=== PATIENT | male | born 1950 | race Caucasian/White ===

== ENCOUNTER → 2016-12-16 | Day surgery (SDC) | payer OTHER ==
[2016-12-06 14:45] VITALS: Ht 172.7 cm; Wt 90.9 kg
[~2016-12-16] VITALS: Ht 172.7 cm; Wt 90.9 kg
[~2016-12-16] MED LIST: AMLO-114 PO; ASPI325T39 PO; ATOR-26 PO; CARI350T27 PO; CLOP1TAB15 PO; CRG3125 PO; GABA-113 PO; GLIP-199 PO; HYDR25TA4 PO; LABETALOL HCL IV 5 MG/ML 20ML IV ONE; LIDOCAINE HCL 2% 2 ML VIAL (20MG/ML) ONE; METF1000 PO; MIDAZOLAM HCL 1 MG/ML 2ML VIAL ONE; NITR0.4S UT; OMEG10007 PO; OXYC-57 PO; PROPOFOL IV EMULSION 10 MG/ML 20 ML VIAL IV ONE; SODIUM CHLORIDE 0.9% 500ML 500 ML IV ONE; VNTHFA/IN INH
--- NOTE | 2016-12-16 08:46 | Endo History and Physical ---
History & Physical Date of Service: Dec 16, 2016. Chief Complaint: screening Referring Physician: Dr. Chad Jara History of Present Illness Average risk screening colonoscopy Past Surgical History Hx Cardiac Surgery: Yes (HEART CATH, NO STENTS) Hx Internal Defibrillator: No Hx Pacemaker: No Hx Abdominal Surgery: No Hx of Implantable Prosthesis: No Hx Post-Op Nausea and Vomiting: No Hx Cancer Surgery: No Hx Thoracic Surgery: No Hx Orthopedic: Yes (3-4 CERVICAL SURGERIES (FULL ROM)) Hx Urinary Tract Surgery: No Family History Colon CA Social History Smoking Status: Former Smoker Hx Substance Use: No Hx Alcohol Use: Yes (HX) Allergies Coded Allergies: No Known Allergies (Verified , 12/06/16) Current Medications Reported Home Medications Medications Dose Route/Sig Max Daily Dose Days Date Category Dose Instructions [place]-3 (Fish Oil) 1 Ea Cap 1 Cap PO QAM 12/06/16 Reported Carvedilol 3.125 Mg Tab 1 Tab PO BID 12/06/16 Reported Plavix (Clopidogrel Bisulfate) 75 Mg Tab 75 Mg PO QAM 12/06/16 Reported Percocet 5MG/325MG (Oxycodone/Acetaminophen) Tab 1 Tablet PO Q6H PRN 12/06/16 Reported PAIN Aspirin Ec (Aspirin) 325 Mg Tab 325 Mg PO QAM 12/06/16 Reported Hctz (Hydrochlorothiazide) 25 Mg Tab 25 Mg PO QAM 12/06/16 Reported Glipizide Er (Glipizide) 10 Mg Tab 1 Tab PO BID 12/06/16 Reported Soma (Carisoprodol) 350 Mg Tab 350 Mg PO TID 12/06/16 Reported Neurontin (Gabapentin) 300 Mg Cap 300 Mg PO TID 12/06/16 Reported Lipitor (Atorvastatin Calcium) 80 Mg Tab 80 Mg PO QAM 12/06/16 Reported Norvasc (Amlodipine Besylate) 10 Mg Tab 10 Mg PO QAM 12/06/16 Reported Ventolin Hfa (Albuterol) 200 Puffs/93895 Mcg Aers 2 Puffs INH Q4 PRN 12/13/12 Reported Glucophage (Metformin Hcl) 1,000 Mg Tab 1,000 Mg PO BID 12/13/12 Reported Nitrostat (Nitroglycerin) 0.4 Mg Sub 0.4 Mg UT PRN 12/13/12 Reported Vital Signs Weight (Kilograms): 90.91 Height (Feet): 5 Height (Inches): 8 Date Time Temp Pulse Resp B/P (MAP) Pulse Ox O2 Delivery O2 Flow Rate FiO2 12/16/16 08:15 36.5 85 18 191/91 (124) 95 Room Air Physical Exam General Appearance: WD/WN, no apparent distress Respiratory/Chest: Auscultation: breath sounds normal, no wheezing Cardiovascular: Heart Auscultation: RRR, no murmurs Abdomen: Inspection & Palpation: soft, no tenderness, guarding & rebound Assessment and Plan cleared for colonoscopy.
--- NOTE | 2016-12-16 09:18 | GI REPORT ---
Procedure Date: 12/16/2016 8:46 AM Procedure: Colonoscopy Indications: Screening for colorectal malignant neoplasm Medicines: Propofol per Anesthesia Complications: No immediate complications. Estimated blood loss: None. Estimated Blood Loss: Estimated blood loss: none. Procedure: Pre-Anesthesia Assessment: - Prior to the procedure, a History and Physical was performed, and patient medications, allergies and sensitivities were reviewed. The patient's tolerance of previous anesthesia was reviewed. - ASA Grade Assessment: III - A patient with severe systemic disease. After I obtained informed consent, the scope was passed under direct vision. Throughout the procedure, the patient's blood pressure, pulse, and oxygen saturations were monitored continuously. The Scope was introduced through the anus and advanced to the terminal ileum, with identification of the appendiceal orifice and IC valve. The colonoscopy was performed without difficulty. The patient tolerated the procedure well. The quality of the bowel preparation was fair. The bowel preparation used was split dose MIralax. Findings: Multiple diverticula were found in the sigmoid colon. Impression: - Diverticulosis in the sigmoid colon. - No specimens collected. - Otherwise normal to terminal ileum. Recommendation: - Repeat colonoscopy in 5 years because the bowel preparation was suboptimal. - Discharge patient to home (with escort). Gregor Mercedes M.D. Gregor Mercedes MD 12/16/2016 9:17:19 AM This report has been signed electronically. Note Initiated On: 12/16/2016 8:46 AM I attest to the content of the Intraoperative Record and orders documented therein, exceptions below
--- NOTE | 2016-12-16 09:25 | Discharge Instructions ---
Endoscopy Patient Instructions Date / Procedure(s) Performed Dec 16, 2016. Colonoscopy Allergy Information Coded Allergies: No Known Allergies (Verified , 12/06/16) Discharge Date / Findings Dec 16, 2016. Diverticulosis. Medication Instructions Stopped Medication(s): last dose Plavix 12/09,took Metformin yesterday,ASA today at 0500 Restart Stopped Medication(s): Resume all medications today. Provider Instructions Activity Restrictions - No exercising or heavy lifting for 24 hours. - Do not drink alcohol the day of the procedure. - Do not drive a car or operate machinery until the day after the procedure. - Do not make any important decisions or sign important papers in 24 hours after the procedure. Following Day: - Return to full activity which may include returning to work/school. Diet Start your diet with liquids and light foods (jello, soup, juice, toast). Then eat your usual diet if not nauseated. Treatment For Common After Affects For mild abdominal pain, bloating, or excessive gas: - Rest - Eat lightly - Lie on right side Follow-Up Information Follow-up with Dr. Chad Jara as scheduled Anesthesia Information What You Should Know You have had a procedure that required some medicine to reduce anxiety and discomfort. This treatment is called moderate sedation. After receiving the treatment, you may be sleepy, but you will be able to breathe on your own. The effects of the treatment may last for several hours. Follow these instructions along with Activity/Diet recommendations noted above: * Do NOT do anything where dizziness or clumsiness would be dangerous. * Rest quietly at home today, then you can be up and about tomorrow. * Have a responsible person stay with you the rest of today. * You may have had an I.V. today. If so, you may take the dressing off later today. Recommendations Call your doctor if: * Trouble breathing * Continuous vomiting for more than 24 hours * Temperature above 101 degrees * Severe abdominal pain or bloating * Pain not relieved by pain medicine ordered * There is increased drainage or redness from any incision * A large amount of rectal bleeding greater than 2-3 tablespoons. (If you had a polyp/s removed or have hemorrhoids, a small amount of blood - from the rectum is to be expected.) * You have any unanswered questions or concerns. IN THE EVENT OF A SERIOUS EMERGENCY, GO TO THE NEAREST EMERGENCY ROOM Your discharge instructions were prepared by provider Gregor Mercedes. Patient Instructions Signature Page Israel Boss Patient (or Guardian) Signature/Date: I have read and understand the instructions given to me by my caregivers. Caregiver/RN/Doctor Signature/Date: The above-named patient and/or guardian has received patient instructions on this date. + Original Patient Signature Page (only) stays with chart. Please make copy for patient.
--- NOTE | 2016-12-16 09:26 | Anesthesiology Progress Note ---
Anesthesia Post Op Note Date & Time Dec 16, 2016 at 09:26 Vital Signs Pain Intensity: 0 Vital Signs Past 12 Hours Date Time Temp Pulse Resp B/P (MAP) Pulse Ox O2 Delivery O2 Flow Rate FiO2 12/16/16 09:17 87 12 108/56 (73) 96 Room Air 12/16/16 09:14 87 12 108/56 (73) 96 Room Air 12/16/16 08:15 36.5 85 18 191/91 (124) 95 Room Air Notes Mental Status: alert / awake / arousable, participated in evaluation Pt Amnestic to Procedure: Yes Nausea / Vomiting: adequately controlled Pain: adequately controlled Airway Patency, RR, SpO2: stable & adequate BP & HR: stable & adequate Hydration State: stable & adequate Anesthetic Complications: no major complications apparent
[2016-12-16 09:42] VITALS: BP 175/84; PULSE 67; O2SAT 97
== END | disposition home or self-care (01) ==
LOC: C.GI 07:36
PROVIDERS: ATTEND Internal Medicine Gastroenterology
DX: Z12.11 Encounter for screening for malignant neoplasm of colon (principal); K57.30 Diverticulosis of large intestine without perforation or abscess without bleeding; Z80.0 Family history of malignant neoplasm of digestive organs; Z87.891 Personal history of nicotine dependence; Z79.02 Long term (current) use of antithrombotics/antiplatelets; Z79.82 Long term (current) use of aspirin; Z79.84 Long term (current) use of oral hypoglycemic drugs; Z79.899 Other long term (current) drug therapy

== ENCOUNTER 2018-09-06 16:26 | Inpatient (IN) ==
--- OUTSIDE RECORDS SUMMARY | 2018-09-06 16:30 | External Medical Summary | Continuity of Care Document ---
:1950 Author Name Gabriela Cheung Address Unavailable Unavailable , Care Team Providers Name Role Phone Gwendolyn Cheung Unavailable [email or web address]. Unavailable [email or web address] Grecia CEDILLO Unavailable Unavailable Unavailable Unavailable Unavailable Problems Chronic obstructive pulmonary disease (496) (J44.9) Backache (724.5) (M54.9) Coronary artery disease (414.00) (I25.10) Allergies and Adverse Reactions No Known Drug Allergies (Allergy) Medications Albuterol AERS Refills: 0 Atenolol 50 MG Oral Tablet; TAKE 1 TABLET DAILY. Refills: 0 Soma 350 MG Oral Tablet; TAKE 1 TABLET 4 TIMES DAILY. Refills: 0 NexIUM 40 MG Oral Capsule Delayed Release; TAKE 1 CAPSULE TW ICE DAILY. Refills: 0 Fish Oil 1000 MG Oral Capsule; TAKE 1 CAPSULE DAILY. Refills: 0 Advair Diskus 250-50 MCG/DOSE Inhalation Aerosol Powder Breath Activated; INHALE 1 PUFFS Twice daily Refills: 0 glyBURIDE 2.5 MG Oral Tablet; TAKE 1 TABLET TWICE DAILY WITH MEALS. Refills: 0 Vicodin ES 7.5-750 MG TABS; TAKE 1 TABLET 4 TIMES DAILY N EEDED. Refills: 0 Combivent 18-103 MCG/ACT AERO; INHALE 2 PUFFS 3-4 TIMES DAILY. RINSE MOUTH AFTER USE. Refills: 0 Naproxen 500 MG Oral Tablet; TAKE 1 TABLET TWICE DAILY. Refills: 0 Nitroglycerin 0.4 MG Sublingual Tablet S ublingual; DISSOLVE 1 TABLET UNDER THE TONGUE NEEDED FOR CHEST PAIN. Refills: 0 Nitroglycerin 0.2 MG/HR Transdermal Patch 24 Hour Refills: 0 Aspirin 81 81 MG Oral Tablet Delayed Release; TAKE 1 T ABLET DAILY. Jonatan Estrada Start: 05-Aug-2010 Refills: 0 Plavix 75 MG Oral Tablet; TAKE 1 TABLET DAILY. Refills: 0 Procedures Procedures not documented Immunizations Immunizations not documented Social History - Smoking Status Smoker. current status unknown Plan of Treatment Planned Observations Planned Goals not documented Results No Known Results Results not documented
[2018-09-06] MEDS ORDERED: SODIUM CHLORIDE 0.9% 1000ML 1,000 ML IV SCH (16:45)
--- NOTE | 2018-09-06 16:56 | XRay Report ---
XR chest 1V portable HISTORY: 67 years-old Male Chest Pain atypical chest pain COMPARISON: Chest radiograph and CTA chest 12/13/2012 TECHNIQUE: Portable AP view of the chest FINDINGS: Cardiac silhouette is mildly enlarged, unchanged. Calcification of the thoracic aortic arch. Scattere d calcified granulomata redemonstrated. No pneumothorax, pleural effusion, focal airspace consolidati on or overt pulmonary edema. Fusion hardware of the lower cervical spine. Degenerative changes of the shoulders and spine are noted. IMPRESSION: Cardiomegaly without acute process. The above report was generated using voice recognition software. It may contain grammatical, syntax o r spelling errors. Electronically signed by: Timothy Monteiro M.D. 09/06/2018 4:54 PM
[2018-09-06 17:21] LABS: Partial Thromboplastin Ratio 0.9; Partial Thromboplastin Time 24.4 Seconds (21.0-31.0); Prothrombin Time 10.7 Seconds (9.0-12.0)
[2018-09-06 17:27] LABS: Alanine Aminotransferase 14 U/L (12-78); Aspartate Aminotransferase 13 U/L (15-37); BUN Creatinine Ratio 17.2 (10-20); Bilirubin Direct < 0.1 mg/dl (0-0.2); Blood Urea Nitrogen 27 mg/dl (7-18); Calcium 9.2 mg/dl (8.5-10.1); Carbon Dioxide 28 mmol/L (21-32); Chloride 97 mmol/L (98-107); Creatinine Clr Calc Pharmacy 45.3 ml/min; Est GFR (African American) 52.1; Est GFR (Non-African American) 44.9; Glucose 112 mg/dl (70-99); Potassium 3.6 mmol/L (3.5-5.1); Sodium 134 mmol/L (136-145)
[2018-09-06 17:32] LABS: Alkaline Phosphatase 70 U/L (45-117); Bilirubin,Total 0.3 mg/dl (0.2-1); Total Protein 7.8 gm/dl (6.4-8.2); Troponin I 0.029 ng/ml (0-0.045)
[2018-09-06 17:41] LABS: Hematocrit (blood only) 22.8 % (42-52); Hemoglobin 6.6 g/dL (14.0-18.0); Mean Corpuscular Hgb Conc 28.9 g/dL (32-36); Mean Platelet Volume 8.7 fL (7.4-10.4); Platelet Count 428 K/uL (130-400); RDW Standard Deviation 46.7 fL (36.4-46.3); Red Blood Count 3.21 M/uL (4.7-6.1); White Blood Count 8.69 K/uL (4.8-10.8)
[2018-09-06 17:54] LABS: Anisocytosis Present; Basophils # (auto) 0.02 K/uL (0-0.2); Basophils % (auto) 0.2 %; Eosinophils # (auto) 0.45 K/uL (0-0.5); Eosinophils % (auto) 5.2 %; Giant Platelets 1+; Hypochromasia Present; Immature Granulocytes # (auto) 0.03 K/uL (0.00-0.02); Immature Granulocytes % (auto) 0.3 %; Lymphocytes # (auto) 1.26 K/uL (1.2-3.4); Lymphocytes % (auto) 14.5 %; Monocytes # (auto) 1.63 K/uL (0.11-0.59); Monocytes % (auto) 18.8 %; Spherocytes Occasional; Target Cells 1+
[2018-09-06] MEDS ORDERED: SODIUM CHLORIDE 0.9% 250 ML IV PRN ×2 (17:59→21:17)
--- NOTE | 2018-09-06 19:29 | Emergency Department Note ---
Entered by Nestor Garza acting as a scribe for Nicolas Jaimes History of Present Illness General Chief complaint: Abnormal Labs/Diagnostic Testing Stated complaint: BLOOD TRANSFUSION Time Seen by Provider: 09/06/18 16:32 Source: patient Mode of arrival: ambulatory History of Present Illness Provider complaint: Abnormal Labs/Diagnostic Testing Onset (ago): hour(s) 3 Location: head Pain Consistency: + constant Maximum Pain Intensity: 7 Current Pain Intensity: 7 Associated symptoms: + chest pain and + other (lower back pain ) Patient is a 67 year old male who presents himself to the ER with chief complaint of abnormal labs and a low hemoglobin. Patient was at the [facility] where his hemoglobin counts came back "quite low". Patient reports he has been having black tarry stool and that he is on the blood thinner Plavix. He states he is having accompanied symptoms of chest pain and lower back pain. He rates his constant pain at a value of 7 on the pain intensity scale. Patient denies nausea and vomiting. Home Medications Home Medications Medication Instructions Recorded Confirmed Type albuterol sulfate 2 puff INHALATION Q4H PRN 09/06/18 09/06/18 History amlodipine 10 mg PO DAILY 09/06/18 09/06/18 History aspirin [Aspirin Low Dose] 81 mg PO DAILY 09/06/18 09/06/18 History atorvastatin 80 mg PO DAILY 09/06/18 09/06/18 History carisoprodol 350 mg PO TID PRN 09/06/18 09/06/18 History carvedilol 3.125 mg PO BID 09/06/18 09/06/18 History chlorthalidone 50 mg PO DAILY 09/06/18 09/06/18 History clopidogrel 75 mg PO DAILY 09/06/18 09/06/18 History fentanyl 1 patch TOPICAL DIRECTED 09/06/18 09/06/18 History ferrous sulfate 325 mg PO BID 09/06/18 09/06/18 History fluticasone propion-salmeterol 1 puff INHALATION BID 09/06/18 09/06/18 History [Advair Diskus] gabapentin 300 mg PO TID 09/06/18 09/06/18 History lisinopril 40 mg PO DAILY 09/06/18 09/06/18 History meclizine 12.5 mg PO TID PRN 09/06/18 09/06/18 History metformin 1,000 mg PO BID 09/06/18 09/06/18 History nitroglycerin 1 tab SUBLINGUAL DIRECTED 09/06/18 09/06/18 History omega 5-tfv-xzq-fish oil [Fish Oil] 1 cap PO DAILY 09/06/18 09/06/18 History oxycodone-acetaminophen 1 tab PO Q4H PRN 09/06/18 09/06/18 History Allergies Allergy/AdvReac Type Severity Reaction Status Date / Time No Known Allergies Allergy Unknown Verified 09/06/18 16:58 Past Med/Surg History Medical History No pertinent past medical history Social History Preferred Language: Swedish Feels Safe at Home: Yes Smoking Status: Former smoker Review of Systems See HPI for pertinent positives & negatives. and A total of 10 systems reviewed and were otherwise negative Physical Exam Vital Signs Vital Signs - 24 hr 09/06/18 16:29 09/06/18 18:11 09/06/18 18:49 Temperature 36.3 C L 36.6 C Temperature Source Oral Oral Sepsis Recent Fever Within 48 Hours No Sepsis Action Taken by Nursing No Action Required Pulse Rate 84 74 Pulse Rate [Apical] 71 Respiratory Rate 18 16 22 Respiratory Effort / Characteristics Non-Labored Spontaneous Respiratory Depth Normal Respiratory Pattern Regular Blood Pressure 167/60 H 194/104 H Blood Pressure [Left Arm] 170/69 H Blood Pressure Mean 95 134 Blood Pressure Mean [Left Arm] 102 Blood Pressure Position Sitting Lying Blood Pressure Position [Left Arm] Lying Pulse Oximetry 98 94 94 Oxygen Delivery Method Room Air Room Air 09/06/18 19:08 09/06/18 19:11 09/06/18 19:23 Temperature 36.6 C 36.7 C Temperature Source Oral Oral Sepsis Recent Fever Within 48 Hours Sepsis Action Taken by Nursing Pulse Rate 72 76 Pulse Rate [Apical] 73 Respiratory Rate 19 19 18 Respiratory Effort / Characteristics Respiratory Depth Respiratory Pattern Blood Pressure 183/89 H 153/74 H Blood Pressure [Left Arm] 183/89 H Blood Pressure Mean 120 100 Blood Pressure Mean [Left Arm] 120 Blood Pressure Position Lying Blood Pressure Position [Left Arm] Pulse Oximetry 92 92 93 Oxygen Delivery Method Room Air Physical Exam GENERAL: He is oriented to person, place, and time. He appears well-developed and well-nourished. He does not appear distressed. ____ HENT: Exam performed. - Head: Normocephalic and atraumatic. - Right Ear: External ear normal. No mastoid tenderness. - Left Ear: External ear normal. No mastoid tenderness. - Mouth/Throat: The oropharynx is clear and moist. No trismus in the jaw. No dental abscesses or uvula swelling. No oropharyngeal exudate or tonsillar abscesses. ____ EYES: Conjunctivae and EOM are normal. Pupils are equal, round, and reactive to light. Right eye exhibits no discharge. Left eye exhibits no discharge. No scleral icterus. ____ NECK: Normal range of motion. Neck supple. No JVD present. No spinous process tenderness present. No carotid bruit present. No rigidity. No tracheal deviation and normal range of motion present. No Brudzinski's sign and no Kernig's sign noted. ____ CV: Normal rate, regular rhythm, normal heart sounds and intact distal pulses. There is no peripheral edema. Palpable radial pulses bue. ____ PULM/CHEST: Effort normal and breath sounds normal. No respiratory distress. No stridor. He has no wheezes. He has no rales. - Chest Wall: He exhibits no tenderness. ____ ABD: The abdomen is soft. Bowel sounds are normal. He has no distension. No mass is present. There is no tenderness. There is no rebound, no guarding, no Herring's sign and no tenderness at McBurney's point. Rovsig negative. No CVA tenderness. Rectal- Hemorrhoids present. dark tarry stool, heme + MUSC/SKEL: Normal range of motion. There is no peripheral edema, tenderness or deformity. LYMPH: No cervical adenopathy. ____ NEURO: He is alert and oriented to person, place, and time. He has normal strength. No cranial nerve deficit or sensory deficit. Coordination and gait normal. GCS eye subscore is 4. GCS verbal subscore is 5. GCS motor subscore is 6. cerbellar tests wnl. ____ SKIN: Skin is warm and dry. He is not diaphoretic. ____ PSYCH: He has a normal mood and affect. His behavior is normal. Judgment and thought content normal. ____ Course 1634: Past medical records reviewed. The patient was evaluated in room B12B. A complete history and physical examination was performed. 1650: I spoke with En[employer]crew/Aerial Observer/Gunner- Gloria who accessed the [employer] system. She reported to me that the patient had a hemoglobin value of 6.9 1829: Vital signs stable. Hemoglobin 6.6. Patient will be transfused 2 units packed red blood cells and be admitted to the hospital service. Patient will be admitted under the care of Dr. Escalante for further treatment. Patient has verbalized agreement of the treatment plan. Administered Medications Sodium Chloride (Nss 1000ml) 1,000 mls @ 125 mls/hr IV .Q8H FILEMON Stop: 09/07/18 00:44 Last Admin: 09/06/18 17: Dose: 125 mls/hr Documented by: [id number] Medical Decision Making Medical Records Attestation: I reviewed the patient's medical records. Home Medications Current Medication List: was personally reviewed by me Laboratory Data Attestation: I reviewed the patient's lab results. Result diagrams: 09/06/18 17:02 09/06/18 17:02 Lab Results 09/06/18 09/06/18 09/06/18 Range/Units 17:02 17:02 17:02 WBC 8.69 (4.8-10.8) K/uL RBC 3.21 L (4.7-6.1) M/uL Hgb 6.6 L* (14.0-18.0) g/dL Hct 22.8 L (42-52) % MCV 71.0 L (80-100) fL MCH 20.6 L (25-34) pg MCHC 28.9 L (32-36) g/dL RDW Std Deviation 46.7 H (36.4-46.3) fL RDW Coeff of David 18.0 H (11.5-14.5) % Plt Count 428 H (130-400) K/uL MPV 8.7 (7.4-10.4) fL Immature Gran % (Auto) 0.3 % Neut % (Auto) 61.0 % Lymph % (Auto) 14.5 % [place] % (Auto) 18.8 % Eos % (Auto) 5.2 % Baso % (Auto) 0.2 % Immature Gran # (Auto) 0.03 H (0.00-0.02) K/uL Neut # (Auto) 5.30 (1.4-6.5) K/uL Lymph # (Auto) 1.26 (1.2-3.4) K/uL [place] # (Auto) 1.63 H (0.11-0.59) K/uL Eos # (Auto) 0.45 (0-0.5) K/uL Baso # (Auto) 0.02 (0-0.2) K/uL Hypersegmented Neuts 1+ Giant Platelets 1+ Hypochromasia Present Anisocytosis Present Spherocytes Occasional Target Cells 1+ PT 10.7 (9.0-12.0) Seconds INR 1.0 (0.9-1.1) APTT 24.4 (21.0-31.0) Seconds PTT Ratio 0.9 Sodium (136-145) mmol/L Potassium (3.5-5.1) mmol/L Chloride (98-107) mmol/L Carbon Dioxide (21-32) mmol/L Anion Gap (3-11) BUN (7-18) mg/dl Creatinine (0.6-1.4) mg/dl Est Cr Clr Drug Dosing ml/min Est GFR ( Amer) Est GFR (Non-Af Amer) BUN/Creatinine Ratio (10-20) Glucose (70-99) mg/dl Calcium (8.5-10.1) mg/dl Total Bilirubin (0.2-1) mg/dl Direct Bilirubin (0-0.2) mg/dl AST (15-37) U/L ALT (12-78) U/L Alkaline Phosphatase (45-117) U/L Troponin I (0-0.045) ng/ml Total Protein (6.4-8.2) gm/dl Albumin (3.4-5.0) gm/dl Lipase (73-393) U/L Blood Type O Negative Antibody Screen NEGATIVE Crossmatch See Detail 09/06/18 Range/Units 17:02 WBC (4.8-10.8) K/uL RBC (4.7-6.1) M/uL Hgb (14.0-18.0) g/dL Hct (42-52) % MCV (80-100) fL MCH (25-34) pg MCHC (32-36) g/dL RDW Std Deviation (36.4-46.3) fL RDW Coeff of David (11.5-14.5) % Plt Count (130-400) K/uL MPV (7.4-10.4) fL Immature Gran % (Auto) % Neut % (Auto) % Lymph % (Auto) % [place] % (Auto) % Eos % (Auto) % Baso % (Auto) % Immature Gran # (Auto) (0.00-0.02) K/uL Neut # (Auto) (1.4-6.5) K/uL Lymph # (Auto) (1.2-3.4) K/uL [place] # (Auto) (0.11-0.59) K/uL Eos # (Auto) (0-0.5) K/uL Baso # (Auto) (0-0.2) K/uL Hypersegmented Neuts Giant Platelets Hypochromasia Anisocytosis Spherocytes Target Cells PT (9.0-12.0) Seconds INR (0.9-1.1) APTT (21.0-31.0) Seconds PTT Ratio Sodium 134 L (136-145) mmol/L Potassium 3.6 (3.5-5.1) mmol/L Chloride 97 L (98-107) mmol/L Carbon Dioxide 28 (21-32) mmol/L Anion Gap 8.0 (3-11) BUN 27 H (7-18) mg/dl Creatinine 1.58 H (0.6-1.4) mg/dl Est Cr Clr Drug Dosing 45.3 ml/min Est GFR ( Amer) 52.1 Est GFR (Non-Af Amer) 44.9 BUN/Creatinine Ratio 17.2 (10-20) Glucose 112 H (70-99) mg/dl Calcium 9.2 (8.5-10.1) mg/dl Total Bilirubin 0.3 (0.2-1) mg/dl Direct Bilirubin < 0.1 (0-0.2) mg/dl AST 13 L (15-37) U/L ALT 14 (12-78) U/L Alkaline Phosphatase 70 (45-117) U/L Troponin I 0.029 (0-0.045) ng/ml Total Protein 7.8 (6.4-8.2) gm/dl Albumin 3.0 L (3.4-5.0) gm/dl Lipase 138 (73-393) U/L Blood Type Antibody Screen Crossmatch Imaging Data Attestation: I personally reviewed and interpreted this imaging study as follows: Radiologist's Impression: Radiology results as stated below per my review and the radiologist's interpretation: XR chest 1V portable HISTORY: 67 years-old Male Chest Pain atypical chest pain COMPARISON: Chest radiograph and CTA chest 12/13/2012 TECHNIQUE: Portable AP view of the chest FINDINGS: Cardiac silhouette is mildly enlarged, unchanged. Calcification of the thoracic aortic arch. Scattered calcified granulomata redemonstrated. No pneumothorax, pleural effusion, focal airspace consolidation or overt pulmonary edema. Fusion hardware of the lower cervical spine. Degenerative changes of the shoulders and spine are noted. IMPRESSION: Cardiomegaly without acute process. The above report was generated using voice recognition software. It may contain grammatical, syntax or spelling errors. Electronically signed by: Timothy Monteiro M.D. 09/06/2018 4:54 PM Dictated: 09/06/[id number] Transcribed: 09/06/18 165 Blood Pressure Blood Pressure Findings: Elevated blood pressure MDM Narrative Vital signs stable. Hemoglobin 6.6. Patient will be transfused 2 units packed red blood cells and be admitted to the hospital service. Patient will be admitted under the care of Dr. Escalante for further treatment. Patient has verbalized agreement of the treatment plan. Impression & Plan GI bleed, Symptomatic anemia Critical Care Time I have personally spent 76 minutes of critical care time in the direct management of this patient. This includes bedside care, interpretation of diagnostic studies, and testing, discussion with consultants, patient, and family members, and other required patient management activities. This 76 minutes is in excess of all separately billable procedures. Critical Care Time: Yes Total Critical Care Time: 76 Discharge Plan Visit Data Chief Complaint: Abnormal Labs/Diagnostic Testing Stated Complaint: BLOOD TRANSFUSION ED Provider: Nicolas Jaimes Discharge Problem: GI bleed, Symptomatic anemia Patient Disposition: Being Evaluated by Hospitalist Forms Stand Alone Forms: My [facility] [employer] Prescriptions Prescriptions: No Action carisoprodol 350 mg Tablet 350 mg PO TID PRN (Reason: Spasms) RF: 0 atorvastatin 80 mg Tablet 80 mg PO DAILY RF: 0 clopidogrel 75 mg Tablet 75 mg PO DAILY RF: 0 aspirin [Aspirin Low Dose] 81 mg Tablet,Delayed Release (Dr/Ec) 81 mg PO DAILY RF: 0 carvedilol 3.125 mg Tablet 3.125 mg PO BID RF: 0 oxycodone-acetaminophen 5-325 mg tablet 1 tab PO Q4H PRN (Reason: Pain) RF: 0 amlodipine 10 mg Tablet 10 mg PO DAILY RF: 0 metformin 1,000 mg Tablet 1,000 mg PO BID RF: 0 nitroglycerin 0.4 mg Tablet, Sublingual 1 tab sublingual DIRECTED RF: 0 gabapentin 300 mg capsule 300 mg PO TID RF: 0 albuterol sulfate 90 mcg/actuation Hfa Aerosol Inhaler 2 puff INHALATION Q4H PRN (Reason: Wheezing) RF: 0 fentanyl 12 mcg/hr patch 72 hour 1 patch topical DIRECTED RF: 0 omega 2-hgf-knt-fish oil [Fish Oil] 1,000 mg (120 mg-180 mg) Capsule 1 cap PO DAILY RF: 0 fluticasone propion-salmeterol [Advair Diskus] 250-50 mcg/dose Blister With Device 1 puff inhalation BID RF: 0 meclizine 12.5 mg Tablet 12.5 mg PO TID PRN (Reason: Vertigo) RF: 0 chlorthalidone 50 mg Tablet 50 mg PO DAILY RF: 0 ferrous sulfate 325 mg (65 mg iron) Tablet 325 mg PO BID RF: 0 lisinopril 40 mg Tablet 40 mg PO DAILY RF: 0 Referrals Referrals: Chad Jara MD [Primary Care Provider] - Discharge Problem: GI bleed Qualifiers: GI bleed type/associated pathology: unspecified gastrointestinal hemorrhage type Qualified Code(s): K92.2 - Gastrointestinal hemorrhage, unspecified The scribe's documentation has been prepared under my direction and personally r eviewed by me in its entirety. I confirm that the note above accurately reflects all work, treatment, procedures, and medical decision making performed by me.
--- NOTE | 2018-09-06 20:23 | History & Physical Report ---
Date of Service September 06, 2018 Assessment & Plan (1) Symptomatic anemia: Microcytic Symptomatic anemia GI Bleed History of diverticulosis, hemorrhoids, CKD, iron deficiency anemia History of peptic ulcer disease as per patient Positive fecal occult Denies any bleeding issues Hemoglobin 6.9 Baseline hemoglobin variable S/P 2 units PRBCs Monitor H&H and transfuse PRBCs as needed Anemia work-up including peripheral smear ordered CT abdomen: pending Continue PPI IV 40 mg twice daily Gastroenterology consulted Ongoing chest pain Reports 2 months H/O intermittent chest pain History of coronary artery disease Bifascicular block--?? New Initial troponin negative Check ECHO Trend troponins Consider cardiology evaluation NTG as needed Repeat EKG in AM Aspirin, Plavix held secondary to above Continue statin Ongoing Dizziness Reports vertigo which worsens with head movement Denies hearing loss, tinnitus Meclizine as needed Check Carotid Dopplers COPD No signs of exacerbation Continue home inhalers Nebs as needed PAD: H/O Carotid Artery disease Aspirin, Plavix held Continue Statins CKD III: Creatinine at baseline Monitor renal function Avoid nephrotoxic agents as able DM II Hold PO agents Insulin sliding scale Last A1C: 7.7 Update A1c GERD Continue PPI Dyslipidemia Continue statins Chronic pain syndrome Continue home meds Hypertension Elevated--Likely situational Continue home meds DVT Px: SCDs Code Status Full Code Disposition: PT/OT prior to discharge History of Present Illness Chief Complaint: Abnormal Labs Primary Care Provider: Chad Jara MD Patient is a 67-year-old male with history of COPD, peripheral artery disease, CKD 3, DM II, GERD, dyslipidemia, chronic pain syndrome, coronary artery disease, former tobacco use, hypertension, carotid artery stenosis, Lumbago and other medical problems presents for evaluation of abnormal labs. Patient was noted to have low hemoglobin on outpatient labs by his PCP and was sent to ED for further evaluation. Patient is a very poor historian. He states having shortness of breath on exertion since last few months, gets tired easily with minimal exertion. Reports nausea but no vomiting. Also states having chronic generalized abdominal pain which has been unchanged which he attributes to having peptic ulcer disease. Reports chronic cough secondary to COPD which has been unchanged. He was recently started on meclizine by PCP for vertigo/BPPV. He denies any history of hearing loss, tinnitus. He takes aspirin and Plavix for coronary artery disease and peripheral artery disease. Is currently not on any blood thinners. Denies any use of NSAIDs. Last colonoscopy done many years ago suggestive of diverticulosis, hemorrhoids. He denies any bleeding issues, blood in stools, hematuria, epistaxis. He was tested positive for fecal occult while in ED. He was started on 2 units of packed red blood cells. His stated that he noticed having black tarry stools as per ER physician. He reports chronic on and off sharp chest pain and back pain which have been unchanged since many months. Currently while in ED, he denies any history of chest pain, SOB, palpitations. Also denies fever, chills, fall, headache, change in vision. Allergies Allergy/AdvReac Type Severity Reaction Status Date / Time No Known Allergies Allergy Unknown Verified 09/06/18 16:58 Home Medications Home Medications Medication Instructions Recorded Confirmed Type albuterol sulfate 2 puff INHALATION Q4H PRN 09/06/18 09/06/18 History amlodipine 10 mg PO DAILY 09/06/18 09/06/18 History aspirin [Aspirin Low Dose] 81 mg PO DAILY 09/06/18 09/06/18 History atorvastatin 80 mg PO DAILY 09/06/18 09/06/18 History carisoprodol 350 mg PO TID PRN 09/06/18 09/06/18 History carvedilol 3.125 mg PO BID 09/06/18 09/06/18 History chlorthalidone 50 mg PO DAILY 09/06/18 09/06/18 History clopidogrel 75 mg PO DAILY 09/06/18 09/06/18 History docusate sodium 100 mg PO BID 09/06/18 09/06/18 History fenofibrate nanocrystallized 145 mg PO DAILY 09/06/18 09/06/18 History [Tricor] fentanyl 1 patch TOPICAL DIRECTED 09/06/18 09/06/18 History ferrous sulfate 325 mg PO BID 09/06/18 09/06/18 History fluticasone propion-salmeterol 1 puff INHALATION BID 09/06/18 09/06/18 History [Advair Diskus] gabapentin 300 mg PO TID 09/06/18 09/06/18 History glipizide 10 mg PO BID 09/06/18 09/06/18 History ipratropium-albuterol [Combivent 1 puff INHALATION Q6H PRN 09/06/18 09/06/18 History Respimat] lisinopril 40 mg PO DAILY 09/06/18 09/06/18 History meclizine 12.5 mg PO TID PRN 09/06/18 09/06/18 History metformin 1,000 mg PO BID 09/06/18 09/06/18 History nitroglycerin 1 tab SUBLINGUAL DIRECTED 09/06/18 09/06/18 History omega 4-mka-ncw-fish oil [Fish Oil] 1 cap PO DAILY 09/06/18 09/06/18 History omeprazole 20 mg PO DAILY 09/06/18 09/06/18 History oxycodone-acetaminophen 1 tab PO Q4H PRN 09/06/18 09/06/18 History polyethylene glycol 3350 [Miralax] 17 g PO DAILY PRN 09/06/18 09/06/18 History Past Med/Surg History Medical History CAD (coronary artery disease) COPD (chronic obstructive pulmonary disease) DMII (diabetes mellitus, type 2) GERD (gastroesophageal reflux disease) HTN (hypertension) with goal to be determined No pertinent past medical history PAD (peripheral artery disease) Surgical History H/O vascular surgery Social History Preferred Language: Chilean Feels Safe at Home: Yes Smoking Status: Former smoker Hx Alcohol Use: Yes Review of Systems Review of Systems: All systems reviewed & are unremarkable except as noted in HPI & below Physical Exam Physical Exam: Physical Exam: Vitals signs as noted above General Appearance:Moderately built and nourished, no apparent distress Head: normocephalic, Atraumatic Eyes: normal inspection, EOMI, +Pallor Neck: supple, Trachea midline Respiratory/Chest: Normal breath sounds, CTA, No accessory muscle use Cardiovascular: S1, S2, + murmur Abdomen/GI:Soft, mild generalized tender--Predominantly RLQ , No guarding/rigidity, Bowel sounds present Extremities/Musculoskelatal:normal inspection, no edema Neurologic/Psych:AAOX3, grossly no focal neurological deficits Skin: normal color, warm Results & Data Vital Signs (Past 12 Hours) Vital Signs Temp Pulse Pulse Resp BP BP Pulse Ox 09/06/18 20:01 72 20 197/71 H 95 09/06/18 19:53 36.4 C L 75 18 197/71 H 95 09/06/18 19:23 36.7 C 76 18 153/74 H 93 09/06/18 19:11 73 19 183/89 H 92 09/06/18 19:08 36.6 C 72 19 183/89 H 92 09/06/18 18:49 36.6 C 74 22 194/104 H 94 09/06/18 18:11 71 16 170/69 H 94 09/06/18 16:29 36.3 C L 84 18 167/60 H 98 Laboratory Results Short CBC 09/06/18 Range/Units 17:02 WBC 8.69 (4.8-10.8) K/uL Hgb 6.6 L* (14.0-18.0) g/dL Hct 22.8 L (42-52) % Plt Count 428 H (130-400) K/uL BMP 09/06/18 17:02 Sodium 134 L Potassium 3.6 Chloride 97 L Carbon Dioxide 28 BUN 27 H Creatinine 1.58 H Glucose 112 H Calcium 9.2 Cardiac Enzymes 09/06/18 Range/Units 17:02 Troponin I 0.029 (0-0.045) ng/ml Liver Function 09/06/18 Range/Units 17:02 Total Bilirubin 0.3 (0.2-1) mg/dl Direct Bilirubin < 0.1 (0-0.2) mg/dl AST 13 L (15-37) U/L ALT 14 (12-78) U/L Alkaline Phosphatase 70 (45-117) U/L Albumin 3.0 L (3.4-5.0) gm/dl Diagnostic Findings CXR: Cardiomegaly without acute process. CT ABD: Pending ECG Additional Comments: EKG: Normal sinus rhythm, first-degree AV block, right bundle branch block, left anterior fascicular block
[2018-09-06] MEDS ORDERED: PANTOprazole 40 MG in SYRINGE 0 ML IV SCH (20:30)
[2018-09-06] MEDS ORDERED: NITROGLYCERIN SL 0.4 MG/TAB TAB SL PRN (21:17)
[2018-09-06] MEDS ORDERED: CARISOPRODOL 350 MG TABLET PO PRN (21:17)
[2018-09-06] MEDS ORDERED: ACETAMINOPHEN 325 MG TAB PO PRN (21:17)
[2018-09-06] MEDS ORDERED: DEXTROSE 50% 50 ML SYRINGE IV PRN (21:17)
[2018-09-06] MEDS ORDERED: POLYETHYLENE (MIRALAX) 17 GM PACK PO PRN (21:17)
[2018-09-06] MEDS ORDERED: GLUCOSE 10 TABS/TUBE PO PRN (21:17)
[2018-09-06] MEDS ORDERED: fentaNYL 12 MCG/HR TDSY TD SCH ×2 (21:17→22:00)
[2018-09-06] MEDS ORDERED: CARBOHYDRATES FOR HYPOGLYCEMIA PO PRN (21:17)
[2018-09-06] MEDS ORDERED: OXYCODONE/ACETAMINOPHEN 5mg/325mg TAB PO PRN (21:17)
[2018-09-06] MEDS ORDERED: ONDANSETRON INJ 2 MG/ML 2 ML VIAL IV PRN (21:17)
[2018-09-06] MEDS ORDERED: ALBUT/IPRATROP 3MG/0.5MG NEB 3 ML VIAL NEB PRN (21:17)
[2018-09-06] MEDS ORDERED: GLUCOSE 40% GEL 15 GM TUBE PO PRN (21:17)
[2018-09-06] MEDS ORDERED: MECLIZINE 12.5 MG TAB PO PRN (21:17)
[2018-09-06] MEDS ORDERED: GLUCAGON FOR INJ 1 MG VIAL SQ PRN (21:17)
[2018-09-06] MEDS ORDERED: LABETALOL HCL IV 5 MG/ML 20ML IV PRN (21:29)
[2018-09-06 21:39] LABS: Ferritin 4.6 ng/ml (8-388); Troponin I 0.029 ng/ml (0-0.045)
[2018-09-06] MEDS: FLUTICASONE/SALMETEROL 250/50 (ADVAIR) 14 PUFF/1 INHALER INH SCH (22:31)
[2018-09-06] MEDS: DOCUSATE SODIUM 100 MG CAP PO SCH (22:32)
[2018-09-06] MEDS: CARVEDILOL 3.125 MG TAB PO SCH (22:32)
[2018-09-06] MEDS: FERROUS SULFATE 325 MG TAB PO SCH (22:33)
[2018-09-06] MEDS: GABAPENTIN 300 MG CAP PO SCH (22:33)
[2018-09-06] MEDS: INSULIN ASPART 100 UNITS/ML 3 ML PEN SC SCH (22:39)
--- NOTE | 2018-09-06 22:46 | XRay Report ---
XR chest 1V portable CLINICAL HISTORY: Shortness of breath. COMPARISON STUDY: Chest CT December 13, 2012. Chest radiograph performed earlier today. FINDINGS: Anterior cervical spine fusion is incidentally noted. A few calcified granulomas are presen t. There is no pneumothorax or pleural effusion. There is no consolidation or evidence for pulmonary edema. Mild cardiomegaly is noted. IMPRESSION: No acute cardiopulmonary findings. Electronically signed by: Drew Patrick M.D. 09/06/2018 10:45 PM
[2018-09-06] MEDS ORDERED: FUROSEMIDE 20 MG in SYRINGE 0 ML IV ONE (23:15)
[2018-09-06] MEDS: NSS + 20MEQ KCL 20 MEQ/1,000 ML BAG IV SCH (23:37)
[2018-09-06 23:46] LABS: Hematocrit (blood only) 23.6 % (42-52); Reticulocyte % 1.6 % (0.5-2.0); Reticulocytes # 0.05 10^6/uL (0.02-0.10)
[2018-09-07] MEDS ORDERED: CHECK FENTANYL PATCH PLACEMENT SCH
[2018-09-07] MEDS: CHECK FENTANYL PATCH PLACEMENT SCH ×4 (00:10→23:53)
[2018-09-07 00:14] LABS: Folate (Folic Acid) 11.21 ng/ml (>5.38)
[2018-09-07 03:26] LABS: Hematocrit (blood only) 23.7 % (42-52); Hemoglobin 6.9 g/dL (14.0-18.0); Mean Corpuscular Hgb Conc 29.1 g/dL (32-36); Mean Corpuscular Volume 71.8 fL (80-100); Mean Platelet Volume 8.8 fL (7.4-10.4); Nucleated RBC # (auto) 0.05 K/uL (0-0); Nucleated RBC % (auto) 0.7 %; Platelet Count 367 K/uL (130-400); RDW Standard Deviation 47.7 fL (36.4-46.3); White Blood Count 6.88 K/uL (4.8-10.8)
[2018-09-07 03:38] LABS: BUN Creatinine Ratio 17.7 (10-20); Calcium 8.7 mg/dl (8.5-10.1); Creatinine Clr Calc Pharmacy 47.8 ml/min; Est GFR (African American) 59.2; Est GFR (Non-African American) 51.1; Magnesium 1.8 mg/dl (1.8-2.4); Potassium 3.7 mmol/L (3.5-5.1)
[2018-09-07 03:43] LABS: Troponin I 0.025 ng/ml (0-0.045)
[2018-09-07 03:44] LABS: Basophils # (auto) 0.03 K/uL (0-0.2); Basophils % (auto) 0.4 %; Eosinophils # (auto) 0.31 K/uL (0-0.5); Eosinophils % (auto) 4.5 %; Hypochromasia Present; Immature Granulocytes # (auto) 0.01 K/uL (0.00-0.02); Immature Granulocytes % (auto) 0.1 %; Lymphocytes # (auto) 1.45 K/uL (1.2-3.4); Lymphocytes % (auto) 21.1 %; Monocytes % (auto) 13.1 %; Neutrophils # (auto) 4.18 K/uL (1.4-6.5); Neutrophils % (auto) 60.8 %
[2018-09-07] MEDS ORDERED: ACETAMINOPHEN 325 MG TAB PO STA (03:44)
[2018-09-07] MEDS ORDERED: SODIUM CHLORIDE 0.9% 250 ML IV PRN (04:10)
[2018-09-07 06:32] LABS: Estimated Average Glucose 151 mg/dl; Hemoglobin A1C 6.9 % (4.5-5.6)
[2018-09-07] MEDS: LISINOPRIL 40 MG TAB PO SCH (08:52)
[2018-09-07] MEDS: FLUTICASONE/SALMETEROL 250/50 (ADVAIR) 14 PUFF/1 INHALER INH SCH ×2 (08:52→20:12)
[2018-09-07] MEDS: CARVEDILOL 3.125 MG TAB PO SCH ×2 (08:52→20:14)
[2018-09-07] MEDS: AMLODIPINE BESYLATE 5 MG TAB PO SCH (08:52)
[2018-09-07] MEDS: PANTOprazole 40 MG in SYRINGE 0 ML IV SCH ×2 (08:52→20:12)
--- NOTE | 2018-09-07 10:00 | Ultrasound Report ---
US carotid doppler BI HISTORY: Atherosclerosis Carotid artery disease COMPARISON: 12/14/2012 TECHNIQUE: Real-time, grayscale, and color Doppler sonography of the carotid arteries was performed. Imaging reviewed in the transverse and longitudinal planes. All measurements were calculated based on NASCET criteria. FINDINGS: Antegrade flow is seen in the bilateral vertebral arteries. The brachial pressures are hemodynamically similar. Significant plaque formation bilaterally. The peak systolic velocity within the right ICA is complete occlusion of the right common carotid art douglas. Reversed flow within the right internal carotid artery with antegrade flow in the right external carotid artery... The peak systolic velocity within the left ICA is 121. The left systolic ratio is 0.34. IMPRESSION: 1. Complete occlusion right common carotid artery.. 2. Moderate stenosis left internal carotid artery estimated at 30-40%. 3. The occlusion of the right common carotid artery is unchanged from the prior exam. The above report was generated using voice recognition software. It may contain grammatical, syntax or spelling errors. Electronically signed by: Chad Waller M.D. 09/07/2018 9:58 AM
[2018-09-07 10:14] LABS: Hematocrit (blood only) 26.8 % (42-52); Hemoglobin 7.9 g/dL (14.0-18.0)
--- NOTE | 2018-09-07 10:21 | Gastrointestinal Consultation ---
Date of Consultation September 07, 2018 Assessment & Plan (1) Symptomatic anemia: Mr. Boss is a 67 yr old male on plavix, ASA with anemia and occult positive stool +. He may have anemia from a GI bleed. 1. Plan for EGD today by Dr. Forman. 2. BID PPI 3. Further recommendations to follow EGD. Present on Admission?: Yes Supervising Physician Co-Signing Physician Notes I saw and evaluated the patient. We are consulted for evaluation of anemia and heme positive stools. We are planning to do upper endoscopy today for further evaluation. Patient wonders if he may have had dark sticky stool several days ago. Physical examination No obvious distress No Scleral icterus No abdominal tenderness Impression: Patient with a history of anemia and heme positive stools. We are planning for upper endoscopy today. If the upper endoscopy is negative then the patient will likely need to have a colonoscopy arranged. Plan Upper endoscopy today Further recommendations pending results of examination History of Present Illness Reason for Consultation: Mr. Israel Boss is a 67 yr old male pt of Dr. Jara with a hx of COPD, peripheral artery disease, CKD 3, DM II, GERD, dyslipidemia, chronic pain syndrome/back pain, coronary artery disease, former tobacco use, hypertension, carotid artery stenosis. He is on Plavix, ASA and when he was seen at his PCP office yesterday, labs showed at Hb 6.9 and he was directed to the ED. His ED note mentions that he reported melena x 1 week. However, when I asked if his BMs were black, he stated, "I guess, I don't really know." When asked if he looks at his BMs, he said, "no." He did tell me that he has not recently had diarrhea and that his most recent BM was yesterday and was formed. On arrival, Hb 7, BUN 27. He received 2 units of RBCs and Hb is now 7.9, BUN is 25. CT abd/pelvis was completed late yesterday but results are not yet available. CXR with cardiomegaly. He has not had gross GI bleeding and remains hemodynamically stable but occult stool was +. Attending Physician: Brent Lucio MD Allergies Allergy/AdvReac Type Severity Reaction Status Date / Time No Known Allergies Allergy Unknown Verified 09/06/18 16:58 Home Medications Home Medications Medication Instructions Recorded Confirmed Type albuterol sulfate 2 puff INHALATION Q4H PRN 09/06/18 09/06/18 History amlodipine 10 mg PO DAILY 09/06/18 09/06/18 History aspirin [Aspirin Low Dose] 81 mg PO DAILY 09/06/18 09/06/18 History atorvastatin 80 mg PO DAILY 09/06/18 09/06/18 History carisoprodol 350 mg PO TID PRN 09/06/18 09/06/18 History carvedilol 3.125 mg PO BID 09/06/18 09/06/18 History chlorthalidone 50 mg PO DAILY 09/06/18 09/06/18 History clopidogrel 75 mg PO DAILY 09/06/18 09/06/18 History docusate sodium 100 mg PO BID 09/06/18 09/06/18 History fenofibrate nanocrystallized 145 mg PO DAILY 09/06/18 09/06/18 History [Tricor] fentanyl 1 patch TOPICAL DIRECTED 09/06/18 09/06/18 History ferrous sulfate 325 mg PO BID 09/06/18 09/06/18 History fluticasone propion-salmeterol 1 puff INHALATION BID 09/06/18 09/06/18 History [Advair Diskus] gabapentin 300 mg PO TID 09/06/18 09/06/18 History glipizide 10 mg PO BID 09/06/18 09/06/18 History ipratropium-albuterol [Combivent 1 puff INHALATION Q6H PRN 09/06/18 09/06/18 History Respimat] lisinopril 40 mg PO DAILY 09/06/18 09/06/18 History meclizine 12.5 mg PO TID PRN 09/06/18 09/06/18 History metformin 1,000 mg PO BID 09/06/18 09/06/18 History nitroglycerin 1 tab SUBLINGUAL DIRECTED 09/06/18 09/06/18 History omega 8-ran-kyg-fish oil [Fish Oil] 1 cap PO DAILY 09/06/18 09/06/18 History omeprazole 20 mg PO DAILY 09/06/18 09/06/18 History oxycodone-acetaminophen 1 tab PO Q4H PRN 09/06/18 09/06/18 History polyethylene glycol 3350 [Miralax] 17 g PO DAILY PRN 09/06/18 09/06/18 History Patient History Medical History CAD (coronary artery disease) COPD (chronic obstructive pulmonary disease) DMII (diabetes mellitus, type 2) GERD (gastroesophageal reflux disease) HTN (hypertension) with goal to be determined No pertinent past medical history PAD (peripheral artery disease) Surgical History H/O vascular surgery Family History Mother CKD (chronic kidney disease) Social History Preferred Language: Maldivian Communication Ability: Effective Ironing Pleater Required: No Beliefs That Will Affect Care: None marital status: Current Living Situation: Spouse Other Information That Helps Us Care for You: No Feels Safe at Home: Yes Safety Concerns: Feels Safe At This Time Smoking Status: Former smoker Tobacco Type: cigarettes Do You Dip or Chew Tobacco: No Second Hand Exposure: Yes Tobacco Cessation Education Requested by Patient: No Hx Alcohol Use: Yes Alcohol type: wine Hx Substance Use: No Review of Systems Review of Systems: ROS: Gen: Reports a gradual onset of weakness and SOB with exertion about a week ago, no fevers or weight loss Eyes: No eye redness, or pain, no recent vision changes Resp: No SOB, no cough Cardio: No palpitations/irregular beats, no chest pain GI: No abdominal pain, no nausea/vomiting : Denies pain on urination Skin: No jaundice, itching or new rashes Constitutional: +weakness, no weight loss, denies fevers Eyes: No eye redness, no impaired vision or double vision Physical Exam Constitutional: well developed, + ill appearing, + thin and cooperative Eyes: PERRL, conjunctivae normal, anicteric sclerae Respiratory: normal respiratory effort, lungs clear to auscultation normal respiratory effort and able to speak in complete sentences; no respiratory distress, no labored breathing, does not use accessory muscles and no cough Cardiovascular: Rate/Rhythm: regular rate and regular rhythm 2/6 systolic murmur Gastrointestinal (Abdomen): Inspection/Auscultation: abdomen normal to inspection and normal bowel sounds; abdomen not distended and no abdominal edema Percussion/Palpation: abdomen soft; abdomen nontender (Mild diffuse adbdominal msk tenderness. No signs of acute abdomen.) Skin: no rashes, warm and dry normal turgor and + pallor Neurologic: PERRL, EOMI, accommodation nl, no face palsy, no dysarthria awake; not confused Psychiatric: A+Ox3, euthymic affect Orientation: alert, oriented x 3 and cooperative Results & Data Vital Signs (Past 12 Hours) Vital Signs Temp Pulse Pulse Resp BP BP Pulse Ox 09/07/18 06:01 36.6 C 69 20 162/81 H 98 09/07/18 05:57 36.4 C L 63 16 138/73 98 09/07/18 05:27 36.8 C 59 L 16 157/73 H 99 09/07/18 05:15 36.4 C L 66 24 149/77 H 98 09/07/18 04:56 36.6 C 72 16 157/77 H 96 09/07/18 04:04 36.6 C 74 20 168/74 H 98 09/07/18 00:00 81 09/06/18 23:34 36.7 C 75 22 198/77 H 98
--- NOTE | 2018-09-07 10:48 | CT Scan Report ---
ABDOMEN AND PELVIS CT WITHOUT CONTRAST CT DOSE: 414.81 mGy.cm HISTORY: Acute upper abdominal pain with anemia Abdominal pain, anemia TECHNIQUE: Multiaxial CT images of the abdomen and pelvis were performed without contrast. A dose lo wering technique was utilized adhering to the principles of ALARA. COMPARISON STUDY: CTA of the chest 12/13/2012. FINDINGS: Mild right subsegmental bibasilar opacities are suggestive of probable atelectasis. No pneumatosis or pneumoperitoneum. Imaged inferior cardiac chambers are mildly enlarged with coronary arterial calcif ications noted. Scattered calcific granulomata noted about the liver and spleen. Liver is otherwise unremarkable. The gallbladder, and pancreas appear unremarkable. Mild thickening about the bilateral adrenal glands. L obular morphology versus underlying lesion about the anterior interpolar left kidney is noted measuri ng up to approximately 2.7 cm in greatest dimension, image 137 series 3. Renal vascular calcification s are noted bilaterally. Calcifications of the interpolar left kidney measuring up to 3 mm are sugges tive of nonobstructing calculi. No ureteral calculi or obstructive uropathy. There is a 7 mm hyperden se lesion about the posterior interpolar left kidney suggests of a proteinaceous or hemorrhagic cyst. Moderate right renal atrophy. Urinary bladder and prostate are unremarkable. Postoperative changes o f the left inguinal distribution. Extensive calcification of the abdominal aorta and iliac arteries. Left-sided IVC. No adenopathy iden tified. No bowel obstruction or focal bowel wall thickening. Colonic diverticulosis without acute div erticulitis. There is no ascites or mesenteric inflammation. Mild to moderate formed stool noted thro ughout the colon. Terminal ileum is unremarkable. No evidence of acute appendicitis. Soft tissues are within normal limits. Multilevel spondylitic spurring with facet arthrosis. IMPRESSION: 1. No acute intra-abdominal or intrapelvic abnormality identified. 2. Lobular morphology about the anterior aspect of the interpolar left kidney. Underlying renal lesio n is considered less likely. This could be correlated with renal ultrasound to further characterize. 3. Moderate right renal atrophy. 4. Bilateral renal vascular calcifications are noted along with nonobstructing left nephrolithiasis. 5. Colonic diverticulosis without acute diverticulitis. 6. Additional findings as above. Electronically signed by: Timothy Monteiro M.D. 09/07/2018 10:46 AM
[2018-09-07] MEDS: INSULIN ASPART 100 UNITS/ML 3 ML PEN SC SCH ×4 (11:07→20:16)
--- NOTE | 2018-09-07 13:12 | Anesthesiology Consultation ---
Date of Service September 07, 2018 Assessment & Plan Chart Review Chart Review: Acceptable Risk for Surgery and Patient NOT seen in Pre Admission Testing Consults Requested none History Surgery Operation Date: 09/07/18 10:10 Proposed Procedures p Esophagogastroduodenoscopy Dr Dickson Forman Height/Weight Height: 5 ft 7 in Weight: 78.1 kg Allergies Allergy/AdvReac Type Severity Reaction Status Date / Time No Known Allergies Allergy Unknown Verified 09/06/18 16:58 Medications Home Medications Medication Instructions Recorded Confirmed Last Taken albuterol sulfate 2 puff INHALATION Q4H PRN 09/06/18 09/06/18 09/06/18 amlodipine 10 mg PO DAILY 09/06/18 09/06/18 09/06/18 aspirin [Aspirin Low Dose] 81 mg PO DAILY 09/06/18 09/06/18 09/06/18 atorvastatin 80 mg PO DAILY 09/06/18 09/06/18 09/06/18 carisoprodol 350 mg PO TID PRN 09/06/18 09/06/18 09/06/18 carvedilol 3.125 mg PO BID 09/06/18 09/06/18 09/06/18 chlorthalidone 50 mg PO DAILY 09/06/18 09/06/18 Unknown clopidogrel 75 mg PO DAILY 09/06/18 09/06/18 09/06/18 docusate sodium 100 mg PO BID 09/06/18 09/06/18 Unknown fenofibrate nanocrystallized 145 mg PO DAILY 09/06/18 09/06/18 Unknown [Tricor] fentanyl 1 patch TOPICAL DIRECTED 09/06/18 09/06/18 09/03/18 ferrous sulfate 325 mg PO BID 09/06/18 09/06/18 Unknown fluticasone propion-salmeterol 1 puff INHALATION BID 09/06/18 09/06/18 Unknown [Advair Diskus] gabapentin 300 mg PO TID 09/06/18 09/06/18 09/06/18 glipizide 10 mg PO BID 09/06/18 09/06/18 Unknown ipratropium-albuterol [Combivent 1 puff INHALATION Q6H PRN 09/06/18 09/06/18 Unknown Respimat] lisinopril 40 mg PO DAILY 09/06/18 09/06/18 Unknown meclizine 12.5 mg PO TID PRN 09/06/18 09/06/18 Unknown metformin 1,000 mg PO BID 09/06/18 09/06/18 09/06/18 nitroglycerin 1 tab SUBLINGUAL DIRECTED 09/06/18 09/06/18 Unknown omega 3-mxi-vpv-fish oil [Fish Oil] 1 cap PO DAILY 09/06/18 09/06/18 09/06/18 omeprazole 20 mg PO DAILY 09/06/18 09/06/18 Unknown oxycodone-acetaminophen 1 tab PO Q4H PRN 09/06/18 09/06/18 09/06/18 polyethylene glycol 3350 [Miralax] 17 g PO DAILY PRN 09/06/18 09/06/18 Unknown Active Medications Generic Name Dose Route Start Last Admin Trade Name Freq PRN Reason Stop Dose Admin Amlodipine Besylate 10 mg 09/07/18 09:00 09/07/18 08:52 Norvasc PO 10/07/18 08:59 10 mg DAILY FILEMON Administration Carvedilol 3.125 mg 09/06/18 21:17 09/07/18 08:52 Coreg PO 10/06/18 21:16 3.125 mg BID FILEMON Administration Docusate Sodium 100 mg 09/06/18 21:17 09/06/18 22:32 Colace PO 10/06/18 21:16 100 mg BID FILEMON Administration Fentanyl 12 mcg 09/06/18 22:00 09/06/18 23:44 Duragesic TD 09/20/18 21:59 12 mcg Q3D FILEMON Administration Ferrous Sulfate 325 mg 09/06/18 21:17 09/06/18 22:33 Feosol PO 10/06/18 21:16 325 mg BID FILEMON Administration Gabapentin 300 mg 09/06/18 21:17 09/06/18 22:33 Neurontin PO 10/06/18 21:16 300 mg TID FILEMON Administration Pantoprazole Sodium 40 mg/ 10 mls @ 5 mls/min 09/07/18 09:00 09/07/18 08:52 Syringe IV 10/07/18 08:59 5 mls/min BID@0900,2100 FILEMON Administration Potassium Chloride/Sodium Chloride 20 meq in 1,000 mls @ 75 mls/hr 09/06/18 21:17 09/06/18 23:37 Normal Saline W/20 Meq Kcl IV 10/06/18 21:16 75 mls/hr .[id number] FILEMON Administration Insulin Aspart 0 units 09/06/18 21:17 09/07/18 11:07 Novolog Flexpen SC 10/06/18 21:16 Not Given ACHS FILEMON Lisinopril 40 mg 09/07/18 09:00 09/07/18 08:52 Zestril PO 10/07/18 08:59 40 mg DAILY FILEMON Administration Miscellaneous 1 ea 09/06/18 21:59 09/06/18 22:38 Fentanyl Patch Remove & Waste N/A 10/06/18 21:58 1 ea Q72H FILEMON Administration Miscellaneous 1 ea 09/07/18 00:00 09/07/18 08:53 Fentanyl Patch Check Placement N/A 10/07/18 00:00 1 ea QS FILEMON Administration Fluticasone/Salmeterol 1 puffs 09/06/18 21:17 09/07/18 08:52 Advair Diskus 250/50 INH 10/06/18 21:16 1 puffs BID FILEMON Administration NPO Date Last Intake of Fluids: 09/06/18 Time Last Intake of Fluids: 15:00 Date Last Intake of Solids: 09/05/18 Time Last Intake of Solids: 21:00 Past Medical History Medical History CAD (coronary artery disease) COPD (chronic obstructive pulmonary disease) DMII (diabetes mellitus, type 2) GERD (gastroesophageal reflux disease) HTN (hypertension) with goal to be determined No pertinent past medical history PAD (peripheral artery disease) Past Family History Family History Mother CKD (chronic kidney disease) Past Surgical History Surgical History H/O vascular surgery Social History Smoking Status: Former smoker tobacco type: cigarettes Do You Dip or Chew Tobacco: No Hx Alcohol Use: Yes Alcohol type: wine alcohol intake frequency: a few times a month Hx Substance Use: No Physical Exam Vital Signs Last Vital Signs Temp 36.5 C 09/07/18 12:12 Pulse 90 09/07/18 12:12 Resp 20 09/07/18 12:12 BP 160/61 H 09/07/18 12:12 Pulse Ox 91 09/07/18 12:12 Testing Laboratory Results 09/07/18 10:04 09/07/18 03:05 Blood Type O Negative 09/06/18 17:02 Antibody Screen NEGATIVE 09/06/18 17:02 PT 10.7 Seconds (9.0-12.0) 09/06/18 17:02 INR 1.0 (0.9-1.1) 09/06/18 17:02 APTT 24.4 Seconds (21.0-31.0) 09/06/18 17:02 Hemoglobin A1c 6.9 % (4.5-5.6) H 09/07/18 03:05 09/07/18 09/07/18 11:04 07:20 POC Glucose 147 H 132 H
[2018-09-07] MEDS ORDERED: ATROPINE SULFATE 0.1 MG/ML 10ML SYR IV PRN (13:17)
[2018-09-07] MEDS ORDERED: ePHEDrine sulfate 50 MG/ML AMP IV PRN (13:17)
[2018-09-07] MEDS: DOCUSATE SODIUM 100 MG CAP PO SCH ×2 (13:39→20:11)
[2018-09-07] MEDS: ATORVASTATIN 40 MG TAB PO SCH (13:39)
[2018-09-07] MEDS: FERROUS SULFATE 325 MG TAB PO SCH ×2 (13:39→20:11)
[2018-09-07] MEDS: FENOFIBRATE NANOCRYSTALLIZED 145 MG TABLET PO SCH (13:40)
[2018-09-07] MEDS: GABAPENTIN 300 MG CAP PO SCH ×3 (13:40→20:12)
--- NOTE | 2018-09-07 14:22 | GI REPORT ---
Patient Name: Israel Boss Procedure Date: 09/07/2018 1:52 PM Date of : 1950 Admit Type: Inpatient Age: 67 Gender: Male Attending MD: Karyna Forman DO Procedure: Upper GI endoscopy Providers: Karyna Forman DO Referring MD: Brent Lucio Indications: Melena Medicines: Monitored Anesthesia Care Complications: No immediate complications. Estimated blood loss: Minimal. Estimated Blood Loss: Estimated blood loss was minimal. Procedure: Pre-Anesthesia Assessment: - Prior to the procedure, a History and Physical was performed, and patient medications, allergies and sensitivities were reviewed. The patient's tolerance of previous anesthesia was reviewed. - Patient identification and proposed procedure were verified prior to the procedure by the physician, the nurse and the motorboat mechanic helper. The procedure was verified in the procedure room. - Pre-procedure physical examination revealed no contraindications to sedation. - ASA Grade Assessment: IV - A patient with severe systemic disease that is a constant threat to life. - After reviewing the risks and benefits, the patient was deemed in satisfactory condition to undergo the procedure. - The anesthesia plan was to use monitored anesthesia care (MAC). - Immediately prior to administration of medications, the patient was re-assessed for adequacy to receive sedatives. - The heart rate, respiratory rate, oxygen saturations, blood pressure, adequacy of pulmonary ventilation, and response to care were monitored throughout the procedure. - The physical status of the patient was re-assessed after the procedure. After obtaining informed consent, the endoscope was passed under direct vision. Throughout the procedure, the patient's blood pressure, pulse, and oxygen saturations were monitored continuously. The Scope was introduced through the mouth, and advanced to the third part of duodenum. The upper GI endoscopy was accomplished without difficulty. The patient tolerated the procedure well. Findings: The examined esophagus was normal. The Z-line was regular and was found 39 cm from the incisors. Diffuse mild inflammation characterized by erythema and granularity was found in the entire examined stomach. Biopsies were taken with a cold forceps for histology. Estimated blood loss was minimal. One non-obstructing non-bleeding cratered gastric ulcer with no stigmata of bleeding was found in the prepyloric region of the stomach. The lesion was 15 mm in largest dimension. The examined duodenum was normal. Impression: - Normal esophagus. - Z-line regular, 39 cm from the incisors. - Gastritis. Biopsied. - Non-obstructing non-bleeding gastric ulcer with no stigmata of bleeding. Suspicious for NSAID induced etiology. - Normal examined duodenum. Recommendation: - [facility] care. - Full liquid diet today. - Use Protonix (pantoprazole) 40 mg PO BID for 6 weeks the 40 mg per day thereafter. - No aspirin, ibuprofen, naproxen, or other non-steroidal anti-inflammatory drugs for 6 weeks. - Repeat upper endoscopy in 3 months for surveillance. Karyna Forman D.O. Karyna Forman, 09/07/2018 2:22:01 PM This report has been signed electronically. Note Initiated On: 09/07/2018 1:52 PM Number of Addenda: 0 I attest to the content of the Intraoperative Record and orders documented therein, exceptions below {[id number]}
--- NOTE | 2018-09-07 15:27 | Anesthesiology Progress Note ---
Date of Service September 07, 2018 Anesthesia Post Procedure Vital Signs Vital Signs: Temp Pulse Pulse Pulse Resp BP BP 09/07/18 14:45 63 18 141/66 H 09/07/18 14:32 61 18 124/61 09/07/18 14:17 36.7 C 69 16 118/56 L 09/07/18 12:12 36.5 C 90 65 20 09/07/18 11:53 36.4 C L 62 19 127/67 09/07/18 08:00 76 09/07/18 06:01 36.6 C 69 20 162/81 H 09/07/18 05:57 36.4 C L 63 16 138/73 09/07/18 05:27 36.8 C 59 L 16 157/73 H 09/07/18 05:15 36.4 C L 66 24 149/77 H 09/07/18 04:56 36.6 C 72 16 157/77 H 09/07/18 04:04 36.6 C 74 20 09/07/18 00:00 81 09/06/18 23:34 36.7 C 75 22 09/06/18 22:00 37.0 C 75 18 173/67 H 09/06/18 21:49 36.8 C 74 20 206/88 H 09/06/18 21:17 37.1 C 72 18 195/80 H 09/06/18 20:53 36.6 C 72 18 189/78 H 09/06/18 20:36 75 18 144/57 H 09/06/18 20:34 73 18 144/57 H 09/06/18 20:01 72 20 197/71 H 09/06/18 19:53 36.4 C L 75 18 197/71 H 09/06/18 19:23 36.7 C 76 18 153/74 H 09/06/18 19:11 73 19 183/89 H 09/06/18 19:08 36.6 C 72 19 183/89 H 09/06/18 18:49 36.6 C 74 22 194/104 H 09/06/18 18:11 71 16 170/69 H 09/06/18 16:29 36.3 C L 84 18 167/60 H BP Pulse Ox Pulse Ox 09/07/18 14:45 94 09/07/18 14:32 94 05/03/19 14:17 96 09/07/18 12:12 160/61 H 91 09/07/18 11:53 90 09/07/18 08:00 09/07/18 06:01 98 09/07/18 05:57 98 09/07/18 05:27 99 09/07/18 05:15 98 09/07/18 04:56 96 09/07/18 04:04 168/74 H 98 09/07/18 00:00 09/06/18 23:34 198/77 H 98 09/06/18 22:00 93 09/06/18 21:49 92 09/06/18 21:17 93 93 09/06/18 20:53 93 09/06/18 20:36 92 09/06/18 20:34 94 09/06/18 20:01 95 09/06/18 19:53 95 09/06/18 19:23 93 09/06/18 19:11 92 09/06/18 19:08 92 09/06/18 18:49 94 09/06/18 18:11 94 09/06/18 16:29 98 Pain Intensity Back: Pain Intensity: 6 Transfer of Care Handoff Completed per policy Notes Mental Status: alert / awake / arousable Patient Amnestic to Procedure: Yes Nausea / Vomiting: adequately controlled Pain: adequately controlled Airway Patency, RR, SpO2: stable & adequate BP & HR: stable & adequate Hydration State: stable & adequate Anesthetic Complications: no major complications apparent and Pt Satisfied with anesthetic care
--- NOTE | 2018-09-07 16:05 | Hospitalist Progress Note ---
Date of Service September 07, 2018 Assessment & Plan (1) Symptomatic anemia: Microcytic Symptomatic anemia GI Bleed with melena History of diverticulosis, hemorrhoids, CKD, iron deficiency anemia History of peptic ulcer disease as per patient Positive fecal occult Hemoglobin 6.9 received 2 units of PRBC Anemia work-up including peripheral smear ordered CT abdomen: Unremarkable Appreciate GI input and accommodation EGD showed gastritis and nonbleeding duodenal ulcer PPI twice daily Ongoing chest pain-likely secondary to anemia Reports 2 months H/O intermittent chest pain History of coronary artery disease Serial troponins negative Check ECHO: Mild concentric left medical hypertrophy without any wall motion abnormalities, EF 55%, aortic valve sclerosis mild without significant stenosis, mild air and mild MR, pulmonary hypertension Consider cardiology evaluation NTG as needed Repeat EKG in AM Aspirin, Plavix held secondary to above Continue statin No more chest pain Ongoing Dizziness Reports vertigo which worsens with head movement Denies hearing loss, tinnitus Meclizine as needed Check Carotid Dopplers;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 as before COPD No signs of exacerbation Continue home inhalers Nebs as needed PAD: H/O Carotid Artery disease Aspirin, Plavix held Continue Statins CKD III: Creatinine at baseline Monitor renal function Avoid nephrotoxic agents as able DM II Hold PO agents Insulin sliding scale Last A1C: 7.7 Update A1c-6.9 GERD Continue PPI Dyslipidemia Continue statins Chronic pain syndrome Continue home meds Hypertension Elevated--Likely situational Continue home meds DVT Px: SCDs Code Status Full Code Disposition: PT/OT prior to discharge (2) Acute blood loss anemia: Secondary to gastric ulcer bleeding EGD showed nonbleeding gastric ulcer now with gastritis Likely secondary to NSAID use but the patient denies any use of NSAID's Biopsy pending Subjective 09/07 The patient was seen and examined in the telemetry unit He is a 67 years old male with significant past medical history of COPD, peripheral artery disease CKD stage III, diabetes type, GERD, hyper lipidemia, and CAD was admitted with melena and low hemoglobin Denies any use of NSAID use Received 2 units of blood and is status post EGD on 09/07 Denies any complaints today Review of Systems Gastrointestinal: Denies any symptoms Physical Exam Physical Exam: No apparent distress at rest Constitutional: well developed, + ill appearing, + thin and cooperative Eyes: PERRL, conjunctivae normal, anicteric sclerae ENMT: Mouth: + dentition abnormality (multiple missing teeth); no TMJ abnormality Mallampati Class: III Neck: normal visual inspection Respiratory: normal respiratory effort, lungs clear to auscultation normal respiratory effort and able to speak in complete sentences; no respiratory distress, no labored breathing, does not use accessory muscles and no cough Auscultation: lungs clear to auscultation bilaterally Cardiovascular: Rate/Rhythm: regular rate and regular rhythm Heart Sounds: no murmur Gastrointestinal (Abdomen): Inspection/Auscultation: abdomen normal to inspection and normal bowel sounds Percussion/Palpation: abdomen soft; abdomen nontender Skin: no rashes, warm and dry normal turgor and + pallor Neurologic: PERRL, EOMI, accommodation nl, no face palsy, no dysarthria moves all extremities and awake; not confused Psychiatric: A+Ox3, euthymic affect Orientation: alert, oriented x 3 and cooperative Results & Data Vital Signs (Past 12 Hours) Vital Signs Temp Pulse Pulse Pulse Resp BP BP 09/07/18 14:45 63 18 141/66 H 09/07/18 14:32 61 18 124/61 09/07/18 14:17 36.7 C 69 16 118/56 L 09/07/18 12:12 36.5 C 90 65 20 09/07/18 11:53 36.4 C L 62 19 127/67 09/07/18 08:00 76 09/07/18 06:01 36.6 C 69 20 162/81 H 09/07/18 05:57 36.4 C L 63 16 138/73 09/07/18 05:27 36.8 C 59 L 16 157/73 H 09/07/18 05:15 36.4 C L 66 24 149/77 H 09/07/18 04:56 36.6 C 72 16 157/77 H BP Pulse Ox 09/07/18 14:45 94 09/07/18 14:32 94 09/07/18 14:17 96 09/07/18 12:12 160/61 H 91 09/07/18 11:53 90 09/07/18 08:00 09/07/18 06:01 98 09/07/18 05:57 98 09/07/18 05:27 99 09/07/18 05:15 98 09/07/18 04:56 96 Laboratory Results Short CBC 05/06/2609/06/18 09/07/18 Range/Units 17:02 23:33 03:05 WBC 8.69 6.88 (4.8-10.8) K/uL Hgb 6.6 L* 7.0 L 6.9 L* (14.0-18.0) g/dL Hct 22.8 L 23.6 L 23.7 L (42-52) % Plt Count 428 H 367 (130-400) K/uL 09/07/18 09/07/18 Range/Units 10:04 15:46 WBC (4.8-10.8) K/uL Hgb 7.9 L 8.0 L (14.0-18.0) g/dL Hct 26.8 L 27.0 L (42-52) % Plt Count (130-400) K/uL BMP 09/06/18 09/07/18 17:02 03:05 Sodium 134 L 136 Potassium 3.6 3.7 Chloride 97 L 102 Carbon Dioxide 28 32 BUN 27 H 25 H Creatinine 1.58 H 1.42 H Glucose 112 H 103 H Calcium 9.2 8.7 Cardiac Enzymes 09/06/18 09/06/18 09/07/18 Range/Units 17:02 21:05 03:05 Troponin I 0.029 0.029 0.025 (0-0.045) ng/ml Liver Function 09/06/18 Range/Units 17:02 Total Bilirubin 0.3 (0.2-1) mg/dl Direct Bilirubin < 0.1 (0-0.2) mg/dl AST 13 L (15-37) U/L ALT 14 (12-78) U/L Alkaline Phosphatase 70 (45-117) U/L Albumin 3.0 L (3.4-5.0) gm/dl Medications Administered Current Inpatient Medications Acetaminophen (Tylenol) 650 mg PO Q4H PRN PRN Reason: Pain or Fever Stop: 10/06/18 21:16 Albuterol (Duoneb) 3 ml NEB Q4R PRN PRN Reason: Shortness Of Breath Or Wheezing Stop: 10/06/18 21:16 Amlodipine Besylate (Norvasc) 10 mg PO DAILY [facility] Stop: 10/07/18 08:59 Last Admin: 09/07/18 08:52 Dose: 10 mg Documented by: Atorvastatin Calcium (Lipitor) 80 mg PO DAILY [facility] Stop: 10/07/18 08:59 Last Admin: 09/07/18 13:39 Dose: Not Given Documented by: Atropine Sulfate (Atropine Sulfate) 0.5 mg IV Q1M PRN PRN Reason: PACU Use-HR<40 &/or Bradycardi Stop: 09/07/18 18:17 Carisoprodol (Soma) 350 mg PO TID PRN PRN Reason: Muscle Spasm Stop: 10/06/18 21:16 Carvedilol (Coreg) 3.125 mg PO BID [facility] Stop: 10/06/18 21:16 Last Admin: 09/07/18 08:52 Dose: 3.125 mg Documented by: Dextrose (Dextrose 50%) 25 - 50 ml IV UD PRN; Protocol PRN Reason: Hypoglycemia Protocol Stop: 10/06/18 21:16 Docusate Sodium (Colace) 100 mg PO BID [facility] Stop: 10/06/18 21:16 Last Admin: 09/07/18 13:39 Dose: Not Given Documented by: Ephedrine Sulfate (Ephedrine Sulfate) 5 mg IV Q5M PRN PRN Reason: PACU Use Only-SBP<90 mmHg Stop: 09/07/18 18:17 Fenofibrate (Tricor) 145 mg PO DAILY [facility] Stop: 10/07/18 08:59 Last Admin: 09/07/18 13:40 Dose: Not Given Documented by: Fentanyl (Duragesic) 12 mcg TD Q3D [facility] Stop: 09/20/18 21:59 Last Admin: 09/06/18 23:44 Dose: 12 mcg Documented by: Ferrous Sulfate (Feosol) 325 mg PO BID [facility] Stop: 10/06/18 21:16 Last Admin: 09/07/18 13:39 Dose: Not Given Documented by: Gabapentin (Neurontin) 300 mg PO TID [facility] Stop: 10/06/18 21:16 Last Admin: 09/07/18 15:08 Dose: 300 mg Documented by: Glucagon (Glucagen) 1 mg SQ UD PRN; Protocol PRN Reason: Hypoglycemia Protocol Stop: 10/06/18 21:16 Glucose (Dex4 Glucose) 4 - 8 tabs PO UD PRN; Protocol PRN Reason: Hypoglycemia Protocol Stop: 10/06/18 21:16 Glucose (Glucose 40%) 15 - 30 gm PO UD PRN; Protocol PRN Reason: Hypoglycemia Protocol Stop: 10/06/18 21:16 Sodium Chloride (Nss) 250 mls @ 15 mls/hr IV .[id number] PRN PRN Reason: For Transfusion Stop: 10/06/18 17:58 Pantoprazole Sodium 40 mg/ (Syringe) 10 mls @ 5 mls/min IV BID@0900,2100 [facility] Stop: 10/07/18 08:59 Last Admin: 09/07/18 08:52 Dose: 5 mls/min Documented by: Sodium Chloride (Nss) 250 mls @ 15 mls/hr IV .[id number] PRN PRN Reason: For Transfusion Stop: 10/06/18 21:16 Sodium Chloride (Nss) 250 mls @ 15 mls/hr IV .[id number] PRN PRN Reason: For Transfusion Stop: 10/07/18 04:09 Insulin Aspart (Novolog Flexpen) 0 units SC ACHS [facility] Stop: 10/06/18 21:16 Last Admin: 09/07/18 17:20 Dose: 3 units Documented by: Labetalol HCl (Normodyne) 10 mg IV Q4H PRN PRN Reason: Hypertension Stop: 10/06/18 21:28 Lisinopril (Zestril) 40 mg PO DAILY [facility] Stop: 10/07/18 08:59 Last Admin: 09/07/18 08:52 Dose: 40 mg Documented by: Meclizine HCl (Antivert) 12.5 mg PO TID PRN PRN Reason: Vertigo Stop: 10/06/18 21:16 Miscellaneous (Carbohydrates For Hypoglycemia) 15 - 30 gm PO UD PRN PRN Reason: Hypoglycemia Treatment Stop: 10/06/18 21:16 Miscellaneous (Fentanyl Patch Remove & Waste) 1 ea N/A Q72H [facility] Stop: 10/06/18 21:58 Last Admin: 09/06/18 22:38 Dose: 1 ea Documented by: Miscellaneous (Fentanyl Patch Check Placement) 1 ea N/A QS [facility] Stop: 10/07/18 00:00 Last Admin: 09/07/18 15:12 Dose: 1 ea Documented by: Nitroglycerin (Nitrostat) 0.4 mg SL UD PRN PRN Reason: Chest Pain Stop: 06/01/19 21:16 Ondansetron HCl (Zofran) 4 mg IV Q6H PRN PRN Reason: Nausea Stop: 10/06/18 21:16 Oxycodone/Acetaminophen (Percocet 5mg/325mg) 1 tab PO Q4H PRN PRN Reason: Pain Stop: 09/20/18 21:16 Polyethylene Glycol (Miralax Powder Packet) 17 gm PO DAILY PRN PRN Reason: Constipation Stop: 10/06/18 21:16 Fluticasone/Salmeterol (Advair Diskus 250/50) 1 puffs INH BID [facility] Stop: 10/06/18 21:16 Last Admin: 09/07/18 08:52 Dose: 1 puffs Documented by:
[2018-09-07] MEDS: NSS + 20MEQ KCL 20 MEQ/1,000 ML BAG IV SCH (16:26)
--- NOTE | 2018-09-07 16:50 | Communication Note ---
Date of Service: September 07, 2018 EGD with 15mm non obstructing, non bleeding gastric ulcer. Rec: pantoprazole 40mg BID x 6 wks then 40 mg daily. Our office will contact him to arrange OP EGD in 3 months. OK for regular consistency diet. Consider discharge on 09/08 if doing well GI will sign off. Ms. Frye and I discussed the EGD. Please continue the Protonix twice daily for 6 weeks then 1 time daily thereafter. The patient should avoid use of all nonsteroidals for the next 6 weeks. Advance the patient's diet as tolerated. Consider discharge on 09/08 if doing well. Please call with any additional questions or concerns during the remainder of the hospital admission per
[2018-09-07] MEDS ORDERED: Nursing to Pharmacy Communication ONE (23:35)
[2018-09-08] MEDS ORDERED: fentaNYL 12 MCG/HR TDSY TD SCH
[2018-09-08 06:46] LABS: Basophils # (auto) 0.01 K/uL (0-0.2); Basophils % (auto) 0.1 %; Eosinophils # (auto) 0.29 K/uL (0-0.5); Eosinophils % (auto) 3.6 %; Hematocrit (blood only) 25.7 % (42-52); Hemoglobin 7.7 g/dL (14.0-18.0); Immature Granulocytes # (auto) 0.03 K/uL (0.00-0.02); Immature Granulocytes % (auto) 0.4 %; Lymphocytes # (auto) 1.18 K/uL (1.2-3.4); Lymphocytes % (auto) 14.7 %; Mean Corpuscular Volume 73.4 fL (80-100); Mean Platelet Volume 9.7 fL (7.4-10.4); Monocytes # (auto) 1.55 K/uL (0.11-0.59); Monocytes % (auto) 19.3 %; Neutrophils # (auto) 4.99 K/uL (1.4-6.5); Neutrophils % (auto) 61.9 %; Platelet Count 371 K/uL (130-400); RDW Coefficient of Variation 18.7 % (11.5-14.5); RDW Standard Deviation 50.3 fL (36.4-46.3); White Blood Count 8.05 K/uL (4.8-10.8)
[2018-09-08 07:15] LABS: Anisocytosis Present; BUN Creatinine Ratio 14.9 (10-20); Calcium 8.9 mg/dl (8.5-10.1); Creatinine Clr Calc Pharmacy 41.4 ml/min; Est GFR (African American) 49.8; Est GFR (Non-African American) 42.9; Potassium 3.7 mmol/L (3.5-5.1)
[2018-09-08] MEDS: PANTOprazole 40 MG in SYRINGE 0 ML IV SCH (07:51)
[2018-09-08] MEDS: GABAPENTIN 300 MG CAP PO SCH (07:51)
[2018-09-08] MEDS: LISINOPRIL 40 MG TAB PO SCH (07:51)
[2018-09-08] MEDS: FENOFIBRATE NANOCRYSTALLIZED 145 MG TABLET PO SCH (07:51)
[2018-09-08] MEDS: DOCUSATE SODIUM 100 MG CAP PO SCH (07:51)
[2018-09-08] MEDS: FERROUS SULFATE 325 MG TAB PO SCH (07:51)
[2018-09-08] MEDS: AMLODIPINE BESYLATE 5 MG TAB PO SCH (07:51)
[2018-09-08] MEDS: FLUTICASONE/SALMETEROL 250/50 (ADVAIR) 14 PUFF/1 INHALER INH SCH (07:51)
[2018-09-08] MEDS: CARVEDILOL 3.125 MG TAB PO SCH (07:52)
[2018-09-08] MEDS: ATORVASTATIN 40 MG TAB PO SCH (07:52)
[2018-09-08] MEDS: INSULIN ASPART 100 UNITS/ML 3 ML PEN SC SCH ×2 (07:54→11:55)
[2018-09-08] MEDS: CHECK FENTANYL PATCH PLACEMENT SCH (08:00)
[2018-09-08] MEDS ORDERED: SODIUM CHLORIDE 0.9% 250 ML IV PRN (08:16)
[2018-09-08 11:40] LABS: Hematocrit (blood only) 27.8 % (42-52); Hemoglobin 8.3 g/dL (14.0-18.0)
--- NOTE | 2018-09-08 11:58 | Hospitalist Progress Note ---
Date of Service September 08, 2018 Assessment & Plan (1) Symptomatic anemia: Microcytic Symptomatic anemia GI Bleed with melena History of diverticulosis, hemorrhoids, CKD, iron deficiency anemia History of peptic ulcer disease as per patient Positive fecal occult Hemoglobin 6.9 received 2 units of PRBC Anemia work-up including peripheral smear ordered CT abdomen: Unremarkable Appreciate GI input and accommodation EGD showed gastritis and nonbleeding duodenal ulcer PPI twice daily for 6 weeks and then once daily Avoid any NSAID use for the next 6 weeks EGD will be arranged by GI in about 3 months Ongoing chest pain-likely secondary to anemia Reports 2 months H/O intermittent chest pain History of coronary artery disease Serial troponins negative Check ECHO: Mild concentric left medical hypertrophy without any wall motion abnormalities, EF 55%, aortic valve sclerosis mild without significant stenosis, mild air and mild MR, pulmonary hypertension Consider cardiology evaluation NTG as needed Repeat EKG in AM Aspirin, Plavix held secondary to above Continue statin No more chest pain Ongoing Dizziness Reports vertigo which worsens with head movement Denies hearing loss, tinnitus Meclizine as needed Check Carotid Dopplers;Complete occlusion of right as before common carotid a rtery as before COPD No signs of exacerbation Continue home inhalers Nebs as needed PAD: H/O Carotid Artery disease Aspirin, Plavix held Continue Statins CKD III: Creatinine at baseline Monitor renal function Avoid nephrotoxic agents as able DM II Hold PO agents Insulin sliding scale Last A1C: 7.7 Update A1c-6.9 GERD Continue PPI Dyslipidemia Continue statins Chronic pain syndrome Continue home meds Hypertension Elevated--Likely situational Continue home meds DVT Px: SCDs Code Status Full Code Disposition: PT/OT prior to discharge (2) Acute blood loss anemia: Secondary to gastric ulcer bleeding EGD showed nonbleeding gastric ulcer now with gastritis Likely secondary to NSAID use but the patient denies any use of NSAID's Biopsy pending Hemoglobin went down to 7.7 Given the cardiac history will give another unit of blood before discharge this afternoon Hemoglobin went up to 8.3 following blood transfusion Subjective 09/07 The patient was seen and examined in the telemetry unit He is a 67 years old male with significant past medical history of COPD, peripheral artery disease CKD stage III, diabetes type, GERD, hyper lipidemia, and CAD was admitted with melena and low hemoglobin Denies any use of NSAID use Received 2 units of blood and is status post EGD on 09/07 Denies any complaints today 09/08 The patient was seen and examined in the telemetry unit He denies any symptoms and has been tolerating regular diet He has been ambulating without any difficulties Review of Systems Review of Systems: All systems reviewed and are unremarkable except as noted below Gastrointestinal: no abdominal pain, no heartburn and no cramping Physical Exam 2 Physical Exam: No apparent distress at rest Constitutional: well developed, + ill appearing, + thin and cooperative Eyes: PERRL, conjunctivae normal, anicteric sclerae ENMT: Mouth: + dentition abnormality (multiple missing teeth); no TMJ abnormality Mallampati Class: III Neck: normal visual inspection Respiratory: normal respiratory effort, lungs clear to auscultation normal respiratory effort and able to speak in complete sentences; no respiratory distress, no labored breathing, does not use accessory muscles and no cough Auscultation: lungs clear to auscultation bilaterally Cardiovascular: Rate/Rhythm: regular rate and regular rhythm Heart Sounds: no murmur Gastrointestinal (Abdomen): Inspection/Auscultation: abdomen normal to inspection and normal bowel sounds Percussion/Palpation: abdomen soft; abdomen nontender Skin: no rashes, warm and dry normal turgor and + pallor Neurologic: PERRL, EOMI, accommodation nl, no face palsy, no dysarthria moves all extremities and awake; not confused Psychiatric: A+Ox3, euthymic affect Orientation: alert, oriented x 3 and cooperative Results & Data Vital Signs (Past 12 Hours) Vital Signs Temp Pulse Pulse Resp BP BP Pulse Ox 09/08/18 11:50 36.5 C 64 18 126/69 94 09/08/18 10:45 36.8 C 66 16 132/70 96 09/08/18 10:43 36.8 C 66 16 132/70 09/08/18 09:43 36.8 C 64 18 138/69 96 09/08/18 09:13 36.9 C 65 18 147/71 H 94 09/08/18 08:58 36.7 C 68 18 143/57 H 95 09/08/18 08:41 37 C 68 18 154/69 H 93 09/08/18 07:00 58 L 09/08/18 06:59 36.5 C 56 L 19 162/79 H 95 09/08/18 04:18 36.4 C L 59 L 18 139/72 95 Laboratory Results Short CBC 09/07/18 09/08/18 09/08/18 Range/Units 15:46 05:55 11:30 WBC 8.05 (4.8-10.8) K/uL Hgb 8.0 L 7.7 L 8.3 L (14.0-18.0) g/dL Hct 27.0 L 25.7 L 27.8 L (42-52) % Plt Count 371 (130-400) K/uL BMP 09/08/18 05:55 Sodium 136 Potassium 3.7 Chloride 101 Carbon Dioxide 29 BUN 25 H Creatinine 1.64 H Glucose 117 H Calcium 8.9 Medications Administered Current Inpatient Medications Acetaminophen (Tylenol) 650 mg PO Q4H PRN PRN Reason: Pain or Fever Stop: 10/06/18 21:16 Albuterol (Duoneb) 3 ml NEB Q4R PRN PRN Reason: Shortness Of Breath Or Wheezing Stop: 10/06/18 21:16 Amlodipine Besylate (Norvasc) 10 mg PO DAILY [facility] Stop: 10/07/18 08:59 Last Admin: 09/08/18 07:51 Dose: 10 mg Documented by: Atorvastatin Calcium (Lipitor) 80 mg PO DAILY [facility] Stop: 10/07/18 08:59 Last Admin: 09/08/18 07:52 Dose: 80 mg Documented by: Carisoprodol (Soma) 350 mg PO TID PRN PRN Reason: Muscle Spasm Stop: 10/06/18 21:16 Carvedilol (Coreg) 3.125 mg PO BID [facility] Stop: 10/06/18 21:16 Last Admin: 09/08/18 07:52 Dose: 3.125 mg Documented by: Dextrose (Dextrose 50%) 25 - 50 ml IV UD PRN; Protocol PRN Reason: Hypoglycemia Protocol Stop: 10/06/18 21:16 Docusate Sodium (Colace) 100 mg PO BID [facility] Stop: 10/06/18 21:16 Last Admin: 09/08/18 07:51 Dose: 100 mg Documented by: Fenofibrate (Tricor) 145 mg PO DAILY [facility] Stop: 10/07/18 08:59 Last Admin: 09/08/18 07:51 Dose: 145 mg Documented by: Fentanyl (Duragesic) 12 mcg TD Q3D [facility] Stop: 09/22/18 00:00 Last Admin: 09/08/18 00:12 Dose: 12 mcg Documented by: Ferrous Sulfate (Feosol) 325 mg PO BID [facility] Stop: 10/06/18 21:16 Last Admin: 09/08/18 07:51 Dose: 325 mg Documented by: Gabapentin (Neurontin) 300 mg PO TID [facility] Stop: 10/06/18 21:16 Last Admin: 09/08/18 07:51 Dose: 300 mg Documented by: Glucagon (Glucagen) 1 mg SQ UD PRN; Protocol PRN Reason: Hypoglycemia Protocol Stop: 10/06/18 21:16 Glucose (Dex4 Glucose) 4 - 8 tabs PO UD PRN; Protocol PRN Reason: Hypoglycemia Protocol Stop: 10/06/18 21:16 Glucose (Glucose 40%) 15 - 30 gm PO UD PRN; Protocol PRN Reason: Hypoglycemia Protocol Stop: 10/06/18 21:16 Sodium Chloride (Nss) 250 mls @ 15 mls/hr IV .[id number] PRN PRN Reason: For Transfusion Stop: 10/06/18 17:58 Pantoprazole Sodium 40 mg/ (Syringe) 10 mls @ 5 mls/min IV BID@0900,2100 [facility] Stop: 10/07/18 08:59 Last Admin: 09/08/18 07:51 Dose: 5 mls/min Documented by: Sodium Chloride (Nss) 250 mls @ 15 mls/hr IV .[id number] PRN PRN Reason: For Transfusion Stop: 10/06/18 21:16 Sodium Chloride (Nss) 250 mls @ 15 mls/hr IV .[id number] PRN PRN Reason: For Transfusion Stop: 10/07/18 04:09 Sodium Chloride (Nss) 250 mls @ 15 mls/hr IV .[id number] PRN PRN Reason: For Transfusion Stop: 10/08/18 08:15 Insulin Aspart (Novolog Flexpen) 0 units SC ACHS [facility] Stop: 10/06/18 21:16 Last Admin: 09/08/18 07:54 Dose: 4 units Documented by: Labetalol HCl (Normodyne) 10 mg IV Q4H PRN PRN Reason: Hypertension Stop: 10/06/18 21:28 Lisinopril (Zestril) 40 mg PO DAILY [facility] Stop: 10/07/18 08:59 Last Admin: 09/08/18 07:51 Dose: 40 mg Documented by: Meclizine HCl (Antivert) 12.5 mg PO TID PRN PRN Reason: Vertigo Stop: 10/06/18 21:16 Miscellaneous (Carbohydrates For Hypoglycemia) 15 - 30 gm PO UD PRN PRN Reason: Hypoglycemia Treatment Stop: 10/06/18 21:16 Miscellaneous (Fentanyl Patch Check Placement) 1 ea N/A QS [facility] Stop: 10/07/18 00:00 Last Admin: 09/08/18 08:00 Dose: 1 ea Documented by: Miscellaneous (Fentanyl Patch Remove & Waste) 1 ea N/A Q72H [facility] Stop: 10/11/18 23:58 Nitroglycerin (Nitrostat) 0.4 mg SL UD PRN PRN Reason: Chest Pain Stop: 10/06/18 21:16 Ondansetron HCl (Zofran) 4 mg IV Q6H PRN PRN Reason: Nausea Stop: 10/06/18 21:16 Oxycodone/Acetaminophen (Percocet 5mg/325mg) 1 tab PO Q4H PRN PRN Reason: Pain Stop: 09/20/18 21:16 Polyethylene Glycol (Miralax Powder Packet) 17 gm PO DAILY PRN PRN Reason: Constipation Stop: 10/06/18 21:16 Fluticasone/Salmeterol (Advair Diskus 250/50) 1 puffs INH BID [facility] Stop: 10/06/18 21:16 Last Admin: 09/08/18 07:51 Dose: 1 puffs Documented by:
--- NOTE | 2018-09-09 08:27 | Discharge Summary ---
Date of Service September 09, 2018 Admission HPI Per Admitting Provider Patient is a 67-year-old male with history of COPD, peripheral artery disease, CKD 3, DM II, GERD, dyslipidemia, chronic pain syndrome, coronary artery disease, former tobacco use, hypertension, carotid artery stenosis, Lumbago and other medical problems presents for evaluation of abnormal labs. Patient was noted to have low hemoglobin on outpatient labs by his PCP and was sent to ED for further evaluation. Patient is a very poor historian. He states having shortness of breath on exertion since last few months, gets tired easily with minimal exertion. Reports nausea but no vomiting. Also states having chronic generalized abdominal pain which has been unchanged which he attributes to having peptic ulcer disease. Reports chronic cough secondary to COPD which has been unchanged. He was recently started on meclizine by PCP for vertigo/BPPV. He denies any history of hearing loss, tinnitus. He takes aspirin and Plavix for coronary artery disease and peripheral artery disease. Is currently not on any blood thinners. Denies any use of NSAIDs. Last colonoscopy done many years ago suggestive of diverticulosis, hemorrhoids. He denies any bleeding issues, blood in stools, hematuria, epistaxis. He was tested positive for fecal occult while in ED. He was started on 2 units of packed red blood cells. His stated that he noticed having black tarry stools as per ER physician. He reports chronic on and off sharp chest pain and back pain which have been unchanged since many months. Currently while in ED, he denies any history of chest pain, SOB, palpitations. Also denies fever, chills, fall, headache, change in vision. Admission Exam Per Admitting Provider Physical Exam: Physical Exam: Vitals signs as noted above General Appearance:Moderately built and nourished, no apparent distress Head: normocephalic, Atraumatic Eyes: normal inspection, EOMI, +Pallor Neck: supple, Trachea midline Respiratory/Chest: Normal breath sounds, CTA, No accessory muscle use Cardiovascular: S1, S2, + murmur Abdomen/GI:Soft, mild generalized tender--Predominantly RLQ , No guarding/rigidity, Bowel sounds present Extremities/Musculoskelatal:normal inspection, no edema Neurologic/Psych:AAOX3, grossly no focal neurological deficits Skin: normal color, warm Principal Diagnosis Acute blood loss anemia secondary to gastritis and nonbleeding gastric ulcer, diabetes type 2, chronic kidney disease, COPD without exacerbation Discharge Exam Constitutional well developed, + ill appearing, + thin and cooperative Eyes PERRL, conjunctivae normal, anicteric sclerae ENMT Mouth: + dentition abnormality (multiple missing teeth); no TMJ abnormality Mallampati Class: III Neck normal visual inspection Respiratory normal respiratory effort, lungs clear to auscultation normal respiratory effort and able to speak in complete sentences; no respi ratory distress, no labored breathing, does not use accessory muscles and no cough Auscultation: lungs clear to auscultation bilaterally Cardiovascular Rate/Rhythm: regular rate and regular rhythm Heart Sounds: no murmur Gastrointestinal (Abdomen) Inspection/Auscultation: abdomen normal to inspection and normal bowel sounds Percussion/Palpation: abdomen soft; abdomen nontender Skin no rashes, warm and dry normal turgor and + pallor Neurologic PERRL, EOMI, accommodation nl, no face palsy, no dysarthria moves all extremities and awake; not confused Psychiatric A+Ox3, euthymic affect Orientation: alert, oriented x 3 and cooperative Discharge Data Allergies Allergy/AdvReac Type Severity Reaction Status Date / Time No Known Allergies Allergy Unknown Verified 09/06/18 16:58 Consultations 09/06/18 17:58 ED Decision to Admit Stat 09/06/18 21:17 Consult Case Management - Discharge Planning Routine Consult Gastroenterology Routine Procedures Performed Operation Date: 09/07/18 10:10 Actual Procedures p EGD Biopsy Cytology - Karyna Forman Ordered Studies 09/06/18 21:17 CT abd pelvis wo con Routine 09/07/18 US carotid doppler BI Routine Hospital Course (1) Symptomatic anemia: Microcytic Symptomatic anemia GI Bleed with melena History of diverticulosis, hemorrhoids, CKD, iron deficiency anemia History of peptic ulcer disease as per patient Positive fecal occult Hemoglobin 6.9 received 2 units of PRBC Anemia work-up including peripheral smear ordered CT abdomen: Unremarkable Appreciate GI input and accommodation EGD showed gastritis and nonbleeding duodenal ulcer PPI twice daily for 6 weeks and then once daily Avoid any NSAID use for the next 6 weeks EGD will be arranged by GI in about 3 months Ongoing chest pain-likely secondary to anemia Reports 2 months H/O intermittent chest pain History of coronary artery disease Serial troponins negative Check ECHO: Mild concentric left medical hypertrophy without any wall motion abnormalities, EF 55%, aortic valve sclerosis mild without significant stenosis, mild air and mild MR, pulmonary hypertension Consider cardiology evaluation NTG as needed Repeat EKG in AM Aspirin, Plavix held secondary to above Continue statin No more chest pain Ongoing Dizziness Reports vertigo which worsens with head movement Denies hearing loss, tinnitus Meclizine as needed Check Carotid Dopplers;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 as before COPD No signs of exacerbation Continue home inhalers Nebs as needed PAD: H/O Carotid Artery disease Aspirin, Plavix held Continue Statins CKD III: Creatinine at baseline Monitor renal function Avoid nephrotoxic agents as able DM II Hold PO agents Insulin sliding scale Last A1C: 7.7 Update A1c-6.9 GERD Continue PPI Dyslipidemia Continue statins Chronic pain syndrome Continue home meds Hypertension Elevated--Likely situational Continue home meds DVT Px: SCDs Code Status Full Code Disposition: PT/OT prior to discharge (2) Acute blood loss anemia: Secondary to gastric ulcer bleeding EGD showed nonbleeding gastric ulcer now with gastritis Likely secondary to NSAID use but the patient denies any use of NSAID's Biopsy pending Hemoglobin went down to 7.7 Given the cardiac history will give another unit of blood before discharge this afternoon Hemoglobin went up to 8.3 following blood transfusion Total Time Total Time Spent Total Time Spent (In Minutes): 40 minutes Total Time Includes: Examination of the Patient, Discharge Planning, Medication Reconciliation and Communication With Other Providers Discharge Plan Discharge Items Patient Disposition: Home - Self-Care Reason For Visit: ANEMIA Discharge Diagnosis: Acute blood loss anemia secondary to gastritis and nonbleeding gastric ulcer, diabetes type 2, chronic kidney disease, COPD without exacerbation Condition: Fair Discharge Goals: Decrease discomfort, Improve function and Increase independence Activity: Resume your previous activity Non-emergency contact: Primary Care Provider Call non-emergency contact if: you have any medication questions and your symptoms worsen Follow-up/Referrals: Chad Jara MD [Primary Care Provider] - 09/11/18 1:35 pm (Your appointment is in [facility]. GI service will call for endoscopy in 3 months) Diet: Carb Consistent or DM2 and Heart Healthy Addtl Provider Instructions: Avoid any NSAID use including aspirin for the next 6 weeks Prescriptions: New pantoprazole [Protonix] 40 mg tablet,delayed release (DR/EC) 40 mg PO BID 40 Days Qty: 80 RF: 0 Continued carisoprodol 350 mg Tablet 350 mg PO TID PRN (Reason: Spasms) RF: 0 atorvastatin 80 mg Tablet 80 mg PO DAILY RF: 0 clopidogrel 75 mg Tablet 75 mg PO DAILY RF: 0 carvedilol 3.125 mg Tablet 3.125 mg PO BID RF: 0 oxycodone-acetaminophen 5-325 mg tablet 1 tab PO Q4H PRN (Reason: Pain) RF: 0 amlodipine 10 mg Tablet 10 mg PO DAILY RF: 0 metformin 1,000 mg Tablet 1,000 mg PO BID RF: 0 nitroglycerin 0.4 mg Tablet, Sublingual 1 tab sublingual DIRECTED RF: 0 gabapentin 300 mg capsule 300 mg PO TID RF: 0 albuterol sulfate 90 mcg/actuation Hfa Aerosol Inhaler 2 puff INHALATION Q4H PRN (Reason: Wheezing) RF: 0 fentanyl 12 mcg/hr patch 72 hour 1 patch topical DIRECTED RF: 0 omega [id number]-fish oil [Fish Oil] 1,000 mg (120 mg-180 mg) Capsule 1 cap PO DAILY RF: 0 fluticasone propion-salmeterol [Advair Diskus] 250-50 mcg/dose Blister With Device 1 puff inhalation BID RF: 0 meclizine 12.5 mg Tablet 12.5 mg PO TID PRN (Reason: Vertigo) RF: 0 chlorthalidone 50 mg Tablet 50 mg PO DAILY RF: 0 ferrous sulfate 325 mg (65 mg iron) Tablet 325 mg PO BID RF: 0 lisinopril 40 mg Tablet 40 mg PO DAILY RF: 0 glipizide 10 mg Tablet 10 mg PO BID RF: 0 docusate sodium 100 mg Capsule 100 mg PO BID RF: 0 polyethylene glycol 3350 [Miralax] 17 gram Powder In Packet 17 g PO DAILY PRN (Reason: Constipation) RF: 0 Combivent Respimat 20-100 mcg/actuation Mist 1 puff INHALATION Q6H PRN (Reason: Shortness Of Breath Or Wheezing) RF: 0 fenofibrate nanocrystallized [Tricor] 145 mg Tablet 145 mg PO DAILY RF: 0 Discontinued aspirin [Aspirin Low Dose] 81 mg Tablet,Delayed Release (Dr/Ec) 81 mg PO DAILY RF: 0 omeprazole 20 mg Capsule,Delayed Release(Dr/Ec) 20 mg PO DAILY RF: 0 Stand-Alone Forms: My [facility] Discharge Orders: Discharge Order (Routine); Ordered 09/08/18 Ordered By: Brent Lucio Admission Data Admit Date/Time: 09/06/18 19:57 Attending Provider: Brent Lucio Admit Provider: Sunil Escalante Primary Care Provider: Chad Jara Other Providers: Sunil Escalante ; Karyna Forman Service: Telemetry Other Interventions: Discharge Summary Assessment (RN) Last Done: 09/08/18 12:10 DC Date/Time DO NOT enter until pt leaves facility: 09/08/18 12:36
== END 2018-09-08 12:36 | disposition home or self-care (01) | DRG 379 ==
LOC: ED 16:26 → 2S 19:57

== ENCOUNTER 2020-01-31 23:10 | Inpatient (IN) ==
[2020-01-31] MEDS ORDERED: ALBUT/IPRATROP 3MG/0.5MG NEB 3 ML VIAL NEB ONE (23:18)
[2020-01-31] MEDS ORDERED: methylPREDNISolone 125 MG/2 ML VIAL IV STA (23:18)
[2020-01-31] MEDS ORDERED: LABETALOL HCL IV 5 MG/ML 20ML IV STA (23:21)
--- NOTE | 2020-01-31 23:21 | Emergency Department Note ---
Impression & Plan Acute exacerbation of chronic obstructive pulmonary disease, Hypertension ED Provider Note Name: JAYLEN POP Age: 69 Sex: M Arrives Via: Ambulance Informant: Patient, EMS ED Provider: Jose Juan Dailey MD Chief Complaint: Shortness of breath Impression: Acute exacerbation of chronic obstructive pulmonary disease Hypertension Medical Decision Making: Pleasant 69 yr old male with history COPD, HTN, DLP, CAD, DMII, GERD, PAD, GERD arrives acutely short of breath despite many rounds of neds at home. No inciting incident other than seasonal allergies. Lungs with diffuse wheezing. Given COVID pandemic testing sent which was fortunately negative. CXR without clear infiltrate, maybe mild worsening emphysema from 2019 vs underlying congestion. EKG without ischemia and looks improved from previous EKG. Quite hypertensive on arrival improved nicely with initial Labetalol 10mg IV. 1 hr Duoneb given with improvement in symptoms though still very poor lung exams. BNP significantly elevated but by exam he is not in failure at this time, and given Cr just a bit bumped from baseline will hold on any lasix as I favor this more COPD than cardiac at this time. Trop is mildly elevated from baseline as well though no chest pain, ekg ischemia, and with other likely cause will hold off on anticoagulation at this time. Hospitalist consulted to further evaluation and will defer abx selection to them. Prior Medical Record and Triage/Nursing Notes reviewed by Me Additional history obtained from Chart and EMS Differentials:Reactive airway disease, pneumonia, pneumothorax, COPD, CHF, infections, cardiac ischemia, pulmonary embolism, musculoskeletal, gastrointestinal, as well as other pathologies. Vital Signs: reviewed and remarkable for HTN Interventions: Solumedrol 125mg IV, Duoneb 1hr neb, Labetalol 10mg IV Labs:Reviewed and remarkable for negative for covid, mild bump trop from baseline, mild bump cr from baseline. Imaging:X ray results are stated below per my interpretation: Chest: 1 view: No infiltrate, no effusion, normal cardiac border. EKG:Per My Interpretation: Indication Shortness of breath: NSR 87 bpm, qtc 498. No Ectopy. No Ischemia. Prolonged Pwave with notch, bifascicular block. Compared to EKG 09/07/18 ischemic changes have resolved.. Cardiac/Tele Monitoring: Cardiac Monitoring: An Order was placed for continuous cardiac monitoring. The monitor shows a rate of 90 with a normal sinus rhythm. Consults:Dr Tammi Vallejo Hospitalist Plan: Disposition:Hospitalization. Condition: Good Blood pressure:Elevated - Referred to Hospitalist Prescriptions:none PDMP: n/a History of Present Illness:69 yr old male arrives for evaluation of shortness of breath. Long history of COPD though no recent hospitalizations other than in for a GI Bleed a few months ago. Admits history HTN, DLP, CAD, DMII, GERD, PAD, amongst others. Notes he was feeling well the last few days. This morning awoke mildly short of breath. Rapidly worsening throughout the day and evening. Used Neb x 10 today with continued worsening. Exertion makes worse, sitting down makes better. Associated productive junky cough. No fevers, chills, syncope, cp, headache, neck pain, abdominal pain, nausea, vomiting, back pain, urinary/bowel symptoms, leg swelling, rashes, nor other symptoms. Denies sick contacts, COVID testing, nor much exposure to outside world due to COVID pandemic. Denies previous COPD exacerbation this severe. ROS: See above HPI for pertinent positives & negatives. A total of 10 systems reviewed and were otherwise negative. Past Medical History:COPD, HTN, DLP, CAD, DMII, GERD, PAD, GERD Past Surgical History:Cervical fusion Family History:Mother CKD Social History:Smoker, lives with , retired, no etoh Home Medications:See Below Allergies:NKDA Vitals:Blood Pressure: 228/118, Pulse 92, RR 24, T 37.1C, O2 96% on RA Physical Exam: GENERAL: Patient is unwell appearing and in moderate distress. EYES: No scleral icterus, unremarkable pupils. ENT: Mucous membranes moist, no nasal congestion. NECK: No masses appreciated, nomeningismus, trachea is midline. RESPIRATORY: Moderate dyspnea with mild tachypnea. Diffuse loud wheezing insp/exp. CARDIOVASCULAR: Regular rate and rhythm.No murmurs, rubs, gallops appreciated. GASTROINTESTINAL: Abdomen soft, non-tender, no peritonitis.Bowel sounds positive.No masses appreciated. BACK: No midline tenderness, no CVA tenderness EXTREMITIES: Normal motion all extremities, no cyanosis, no edema. NEUROLOGIC: Alert and oriented, no acute motor or sensory deficits, no focal weakness, cranial nerves grossly intact. SKIN: No rash, no jaundice, no diaphoresis. PSYCH: Appropriate GCS: 15 ED Course: Times/Reassessments: Vastly improved with neb though still with diffuse wheezing. Jose Juan Dailey MD Past Med/Surg History Medical History (Updated 02/01/20 @ 04:35 by Jose Juan Dailey MD) Anemia HX OF Bulging disc LUMBAR AREA CAD (coronary artery disease) COPD (chronic obstructive pulmonary disease) WEARS O2 AT 2L HS "SOMETIMES" Diabetes mellitus, type 2 GERD (gastroesophageal reflux disease) Hyperlipidemia Hypertension Macular degeneration Myocardial Infarction 2003 (LIFE [place]ED TO [place]) On home oxygen therapy 2L AT HS Osteoarthritis PAD (peripheral artery disease) Peripheral neuropathy Surgical History Fusion of spine CERVICAL H/O eye surgery LASER SURGERY FOR BLEEDING EYE H/O vascular surgery History of colonoscopy History of discectomy CERVICAL History of esophagogastroduodenoscopy (EGD) Family History Mother CKD (chronic kidney disease) Social History (Updated 09/06/18 @ 20:39 by Sunil Escalante MD) Smoking Status: Current every day smoker Tobacco Type: Cigarettes Cigarettes Per Day: 6 -8/day; Second Hand Exposure: Yes; Do You Dip or Chew Tobacco: No; Hx Alcohol Use: Yes Alcohol type: beer Hx Substance Use: No Preferred Language: Wolof Communication Ability: Effective Svp Research And Strategic Analysis Required: No Beliefs That Will Affect Care: None marital status: Current Living Situation: Spouse Other Information That Helps Us Care for You: No Feels Safe at Home: Yes Safety Concerns: Feels Safe At This Time Assistive Devices: None Allergies Allergies Allergy/AdvReac Type Severity Reaction Status Date / Time No Known Allergies Allergy Unknown Verified 02/01/20 00:10 Home Meds Home Medications Medication Instructions Recorded Confirmed albuterol sulfate 2 puff INHALATION Q4H PRN 09/06/18 02/01/20 amlodipine 10 mg PO DAILY 09/06/18 02/01/20 atorvastatin 80 mg PO DAILY 09/06/18 02/01/20 carisoprodol 350 mg PO TID PRN 09/06/18 02/01/20 chlorthalidone 50 mg PO DAILY 09/06/18 02/01/20 clopidogrel 75 mg PO DAILY 09/06/18 02/01/20 docusate sodium 100 mg PO BID 09/06/18 02/01/20 fenofibrate nanocrystallized 145 mg PO DAILY 09/06/18 02/01/20 [Tricor] fentanyl 1 patch TOPICAL DIRECTED 09/06/18 02/01/20 ferrous sulfate 325 mg PO BID 09/06/18 02/01/20 gabapentin 300 mg PO TID 09/06/18 02/01/20 glipizide 10 mg PO BID 09/06/18 02/01/20 lisinopril 40 mg PO DAILY 09/06/18 02/01/20 meclizine 12.5 mg PO TID PRN 09/06/18 02/01/20 omega [id number] oil [Fish Oil] 1 cap PO DAILY 09/06/18 02/01/20 oxycodone-acetaminophen 1 tab PO Q6H PRN 09/06/18 02/01/20 albuterol sulfate 2.5 mg INHALATION Q4H PRN 02/01/20 02/01/20 aspirin 325 mg PO DAILY 02/01/20 02/01/20 carvedilol 6.25 mg PO BIDM 02/01/20 02/01/20 cholecalciferol (vitamin D3) 125 mcg PO DAILY 02/01/20 02/01/20 [Vitamin D3] metformin 1,000 mg PO BIDM 02/01/20 02/01/20 pantoprazole [Protonix] 40 mg PO DAILY 02/01/20 02/01/20 sennosides [Senokot] 8.6 mg PO BID 02/01/20 02/01/20 tamsulosin [Flomax] 0.4 mg PO DAILY 02/01/20 02/01/20 tiotropium bromide [Spiriva 2 puff INHALATION DAILY 02/01/20 02/01/20 Respimat] Results & Data (ED) Vital Signs Vital Signs - 24 hr 01/31/20 23:10 01/31/20 23:17 01/31/20 23:30 Temperature 37.1 C Temperature Source Oral Pulse Rate 92 H 95 H 91 H Pulse Rate [Right Radial] Pulse Rate from SpO2 Sensor Respiratory Rate 24 23 18 Respiratory Effort / Characteristics Spontaneous Labored Respiratory Depth Normal Respiratory Pattern Regular Blood Pressure 228/118 H 228/118 H 225/114 H Blood Pressure Mean 154 148 160 Blood Pressure Position Sitting Pulse Oximetry 96 96 96 Oxygen Delivery Method Room Air Room Air Room Air Oxygen Flow Rate Sepsis Recent Fever Within 48 Hours No Sepsis New/Unexplained Change in Mental Status No Sepsis Action Taken by Nursing No Action Required 01/31/20 23:37 01/31/20 23:50 01/31/20 23:58 Temperature Temperature Source Pulse Rate 63 Pulse Rate [Right Radial] 70 Pulse Rate from SpO2 Sensor Respiratory Rate 18 20 Respiratory Effort / Characteristics Non-Labored Spontaneous Respiratory Depth Respiratory Pattern Blood Pressure 157/98 H Blood Pressure Mean 116 Blood Pressure Position Pulse Oximetry 96 100 95 Oxygen Delivery Method Room Air Room Air Oxygen Flow Rate 0 Sepsis Recent Fever Within 48 Hours Sepsis New/Unexplained Change in Mental Status Sepsis Action Taken by Nursing 02/01/20 00:01 02/01/20 00:02 02/01/20 00:31 Temperature Temperature Source Pulse Rate 68 71 Pulse Rate [Right Radial] Pulse Rate from SpO2 Sensor Respiratory Rate 18 19 Respiratory Effort / Characteristics Non-Labored Spontaneous Respiratory Depth Normal Respiratory Pattern Regular Blood Pressure 169/83 H 193/90 H Blood Pressure Mean 99 127 Blood Pressure Position Pulse Oximetry 100 100 Oxygen Delivery Method Room Air Oxygen Flow Rate Sepsis Recent Fever Within 48 Hours Sepsis New/Unexplained Change in Mental Status Sepsis Action Taken by Nursing 02/01/20 01:01 02/01/20 01:30 02/01/20 02:00 Temperature Temperature Source Pulse Rate 78 82 81 Pulse Rate [Right Radial] Pulse Rate from SpO2 Sensor 75 83 81 Respiratory Rate 17 23 23 Respiratory Effort / Characteristics Respiratory Depth Respiratory Pattern Blood Pressure 184/105 H 207/92 H 204/106 H Blood Pressure Mean 133 107 136 Blood Pressure Position Pulse Oximetry 95 94 95 Oxygen Delivery Method Oxygen Flow Rate Sepsis Recent Fever Within 48 Hours Sepsis New/Unexplained Change in Mental Status Sepsis Action Taken by Nursing Laboratory Data Result diagrams: 01/31/20 23:39 01/31/20 23:39 Lab Results 01/31/20 01/31/20 01/31/20 Range/Units 23:39 23:39 23:39 WBC 10.01 (4.8-10.8) K/uL RBC 4.02 L (4.7-6.1) M/uL Hgb 11.6 L (14.0-18.0) g/dL Hct 37.6 L (42-52) % MCV 93.5 (80-100) fL MCH 28.9 (25-34) pg MCHC 30.9 L (32-36) g/dL RDW Std Deviation 59.5 H (36.4-46.3) fL RDW Coeff of David 17.5 H (11.5-14.5) % Plt Count 495 H (130-400) K/uL MPV 9.8 (7.4-10.4) fL Immature Gran % (Auto) 0.3 % Neut % (Auto) 73.1 % Lymph % (Auto) 13.7 % [place] % (Auto) 11.7 % Eos % (Auto) 1.1 % Baso % (Auto) 0.1 % Neut # (Auto) 7.32 H (1.4-6.5) K/uL Lymph # (Auto) 1.37 (1.2-3.4) K/uL [place] # (Auto) 1.17 H (0.11-0.59) K/uL Eos # (Auto) 0.11 (0-0.5) K/uL Baso # (Auto) 0.01 (0-0.2) K/uL Immature Gran # (Auto) 0.03 H (0.00-0.02) K/uL PT 11.7 (9.0-12.0) Seconds INR 1.1 (0.9-1.1) APTT (21.0-31.0) Seconds PTT Ratio Sodium (136-145) mmol/L Potassium (3.5-5.1) mmol/L Chloride (98-107) mmol/L Carbon Dioxide (21-32) mmol/L Anion Gap (3-11) BUN (7-18) mg/dl Creatinine (0.6-1.4) mg/dl Est Cr Clr Drug Dosing ml/min Est GFR ( Amer) Est GFR (Non-Af Amer) BUN/Creatinine Ratio (10-20) Glucose (70-99) mg/dl Lactate 1.1 (0.4-2.0) mmol/L Calcium (8.5-10.1) mg/dl Magnesium (1.8-2.4) mg/dl Total Bilirubin (0.2-1) mg/dl Direct Bilirubin (0-0.2) mg/dl AST (15-37) U/L ALT (12-78) U/L Alkaline Phosphatase (45-117) U/L Troponin I (0-0.045) ng/ml NT-Pro-B Natriuret Pep (0-900) pg/ml Total Protein (6.4-8.2) gm/dl Albumin (3.4-5.0) gm/dl Urine Color Urine Appearance (Clear) Urine pH (4.5-7.5) Ur Specific [place] (1.000-1.030) Urine Protein (Negative) Urine Glucose (UA) (Negative) Urine Ketones (Negative) Urine Blood (Negative) Urine Nitrite (Negative) Urine Bilirubin (Negative) Urine Urobilinogen (Negative) Ur Leukocyte Esterase (Negative) Urine WBC (Auto) (0-5) /hpf Urine RBC (Auto) (0-4) /hpf U Hyaline Cast (Auto) (0-5) /lpf U Epithel Cells (Auto) (0-5) /lpf Urine Bacteria (Auto) (Negative) COVID-19 Eval Order COVID-19 PCR (Negative) 01/31/20 01/31/20 01/31/20 Range/Units 23:39 23:39 23:49 WBC (4.8-10.8) K/uL RBC (4.7-6.1) M/uL Hgb (14.0-18.0) g/dL Hct (42-52) % MCV (80-100) fL MCH (25-34) pg MCHC (32-36) g/dL RDW Std Deviation (36.4-46.3) fL RDW Coeff of David (11.5-14.5) % Plt Count (130-400) K/uL MPV (7.4-10.4) fL Immature Gran % (Auto) % Neut % (Auto) % Lymph % (Auto) % [place] % (Auto) % Eos % (Auto) % Baso % (Auto) % Neut # (Auto) (1.4-6.5) K/uL Lymph # (Auto) (1.2-3.4) K/uL [place] # (Auto) (0.11-0.59) K/uL Eos # (Auto) (0-0.5) K/uL Baso # (Auto) (0-0.2) K/uL Immature Gran # (Auto) (0.00-0.02) K/uL PT (9.0-12.0) Seconds INR (0.9-1.1) APTT 30.0 (21.0-31.0) Seconds PTT Ratio 1.1 Sodium 140 (136-145) mmol/L Potassium 3.7 (3.5-5.1) mmol/L Chloride 107 (98-107) mmol/L Carbon Dioxide 26 (21-32) mmol/L Anion Gap 7.0 (3-11) BUN 17 (7-18) mg/dl Creatinine 1.74 H (0.6-1.4) mg/dl Est Cr Clr Drug Dosing 39.3 ml/min Est GFR ( Amer) 45.7 Est GFR (Non-Af Amer) 39.4 BUN/Creatinine Ratio 9.8 L (10-20) Glucose 121 H (70-99) mg/dl Lactate (0.4-2.0) mmol/L Calcium 9.3 (8.5-10.1) mg/dl Magnesium 1.7 L (1.8-2.4) mg/dl Total Bilirubin 0.6 (0.2-1) mg/dl Direct Bilirubin 0.2 (0-0.2) mg/dl AST 27 (15-37) U/L ALT 50 (12-78) U/L Alkaline Phosphatase 87 (45-117) U/L Troponin I 0.085 H* (0-0.045) ng/ml NT-Pro-B Natriuret Pep 62421 H (0-900) pg/ml Total Protein 7.5 (6.4-8.2) gm/dl Albumin 2.8 L (3.4-5.0) gm/dl Urine Color Urine Appearance (Clear) Urine pH (4.5-7.5) Ur Specific [place] (1.000-1.030) Urine Protein (Negative) Urine Glucose (UA) (Negative) Urine Ketones (Negative) Urine Blood (Negative) Urine Nitrite (Negative) Urine Bilirubin (Negative) Urine Urobilinogen (Negative) Ur Leukocyte Esterase (Negative) Urine WBC (Auto) (0-5) /hpf Urine RBC (Auto) (0-4) /hpf U Hyaline Cast (Auto) (0-5) /lpf U Epithel Cells (Auto) (0-5) /lpf Urine Bacteria (Auto) (Negative) COVID-19 Eval Order Covid19 Done at [facility] COVID-19 PCR (Negative) 01/31/20 02/01/20 Range/Units 23:49 00:48 WBC (4.8-10.8) K/uL RBC (4.7-6.1) M/uL Hgb (14.0-18.0) g/dL Hct (42-52) % MCV (80-100) fL MCH (25-34) pg MCHC (32-36) g/dL RDW Std Deviation (36.4-46.3) fL RDW Coeff of David (11.5-14.5) % Plt Count (130-400) K/uL MPV (7.4-10.4) fL Immature Gran % (Auto) % Neut % (Auto) % Lymph % (Auto) % [place] % (Auto) % Eos % (Auto) % Baso % (Auto) % Neut # (Auto) (1.4-6.5) K/uL Lymph # (Auto) (1.2-3.4) K/uL [place] # (Auto) (0.11-0.59) K/uL Eos # (Auto) (0-0.5) K/uL Baso # (Auto) (0-0.2) K/uL Immature Gran # (Auto) (0.00-0.02) K/uL PT (9.0-12.0) Seconds INR (0.9-1.1) APTT (21.0-31.0) Seconds PTT Ratio Sodium (136-145) mmol/L Potassium (3.5-5.1) mmol/L Chloride (98-107) mmol/L Carbon Dioxide (21-32) mmol/L Anion Gap (3-11) BUN (7-18) mg/dl Creatinine (0.6-1.4) mg/dl Est Cr Clr Drug Dosing ml/min Est GFR ( Amer) Est GFR (Non-Af Amer) BUN/Creatinine Ratio (10-20) Glucose (70-99) mg/dl Lactate (0.4-2.0) mmol/L Calcium (8.5-10.1) mg/dl Magnesium (1.8-2.4) mg/dl Total Bilirubin (0.2-1) mg/dl Direct Bilirubin (0-0.2) mg/dl AST (15-37) U/L ALT (12-78) U/L Alkaline Phosphatase (45-117) U/L Troponin I (0-0.045) ng/ml NT-Pro-B Natriuret Pep (0-900) pg/ml Total Protein (6.4-8.2) gm/dl Albumin (3.4-5.0) gm/dl Urine Color Yellow Urine Appearance Clear (Clear) Urine pH 6.0 (4.5-7.5) Ur Specific [place] 1.033 H (1.000-1.030) Urine Protein 4+ H (Negative) Urine Glucose (UA) Negative (Negative) Urine Ketones Negative (Negative) Urine Blood 1+ H (Negative) Urine Nitrite Negative (Negative) Urine Bilirubin Negative (Negative) Urine Urobilinogen Negative (Negative) Ur Leukocyte Esterase Negative (Negative) Urine WBC (Auto) 1-5 (0-5) /hpf Urine RBC (Auto) 0-4 (0-4) /hpf U Hyaline Cast (Auto) 1-5 (0-5) /lpf U Epithel Cells (Auto) 20-30 H (0-5) /lpf Urine Bacteria (Auto) Negative (Negative) COVID-19 Eval Order COVID-19 PCR NEGATIVE (Negative) Administered Medications Discontinued Medications Albuterol (Albut/Ipratrop 3mg/0.5mg Neb 3 Ml Vial) 12 ml NEB ONE ONE Stop: 01/31/20 23:19 Last Admin: 01/31/20 23:34 Dose: 12 ml Documented by: [id number] Amlodipine Besylate (Amlodipine Besylate 5 Mg Tab) 10 mg PO NOW STA Stop: 02/01/20 01:19 Last Admin: 02/01/20 01:32 Dose: Not Given Documented by: [id number] Amlodipine Besylate (Amlodipine Besylate 5 Mg Tab) 10 mg PO NOW STA Stop: 02/01/20 02:10 Last Admin: 02/01/20 02:16 Dose: 10 mg Documented by: [id number] Carvedilol (Carvedilol 6.25 Mg Tab) 6.25 mg PO NOW STA Stop: 02/01/20 01:24 Last Admin: 02/01/20 01:31 Dose: 6.25 mg Documented by: [id number] Doxycycline Hyclate 100 mg/ (Dextrose) 110 mls @ 50 mls/hr IV NOW STA Stop: 02/01/20 03:19 Last Infusion: 02/01/20 03:33 Dose: 0 mls/hr Documented by: [id number] Admin: 02/01/20 01:31 Dose: 50 mls/hr Documented by: [id number] Magnesium Sulfate/Dextrose (Magnesium Sulfate / D5w) 1 gm in 100 mls @ 50 mls/hr IV Q2H STA Stop: 02/01/20 03:07 Last Infusion: 02/01/20 03:33 Dose: 0 mls/hr Documented by: [id number] Admin: 02/01/20 01:32 Dose: 50 mls/hr Documented by: [id number] Labetalol HCl (Labetalol Hcl Iv 5 Mg/Ml 20ml) 10 mg IV NOW STA Stop: 01/31/20 23:22 Last Admin: 01/31/20 23:30 Dose: 10 mg Documented by: [id number] Cosigned by: [id number] Methylprednisolone (Methylprednisolone 125 Mg/2 Ml Vial) 125 mg IV NOW STA Stop: 01/31/20 23:19 Last Admin: 01/31/20 23:27 Dose: 125 mg Documented by: [id number] Oxycodone/Acetaminophen (Oxycodone/Acetaminophen 5mg/325mg Tab) 1 tab PO NOW STA Stop: 02/01/20 01:25 Last Admin: 02/01/20 01:31 Dose: 1 tab Documented by: [id number] Potassium Chloride (Potassium Chloride 20 Meq Tabcr) 40 meq PO NOW STA Stop: 02/01/20 01:09 Last Admin: 02/01/20 01:31 Dose: 40 meq Documented by: [id number] Discharge Plan Visit Data Chief Complaint: Shortness of Breath/Dyspnea Stated Complaint: SHORTNESS OF BREATH ED Provider: Jose Juan Dailey Discharge Problem: Acute exacerbation of chronic obstructive pulmonary disease, Hypertension Patient Disposition: Admitted As Inpatient Discharge Instructions Interventions: ED Discharge Assessment Last Done: 02/01/20 03:03 Discharge Problem: Hypertension Qualifiers: Hypertension type: essential hypertension Qualified Code(s): I10 - Essential (primary) hypertension
[2020-01-31 23:54] LABS: Basophils # (auto) 0.01 K/uL (0-0.2); Basophils % (auto) 0.1 %; Eosinophils # (auto) 0.11 K/uL (0-0.5); Eosinophils % (auto) 1.1 %; Hematocrit (blood only) 37.6 % (42-52); Hemoglobin 11.6 g/dL (14.0-18.0); Immature Granulocytes # (auto) 0.03 K/uL (0.00-0.02); Immature Granulocytes % (auto) 0.3 %; Lymphocytes # (auto) 1.37 K/uL (1.2-3.4); Lymphocytes % (auto) 13.7 %; Mean Corpuscular Hemoglobin 28.9 pg (25-34); Mean Corpuscular Hgb Conc 30.9 g/dL (32-36); Mean Corpuscular Volume 93.5 fL (80-100); Mean Platelet Volume 9.8 fL (7.4-10.4); Monocytes # (auto) 1.17 K/uL (0.11-0.59); Monocytes % (auto) 11.7 %; Neutrophils # (auto) 7.32 K/uL (1.4-6.5); Neutrophils % (auto) 73.1 %; Platelet Count 495 K/uL (130-400); RDW Coefficient of Variation 17.5 % (11.5-14.5); RDW Standard Deviation 59.5 fL (36.4-46.3); Red Blood Count 4.02 M/uL (4.7-6.1); White Blood Count 10.01 K/uL (4.8-10.8)
[2020-02-01 00:03] LABS: INR 1.1 (0.9-1.1); Prothrombin Time 11.7 Seconds (9.0-12.0)
[2020-02-01 00:11] LABS: Albumin Level 2.8 gm/dl (3.4-5.0); BUN Creatinine Ratio 9.8 (10-20); Bilirubin Direct 0.2 mg/dl (0-0.2); Calcium 9.3 mg/dl (8.5-10.1); Creatinine Clr Calc Pharmacy 39.3 ml/min; Est GFR (African American) 45.7; Est GFR (Non-African American) 39.4; Magnesium 1.7 mg/dl (1.8-2.4); Potassium 3.7 mmol/L (3.5-5.1)
[2020-02-01 00:21] LABS: Bilirubin,Total 0.6 mg/dl (0.2-1); Total Protein 7.5 gm/dl (6.4-8.2); Troponin I 0.085 ng/ml (0-0.045)
[2020-02-01 01:01] LABS: Partial Thromboplastin Ratio 1.1
[2020-02-01 01:07] LABS: Appearance Urine Clear (Clear); Bacteria Urine Automated Negative (Negative); Bilirubin Urine Negative (Negative); Blood Urine 1+ (Negative); Color Urine Yellow; Epithelial Cell Urine Auto 20-30 /lpf (0-5); Glucose Urine UA Negative (Negative); Ketones Urine Negative (Negative); Leukocyte Esterase Urine Negative (Negative); Nitrite Urine Negative (Negative); Protein Urine 4+ (Negative); RBC Urine Automated 0-4 /hpf (0-4); Specific Gravity Urine 1.033 (1.000-1.030); Urobilinogen Urine Negative (Negative)
[2020-02-01] MEDS ORDERED: MAGNESIUM SULFATE / D5W 1 GM/100 ML BAG IV STA (01:08)
[2020-02-01] MEDS ORDERED: DOXYCYCLINE HYCLATE 100 MG in DEXTROSE 5% 100 ML IV STA (01:08)
[2020-02-01] MEDS ORDERED: POTASSIUM CHLORIDE 20 MEQ TABCR PO STA (01:08)
[2020-02-01] MEDS ORDERED: AMLODIPINE BESYLATE 5 MG TAB PO STA ×2 (01:18→02:09)
[2020-02-01] MEDS ORDERED: carvediloL 6.25 MG TAB PO STA (01:23)
[2020-02-01] MEDS ORDERED: OXYCODONE/ACETAMINOPHEN 5mg/325mg TAB PO STA (01:24)
[2020-02-01] MEDS ORDERED: ACETAMINOPHEN 325 MG TAB PO PRN (02:28)
--- NOTE | 2020-02-01 02:28 | History & Physical Report ---
Date of Service February 01, 2020 Assessment & Plan (1) Hypertensive crisis: Secondary to COPD exacerbation/complicated bronchitis Patient not septic nor hypoxemic for now. Troponin elevation secondary to illness in the setting of chronic kidney disease hx CAD, CVA,, PVD status post surgery hyperlipidemia, on statin Rx ongoing tobacco abuse renal cell carcinoma left status post surgery DM2 on oral medications, well-controlled as of outpatient hemoglobin A1c of 6.07 Sep 2018 CRI, hemoglobin better than baseline chronic anemia, hemoglobin stable post urologic surgery 2 months ago chronic pain on Fentanyl patch PCU Facilitate home BP meds, may require dose titration Doxycycline, nebs, prednisone course for COPD exacerbation Follow troponin Basal insulin, ISS BG goal [id number], update hemoglobin A1c Nicotine patch PRN DVT prophylaxis with Heparin subcu Full code Text document was generated using [employer] voice recognition software. It may contain grammatical or spelling errors. Kindly contact undersigned for clarification of any documentation item in question. History of Present Illness Chief Complaint: Cough, shortness of breath Primary Care Provider: Chad Jara MD History obtained from patient and records. Medical history significant for CAD, CVA,, PVD status post surgery, hypertension, hyperlipidemia, COPD, ongoing tobacco abuse, renal cell carcinoma left status post surgery, DM2 on oral medications, hx MGUS, CRI (baseline creatinine 1.8 to 2), chronic anemia (baseline hemoglobin 11), BPH, chronic pain on Fentanyl patch. Last confinement [facility] July 2019 left renal mass status post robotic laparoscopic partial nephrectomy left. 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 Unremarkable postop course as per outpatient [facility] [place] 2 months ago. 2 days history of junky cough symptoms productive of yellow-white sputum associated with worsening shortness of breath. No chest pain. No fever, no chills. No known recent COVID-19 contacts. Denies aspiration. Denies fluid retention. Achy headache symptoms. SBP as high as 240s upon arrival of EMS. Patient compliant with home medications. At the ER, patient received Solu-Medrol and neb treatment for COPD exacerbation. IV labetalol given at the ER. SBP currently 200s. Medical History as above Surgical History : Lymphocele drainage, vascular procedures, rectus femoris muscle flap procedure left groin, neck surgery, partial nephrectomy left Family History : Stomach cancer, ESRD Personal/Social history : 8 cigarettes a day, occasional EtOH intake, disabled Allergies Allergy/AdvReac Type Severity Reaction Status Date / Time No Known Allergies Allergy Unknown Verified 02/01/20 00:10 Home Medications Home Medications Medication Instructions Recorded Confirmed Type albuterol sulfate 2 puff INHALATION Q4H PRN 09/06/18 02/01/20 History amlodipine 10 mg PO DAILY 09/06/18 02/01/20 History atorvastatin 80 mg PO DAILY 09/06/18 02/01/20 History carisoprodol 350 mg PO TID PRN 09/06/18 02/01/20 History chlorthalidone 50 mg PO DAILY 09/06/18 02/01/20 History clopidogrel 75 mg PO DAILY 09/06/18 02/01/20 History docusate sodium 100 mg PO BID 09/06/18 02/01/20 History fenofibrate nanocrystallized 145 mg PO DAILY 09/06/18 02/01/20 History [Tricor] fentanyl 1 patch TOPICAL DIRECTED 09/06/18 02/01/20 History ferrous sulfate 325 mg PO BID 09/06/18 02/01/20 History gabapentin 300 mg PO TID 09/06/18 02/01/20 History glipizide 10 mg PO BID 09/06/18 02/01/20 History lisinopril 40 mg PO DAILY 09/06/18 02/01/20 History meclizine 12.5 mg PO TID PRN 09/06/18 02/01/20 History omega 3-wmr-yxk-fish oil [Fish Oil] 1 cap PO DAILY 09/06/18 02/01/20 History oxycodone-acetaminophen 1 tab PO Q6H PRN 09/06/18 02/01/20 History albuterol sulfate 2.5 mg INHALATION Q4H PRN 02/01/20 02/01/20 History aspirin 325 mg PO DAILY 02/01/20 02/01/20 History carvedilol 6.25 mg PO BIDM 02/01/20 02/01/20 History cholecalciferol (vitamin D3) 125 mcg PO DAILY 02/01/20 02/01/20 History [Vitamin D3] metformin 1,000 mg PO BIDM 02/01/20 02/01/20 History pantoprazole [Protonix] 40 mg PO DAILY 02/01/20 02/01/20 History sennosides [Senokot] 8.6 mg PO BID 02/01/20 02/01/20 History tamsulosin [Flomax] 0.4 mg PO DAILY 02/01/20 02/01/20 History tiotropium bromide [Spiriva 2 puff INHALATION DAILY 02/01/20 02/01/20 History Respimat] Past Med/Surg History Medical History (Updated 02/01/20 @ 04:41 by Alcides Cadena MD) Anemia HX OF Bulging disc LUMBAR AREA CAD (coronary artery disease) COPD (chronic obstructive pulmonary disease) WEARS O2 AT 2L HS "SOMETIMES" Diabetes mellitus, type 2 GERD (gastroesophageal reflux disease) Hyperlipidemia Hypertension Macular degeneration Myocardial Infarction 2003 (LIFE FLIGHTED TO URICH) On home oxygen therapy 2L AT HS Osteoarthritis PAD (peripheral artery disease) Peripheral neuropathy Surgical History Fusion of spine CERVICAL H/O eye surgery LASER SURGERY FOR BLEEDING EYE H/O vascular surgery History of colonoscopy History of discectomy CERVICAL History of esophagogastroduodenoscopy (EGD) Family History Mother CKD (chronic kidney disease) Social History (Updated 09/06/18 @ 20:39 by Sunil Escalante MD) Smoking Status: Current every day smoker Tobacco Type: Cigarettes Cigarettes Per Day: 6 -8/day; Second Hand Exposure: Yes; Do You Dip or Chew Tobacco: No; Hx Alcohol Use: Yes Alcohol type: beer Hx Substance Use: No Preferred Language: Mongolian Communication Ability: Effective History Card Clerk Required: No Beliefs That Will Affect Care: None marital status: Current Living Situation: Spouse Other Information That Helps Us Care for You: No Feels Safe at Home: Yes Safety Concerns: Feels Safe At This Time Assistive Devices: None Review of Systems Review of Systems: As per HPI, all 10 systems reviewed, all other ROS negative Physical Exam Physical Exam: GENERAL: Comfortable, no respiratory distress SKIN: Pallor , warm HEENT: Pale palpebral conjunctivae, no ptosis, dry buccal mucosa NECK : Supple, no tenderness CHEST : Decreased breath sounds, expiratory wheezes , no tenderness HEART : RRR, no obvious murmurs ABDOMEN: Some distention, nontender EXTREMITIES : No LE swelling/tenderness, no other conspicuous deformities noted NEUROLOGIC : Coherent, no facial asymmetry, no other gross focality Results & Data Results & Data ([facility]) Vital Signs (Past 12 Hours) Vital Signs Temp Pulse Pulse Resp BP Pulse Ox 02/01/20 02:00 81 23 204/106 H 95 02/01/20 01:30 82 23 207/92 H 94 02/01/20 01:01 78 17 184/105 H 95 02/01/20 00:31 71 19 193/90 H 100 02/01/20 00:01 68 18 169/83 H 100 01/31/20 23:58 95 01/31/20 23:50 63 20 157/98 H 100 01/31/20 23:37 70 18 96 01/31/20 23:30 91 H 18 225/114 H 96 01/31/20 23:17 95 H 23 228/118 H 96 01/31/20 23:10 37.1 C 92 H 24 228/118 H 96 Laboratory Results Laboratory Results WBC 10.01 K/uL (4.8-10.8) 01/31/20 23:39 RBC 4.02 M/uL (4.7-6.1) L 01/31/20 23:39 Hgb 11.6 g/dL (14.0-18.0) L 01/31/20 23:39 Hct 37.6 % (42-52) L 01/31/20 23:39 MCV 93.5 fL (80-100) 01/31/20 23:39 MCH 28.9 pg (25-34) 01/31/20 23:39 MCHC 30.9 g/dL (32-36) L 01/31/20 23:39 RDW Std Deviation 59.5 fL (36.4-46.3) H 01/31/20 23:39 RDW Coeff of David 17.5 % (11.5-14.5) H 01/31/20 23:39 Plt Count 495 K/uL (130-400) H 01/31/20 23:39 MPV 9.8 fL (7.4-10.4) 01/31/20 23:39 Immature Gran % (Auto) 0.3 % 01/31/20 23:39 Neut % (Auto) 73.1 % 01/31/20 23:39 Lymph % (Auto) 13.7 % 01/31/20 23:39 [place] % (Auto) 11.7 % 01/31/20 23:39 Eos % (Auto) 1.1 % 01/31/20 23:39 Baso % (Auto) 0.1 % 01/31/20 23:39 Neut # (Auto) 7.32 K/uL (1.4-6.5) H 01/31/20 23:39 Lymph # (Auto) 1.37 K/uL (1.2-3.4) 01/31/20 23:39 [place] # (Auto) 1.17 K/uL (0.11-0.59) H 01/31/20 23:39 Eos # (Auto) 0.11 K/uL (0-0.5) 01/31/20 23:39 Baso # (Auto) 0.01 K/uL (0-0.2) 01/31/20 23:39 Immature Gran # (Auto) 0.03 K/uL (0.00-0.02) H 01/31/20 23:39 PT 11.7 Seconds (9.0-12.0) 01/31/20 23:39 INR 1.1 (0.9-1.1) 01/31/20 23:39 APTT 30.0 Seconds (21.0-31.0) 01/31/20 23:39 PTT Ratio 1.1 01/31/20 23:39 Sodium 140 mmol/L (136-145) 01/31/20 23:39 Potassium 3.7 mmol/L (3.5-5.1) 01/31/20 23:39 Chloride 107 mmol/L (98-107) 01/31/20 23:39 Carbon Dioxide 26 mmol/L (21-32) 01/31/20 23:39 Anion Gap 7.0 (3-11) 01/31/20 23:39 BUN 17 mg/dl (7-18) 01/31/20 23:39 Creatinine 1.74 mg/dl (0.6-1.4) H 01/31/20 23:39 Est Cr Clr Drug Dosing 39.3 ml/min 01/31/20 23:39 Est GFR ( Amer) 45.7 01/31/20 23:39 Est GFR (Non-Af Amer) 39.4 01/31/20 23:39 BUN/Creatinine Ratio 9.8 (10-20) L 01/31/20 23:39 Glucose 121 mg/dl (70-99) H 01/31/20 23:39 Lactate 1.1 mmol/L (0.4-2.0) 01/31/20 23:39 Calcium 9.3 mg/dl (8.5-10.1) 01/31/20 23:39 Magnesium 1.7 mg/dl (1.8-2.4) L 01/31/20 23:39 Total Bilirubin 0.6 mg/dl (0.2-1) 01/31/20 23:39 Direct Bilirubin 0.2 mg/dl (0-0.2) 01/31/20 23:39 AST 27 U/L (15-37) 01/31/20 23:39 ALT 50 U/L (12-78) 01/31/20 23:39 Alkaline Phosphatase 87 U/L (45-117) 01/31/20 23:39 Troponin I 0.085 ng/ml (0-0.045) H* 01/31/20 23:39 NT-Pro-B Natriuret Pep 12643 pg/ml (0-900) H 01/31/20 23:39 Total Protein 7.5 gm/dl (6.4-8.2) 01/31/20 23:39 Albumin 2.8 gm/dl (3.4-5.0) L 01/31/20 23:39 Urine Color Yellow 02/01/20 00:48 Urine Appearance Clear (Clear) 02/01/20 00:48 Urine pH 6.0 (4.5-7.5) 02/01/20 00:48 Ur Specific [facility] 1.033 (1.000-1.030) H 02/01/20 00:48 Urine Protein 4+ (Negative) H 02/01/20 00:48 Urine Glucose (UA) Negative (Negative) 02/01/20 00:48 Urine Ketones Negative (Negative) 02/01/20 00:48 Urine Blood 1+ (Negative) H 02/01/20 00:48 Urine Nitrite Negative (Negative) 02/01/20 00:48 Urine Bilirubin Negative (Negative) 02/01/20 00:48 Urine Urobilinogen Negative (Negative) 02/01/20 00:48 Ur Leukocyte Esterase Negative (Negative) 02/01/20 00:48 Urine WBC (Auto) 1-5 /hpf (0-5) 02/01/20 00:48 Urine RBC (Auto) 0-4 /hpf (0-4) 02/01/20 00:48 U Hyaline Cast (Auto) 1-5 /lpf (0-5) 02/01/20 00:48 U Epithel Cells (Auto) 20-30 /lpf (0-5) H 02/01/20 00:48 Urine Bacteria (Auto) Negative (Negative) 02/01/20 00:48 COVID-19 Eval Order Covid19 Done at [facility] 01/31/20 23:49 COVID-19 PCR NEGATIVE (Negative) 01/31/20 23:[address] head initial read: No evidence of acute intracranial abnormality or skull fracture. Stable right parietal encephalomalacia. Dystrophic calcifications bilaterally. Chest x-ray as per my dictation cardiomegaly, mild hyperinflation EKG as per my interpretation : Rate 85, normal sinus rhythm, LAD, LAFB, RBBB, T wave abnormalities lateral leads, MN WP
[2020-02-01] MEDS ORDERED: OXYCODONE/ACETAMINOPHEN 5mg/325mg TAB PO PRN (03:37)
[2020-02-01] MEDS ORDERED: CARBOHYDRATES FOR HYPOGLYCEMIA PO PRN (03:37)
[2020-02-01] MEDS ORDERED: HYDROmorphone INJ 0.5 MG/0.5 ML SYR IV PRN (03:37)
[2020-02-01] MEDS ORDERED: LACTATED RINGER'S 1,000 ML IV ONE (03:37)
[2020-02-01] MEDS ORDERED: PROMETHAZINE HCL 12.5 MG in SODIUM CHLORIDE 0.9% 50 ML IV PRN (03:37)
[2020-02-01] MEDS ORDERED: INSULIN GLARGINE SOLOSTAR 100 UNITS/ML 3 ML PEN SC STA (03:37)
[2020-02-01] MEDS ORDERED: GLUCAGON FOR INJ 1 MG VIAL SQ PRN (03:37)
[2020-02-01] MEDS ORDERED: GLUCOSE 40% GEL 15 GM TUBE PO PRN (03:37)
[2020-02-01] MEDS ORDERED: CARISOPRODOL 350 MG TABLET PO PRN (03:37)
[2020-02-01] MEDS ORDERED: GLUCOSE 10 TABS/TUBE PO PRN (03:37)
[2020-02-01] MEDS ORDERED: DEXTROSE 50% 50 ML SYRINGE IV PRN (03:37)
[2020-02-01] MEDS: lisinopriL 40 MG TAB PO SCH (04:45)
[2020-02-01] MEDS: INSULIN ASPART 100 UNITS/ML 3 ML PEN SC SCH ×5 (04:52→20:41)
[2020-02-01] MEDS: HEPARIN SOD 5,000 UNIT/0.5 ML VIAL SQ SCH ×3 (04:53→20:41)
[2020-02-01 05:48] LABS: Basophils # (auto) 0.01 K/uL (0-0.2); Basophils % (auto) 0.1 %; Eosinophils # (auto) 0.01 K/uL (0-0.5); Eosinophils % (auto) 0.1 %; Hematocrit (blood only) 36.5 % (42-52); Hemoglobin 11.2 g/dL (14.0-18.0); Immature Granulocytes # (auto) 0.04 K/uL (0.00-0.02); Immature Granulocytes % (auto) 0.3 %; Lymphocytes # (auto) 0.38 K/uL (1.2-3.4); Lymphocytes % (auto) 3.3 %; Mean Corpuscular Hemoglobin 28.6 pg (25-34); Mean Corpuscular Hgb Conc 30.7 g/dL (32-36); Mean Corpuscular Volume 93.4 fL (80-100); Mean Platelet Volume 9.7 fL (7.4-10.4); Monocytes # (auto) 0.12 K/uL (0.11-0.59); Neutrophils # (auto) 11.11 K/uL (1.4-6.5); Neutrophils % (auto) 95.2 %; Platelet Count 427 K/uL (130-400); RDW Coefficient of Variation 17.4 % (11.5-14.5); RDW Standard Deviation 58.8 fL (36.4-46.3); Red Blood Count 3.91 M/uL (4.7-6.1); White Blood Count 11.67 K/uL (4.8-10.8)
[2020-02-01 05:59] LABS: Partial Thromboplastin Ratio 1.2; Partial Thromboplastin Time 32.8 Seconds (21.0-31.0)
[2020-02-01 06:19] LABS: BUN Creatinine Ratio 11.6 (10-20); Calcium 9.4 mg/dl (8.5-10.1); Est GFR (African American) 49.4; Est GFR (Non-African American) 42.6; Magnesium 1.9 mg/dl (1.8-2.4); Troponin I 0.066 ng/ml (0-0.045)
[2020-02-01 06:45] LABS: Estimated Average Glucose 148 mg/dl; Hemoglobin A1C 6.8 % (4.5-5.6)
[2020-02-01] MEDS ORDERED: XOPENEX/ATROVENT 1.25mg/0.5MG NEB COMBO NEB SCH (07:00)
[2020-02-01] MEDS: IPRATROPIUM BROMIDE NEB SOLN 0.02% 2.5 ML VIAL INH SCH ×3 (07:06→19:06)
[2020-02-01] MEDS: LEVALBUTEROL 1.25MG/0.5ML NEB INH SCH ×3 (07:07→19:06)
[2020-02-01] MEDS ORDERED: carvediloL 6.25 MG TAB PO SCH (08:00)
[2020-02-01 08:05] LABS: Potassium 4.4 mmol/L (3.5-5.1)
--- NOTE | 2020-02-01 08:27 | CT Scan Report ---
CT OF THE HEAD WITHOUT CONTRAST CLINICAL HISTORY: Headache. COMPARISON STUDY: Head CT December 13, 2012. MRI of the brain April 05, 2013. CT DOSE: 537.48 mGy.cm TECHNIQUE: Helical axial images of the head were obtained without IV contrast. Automated exposure con trol was utilized for the study. A dose lowering technique was utilized adhering to the principles o f ALARA. FINDINGS: No acute intracranial hemorrhage, midline shift or mass effect is present. The ventricular system is unremarkable. The basilar cisterns are patent. Encephalomalacia within the right parietal l obe is unchanged. No extra-axial collections are present. There are no findings to suggest acute dura l sinus thrombosis or acute territorial infarct. No significant calvarial abnormalities are present. Visualized portions of the sinuses and mastoid air cells are clear. IMPRESSION: No acute intracranial findings. No change in appearance of the brain. ACT 112: Negative or not required by law. Z Electronically signed by: Drew Patrick M.D. 02/01/2020 8:26 AM
--- NOTE | 2020-02-01 08:29 | XRay Report ---
XR chest 1V portable CLINICAL HISTORY: shortness of breath COMPARISON STUDY: Chest CT December 13, 2012. Chest radiograph September 06, 2018. FINDINGS: Anterior cervical spine fusion is partially imaged. There is no pneumothorax or pleural eff usion. There is a calcified granuloma within the left midlung. Moderate cardiomegaly is noted. No con solidation is noted. There is mild interstitial thickening. IMPRESSION: Mild interstitial thickening. This may reflect pulmonary edema or an infectious process. Radiographic follow-up is recommended. ACT 112: Negative or not required by law. Electronically signed by: Drew Patrick M.D. 02/01/2020 8:28 AM
[2020-02-01] MEDS: CHECK FENTANYL PATCH PLACEMENT SCH ×3 (08:42→23:16)
[2020-02-01] MEDS: carvediloL 6.25 MG TAB PO SCH ×2 (08:44→17:09)
[2020-02-01] MEDS: ATORVASTATIN 40 MG TAB PO SCH (08:45)
[2020-02-01] MEDS: ASPIRIN 325 MG ECTAB PO SCH (08:45)
[2020-02-01] MEDS: GABAPENTIN 300 MG CAP PO SCH ×3 (08:45→20:40)
[2020-02-01] MEDS: TAMSULOSIN HCL 0.4 MG CAP PO SCH (08:45)
[2020-02-01] MEDS: DOCUSATE SODIUM 100 MG CAP PO SCH ×2 (08:45→20:39)
[2020-02-01] MEDS: PANTOprazole 40 MG TAB PO SCH (08:46)
[2020-02-01] MEDS: FENOFIBRATE NANOCRYSTALLIZED 145 MG TABLET PO SCH (08:46)
[2020-02-01] MEDS: predniSONE 20 MG TAB PO SCH (08:46)
[2020-02-01] MEDS: SENNA 8.6 MG TAB PO SCH ×2 (08:46→20:39)
[2020-02-01] MEDS: CLOPIDOGREL BISULFATE 75 MG TAB PO SCH (08:46)
[2020-02-01] MEDS ORDERED: lisinopriL 40 MG TAB PO SCH (09:00)
[2020-02-01] MEDS ORDERED: fentaNYL 12 MCG/HR TDSY TD SCH (09:00)
[2020-02-01] MEDS: FERROUS SULFATE 325 MG TAB PO SCH ×2 (09:26→17:09)
[2020-02-01] MEDS: CHLORTHALIDONE 25 MG TAB PO SCH (13:00)
[2020-02-01 13:41] LABS: Amphetamines+Metham, Urine Neg (Neg); Barbiturates, Urine Neg (Neg); Benzodiazepine, Urine Neg (Neg); Cocaine, Urine Neg (Neg); MDMA (Ecstacy), Urine Neg (Neg); Methadone, Urine Neg (Neg); Opiate, Urine Neg (Neg); Phencyclidine, Urine Neg (Neg)
--- NOTE | 2020-02-01 17:27 | Hospitalist Progress Note ---
Date of Service February 01, 2020 Assessment & Plan (1) Hypertensive crisis: Present on admission with elevated BP 228/118 Received labetalol in the ER BP medication resumed ( amlodipine 10mg, Lisinopril 40mg, carvedilol 6.25mg and chlorthalidone 50mg ) CT head showed no acute intracranial finding BP improved Continue monitor BP COPD exacerbation/Bronchitis Present on admission with SOB and productive cough CXR showed mild interstitial thickening. This may reflect pulmonary edema or an infectious process. Received IV solumedrol and IV doxycycline in the ER Continue PO doxy Continue neb treatment Will add guaifenesin saturated well on RA Clinically improved Elevated troponin Mostly demand ischemia due to hypertensive crisis and heart failure troponin on admission 0.085 then trending down to 0.066 EKG showed no acute ischemic changes Echo showed normal LV chamber size with severe concentric LVH. Mild reduced LV systolic function with mild global hypokinesis. Ejection fraction 40 to 45% cardiology consult Continue carvedilol, plavix, aspirin and statin Denies any chest pain Systolic Congestive heart failure ProBNP 90470 ECHO showed EF 40-45 %, newly compare to last echo IVF discontinued Chlorthalidone resumed Cardio consult Tobacco abuse counseling on smoking cessation Dyslipidemia Continue statin and fenofibrate CKD stage 3 Creatinine at baseline btw 1.7 to 1.9 Continue monitor BMP DVT px on heparin subq CODE STATUS full code Disposition Continue monitor in tele Admission and Anticipated Discharge Date Admission Date: February 01, 2020 Subjective Pt was seen and examined Lying in bed with no distress Pt said that he feels much better He said that his breathing is better he is very anxious to go home Denies any chest pain, palpitation, dizziness and SOB Physical Exam Physical Exam: General- No acute distress Head- atraumatic Eyes- PERRL, EOMI, ENT- oropharynx clear Neck- supple, no JVD Lungs- clear to auscultation Heart- regular rhythm; no murmur Abdomen- normal bowel sounds, soft, nontender Extremities- no calf tenderness Neuro- alert, oriented x 3; PERRL, EOMI; no facial palsy; no dysarthria Skin- warm & dry Results & Data Results & Data ([facility]) Vital Signs (Past 12 Hours) Vital Signs Temp Pulse Resp BP Pulse Ox 02/01/20 14:58 36.4 C L 63 19 132/76 96 02/01/20 13:20 84 97 02/01/20 12:32 37.0 C 67 168/79 H 96 02/01/20 07:09 36.6 C 64 16 177/72 H 99 02/01/20 07:07 64 16 99
[2020-02-01] MEDS: DOXYCYCLINE HYCLATE 100 MG CAP PO SCH (20:39)
[2020-02-01] MEDS ORDERED: COUGH DROP (SUGAR FREE) LOZ 24 LOZ/1 BOX BUCCAL ONE (20:46)
[2020-02-01] MEDS ORDERED: INSULIN GLARGINE SOLOSTAR 100 UNITS/ML 3 ML PEN SQ SCH (21:00)
[2020-02-02] MEDS: LEVALBUTEROL 1.25MG/0.5ML NEB INH SCH ×3 (00:57→13:15)
[2020-02-02] MEDS: IPRATROPIUM BROMIDE NEB SOLN 0.02% 2.5 ML VIAL INH SCH ×3 (00:57→13:15)
[2020-02-02] MEDS: HEPARIN SOD 5,000 UNIT/0.5 ML VIAL SQ SCH (05:02)
[2020-02-02 06:30] LABS: Hematocrit (blood only) 32.6 % (42-52); Hemoglobin 10.4 g/dL (14.0-18.0); Mean Corpuscular Hemoglobin 29.2 pg (25-34); Mean Corpuscular Hgb Conc 31.9 g/dL (32-36); Mean Corpuscular Volume 91.6 fL (80-100); Mean Platelet Volume 9.8 fL (7.4-10.4); Platelet Count 407 K/uL (130-400); RDW Coefficient of Variation 16.9 % (11.5-14.5); RDW Standard Deviation 56.9 fL (36.4-46.3); Red Blood Count 3.56 M/uL (4.7-6.1); White Blood Count 11.08 K/uL (4.8-10.8)
[2020-02-02 07:07] LABS: BUN Creatinine Ratio 17.5 (10-20); Calcium 8.5 mg/dl (8.5-10.1); Creatinine Clr Calc Pharmacy 37.2 ml/min; Est GFR (African American) 42.7; Est GFR (Non-African American) 36.8; Magnesium 1.9 mg/dl (1.8-2.4); Potassium 4.4 mmol/L (3.5-5.1)
[2020-02-02] MEDS: carvediloL 6.25 MG TAB PO SCH (08:05)
[2020-02-02] MEDS: TAMSULOSIN HCL 0.4 MG CAP PO SCH (08:06)
[2020-02-02] MEDS: CHECK FENTANYL PATCH PLACEMENT SCH (08:06)
[2020-02-02] MEDS: CHLORTHALIDONE 25 MG TAB PO SCH (08:06)
[2020-02-02] MEDS: DOCUSATE SODIUM 100 MG CAP PO SCH (08:06)
[2020-02-02] MEDS: ASPIRIN 325 MG ECTAB PO SCH (08:06)
[2020-02-02] MEDS: GABAPENTIN 300 MG CAP PO SCH (08:07)
[2020-02-02] MEDS: CLOPIDOGREL BISULFATE 75 MG TAB PO SCH (08:07)
[2020-02-02] MEDS: ATORVASTATIN 40 MG TAB PO SCH (08:07)
[2020-02-02] MEDS: PANTOprazole 40 MG TAB PO SCH (08:08)
[2020-02-02] MEDS: FENOFIBRATE NANOCRYSTALLIZED 145 MG TABLET PO SCH (08:08)
[2020-02-02] MEDS: DOXYCYCLINE HYCLATE 100 MG CAP PO SCH (08:08)
[2020-02-02] MEDS: SENNA 8.6 MG TAB PO SCH (08:08)
[2020-02-02] MEDS: lisinopriL 40 MG TAB PO SCH (08:08)
[2020-02-02] MEDS: predniSONE 20 MG TAB PO SCH (08:08)
[2020-02-02] MEDS: FERROUS SULFATE 325 MG TAB PO SCH (08:09)
[2020-02-02] MEDS: INSULIN ASPART 100 UNITS/ML 3 ML PEN SC SCH ×2 (08:10→11:57)
--- NOTE | 2020-02-02 08:29 | Electrocardiogram Report ---
Test Reason : Blood Pressure : / mmHG Vent. Rate : 087 BPM Atrial Rate : 087 BPM P-R Int : 232 ms QRS Dur : 136 ms QT Int : 414 ms P-R-T Axes : 055 -71 085 degrees QTc Int : 498 ms Sinus rhythm with 1st degree A-V block Possible Left atrial enlargement Right bundle branch block Left anterior fascicular block Bifascicular block Left ventricular hypertrophy with repolarization abnormality Abnormal ECG When compared with ECG of 07-SEP-2018 07:09, T wave inversion no longer evident in Inferior leads T wave inversion less evident in Lateral leads Confirmed by Sunil Schneider ([id number]) on 02/02/2020 8:28:36 AM Referred By: REFERRED SELF Confirmed By:Sunil Schneider
[2020-02-02] MEDS ORDERED: INSULIN GLARGINE SOLOSTAR 100 UNITS/ML 3 ML PEN SQ SCH (09:00)
[2020-02-02] MEDS ORDERED: AMLODIPINE BESYLATE 5 MG TAB PO SCH (09:00)
[2020-02-02] MEDS ORDERED: TERAZOSIN HCL 1 MG CAP PO ONE (11:30)
--- NOTE | 2020-02-02 12:54 | Hospitalist Progress Note ---
Date of Service February 02, 2020 Assessment & Plan (1) Hypertensive crisis: Present on admission with elevated BP 228/118 Received labetalol in the ER BP medication resumed ( amlodipine 10mg, Lisinopril 40mg, carvedilol 6.25mg and chlorthalidone 50mg ) CT head showed no acute intracranial finding cardiology added terazosin 1mg Continue monitor BP since pt is very anxious to leave, will discharge home today COPD exacerbation/Bronchitis Present on admission with SOB and productive cough CXR showed mild interstitial thickening. This may reflect pulmonary edema or an infectious process. Received IV solumedrol and IV doxycycline in the ER Continue PO doxy and prednisone Continue neb treatment Will add guaifenesin prn saturated well on RA Clinically improved Elevated troponin Mostly demand ischemia due to hypertensive crisis and heart failure troponin on admission 0.085 then trending down to 0.066 EKG showed no acute ischemic changes Echo showed normal LV chamber size with severe concentric LVH. Mild reduced LV systolic function with mild global hypokinesis. Ejection fraction 40 to 45% cardiology consult Continue carvedilol, plavix, aspirin and statin Denies any chest pain Systolic Congestive heart failure ProBNP 03001 ECHO showed EF 40-45 %, newly compare to last echo Continue Chlorthalidone and carvedilol cardiology will plan for outpatient nuclear stress Clinically stable Tobacco abuse counseling on smoking cessation Dyslipidemia Continue statin and fenofibrate CKD stage 3 Creatinine at baseline btw 1.7 to 1.9 Continue monitor BMP DVT px on heparin subq CODE STATUS full code Disposition Discharge home today Admission and Anticipated Discharge Date Admission Date: February 01, 2020 Subjective Pt was seen and examined Sitting in bed with no distress Pt said that he feels ok He is very anxious to leave today Denies any chest pain, palpitation, i and SOB Physical Exam Physical Exam: General- No acute distress Head- atraumatic Eyes- PERRL, EOMI, ENT- oropharynx clear Neck- supple, no JVD Lungs- mild coarse BS Heart- regular rhythm; no murmur Abdomen- normal bowel sounds, soft, nontender Extremities- no calf tenderness Neuro- alert, oriented x 3; PERRL, EOMI; no facial palsy; no dysarthria Skin- warm & dry Results & Data Results & Data ([facility]) Vital Signs (Past 12 Hours) Vital Signs Temp Pulse Pulse Resp BP BP Pulse Ox 02/02/20 12:00 36.6 C 50 L 18 164/79 H 97 02/02/20 07:30 36.6 C 62 20 141/76 H 95 02/02/20 06:59 81 20 94 02/02/20 04:44 36.6 C 66 18 144/79 H 94 02/02/20 00:58 66 16 96
--- NOTE | 2020-02-02 13:42 | Cardiology Consultation ---
Date of Consultation February 02, 2020 Assessment & Plan (1) Hypertensive crisis: (2) Acute exacerbation of chronic obstructive pulmonary disease: (3) Cardiomyopathy: (4) Pulmonary hypertension: Mr. Boss presented with hypertensive urgency in the setting of an acute COPD exacerbation. BP has improved with treatment of his COPD exacerbation and resuming his home medications. He remains asymptomatic from a cardiac standpoint and is very, very anxious for discharge. New echocardiographic findings of reduced LV systolic function and pulmonary hypertension. Recommended continued inpatient treatment and cardiac catheterization in the a.m., however, the patient states he is very anxious to return home to his and would prefer to complete work-up as an outpatient. I think would be reasonable to discharge the patient to home after addition of terazosin for further blood pressure control and then follow-up for nuclear stress testing this week in our office. He was counseled on the risks of potential heart attack, arrhythmia or , again, patient states he would prefer to be discharged home. History of Present Illness Reason for Consultation: Hypertensive crisis/Reduced LV systolic function Requesting Physician: Dr. Clark Attending Physician: Brenda Clark MD History of Present Illness Mr. Boss is a very pleasant 69-year-old gentleman who presented to [facility] emergency department on 01/31/2020 with complaints of prod uctive cough and worsening shortness of breath. Upon arrival he was found to be significantly hypertensive with systolic pressures into the 240s upon arrival by EMS. In the emergency department he was given Solu-Medrol for COPD exacerbation and IV labetalol. He was then admitted to telemetry and his blood pressure improved on his home oral medications. An echocardiogram was performed which showed new mild global LV systolic hypokinesis and cardiology was consulted. Currently patient states that he feels well. Notes that his shortness of breath is almost back to baseline and is very anxious for discharge. Patient states he like to go home if at all possible. Allergies Allergy/AdvReac Type Severity Reaction Status Date / Time No Known Allergies Allergy Unknown Verified 02/01/20 00:10 Home Medications Home Medications Medication Instructions Recorded Confirmed Type albuterol sulfate 2 puff INHALATION Q4H PRN 09/06/18 02/01/20 History amlodipine 10 mg PO DAILY 09/06/18 02/01/20 History atorvastatin 80 mg PO DAILY 09/06/18 02/01/20 History carisoprodol 350 mg PO TID PRN 09/06/18 02/01/20 History chlorthalidone 50 mg PO DAILY 09/06/18 02/01/20 History clopidogrel 75 mg PO DAILY 09/06/18 02/01/20 History docusate sodium 100 mg PO BID 09/06/18 02/01/20 History fenofibrate nanocrystallized 145 mg PO DAILY 09/06/18 02/01/20 History [Tricor] fentanyl 1 patch TOPICAL DIRECTED 09/06/18 02/01/20 History ferrous sulfate 325 mg PO BID 09/06/18 02/01/20 History gabapentin 300 mg PO TID 09/06/18 02/01/20 History glipizide 10 mg PO BID 09/06/18 02/01/20 History lisinopril 40 mg PO DAILY 09/06/18 02/01/20 History meclizine 12.5 mg PO TID PRN 09/06/18 02/01/20 History omega 6-[id number]-ehb-fish oil [Fish Oil] 1 cap PO DAILY 09/06/18 02/01/20 History oxycodone-acetaminophen 1 tab PO Q6H PRN 09/06/18 02/01/20 History Spiriva Respimat 2 puff INHALATION DAILY 02/01/20 02/01/20 History albuterol sulfate 2.5 mg INHALATION Q4H PRN 02/01/20 02/01/20 History aspirin 325 mg PO DAILY 02/01/20 02/01/20 History carvedilol 6.25 mg PO BIDM 02/01/20 02/01/20 History cholecalciferol (vitamin D3) 125 mcg PO DAILY 02/01/20 02/01/20 History [Vitamin D3] pantoprazole [Protonix] 40 mg PO DAILY 02/01/20 02/01/20 History sennosides [Senokot] 8.6 mg PO BID 02/01/20 02/01/20 History tamsulosin [Flomax] 0.4 mg PO DAILY 02/01/20 02/01/20 History doxycycline hyclate 100 mg PO BID 3 Days #6 cap 02/02/20 Rx guaifenesin 200 mg PO TID PRN #21 tab 02/02/20 Rx prednisone 20 mg PO DAILY #4 tab 02/02/20 Rx terazosin 1 mg PO HS 30 Days #30 cap 02/02/20 Rx Patient History Medical History Anemia HX OF Bulging disc LUMBAR AREA CAD (coronary artery disease) COPD (chronic obstructive pulmonary disease) WEARS O2 AT 2L HS "SOMETIMES" Diabetes mellitus, type 2 GERD (gastroesophageal reflux disease) Hyperlipidemia Hypertension Macular degeneration Myocardial Infarction 2003 ([place]IFE FL[place]) On home oxygen therapy 2L AT HS Osteoarthritis PAD (peripheral artery disease) Peripheral neuropathy Surgical History Fusion of spine CERVICAL H/O eye surgery LASER SURGERY FOR BLEEDING EYE H/O vascular surgery History of colonoscopy History of discectomy CERVICAL History of esophagogastroduodenoscopy (EGD) Family History Mother CKD (chronic kidney disease) Social History Smoking Status: Current every day smoker Tobacco Type: Cigarettes Cigarettes Per Day: 6 -8/day; Second Hand Exposure: Yes; Do You Dip or Chew Tobacco: No; Hx Alcohol Use: Yes Alcohol type: beer Hx Substance Use: No Preferred Language: [place] Communication Ability: Effective Lumber Cutter Required: No Beliefs That Will Affect Care: None marital status: Current Living Situation: Spouse Other Information That Helps Us Care for You: No Feels Safe at Home: Yes Safety Concerns: Feels Safe At This Time Assistive Devices: None Review of Systems Review of Systems: All systems reviewed & are unremarkable except as noted in HPI & below Physical Exam Physical Exam: General: Awake, alert and oriented x 3. No acute distress. HEENT: Normocephalic, atraumatic. Pupils equal, round and reactive to light and accommodation. Extraocular muscles are intact. Anicteric sclera. Moist mucous membranes. Neck: No JVD. No bruit. Cardiovascular: Regular. Positive S-4. Normal S-1 and S-2. No S-3. 3/6 holosystolic ejection murmur, 5th intercostal space, mid-clavicular line without radiation. No rubs. Pulmonary: Clear to auscultation bilaterally. No rales, rhonchi, or wheezing. Abdomen: Bowel sounds x 4, soft. No rebound, guarding or tenderness. No organomegaly. Extremities: No clubbing, cyanosis or edema. +2 pedal pulses bilaterally. Skin: Warm and dry. Results & Data ([facility]) Vital Signs (Past 12 Hours) Vital Signs Temp Pulse Pulse Resp BP BP Pulse Ox 02/02/20 13:17 96 H 18 96 02/02/20 12:00 36.6 C 50 L 18 164/79 H 97 02/02/20 07:30 36.6 C 62 20 141/76 H 95 02/02/20 06:59 81 20 94 02/02/20 04:44 36.6 C 66 18 144/79 H 94 Laboratory Results Laboratory Results - last 24 hr 02/01/20 02/01/20 02/02/20 16:08 20:14 06:02 WBC 11.08 H RBC 3.56 L Hgb 10.4 L Hct 32.6 L MCV 91.6 MCH 29.2 MCHC 31.9 L RDW Std Deviation 56.9 H RDW Coeff of David 16.9 H Plt Count 407 H MPV 9.8 Sodium Potassium Chloride Carbon Dioxide Anion Gap BUN Creatinine Est Cr Clr Drug Dosing Est GFR ( Amer) Est GFR (Non-Af Amer) BUN/Creatinine Ratio Glucose POC Glucose 175 H 210 H Calcium Magnesium 02/02/20 02/02/20 02/02/20 06:02 07:38 11:14 WBC RBC Hgb Hct MCV MCH MCHC RDW Std Deviation RDW Coeff of Davdi Plt Count MPV Sodium 136 Potassium 4.4 Chloride 104 Carbon Dioxide 25 Anion Gap 7.0 BUN 32 H D Creatinine 1.84 H Est Cr Clr Drug Dosing 37.2 Est GFR ( Amer) 42.7 Est GFR (Non-Af Amer) 36.8 BUN/Creatinine Ratio 17.5 Glucose 122 H POC Glucose 123 H 164 H Calcium 8.5 Magnesium 1.9
--- NOTE | 2020-02-03 08:48 | Discharge Summary ---
Date of Service February 02, 2020 Admission HPI Per Admitting Provider History obtained from patient and records. Medical history significant for CAD, CVA,, PVD status post surgery, hypertension, hyperlipidemia, COPD, ongoing tobacco abuse, renal cell carcinoma left status post surgery, DM2 on oral medications, hx MGUS, CRI (baseline creatinine 1.8 to 2), chronic anemia (baseline hemoglobin 11), BPH, chronic pain on Fentanyl patch. Last confinement [facility] July 2019 left renal mass status post robotic laparoscopic partial nephrectomy left. 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 Unremarkable postop course as per outpatient [facility] [place] Urology documentation 2 months ago. 2 days history of junky cough symptoms productive of yellow-white sputum associated with worsening shortness of breath. No chest pain. No fever, no chills. No known recent COVID-19 contacts. Denies aspiration. Denies fluid retention. Achy headache symptoms. SBP as high as 240s upon arrival of EMS. Patient compliant with home medications. At the ER, patient received Solu-Medrol and neb treatment for COPD exacerbation. IV labetalol given at the ER. SBP currently 200s. Medical History as above Surgical History : Lymphocele drainage, vascular procedures, rectus femoris muscle flap procedure left groin, neck surgery, partial nephrectomy left Family History : Stomach cancer, ESRD Personal/Social history : 8 cigarettes a day, occasional EtOH intake, disabled Admission Exam Per Admitting Provider GENERAL: Comfortable, no respiratory distress SKIN: Pallor , warm HEENT: Pale palpebral conjunctivae, no ptosis, dry buccal mucosa NECK : Supple, no tenderness CHEST : Decreased breath sounds, expiratory wheezes , no tenderness HEART : RRR, no obvious murmurs ABDOMEN: Some distention, nontender EXTREMITIES : No LE swelling/tenderness, no other conspicuous deformities noted NEUROLOGIC : Coherent, no facial asymmetry, no other gross focality Principal Diagnosis Hypertensive crisis: COPD exacerbation/Bronchitis Elevated troponin Systolic Congestive heart failure Tobacco abuse Dyslipidemia CKD stage 3 Discharge Exam General- No acute distress Head- atraumatic Eyes- PERRL, EOMI, ENT- oropharynx clear Neck- supple, no JVD Lungs- mild coarse BS Heart- regular rhythm; no murmur Abdomen- normal bowel sounds, soft, nontender Extremities- no calf tenderness Neuro- alert, oriented x 3; PERRL, EOMI; no facial palsy; no dysarthria Skin- warm & dry Discharge Data Allergies Allergy/AdvReac Type Severity Reaction Status Date / Time No Known Allergies Allergy Unknown Verified 02/01/20 00:10 Consultations 02/01/20 01:05 ED Decision to Admit Stat 02/01/20 15:16 Consult Cardiology Routine Ordered Studies 02/01/20 01:23 CT head/brain wo con Urgent CT OF THE HEAD WITHOUT CONTRAST CLINICAL HISTORY: Headache. COMPARISON STUDY: Head CT December 13, 2012. MRI of the brain April 05, 2013. CT DOSE: 537.48 mGy.cm TECHNIQUE: Helical axial images of the head were obtained without IV contrast. Automated exposure control was utilized for the study. A dose lowering technique was utilized adhering to the principles of ALARA. FINDINGS: No acute intracranial hemorrhage, midline shift or mass effect is present. The ventricular system is unremarkable. The basilar cisterns are patent. Encephalomalacia within the right parietal lobe is unchanged. No extra- axial collections are present. There are no findings to suggest acute dural sinus thrombosis or acute territorial infarct. No significant calvarial abnormalities are present. Visualized portions of the sinuses and mastoid air cells are clear. IMPRESSION: No acute intracranial findings. No change in appearance of the brain. ACT 112: Negative or not required by law. Z Electronically signed by: Drew Patrick M.D. 02/01/2020 8:26 AM Dictated: 02/01/20817 Transcribed: 02/01/20818 XR chest 1V portable CLINICAL HISTORY: shortness of breath COMPARISON STUDY: Chest CT December 13, 2012. Chest radiograph September 06, 2018. FINDINGS: Anterior cervical spine fusion is partially imaged. There is no pneumothorax or pleural effusion. There is a calcified granuloma within the left midlung. Moderate cardiomegaly is noted. No consolidation is noted. There is mild interstitial thickening. IMPRESSION: Mild interstitial thickening. This may reflect pulmonary edema or an infectious process. Radiographic follow-up is recommended. ACT 112: Negative or not required by law. Electronically signed by: Drew Patrick M.D. 02/01/2020 8:28 AM Dictated: 02/01/20825 Transcribed: 02/01/20825 Hospital Course (1) Hypertensive crisis: Present on admission with elevated BP 228/118 Received labetalol in the ER BP medication resumed ( amlodipine 10mg, Lisinopril 40mg, carvedilol 6.25mg and chlorthalidone 50mg ) CT head showed no acute intracranial finding cardiology added terazosin 1mg Continue monitor BP since pt is very anxious to leave, will discharge home today COPD exacerbation/Bronchitis Present on admission with SOB and productive cough CXR showed mild interstitial thickening. This may reflect pulmonary edema or an infectious process. Received IV solumedrol and IV doxycycline in the ER Continue PO doxy and prednisone Continue neb treatment Will add guaifenesin prn saturated well on RA Clinically improved Elevated troponin Mostly demand ischemia due to hypertensive crisis and heart failure troponin on admission 0.085 then trending down to 0.066 EKG showed no acute ischemic changes Echo showed normal LV chamber size with severe concentric LVH. Mild reduced LV systolic function with mild global hypokinesis. Ejection fraction 40 to 45% cardiology consult Continue carvedilol, plavix, aspirin and statin Denies any chest pain Systolic Congestive heart failure ProBNP 02350 ECHO showed EF 40-45 %, newly compare to last echo Continue Chlorthalidone and carvedilol cardiology will plan for outpatient nuclear stress Clinically stable Tobacco abuse counseling on smoking cessation Dyslipidemia Continue statin and fenofibrate CKD stage 3 Creatinine at baseline btw 1.7 to 1.9 Continue monitor BMP DVT px on heparin subq CODE STATUS full code Disposition Discharge home today Total Time Total Time Spent Total Time Spent (In Minutes): 35 minutes Total Time Includes: Examination of the Patient, Discharge Planning, Medication Reconciliation, Communication With Other Providers and Other Discharge Plan Discharge Items Patient Disposition: Home - Self-Care Reason For Visit: HTN CRISIS, COPD EXACERBATION Discharge Diagnosis: Hypertensive crisis: COPD exacerbation/Bronchitis Elevated troponin Systolic Congestive heart failure Tobacco abuse Dyslipidemia CKD stage 3 Activity: Resume your previous activity Non-emergency contact: Primary Care Provider and Terminal Computer Operator Call non-emergency contact if: you have any medication questions Follow-up/Referrals: Chad Jara MD [Primary Care Provider] - Diet: Heart Healthy Addtl Attending Provider Instructions: Follow up with your primary care provider Dr. Narayanan (Dr. Jara's colleague ) on 02/05 @ 11:05 AM Follow up with cardiology to arrange for the nuclear stress (office will call you for the appointment) Complete the course of the antibiotic and prednisone Continue monitor your blood pressure and bring your blood pressure log at your next appointment with your PCP Hold metformin due to chronic kidney disease (Your physician will advise you when to resume it or to replace it with another diabetes medication) Follow up a healthy diabetes diet and limited concentrated sweet intake Check BMP in 1 week to monitor your kidney function Pending Studies at Discharge: No Stand-Alone Forms: My [facility], Smoking Cessation Medications and DC Order Prescriptions: New doxycycline hyclate 100 mg Capsule 100 mg PO BID 3 Days Qty: 6 RF: 0 terazosin 1 mg Capsule 1 mg PO HS 30 Days Qty: 30 RF: 0 prednisone 20 mg tablet 20 mg PO DAILY Qty: 4 RF: 0 guaifenesin 200 mg tablet 200 mg PO TID PRN (Reason: cough) Qty: 21 RF: 0 Continued carisoprodol 350 mg Tablet 350 mg PO TID PRN (Reason: MUSCLE SPASMS) RF: 0 atorvastatin 80 mg Tablet 80 mg PO DAILY RF: 0 clopidogrel 75 mg Tablet 75 mg PO DAILY RF: 0 oxycodone-acetaminophen 5-325 mg tablet 1 tab PO Q6H PRN (Reason: Pain) RF: 0 amlodipine 10 mg Tablet 10 mg PO DAILY RF: 0 gabapentin 300 mg capsule 300 mg PO TID RF: 0 albuterol sulfate 90 mcg/actuation Hfa Aerosol Inhaler 2 puff INHALATION Q4H PRN (Reason: Wheezing) RF: 0 fentanyl 12 mcg/hr patch 72 hour 1 patch topical DIRECTED RF: 0 omega [id number]-fish oil [Fish Oil] 1,000 mg (120 mg-180 mg) Capsule 1 cap PO DAILY RF: 0 meclizine 12.5 mg Tablet 12.5 mg PO TID PRN (Reason: Vertigo) RF: 0 chlorthalidone 50 mg Tablet 50 mg PO DAILY RF: 0 ferrous sulfate 325 mg (65 mg iron) Tablet 325 mg PO BID RF: 0 lisinopril 40 mg Tablet 40 mg PO DAILY RF: 0 glipizide 10 mg Tablet 10 mg PO BID RF: 0 docusate sodium 100 mg Capsule 100 mg PO BID RF: 0 fenofibrate nanocrystallized [Tricor] 145 mg Tablet 145 mg PO DAILY RF: 0 sennosides [Senokot] 8.6 mg Tablet 8.6 mg PO BID RF: 0 carvedilol 6.25 mg Tablet 6.25 mg PO BIDM RF: 0 albuterol sulfate 2.5 mg /3 mL (0.083 %) Solution For Nebulization 2.5 mg INHALATION Q4H PRN (Reason: Shortness Of Breath Or Wheezing) RF: 0 aspirin 325 mg Tablet 325 mg PO DAILY RF: 0 tamsulosin [Flomax] 0.4 mg Capsule 0.4 mg PO DAILY RF: 0 pantoprazole [Protonix] 40 mg Tablet,Delayed Release (Dr/Ec) 40 mg PO DAILY RF: 0 cholecalciferol (vitamin D3) [Vitamin D3] 125 mcg (5,000 unit) Tablet 125 mcg PO DAILY RF: 0 Spiriva Respimat 2.5 mcg/actuation Mist 2 puff INHALATION DAILY RF: 0 Discontinued metformin 500 mg tablet 1,000 mg PO BIDM RF: 0 Discharge Orders: Discharge Order (Routine); Ordered 02/02/20 Ordered By: Brenda Rogers/Other Patient Handouts: Managing Type 2 Diabetes, Managing Diabetes: The A1C Test Admission Data Admit Date/Time: 02/01/20 02:28 Attending Provider: Brenda Clark Admit Provider: Alcides Cadena Primary Care Provider: Chad Jara Other Providers: Alcides Cadena ; Jong Batres Other Interventions: Discharge Summary Assessment (RN) Last Done: 02/02/20 13:40
[2020-02-03] MEDS ORDERED: TERAZOSIN HCL 1 MG CAP PO SCH (21:00)
== END 2020-02-02 14:02 | disposition home or self-care (01) | DRG 191 ==
LOC: ED 23:10 → 2S 02-01 02:28

== ENCOUNTER 2023-05-10 15:41 | Inpatient (IN) ==
--- NOTE | 2023-05-10 15:52 | ED Triage Note ---
Date of Service May 10, 2023 Provider in Triage Author: Bruce Garibay History of Present Illness This patient was briefly evaluated while in triage. An abbreviated physical exam was performed. This patient is a 72-year-old Male who presents to the ED for evaluation of in last hour, has been having waves of shaking, chest pain, unresponsive episodes with pain hx of stroke, and cardiac history Physical Exam GENERAL: mild distress in a WC CARDIOVASCULAR: RRR RESPIRATORY: CTA ABDOMEN: BS x 4. Nontender to palpation. Initial orders for labs and / or imaging were placed and patient was placed in the waiting area until a bed is available. Please see further documentation for the full ED course. MDM / Impression Impression Impression: Precordial chest pain, Tachycardia, Elevated troponin, Episode of shaking
[2023-05-10] MEDS ORDERED: MoRPHine SULFATE 2 MG/ML CARP IV STA (16:16)
[2023-05-10] MEDS ORDERED: SODIUM CHLORIDE 0.9% 500 ML IV ONE (16:16)
[2023-05-10] MEDS ORDERED: LORazepam 1 MG/1 ML SYR ED Inj Use IV STA (16:16)
--- NOTE | 2023-05-10 16:18 | Emergency Department Note ---
Impression & Plan Precordial chest pain, Tachycardia, Elevated troponin, Episode of shaking ED Provider Note NAME: JAYLEN POP AGE: 72 SEX: M : 1950 ARRIVES VIA: Walk-In INFORMANT: [Patient][family] ED PROVIDER(S): [Aquiles Conn MD] CHIEF COMPLAINT: Chest pain HISTORY OF PRESENT ILLNESS: The patient is a 72-year-old male presents with an hour of intermittent symptoms. He has been having chest pain with shaking of his extremities, especially the right arm. There was not no loss of consciousness. The symptoms seem to come and go. The patient has been out of his pain medication for a few days and his lisinopril for a few days. Patient does have a history of vascular dementia. As per his family, there has been no fever. He is not on antiseizure medication. The patient was concerned that he may be having a heart attack. PMHx/PSHx/Social Hx: See Below PHYSICAL EXAM: GENERAL: Patient is in mild distress, seems anxious, shivering. HEENT: No acute trauma, normocephalic atraumatic, mucous membranes moist, no nasal congestion. NECK: No stridor, no adenopathy, no meningismus, trachea is midline. LUNGS: Clear to auscultation bilaterally, no wheeze, no rhonchi, breath sounds equal. HEART: Mildly tachycardic, no obvious murmur, rhythm does seem regular. ABDOMEN: Soft, nontender, no peritonitis. EXTREMITIES: No cyanosis, full range of motion of all the joints without pain or difficulty. NEUROLOGIC: Oriented x 3, patient is showing shaking and tremoring of his upper extremities, especially the right arm. He is awake and interactive though. No speech slur. SKIN: No jaundice, no diaphoresis. DIFFERENTIAL DIAGNOSIS: Seizure, withdrawal, anxiety, MD, dysrhythmia, electrolyte imbalance, among others. EMERGENCY DEPARTMENT PROCEDURES: MEDICAL DECISION MAKING: There is no leukocytosis or concerning anemia. There is a normal platelet count. No coagulopathy. Creatinine was high at 1.71 although, this is baseline for the patient. Magnesium low at 1.5. No concerning liver enzyme elevation. The patient appeared to be in a euthyroid state. No findings of pancreatitis by our testing. ECG shows what looks to be a sinus tachycardia, no obvious acute ischemia. Cardiac enzyme testing x 1 was slightly elevated. This elevation could be secondary to cardiac injury or potentially just mismatch from his tachycardia and renal disease. Chest x-ray does not show CHF or pneumonia. Brain CT shows no acute bleed or mass effect. On exam, patient had episodes of shaking here at different times and when these would occur, he complained of chest pain. He was awake and interactive. No loss of consciousness. The patient received IV morphine, a second dose of IV morphine was given. He was given IV metoprolol for the faster heart rate. He received IV saline, 500 cc. He was given IV magnesium and IV Ativan. The patient has made some improvement while here in the ED. At this point, the cause for his entire presentation is unclear. He may be showing some withdrawal from running out of his typical medications. There certainly could be some anxiety as part of his presentation. Further monitoring and cardiac workup is warranted as an inpatient. I spoke with the patient and case management, the on-call hospitalist was consulted. Prior/Outside records/notes reviewed: ED visit note from 03/21/2020 discussing his presentation for anxiety and grief reaction. ECG per my interpretation: Indication was chest pain. The ECG shows a sinus tachycardia with a first-degree AV block. There appears to be a PVC present. The rate is 101. There is potential old anterior septal infarct. There are some subtle T wave changes in the inferior leads. No ST elevation. QTc is 471. Compared to an ECG from 27 February 2020, the subtle T wave changes inferiorly appear new. Criteria for septal infarct is now present. The rate has increased. Continuous Cardiac Monitoring per my interpretation: An order was placed for continuous cardiac monitoring. The monitor shows a rate of 102 with sinus tachycardia. Imaging/x-ray results per my interpretation: Chest x-ray shows some chronic change, no pneumonia or pneumothorax. Chronic Medical/Social conditions affecting care: Vascular dementia. Advanced age. Care/Management discussed with: Case management, the on-call hospitalist. Level of care consideration(s): After review of the information above and other included data: --I believe the patient requires escalation of care to admission DISPOSITION: Admission Past Med/Surg History Medical History (Updated 05/10/23 @ 19:03 by Aquiles Conn MD) Hypertensive crisis Hypertension Acute exacerbation of chronic obstructive pulmonary disease Bulging disc LUMBAR AREA Osteoarthritis Diabetes mellitus, type 2 Anemia HX OF Macular degeneration Hypertension Peripheral neuropathy On home oxygen therapy 2L AT HS Myocardial Infarction 2003 (LIFE FLIGHTED TO [place]) Hyperlipidemia GERD (gastroesophageal reflux disease) CAD (coronary artery disease) PAD (peripheral artery disease) COPD (chronic obstructive pulmonary disease) WEARS O2 AT 2L HS "SOMETIMES" Surgical History Fusion of spine CERVICAL History of esophagogastroduodenoscopy (EGD) History of colonoscopy History of discectomy CERVICAL H/O eye surgery LASER SURGERY FOR BLEEDING EYE H/O vascular surgery Family History Mother CKD (chronic kidney disease) Social History Smoking Status: Current every day smoker Tobacco Type: Cigarettes Cigarettes Per Day: 6 -8/day; Second Hand Exposure: Yes; Do You Dip or Chew Tobacco: No; Hx Alcohol Use: Yes Alcohol type: beer Hx Substance Use: No Preferred Language: [place] Citizen Communication Ability: Effective 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 Beliefs That Will Affect Care: None marital status: Current Living Situation: Spouse Feels Safe at Home: Yes Assistive Devices: None Allergies Allergies Allergy/AdvReac Type Severity Reaction Status Date / Time No Known Allergies Allergy Unknown Verified 02/01/20 00:10 Home Meds Home Medications Medication Instructions Recorded Confirmed albuterol sulfate 90 mcg/actuation 2 puff inhalation Q4H PRN Wheezing 09/06/18 03/20/20 aerosol inhaler amlodipine 10 mg tablet 10 mg PO DAILY 09/06/18 03/20/20 atorvastatin 80 mg tablet 80 mg PO DAILY 09/06/18 03/20/20 carisoprodol 350 mg tablet 350 mg PO TID PRN MUSCLE SPASMS 09/06/18 03/20/20 chlorthalidone 50 mg tablet 50 mg PO DAILY 09/06/18 03/20/20 clopidogrel 75 mg tablet 75 mg PO DAILY 09/06/18 03/20/20 docusate sodium 100 mg capsule 100 mg PO BID 09/06/18 03/20/20 fenofibrate nanocrystallized 145 145 mg PO DAILY 09/06/18 03/20/20 mg tablet (Tricor) fentanyl 12 mcg/hr transdermal 1 patch topical DIRECTED 09/06/18 03/20/20 patch ferrous sulfate 325 mg (65 mg 325 mg PO BID 09/06/18 03/20/20 iron) tablet gabapentin 300 mg capsule 300 mg PO TID 09/06/18 03/20/20 glipizide 10 mg tablet 10 mg PO BID 09/06/18 03/20/20 lisinopril 40 mg tablet 40 mg PO DAILY 09/06/18 03/20/20 meclizine 12.5 mg tablet 12.5 mg PO TID PRN Vertigo 09/06/18 03/20/20 omega 6-pqs-jpq-fish oil 1,000 mg 1 cap PO DAILY 09/06/18 03/20/20 (120 mg-180 mg) capsule (Fish Oil) oxycodone-acetaminophen 5 mg-325 1 tab PO Q6H PRN Pain 09/06/18 03/20/20 mg tablet albuterol sulfate 2.5 mg/3 mL 2.5 mg inhalation Q4H PRN 02/01/20 03/20/20 (0.083 %) solution for nebulization Shortness Of Breath Or Wheezing aspirin 325 mg tablet 325 mg PO DAILY 02/01/20 03/20/20 carvedilol 6.25 mg tablet 6.25 mg PO BIDM 02/01/20 03/20/20 cholecalciferol (vitamin D3) 125 125 mcg PO DAILY 02/01/20 03/20/20 mcg (5,000 unit) tablet (Vitamin D3) pantoprazole 40 mg tablet,delayed 40 mg PO DAILY 02/01/20 03/20/20 release (Protonix) sennosides 8.6 mg tablet (Senokot) 8.6 mg PO BID 02/01/20 03/20/20 tamsulosin 0.4 mg capsule (Flomax) 0.4 mg PO DAILY 02/01/20 03/20/20 tiotropium bromide 2.5 2 puff inhalation DAILY 02/01/20 03/20/20 mcg/actuation mist for inhalation (Spiriva Respimat) hydroxyzine HCl 10 mg tablet 10 mg PO QID PRN Anxiety 03/20/20 03/20/20 Previous Rx's Medication Instructions Recorded prednisone 20 mg tablet 20 mg PO DAILY #4 tabs 02/02/20 Results & Data (ED) Vital Signs Vital Signs - 24 hr 05/10/23 15:50 05/10/23 16:11 05/10/23 17:56 Temperature 36.6 C Temperature Source Temporal Artery Scan Pulse Rate 96 H 103 H 112 H Respiratory Rate 18 Respiratory Effort / Characteristics Non-Labored Spontaneous Respiratory Depth Normal Respiratory Pattern Regular Blood Pressure 203/87 H 127/97 Blood Pressure Mean 125 Blood Pressure Position Sitting Pulse Oximetry 94 Oxygen Delivery Method Room Air Sepsis Recent Fever Within 48 Hours No Sepsis New/Unexplained Change in Mental Status N/A Sepsis Action Taken by Nursing No Action Required Home Medications Current Medication List: was personally reviewed by me Laboratory Data Attestation: I reviewed the patient's lab results. 05/10/23 16:00 05/10/23 16:00 Lab Results 05/10/23 Range/Units 16:00 WBC 10.05 (4.8-10.8) K/ul RBC 4.94 (4.70-6.10) M/uL Hgb 15.7 (14.0-18.0) g/dl Hct 46.7 (42.0-52.0) % MCV 94.5 (80.0-100.0) fL MCH 31.8 (25.0-34.0) pg MCHC 33.6 (32.0-36.0) g/dL RDW Std Deviation 47.2 H (36.4-46.3) fL RDW Coeff of David 13.4 (11.5-14.5) % Plt Count 244 (130-400) K/uL MPV 10.0 (9.4-12.4) fL Immature Gran % (Auto) 0.5 % Neut % (Auto) 74.6 % Lymph % (Auto) 11.4 % [place] % (Auto) 11.9 % Eos % (Auto) 1.3 % Baso % (Auto) 0.3 % Neut # (Auto) 7.49 H (1.40-6.50) K/uL Lymph # (Auto) 1.15 L (1.20-3.40) K/uL [place] # (Auto) 1.20 H (0.11-0.59) K/uL Eos # (Auto) 0.13 (0.00-0.50) K/uL Baso # (Auto) 0.03 (0.00-0.20) K/uL Immature Gran # (Auto) 0.05 (0.01-0.20) K/uL PT 11.3 (9.0-12.0) Seconds INR 1.0 (0.9-1.1) APTT 30 (21-31) Seconds PTT Ratio 1.1 Sodium 140 (136-145) mmol/L Potassium 4.1 (3.5-5.1) mmol/L Chloride 103 (98-107) mmol/L Carbon Dioxide 30 (21-32) mmol/L Anion Gap 7 (3-11) BUN 16 (6-23) mg/dl Creatinine 1.71 H (0.6-1.4) mg/dl Est Cr Clr Drug Dosing Not Reportable Est GFR ( Amer) 45.7 ml/min Est GFR (Non-Af Amer) 39.4 ml/min BUN/Creatinine Ratio 9.4 L (10-20) Glucose 117 H (70-99(Fasting)) mg/dl Calcium 9.3 (8.6-10.3) mg/dl Magnesium 1.5 L (1.7-2.4) mg/dl Total Bilirubin 0.9 (0.2-1.0) mg/dl AST 15 (13-39) U/L ALT 12 (7-52) U/L Alkaline Phosphatase 67 (34-104) U/L Troponin I High Sens 82.8 H* (0-20) pg/ml Total Protein 7.3 (6.0-8.3) gm/dl Albumin 3.7 (3.4-5.0) gm/dl Globulin 3.6 (2.5-4.0) gm/dl Albumin/Globulin Ratio 1.0 (0.9-2) Lipase 14 (11-82) U/L TSH 1.752 (0.300-4.500) uIu/ml Administered Medications Magnesium Sulfate/Dextrose (Magnesium Sulfate / D5w) 1 gm in 100 mls @ 100 mls/hr IV Q1H FILEMON Stop: 05/10/23 19:05 Last Admin: 05/10/23 17:56 Dose: 100 mls/hr Documented By: NANK Discontinued Medications Sodium Chloride (Nss) 500 mls @ 999 mls/hr IV .Q31M ONE Stop: 05/10/23 16:46 Last Admin: 05/10/23 16:27 Dose: 999 mls/hr Documented By: LEILANI Labetalol HCl (Labetalol Hcl Iv 5 Mg/Ml 20ml) 10 mg IV NOW STA Stop: 05/10/23 17:34 Last Admin: 05/10/23 18:12 Dose: Not Given Documented By: SEAN Lorazepam (Lorazepam 1 Mg/1 Ml Syr Ed Inj Use) 1 mg IV ONE STA Stop: 05/10/23 16:17 Last Admin: 05/10/23 16:28 Dose: 1 mg Documented By: LEILANI Metoprolol Tartrate (Metoprolol Tartrate 1 Mg/Ml Vial) 5 mg IV NOW STA Stop: 05/10/23 17:52 Last Admin: 05/10/23 17:56 Dose: 5 mg Documented By: LEILANI Morphine Sulfate (Morphine Sulfate 2 Mg/Ml Carp) 2 mg IV NOW STA Stop: 05/10/23 16:17 Last Admin: 05/10/23 16:30 Dose: 2 mg Documented By: LEILANI Morphine Sulfate (Morphine Sulfate 4 Mg/Ml 1 Ml Carp\\Vial) 4 mg IV NOW STA Stop: 05/10/23 17:46 Last Admin: 05/10/23 17:55 Dose: 4 mg Documented By: LEILANI Imaging Data Radiologist's Impression: Head CT 05/10/23 16:15 CT SCAN OF THE BRAIN WITHOUT IV CONTRAST CLINICAL HISTORY: Possible seizure. Right upper extremity twitching. COMPARISON STUDY: CT of the brain dated 02/01/2020. TECHNIQUE: Unenhanced axial CT scan of the brain is performed from the vertex to the skull base. A dose lowering technique was utilized adhering to the principles of ALARA. The patient was scanned twice due to motion artifact. CT DOSE: 1325.14 mGy.cm FINDINGS: Brain parenchyma: There is age-related involutional change noting [id number] subcortical and periventricular microangiopathic disease. A focus of high right parietal encephalomalacia is unchanged and consistent with a remote insult. There is no hemorrhage, mass effect, or evidence of acute territorial ischemia by CT criteria. Schafer-white matter differentiation is preserved. No extra-axial fluid collection is seen. Ventricles, sulci, cisterns: Prominent secondary to involutional change. Intracranial vasculature: There is atherosclerotic calcification of the cavernous carotid and vertebral arteries. Calvarium: Unremarkable. Sinuses and mastoids: There is [id number] mucosal thickening within the right frontal sinus and the right ethmoid sinuses. Trace mucosal thickening is seen in the right sphenoid sinus. The mastoid air cells are well pneumatized. Orbits: The bony orbits are grossly intact. IMPRESSION: There is no hemorrhage, mass effect, or evidence of acute territorial ischemia by CT criteria. ACT 112: Negative or not required by law. Electronically signed by: Aquiles Wiggins M.D. 05/10/2023 5:25 PM Chest X-Ray 05/10/23 16:17 XR chest 1V portable HISTORY: 72 years-old Male cp acute chest pain COMPARISON: 02/27/2020 TECHNIQUE: AP view of the chest FINDINGS: Cardiac silhouette is enlarged. Asymmetric left hilar prominence may be positional. Left subclavian dual lead pacer. No pneumothorax, pleural effusion or airspace consolidation. Subcentimeter calcified granuloma of the left mid lung. Cervical spinal fusion hardware. Vascular graft in the left neck. Degenerative changes of the shoulders and spine. IMPRESSION: 1. Cardiomegaly without acute process. 2. Asymmetric left hilar prominence may be positional. This could be correlated with follow-up PA and lateral views of the chest. ACT 112: Negative or not required by law. The above report was generated using voice recognition software. It may contain grammatical, syntax or spelling errors. Electronically signed by: Constantin Monteiro M.D. 05/10/2023 4:47 PM Discharge Plan Visit Data Chief Complaint: Cardiac Assessment Stated Complaint: SHAKING, CHEST PAIN, POSSIBLE HEART ATTACK ED Provider: Aquiles Conn Discharge Problem: Precordial chest pain, Tachycardia, Elevated troponin, Episode of shaking Patient Disposition: Admitted As Inpatient Condition: Fair Forms Stand Alone Forms: [facility] [place] [employer] Prescriptions Prescriptions: No Action carisoprodol 350 mg Tablet 350 mg PO TID PRN (Reason: MUSCLE SPASMS) atorvastatin 80 mg Tablet 80 mg PO DAILY clopidogrel 75 mg Tablet 75 mg PO DAILY Patient Comments: TOLD TO GET HOLDING INSTRUCTIONS oxycodone-acetaminophen 5-325 mg tablet 1 tab PO Q6H PRN (Reason: Pain) amlodipine 10 mg Tablet 10 mg PO DAILY gabapentin 300 mg capsule 300 mg PO TID albuterol sulfate 90 mcg/actuation Hfa Aerosol Inhaler 2 puff INHALATION Q4H PRN (Reason: Wheezing) fentanyl 12 mcg/hr patch 72 hour 1 patch topical DIRECTED Rx Instructions: PT REMOVES EVERY 3 DAY AND REAPPLIES omega 0-ymf-akc-fish oil [Fish Oil] 1,000 mg (120 mg-180 mg) Capsule 1 cap PO DAILY meclizine 12.5 mg Tablet 12.5 mg PO TID PRN (Reason: Vertigo) chlorthalidone 50 mg Tablet 50 mg PO DAILY ferrous sulfate 325 mg (65 mg iron) Tablet 325 mg PO BID lisinopril 40 mg Tablet 40 mg PO DAILY glipizide 10 mg Tablet 10 mg PO BID Rx Instructions: TAKE 30 MIN PRIOR TO BREAKFAST AND DINNER docusate sodium 100 mg Capsule 100 mg PO BID fenofibrate nanocrystallized [Tricor] 145 mg Tablet 145 mg PO DAILY sennosides [Senokot] 8.6 mg Tablet 8.6 mg PO BID carvedilol 6.25 mg Tablet 6.25 mg PO BIDM albuterol sulfate 2.5 mg /3 mL (0.083 %) Solution For Nebulization 2.5 mg INHALATION Q4H PRN (Reason: Shortness Of Breath Or Wheezing) aspirin 325 mg Tablet 325 mg PO DAILY Rx Instructions: TAKE WITH FOOD tamsulosin [Flomax] 0.4 mg Capsule 0.4 mg PO DAILY pantoprazole [Protonix] 40 mg Tablet,Delayed Release (Dr/Ec) 40 mg PO DAILY cholecalciferol (vitamin D3) [Vitamin D3] 125 mcg (5,000 unit) Tablet 125 mcg PO DAILY Spiriva Respimat 2.5 mcg/actuation Mist 2 puff INHALATION DAILY prednisone 20 mg tablet 20 mg PO DAILY Qty: 4 0RF hydroxyzine HCl 10 mg Tablet 10 mg PO QID PRN (Reason: Anxiety) Referrals Referrals: Chad Jara MD [Primary Care Provider] -
[2023-05-10 16:35] LABS: Basophils # (auto) 0.03 K/uL (0.00-0.20); Basophils % (auto) 0.3 %; Eosinophils # (auto) 0.13 K/uL (0.00-0.50); Eosinophils % (auto) 1.3 %; Hematocrit (blood only) 46.7 % (42.0-52.0); Hemoglobin 15.7 g/dl (14.0-18.0); Immature Granulocytes # (auto) 0.05 K/uL (0.01-0.20); Immature Granulocytes % (auto) 0.5 %; Lymphocytes # (auto) 1.15 K/uL (1.20-3.40); Lymphocytes % (auto) 11.4 %; Mean Corpuscular Hemoglobin 31.8 pg (25.0-34.0); Mean Corpuscular Hgb Conc 33.6 g/dL (32.0-36.0); Mean Corpuscular Volume 94.5 fL (80.0-100.0); Monocytes % (auto) 11.9 %; Neutrophils # (auto) 7.49 K/uL (1.40-6.50); Neutrophils % (auto) 74.6 %; Platelet Count 244 K/uL (130-400); RDW Coefficient of Variation 13.4 % (11.5-14.5); RDW Standard Deviation 47.2 fL (36.4-46.3); Red Blood Count 4.94 M/uL (4.70-6.10); White Blood Count 10.05 K/ul (4.8-10.8)
--- NOTE | 2023-05-10 16:49 | XRay Report ---
XR chest 1V portable HISTORY: 72 years-old Male cp acute chest pain COMPARISON: 02/27/2020 TECHNIQUE: AP view of the chest FINDINGS: Cardiac silhouette is enlarged. Asymmetric left hilar prominence may be positional. Left subclavian d ual lead pacer. No pneumothorax, pleural effusion or airspace consolidation. Subcentimeter calcified granuloma of the left mid lung. Cervical spinal fusion hardware. Vascular graft in the left neck. Deg enerative changes of the shoulders and spine. IMPRESSION: 1. Cardiomegaly without acute process. 2. Asymmetric left hilar prominence may be positional. This could be correlated with follow-up PA and lateral views of the chest. ACT 112: Negative or not required by law. The above report was generated using voice recognition software. It may contain grammatical, syntax o r spelling errors. Electronically signed by: Constantin Monteiro M.D. 05/10/2023 4:47 PM
[2023-05-10 16:53] LABS: Alanine Aminotransferase 12 U/L (7-52); Albumin Level 3.7 gm/dl (3.4-5.0); Alkaline Phosphatase 67 U/L (34-104); Anion Gap 7 (3-11); Aspartate Aminotransferase 15 U/L (13-39); BUN Creatinine Ratio 9.4 (10-20); Bilirubin,Total 0.9 mg/dl (0.2-1.0); Blood Urea Nitrogen 16 mg/dl (6-23); Calcium 9.3 mg/dl (8.6-10.3); Carbon Dioxide 30 mmol/L (21-32); Chloride 103 mmol/L (98-107); Est GFR (African American) 45.7 ml/min; Est GFR (Non-African American) 39.4 ml/min; Globulin 3.6 gm/dl (2.5-4.0); Glucose 117 mg/dl (70-99(Fasting)); Lipase 14 U/L (11-82); Magnesium 1.5 mg/dl (1.7-2.4); Potassium 4.1 mmol/L (3.5-5.1); Sodium 140 mmol/L (136-145); Total Protein 7.3 gm/dl (6.0-8.3)
[2023-05-10 17:06] LABS: Thyroid Stimulating Hormone 1.752 uIu/ml (0.300-4.500)
[2023-05-10 17:07] LABS: Troponin I High Sensitivity 82.8 pg/ml (0-20)
[2023-05-10 17:28] LABS: Partial Thromboplastin Ratio 1.1; Partial Thromboplastin Time 30 Seconds (21-31); Prothrombin Time 11.3 Seconds (9.0-12.0)
--- NOTE | 2023-05-10 17:28 | CT Scan Report ---
CT SCAN OF THE BRAIN WITHOUT IV CONTRAST CLINICAL HISTORY: Possible seizure. Right upper extremity twitching. COMPARISON STUDY: CT of the brain dated 02/01/2020. TECHNIQUE: Unenhanced axial CT scan of the brain is performed from the vertex to the skull base. A do se lowering technique was utilized adhering to the principles of ALARA. The patient was scanned twice due to motion artifact. CT DOSE: 1325.14 mGy.cm FINDINGS: Brain parenchyma: There is age-related involutional change noting [id number] subcortical and pe riventricular microangiopathic disease. A focus of high right parietal encephalomalacia is unchanged and consistent with a remote insult. There is no hemorrhage, mass effect, or evidence of acute territ orial ischemia by CT criteria. Schafer-white matter differentiation is preserved. No extra-axial fluid c ollection is seen. Ventricles, sulci, cisterns: Prominent secondary to involutional change. Intracranial vasculature: There is atherosclerotic calcification of the cavernous carotid and vertebr al arteries. Calvarium: Unremarkable. Sinuses and mastoids: There is unob-ny-laggmxnb mucosal thickening within the right frontal sinus and the right ethmoid sinuses. Trace mucosal thickening is seen in the right sphenoid sinus. The mastoid air cells are well pneumatized. Orbits: The bony orbits are grossly intact. IMPRESSION: There is no hemorrhage, mass effect, or evidence of acute territorial ischemia by CT anh [place]. ACT 112: Negative or not required by law. Electronically signed by: Aquiles Wiggnis M.D. 05/10/2023 5:25 PM
[2023-05-10] MEDS ORDERED: LABETALOL HCL IV 5 MG/ML 20ML IV STA (17:33)
[2023-05-10] MEDS ORDERED: MoRPHine SULFATE 4 MG/ML 1 ML CARP\\VIAL IV STA (17:45)
[2023-05-10] MEDS ORDERED: METOPROLOL TARTRATE 1 MG/ML VIAL IV STA (17:51)
[2023-05-10] MEDS: MAGNESIUM SULFATE / D5W 1 GM/100 ML BAG IV SCH ×2 (17:56→18:56)
--- NOTE | 2023-05-10 20:05 | History & Physical Report ---
Date of Service May 10, 2023 Assessment & Plan (1) Episode of shaking: (2) Elevated troponin: (3) Tachycardia: (4) Cardiomyopathy: (5) Chronic pain: Plan Mr. Israel Salcedo a 72 year old gentleman with a history of HLD, HTN, tachy- merari syndrome s/p PPM, COPD, DM2, L renal clear cell carcinoma, CKDII, BPH, chronic pain on chronic opioids, COPD/emphysema, HFmEF, lacunar stroke, prior GIB, PVD, tobacco use who is being admitted for monitoring of shaking episode after 2 days of missing medications. This episode resolved when given morphine in ED. Patient is on longstanding narcotics for chronic pain, and given the holidays, had a lapse in prescription. This is thought to be the precipitating event, but the spell was concerning for the family. The patient was obtunded after 6mg of morphine and the son does not seem to know the medications the patient is on. Patient does have recent event where he was found lost driving in [place] and no longer able to drive given moderate dementia and was trialed on memenda. #Shaking Event -Unclear eitology at this time, possibly precipiated by withdrawal as resolved with morphine -Resume home pain regimen -obtain EEG, though low suspicion for new onset seizure -Consider neuro, +/- MRI #Atypical Chest Pain #CAD, HFmEF (EF 45%), Tachy-merari syndrome s/p PM -Pain associated with tremors, not on exertion, no ischemic changes on EKG -Trop up to 82 -Trend troponin, monitor on telemetry -Resume plavix, ASA, statin -Resume Carvedilol 12.5mg, increase to home 25 mg as tolerated -Hold reported home lisinopril, add as tolerated -ECHO -Replace lytes #Left Renal Cell Carcinoma #CKDIII Renal function at baseline, avoid nephrotoxic agents #Prior Lacunar stroke Continue ASA, Plavix, statin #Vascular Dementia -Delirium Precautions -Avoid benzos and further opioids #COPD/Emphysema on room air -Continue breo inhaler,albuterol #DMTII glipizide home daily SSI while IP PT/OT when able lovenox DVT Admit [facility] / [facility] Admission and Anticipated Discharge Date Admission Date: Time spent evaluating patient, direct bedside care, chart review, placing orders, interpretation of diagnostic studies, discussion with consultants, patient, and family members, as well as other required patient management activities is 60 minutes. History of Present Illness Chief Complaint: Shaking, Chest-pain, "strange" behavior Primary Care Provider: Chad Jara MD Mr. Israel Salcedo a 72 year old gentleman with a history of HLD, HTN, tachy- merari syndrome s/p PPM, COPD, DM2, L renal clear cell carcinoma, CKDII, BPH, chronic pain on chronic opioids, COPD/emphysema, HFmEF, lacunar stroke, prior GIB, PVD, tobacco use who presented to the ED due to over two days of change in behavior and new onset right arm shaking and chest pain. History per patient states that he "just couldn't get his meds because the holidays and he just doesn't know." Patient examined after receiving 6 mg of morphine. Further Information obtained from son due to poor information from patient, however, both proved to be fairly unreliable regarding details on medications, medical follow up, etc. Patient last followed up with PCP in 03/2023. Patient has not followed with Cardiology in person in over a year (not including an inpatient stay for a lacunar stroke), with multiple no shows for post hospitalization follow up. Son states patient had delay in receiving scheduled narcotics, in which he felt perhaps the patient was experiencing withdrawal. In the ED, patient was given morphine x 2 with subsequent resolution of symptoms, as well as metoprolol 5mg IV and lorzepam. EKG with PACs and tachycardia. Labs with low mag 1.5 which was replaced and trop of 82.8 Reviewed notes from [facility] from 08/2022 and information learned includes... "Carvedilol dose increased for better blood pressure control Furosemide discontinued due to acute kidney injury Amlodipine discontinued as carvedilol was increased for blood pressure control Hydroxyzine discontinued as it may worsen confusion Lisinopril discontinued because of recent acute on chronic kidney injury" Allergies Allergy/AdvReac Type Severity Reaction Status Date / Time No Known Allergies Allergy Unknown Verified 02/01/20 00:10 Home Medications Medication Instructions Recorded Confirmed Type albuterol sulfate 90 mcg/actuation 2 puff inhalation Q4H PRN Wheezing 09/06/18 05/10/23 History aerosol inhaler atorvastatin 80 mg tablet 80 mg PO DAILY 09/06/18 05/10/23 History clopidogrel 75 mg tablet 75 mg PO DAILY 09/06/18 05/10/23 History ferrous sulfate 325 mg (65 mg 325 mg PO BID 09/06/18 05/10/23 History iron) tablet glipizide 10 mg tablet 10 mg PO DAILY 09/06/18 05/10/23 History albuterol sulfate 2.5 mg/3 mL 2.5 mg inhalation Q4H PRN 02/01/20 05/10/23 History (0.083 %) solution for nebulization Shortness Of Breath Or Wheezing aspirin 325 mg tablet 325 mg PO DAILY 02/01/20 05/10/23 History pantoprazole 40 mg tablet,delayed 40 mg PO DAILY 02/01/20 05/10/23 History release (Protonix) tamsulosin 0.4 mg capsule (Flomax) 0.4 mg PO DAILY 02/01/20 05/10/23 History Past Med/Surg History Medical History (Updated 05/10/23 @ 19:54 by Norma Watts MD) Hypertensive crisis Hypertension Acute exacerbation of chronic obstructive pulmonary disease Bulging disc LUMBAR AREA Osteoarthritis Diabetes mellitus, type 2 Anemia HX OF Macular degeneration Hypertension Peripheral neuropathy On home oxygen therapy 2L AT HS Myocardial Infarction 2003 (LIFE FLIGHTED TO [place]) Hyperlipidemia GERD (gastroesophageal reflux disease) CAD (coronary artery disease) PAD (peripheral artery disease) COPD (chronic obstructive pulmonary disease) WEARS O2 AT 2L HS "SOMETIMES" Surgical History Fusion of spine CERVICAL History of esophagogastroduodenoscopy (EGD) History of colonoscopy History of discectomy CERVICAL H/O eye surgery LASER SURGERY FOR BLEEDING EYE H/O vascular surgery Family History Mother CKD (chronic kidney disease) Social History Smoking Status: Current every day smoker Tobacco Type: Cigarettes Cigarettes Per Day: 6 -8/day; Second Hand Exposure: Yes; Do You Dip or Chew Tobacco: No; Hx Alcohol Use: Yes Alcohol type: beer Hx Substance Use: No Preferred Language: Beninese Communication Ability: Effective Husbandry Person Required: No Beliefs That Will Affect Care: None marital status: Current Living Situation: Spouse Feels Safe at Home: Yes Assistive Devices: None Review of Systems Review of Systems: Unable to adeuqately review as patient was altered secondary to morphine, stated yes to every question and then would ask, "what?" Physical Exam Physical Exam: GENERAL APPEARANCE: AxO to self, calm, slightly confused HEENT: NC, AT. MMM. EOMI, clear conjunctiva, oropharynx clear. poor dentition NECK: Supple without lymphadenopathy. No stiffness or restricted ROM. HEART: Normal rate and regular rhythm, normal S1/S1, no m/r/g LUNGS: CTAB, poor airway movement ABDOMEN: Soft, nontender, nondistended with good bowel sounds heard. BACK: No CVAT, no obvious deformity. EXTREMITIES: Without cyanosis, clubbing or edema. NEUROLOGICAL: Grossly nonfocal. Alert and oriented, moving all 4 extremities. CN not formally tested but appear grossly intact. Skin: Warm and dry without any rash. Results & Data Results & Data Vital Signs (Past 12 Hours) Vital Signs Temp Pulse Pulse Resp BP BP Pulse Ox 05/10/23 19:01 92 05/10/23 19:01 05/10/23 19:00 80 21 132/95 92 05/10/23 18:56 84 05/10/23 17:56 112 H 127/97 05/10/23 17:42 108 H 18 127/95 94 05/10/23 16:11 103 H 05/10/23 15:50 36.6 C 96 H 18 203/87 H 94 O2 Del Method 05/10/23 19:01 Room Air 05/10/23 19:01 Room Air 05/10/23 19:00 Room Air 05/10/23 18:56 05/10/23 17:56 05/10/23 17:42 Room Air 05/10/23 16:11 05/10/23 15:50 Room Air Laboratory Results Short CBC 05/10/23 Range/Units 16:00 WBC 10.05 (4.8-10.8) K/ul Hgb 15.7 (14.0-18.0) g/dl Hct 46.7 (42.0-52.0) % Plt Count 244 (130-400) K/uL BMP 05/10/23 16:00 Sodium 140 Potassium 4.1 Chloride 103 Carbon Dioxide 30 BUN 16 Creatinine 1.71 H Glucose 117 H Calcium 9.3 Liver Function 05/10/23 Range/Units 16:00 Total Bilirubin 0.9 (0.2-1.0) mg/dl AST 15 (13-39) U/L ALT 12 (7-52) U/L Alkaline Phosphatase 67 (34-104) U/L Albumin 3.7 (3.4-5.0) gm/dl Diagnostic Findings Head CT 05/10/23 16:15 CT SCAN OF THE BRAIN WITHOUT IV CONTRAST CLINICAL HISTORY: Possible seizure. Right upper extremity twitching. COMPARISON STUDY: CT of the brain dated 02/01/2020. TECHNIQUE: Unenhanced axial CT scan of the brain is performed from the vertex to the skull base. A dose lowering technique was utilized adhering to the principles of ALARA. The patient was scanned twice due to motion artifact. CT DOSE: 1325.14 mGy.cm FINDINGS: Brain parenchyma: There is age-related involutional change noting suyn-go-reanznwy subcortical and periventricular microangiopathic disease. A focus of high right parietal encephalomalacia is unchanged and consistent with a remote insult. There is no hemorrhage, mass effect, or evidence of acute territorial ischemia by CT criteria. Schafer-white matter differentiation is preserved. No extra-axial fluid collection is seen. Ventricles, sulci, cisterns: Prominent secondary to involutional change. Intracranial vasculature: There is atherosclerotic calcification of the cavernous carotid and vertebral arteries. Calvarium: Unremarkable. Sinuses and mastoids: There is qqry-ri-yhzhhnwz mucosal thickening within the right frontal sinus and the right ethmoid sinuses. Trace mucosal thickening is seen in the right sphenoid sinus. The mastoid air cells are well pneumatized. Orbits: The bony orbits are grossly intact. IMPRESSION: There is no hemorrhage, mass effect, or evidence of acute territorial ischemia by CT criteria. ACT 112: Negative or not required by law. Electronically signed by: Aquiles Wiggins M.D. 05/10/2023 5:25 PM Chest X-Ray 05/10/23 16:17 XR chest 1V portable HISTORY: 72 years-old Male cp acute chest pain COMPARISON: 02/27/2020 TECHNIQUE: AP view of the chest FINDINGS: Cardiac silhouette is enlarged. Asymmetric left hilar prominence may be positional. Left subclavian dual lead pacer. No pneumothorax, pleural effusion or airspace consolidation. Subcentimeter calcified granuloma of the left mid lung. Cervical spinal fusion hardware. Vascular graft in the left neck. Degenerative changes of the shoulders and spine. IMPRESSION: 1. Cardiomegaly without acute process. 2. Asymmetric left hilar prominence may be positional. This could be correlated with follow-up PA and lateral views of the chest. ACT 112: Negative or not required by law. The above report was generated using voice recognition software. It may contain grammatical, syntax or spelling errors. Electronically signed by: Constantin Monteiro M.D. 05/10/2023 4:47 PM Medications Administered Home Medications Medication Instructions Recorded Confirmed Last Taken albuterol sulfate 90 mcg/actuation 2 puff inhalation Q4H PRN Wheezing 09/06/18 05/10/23 01/31/20 aerosol inhaler atorvastatin 80 mg tablet 80 mg PO DAILY 09/06/18 05/10/23 01/31/20 clopidogrel 75 mg tablet 75 mg PO DAILY 09/06/18 05/10/23 01/31/20 ferrous sulfate 325 mg (65 mg 325 mg PO BID 09/06/18 05/10/23 01/31/20 iron) tablet glipizide 10 mg tablet 10 mg PO DAILY 09/06/18 05/10/23 01/31/20 albuterol sulfate 2.5 mg/3 mL 2.5 mg inhalation Q4H PRN 02/01/20 05/10/23 01/31/20 (0.083 %) solution for nebulization Shortness Of Breath Or Wheezing aspirin 325 mg tablet 325 mg PO DAILY 02/01/20 05/10/23 01/31/20 pantoprazole 40 mg tablet,delayed 40 mg PO DAILY 02/01/20 05/10/23 01/31/20 release (Protonix) tamsulosin 0.4 mg capsule (Flomax) 0.4 mg PO DAILY 02/01/20 05/10/23 01/31/20 Code Status & VTE Plan VTE Prophylaxis Plan VTE Prophylaxis will be ordered: Yes
[2023-05-10 21:38] LABS: Appearance Urine Clear (Clear); Bacteria Urine Automated Negative (Negative); Bilirubin Urine Negative (Negative); Blood Urine Negative (Negative); Color Urine Yellow; Glucose Urine UA Negative (Negative); Ketones Urine Negative (Negative); Leukocyte Esterase Urine Negative (Negative); Nitrite Urine Negative (Negative); Protein Urine 4+ (Negative); RBC Urine Automated 0-4 /hpf (0-4); Specific Gravity Urine 1.015 (1.000-1.030); Urobilinogen Urine Negative (Negative)
[2023-05-10 21:53] LABS: Amphetamines+Metham, Urine Neg (Neg); Barbiturates, Urine Neg (Neg); Benzodiazepine, Urine Neg (Neg); Cocaine, Urine Neg (Neg); MDMA (Ecstacy), Urine Neg (Neg); Marijuana, Urine Neg (Neg); Methadone, Urine Neg (Neg); Opiate, Urine Pos (Neg); Phencyclidine, Urine Neg (Neg)
[2023-05-10] MEDS ORDERED: GLUCOSE 10 TAB/TUBE PO PRN (22:05)
[2023-05-10] MEDS ORDERED: GLUCOSE 40% GEL 15 GM TUBE PO PRN (22:05)
[2023-05-10] MEDS ORDERED: DEXTROSE 50% 50 ML SYRINGE IV PRN (22:05)
[2023-05-10] MEDS ORDERED: ALBUTEROL HFA 8 GM INHALER INH PRN (22:05)
[2023-05-10] MEDS ORDERED: ACETAMINOPHEN 325 MG TAB PO PRN (22:05)
[2023-05-10] MEDS ORDERED: GLUCAGON FOR INJ 1 MG VIAL SQ PRN (22:05)
[2023-05-10] MEDS ORDERED: CARBOHYDRATES FOR HYPOGLYCEMIA PO PRN (22:05)
[2023-05-10 22:09] LABS: Influenza A virus by PCR Negative (Neg); Influenza B virus by PCR Negative (Neg); SARS CoV2 RNA(COVID-19) Ceph NEGATIVE (Negative)
[2023-05-10 22:19] LABS: RSV by PCR Positive (Neg)
[2023-05-10] MEDS: INSULIN ASPART PER UNIT CHARGE SC SCH (23:44)
[2023-05-11] MEDS: FERROUS SULFATE 325 MG TAB PO SCH ×3 (00:08→21:25)
[2023-05-11] MEDS: ENOXAPARIN INJ 40 MG/0.4 ML SYR SQ SCH ×2 (00:08→21:26)
[2023-05-11] MEDS: oxyCODONE/APAP 7.5/325MG TAB PO SCH ×4 (00:09→21:25)
[2023-05-11] MEDS ORDERED: INFLUENZA VACCINE HIGH-DOSE (HD-IIV4) PF 65+ 0.7mL SYR IM ONE (01:44)
[2023-05-11 04:56] LABS: Hematocrit (blood only) 46.1 % (42.0-52.0); Hemoglobin 15.3 g/dl (14.0-18.0); Mean Corpuscular Hgb Conc 33.2 g/dL (32.0-36.0); Mean Corpuscular Volume 96.4 fL (80.0-100.0); Platelet Count 217 K/uL (130-400); RDW Coefficient of Variation 13.4 % (11.5-14.5); Red Blood Count 4.78 M/uL (4.70-6.10); White Blood Count 8.98 K/ul (4.8-10.8)
[2023-05-11 05:01] LABS: Albumin Globulin Ratio 1.1 (0.9-2); Albumin Level 3.5 gm/dl (3.4-5.0); BUN Creatinine Ratio 8.9 (10-20); Bilirubin,Total 0.7 mg/dl (0.2-1.0); Calcium 9.1 mg/dl (8.6-10.3); Creatinine Clr Calc Pharmacy 43.2 ml/min; Est GFR (African American) 50.6 ml/min; Est GFR (Non-African American) 43.7 ml/min; Globulin 3.2 gm/dl (2.5-4.0); Magnesium 1.9 mg/dl (1.7-2.4); Phosphorus 3.9 mg/dl (2.5-4.9); Potassium 3.8 mmol/L (3.5-5.1); Total Protein 6.7 gm/dl (6.0-8.3)
[2023-05-11 07:57] LABS: Estimated Average Glucose 148 mg/dl; Hemoglobin A1C 6.8 % (4.5-5.6)
[2023-05-11] MEDS ORDERED: carvediloL 12.5 MG TAB PO SCH (08:00)
[2023-05-11] MEDS: CLOPIDOGREL BISULFATE 75 MG TAB PO SCH (08:03)
[2023-05-11] MEDS: TAMSULOSIN HCL 0.4 MG CAP PO SCH (08:03)
[2023-05-11] MEDS: ATORVASTATIN 40 MG TAB PO SCH (08:03)
[2023-05-11] MEDS: PANTOprazole 40 MG TAB PO SCH (08:03)
[2023-05-11] MEDS: FLUTICASONE/VILANTEROL 200/25MCG 14 PUFFS/INHALER INH SCH (08:03)
[2023-05-11] MEDS: ASPIRIN 325 MG ECTAB PO SCH (08:03)
[2023-05-11] MEDS: INSULIN ASPART PER UNIT CHARGE SC SCH ×4 (09:03→21:16)
--- NOTE | 2023-05-11 10:54 | Electroencephalogram ---
EEG Procedure Note Date of Service May 11, 2023 Start / End Times Start Time: 819 End Time: 0840 Referring Physician Norma Watts MD History 72-year-old with history of seizure-like activity Home Medication List Medication Instructions Recorded Confirmed Type albuterol sulfate 90 mcg/actuation 2 puff inhalation Q4H PRN Wheezing 09/06/18 05/10/23 History aerosol inhaler atorvastatin 80 mg tablet 80 mg PO DAILY 09/06/18 05/10/23 History clopidogrel 75 mg tablet 75 mg PO DAILY 09/06/18 05/10/23 History ferrous sulfate 325 mg (65 mg 325 mg PO BID 09/06/18 05/10/23 History iron) tablet glipizide 10 mg tablet 10 mg PO DAILY 09/06/18 05/10/23 History albuterol sulfate 2.5 mg/3 mL 2.5 mg inhalation Q4H PRN 02/01/20 05/10/23 History (0.083 %) solution for nebulization Shortness Of Breath Or Wheezing aspirin 325 mg tablet 325 mg PO DAILY 02/01/20 05/10/23 History pantoprazole 40 mg tablet,delayed 40 mg PO DAILY 02/01/20 05/10/23 History release (Protonix) tamsulosin 0.4 mg capsule (Flomax) 0.4 mg PO DAILY 02/01/20 05/10/23 History Inpatient Medication List Aspirin (Aspirin 325 Mg Ectab) 325 mg PO DAILY [facility] Stop: 06/10/23 08:59 Last Admin: 05/11/23 08:03 Dose: 325 mg Documented By: HS Atorvastatin Calcium (Atorvastatin 40 Mg Tab) 80 mg PO DAILY [facility] Stop: 06/10/23 08:59 Last Admin: 05/11/23 08:03 Dose: 80 mg Documented By: HS Carvedilol (Carvedilol 12.5 Mg Tab) 12.5 mg PO BIDM [facility] Stop: 06/10/23 07:59 Last Admin: 05/11/23 08:06 Dose: 12.5 mg Documented By: HS Clopidogrel Bisulfate (Clopidogrel Bisulfate 75 Mg Tab) 75 mg PO DAILY [facility] Stop: 06/10/23 08:59 Last Admin: 05/11/23 08:03 Dose: 75 mg Documented By: HS Enoxaparin Sodium (Enoxaparin Inj 40 Mg/0.4 Ml Syr) 40 mg SQ Q24H [facility] Stop: 06/09/23 21:59 Last Admin: 05/11/23 00:08 Dose: 40 mg Documented By: DIANE Ferrous Sulfate (Ferrous Sulfate 325 Mg Tab) 325 mg PO BID [facility] Stop: 06/09/23 22:04 Last Admin: 05/11/23 09:15 Dose: Not Given Documented By: Admin: 05/11/23 00:08 Dose: 325 mg Documented By: DIANE Fluticasone/Vilanterol (Fluticasone/Vilanterol 200/25mcg 14 Puffs/Inhaler) 1 puffs INH DAILY [facility] Stop: 06/10/23 08:59 Last Admin: 05/11/23 08:03 Dose: 1 puffs Documented By: SANJUANA Insulin Aspart (Insulin Aspart Per Unit Charge) 0 units SC ACHS [facility] Stop: 06/09/23 22:04 Last Admin: 05/11/23 09:03 Dose: 2 units Documented By: SANJUANA Co-signed By: JESSICA Admin: 05/10/23 23:44 Dose: Not Given Documented By: DIANE Co-signed By: AHSAN Oxycodone/Acetaminophen (Oxycodone/Apap 7.5/325mg Tab) 1 tab PO Q8 [facility] Stop: 05/24/23 22:59 Last Admin: 05/11/23 08:02 Dose: 1 tab Documented By: Admin: 05/11/23 00:09 Dose: 1 tab Documented By: DIANE Pantoprazole Sodium (Pantoprazole 40 Mg Tab) 40 mg PO DAILY [facility] Stop: 06/10/23 08:59 Last Admin: 05/11/23 08:03 Dose: 40 mg Documented By: SANJUANA Tamsulosin HCl (Tamsulosin Hcl 0.4 Mg Cap) 0.4 mg PO DAILY [facility] Stop: 06/10/23 08:59 Last Admin: 05/11/23 08:03 Dose: 0.4 mg Documented By: SANJUANA Discontinued Medications Sodium Chloride (Nss) 500 mls @ 999 mls/hr IV .Q31M ONE Stop: 05/10/23 16:46 Last Infusion: 05/10/23 18:56 Dose: Infused Documented By: Admin: 05/10/23 16:27 Dose: 999 mls/hr Documented By: LEILANI Magnesium Sulfate/Dextrose (Magnesium Sulfate / D5w) 1 gm in 100 mls @ 100 mls/hr IV Q1H [facility] Stop: 05/10/23 19:05 Last Infusion: 05/10/23 20:00 Dose: Infused Documented By: Admin: 05/10/23 18:56 Dose: 100 mls/hr Documented By: Infusion: 05/10/23 18:56 Dose: Infused Documented By: Admin: 05/10/23 17:56 Dose: 100 mls/hr Documented By: LEILANI Influenza Virus Vaccine (Influenza Vaccine High-Dose (Hd-Iiv4) Pf 65+ 0.7ml Syr) 0.7 ml IM .ONCE ONE Stop: 05/11/23 01:45 Last Admin: 05/11/23 09:15 Dose: Not Given Documented By: SANJUANA Labetalol HCl (Labetalol Hcl Iv 5 Mg/Ml 20ml) 10 mg IV NOW STA Stop: 05/10/23 17:34 Last Admin: 05/10/23 18:12 Dose: Not Given Documented By: SEAN Lorazepam (Lorazepam 1 Mg/1 Ml Syr Ed Inj Use) 1 mg IV ONE STA Stop: 05/10/23 16:17 Last Admin: 05/10/23 16:28 Dose: 1 mg Documented By: LEILANI Metoprolol Tartrate (Metoprolol Tartrate 1 Mg/Ml Vial) 5 mg IV NOW STA Stop: 05/10/23 17:52 Last Admin: 05/10/23 17:56 Dose: 5 mg Documented By: LEILANI Morphine Sulfate (Morphine Sulfate 2 Mg/Ml Carp) 2 mg IV NOW STA Stop: 05/10/23 16:17 Last Admin: 05/10/23 16:30 Dose: 2 mg Documented By: LEILANI Morphine Sulfate (Morphine Sulfate 4 Mg/Ml 1 Ml Carp\Vial) 4 mg IV NOW STA Stop: 05/10/23 17:46 Last Admin: 05/10/23 17:55 Dose: 4 mg Documented By: LEILANI Description This is a 21 electrode EEG with a single channel dedicated to limited EKG. The electrodes were placed in accordance with the International 10-20 system. Interpretation The predominant background activity consists of an irregular 7 hz activity, of up to 50 mV in amplitude,seen symmetrically distributed over the posterior head regions bilaterally spreading anteriorly. This activity attenuates some with eye-opening and other alerting procedures. Photic stimulation was performed and elicited no change in the background activity and no abnormal responses were seen. Hyperventilation was not performed. A minimal amount of muscle and movement artifact activity contaminated the recording and did not hinder interpretation to any significant degree. Throughout the (brief) waking portion of the recording, no focal abnormalities or potentially epileptogenic discharges were seen. The patient spent a considerable time in the drowsy state with no evidence of deeper stages of sleep. There were no further abnormalities or activations. In summary, this EEG was mildly abnormal during wakefulness and prolonged drowsiness, showing some very mild generalized slowing only. No focal abnormalities or potentially epileptogenic discharges were seen Clinical Correlation The abscence of potentially epileptogenic activity does not exclude a seizure disorder, since interictally, EEGs can be normal. The very mild generalized slowing noted in this recording is nonspecific. It may signify a mild underlying encephalopathy or postictal state, however, it may be seen in someone of this age with no apparent neurological or mental status deficit. Clinical correlation is required [facility] EEG Procedure Codes Indication for Procedure (1) Seizure-like activity: Neurology Neurology: 24958 EEG include record awake & drowsy
--- NOTE | 2023-05-11 13:48 | Electrocardiogram Report ---
Test Reason : Blood Pressure : / mmHG Vent. Rate : 101 BPM Atrial Rate : 101 BPM P-R Int : 222 ms QRS Dur : 126 ms QT Int : 364 ms P-R-T Axes : 091 -76 126 degrees QTc Int : 471 ms Sinus tachycardia with 1st degree A-V block with Premature atrial complexes with Aberrant conduction Left axis deviation Right bundle branch block Cannot rule out Septal infarct , age undetermined T wave abnormality, consider inferior ischemia Abnormal ECG When compared with ECG of 27-FEB-2020 19:49, No significant change Confirmed by Gregor Najera ([id number]) on 05/11/2023 1:48:13 PM Referred By: Confirmed By:Gregor Najera
--- NOTE | 2023-05-11 14:29 | Electrocardiogram Report ---
Test Reason : Blood Pressure : / mmHG Vent. Rate : 081 BPM Atrial Rate : 081 BPM P-R Int : 238 ms QRS Dur : 136 ms QT Int : 444 ms P-R-T Axes : 078 -75 113 degrees QTc Int : 515 ms Sinus rhythm with 1st degree A-V block Left axis deviation Right bundle branch block Cannot rule out Septal infarct (cited on or before 10-MAY-2023) T wave abnormality, consider lateral ischemia Abnormal ECG When compared with ECG of 10-MAY-2023 15:49, (unconfirmed) Aberrant conduction is no longer Present Confirmed by Gregor Najera ([id number]) on 05/11/2023 2:28:59 PM Referred By: REFERRED SELF Confirmed By:Gregor Najera
[2023-05-11] MEDS ORDERED: carvediloL 12.5 MG TAB PO ONE (15:30)
[2023-05-11] MEDS ORDERED: lisinopril 20 MG TAB PO STA (15:33)
--- NOTE | 2023-05-11 15:33 | Hospitalist Progress Note ---
Date of Service May 11, 2023 Assessment & Plan (1) Episode of shaking: (2) Elevated troponin: (3) Tachycardia: (4) Cardiomyopathy: (5) Chronic pain: Plan Mr. Israel Salcedo a 72 year old gentleman with a history of HLD, HTN, tachy- merari syndrome s/p PPM, COPD, DM2, L renal clear cell carcinoma, CKDII, BPH, chronic pain on chronic opioids, COPD/emphysema, HFmEF, lacunar stroke, prior GIB, PVD, tobacco use who is being admitted for monitoring of shaking episode after 2 days of missing medications. This episode resolved when given morphine in ED. Patient is on longstanding narcotics for chronic pain, and given the holidays, had a lapse in prescription. This is thought to be the precipitating event, but the spell was concerning for the family. The patient was obtunded after 6mg of morphine and the son does not seem to know the medications the patient is on. Patient does have recent event where he was found lost driving in [place] and no longer able to drive given moderate dementia and was trialed on memenda, which . #Shaking Event -Unclear eitology at this time, possibly precipitated by withdrawal as resolved with morphine -Resume home pain regimen -EEG with generalized slowing iso dementia, appears resolved this am -Infectious work up to r/o insidious infectious event as potential source #Atypical Chest Pain #CAD, HFrEF (EF 35-40%) #Tachy-merari syndrome s/p PM -Pain associated with tremors, not on exertion, no ischemic changes on EKG -Trop up to 82 -Trend troponin, monitor on telemetry -Continue plavix, ASA, statin -Continue Carvedilol 25 mg -Resume lisinopril 20mg (just filled by PCP) -ECHO reviewed -Replace lytes #Left Renal Cell Carcinoma #CKDIII Renal function at baseline, avoid nephrotoxic agents #Prior Lacunar stroke Continue ASA, Plavix, statin #Vascular Dementia -Delirium Precautions -Avoid benzos and further opioids #COPD/Emphysema on room air -Continue breo inhaler,albuterol #DMTII glipizide home daily SSI while IP PT/OT when able lovenox DVT Admission and Anticipated Discharge Date Admission Date: May 10, 2023 Subjective NAEO Denies any acute chest pain or other concerns at this time Reports feeling much better overall and improved Physical Exam Constitutional: WD/WN, vitals as above Respiratory: On Oxygen NC, but saturating in high 90s with good airway movement Cardiovascular: RRR, no murmur, no edema Results & Data Results & Data Vital Signs (Past 12 Hours) Vital Signs Pulse Pulse Resp BP BP Pulse Ox O2 Del Method 05/11/23 15:00 80 19 97 05/11/23 14:00 186/85 H 05/11/23 14:00 80 21 97 05/11/23 13:38 80 17 96 05/11/23 13:00 88 12 96 05/11/23 12:00 80 17 98 05/11/23 11:17 148/75 H 05/11/23 11:17 82 18 05/11/23 11:12 93 05/11/23 11:12 128/63 05/11/23 11:11 81 19 96 05/11/23 11:11 135/85 05/11/23 11:07 83 19 05/11/23 11:07 78/67 L 05/11/23 11:05 83 19 05/11/23 11:05 79/65 L 05/11/23 11:00 79 16 95 05/11/23 11:00 99/78 L 05/11/23 10:00 90/65 L 05/11/23 10:00 80 24 05/11/23 09:23 79 20 114/96 97 Nasal Cannula 05/11/23 09:14 82 16 95 05/11/23 09:14 114/96 05/11/23 09:00 81 21 97 05/11/23 08:28 89 05/11/23 08:00 94 H 17 95 05/11/23 07:00 88 24 98 05/11/23 07:00 Nasal Cannula 05/11/23 06:56 Nasal Cannula 05/11/23 06:00 18 99 05/11/23 05:00 84 20 100 05/11/23 04:00 88 99 O2 Flow Rate 05/11/23 15:00 05/11/23 14:00 05/11/23 14:00 05/11/23 13:38 05/11/23 13:00 05/11/23 12:00 05/11/23 11:17 05/11/23 11:17 05/11/23 11:12 05/11/23 11:12 05/11/23 11:11 05/11/23 11:11 05/11/23 11:07 05/11/23 11:07 05/11/23 11:05 05/11/23 11:05 05/11/23 11:00 05/11/23 11:00 05/11/23 10:00 05/11/23 10:00 05/11/23 09:23 4 05/11/23 09:14 05/11/23 09:14 05/11/23 09:00 05/11/23 08:28 05/11/23 08:00 05/11/23 07:00 05/11/23 07:00 4 05/11/23 06:56 2 05/11/23 06:00 05/11/23 05:00 05/11/23 04:00 Laboratory Results Short CBC 05/10/23 05/11/23 Range/Units 16:00 04:04 WBC 10.05 8.98 (4.8-10.8) K/ul Hgb 15.7 15.3 (14.0-18.0) g/dl Hct 46.7 46.1 (42.0-52.0) % Plt Count 244 217 (130-400) K/uL BMP 05/10/23 05/11/23 16:00 04:04 Sodium 140 140 Potassium 4.1 3.8 Chloride 103 104 Carbon Dioxide 30 29 BUN 16 14 Creatinine 1.71 H 1.57 H Glucose 117 H 129 H Calcium 9.3 9.1 Liver Function 05/10/23 05/11/23 Range/Units 16:00 04:04 Total Bilirubin 0.9 0.7 (0.2-1.0) mg/dl AST 15 12 L (13-39) U/L ALT 12 9 (7-52) U/L Alkaline Phosphatase 67 68 (34-104) U/L Albumin 3.7 3.5 (3.4-5.0) gm/dl Urine 05/10/23 Range/Units 21:08 Urine Color Yellow Urine Appearance Clear (Clear) Urine pH 7.0 (4.5-7.5) Ur Specific [place] 1.015 (1.000-1.030) Urine Protein 4+ H (Negative) Urine Glucose (UA) Negative (Negative) Medications Administered Home Medications Medication Instructions Recorded Confirmed Last Taken albuterol sulfate 90 mcg/actuation 2 puff inhalation Q4H PRN Wheezing 09/06/18 05/10/23 01/31/20 aerosol inhaler atorvastatin 80 mg tablet 80 mg PO DAILY 09/06/18 05/10/23 01/31/20 clopidogrel 75 mg tablet 75 mg PO DAILY 09/06/18 05/10/23 01/31/20 ferrous sulfate 325 mg (65 mg 325 mg PO BID 09/06/18 05/10/23 01/31/20 iron) tablet glipizide 10 mg tablet 10 mg PO DAILY 09/06/18 05/10/23 01/31/20 albuterol sulfate 2.5 mg/3 mL 2.5 mg inhalation Q4H PRN 02/01/20 05/10/23 01/31/20 (0.083 %) solution for nebulization Shortness Of Breath Or Wheezing aspirin 325 mg tablet 325 mg PO DAILY 02/01/20 05/10/23 01/31/20 pantoprazole 40 mg tablet,delayed 40 mg PO DAILY 02/01/20 05/10/23 01/31/20 release (Protonix) tamsulosin 0.4 mg capsule (Flomax) 0.4 mg PO DAILY 02/01/20 05/10/23 01/31/20 Active Medications Generic Name Dose Route Start Last Admin Trade Name Freq PRN Reason Stop Dose Admin Aspirin 325 mg 05/11/23 09:00 05/11/23 08:03 Aspirin 325 Mg Ectab PO 06/10/23 08:59 325 mg DAILY FILEMON Administration Atorvastatin Calcium 80 mg 05/11/23 09:00 05/11/23 08:03 Atorvastatin 40 Mg Tab PO 06/10/23 08:59 80 mg DAILY FILEMON Administration Carvedilol 12.5 mg 05/11/23 08:00 05/11/23 08:06 Carvedilol 12.5 Mg Tab PO 06/10/23 07:59 12.5 mg BIDM FILEMON Administration Clopidogrel Bisulfate 75 mg 05/11/23 09:00 05/11/23 08:03 Clopidogrel Bisulfate 75 Mg Tab PO 06/10/23 08:59 75 mg DAILY FILEMON Administration Enoxaparin Sodium 40 mg 05/10/23 22:00 05/11/23 00:08 Enoxaparin Inj 40 Mg/0.4 Ml Syr SQ 06/09/23 21:59 40 mg Q24H FILEMON Administration Ferrous Sulfate 325 mg 05/10/23 22:05 05/11/23 09:15 Ferrous Sulfate 325 Mg Tab PO 06/09/23 22:04 Not Given BID FILEMON Fluticasone/Vilanterol 1 puffs 05/11/23 09:00 05/11/23 08:03 Fluticasone/Vilanterol 200/25mcg 14 Puffs/Inhaler INH 06/10/23 08:59 1 puffs DAILY FILEMON Administration Insulin Aspart 0 units 05/10/23 22:05 05/11/23 13:35 Insulin Aspart Per Unit Charge SC 06/09/23 22:04 4 units ACHS FILEMON Administration Oxycodone/Acetaminophen 1 tab 05/10/23 23:00 05/11/23 14:32 Oxycodone/Apap 7.5/325mg Tab PO 05/24/23 22:59 1 tab Q8 FILEMON Administration Pantoprazole Sodium 40 mg 05/11/23 09:00 05/11/23 08:03 Pantoprazole 40 Mg Tab PO 06/10/23 08:59 40 mg DAILY FILEMON Administration Tamsulosin HCl 0.4 mg 05/11/23 09:00 05/11/23 08:03 Tamsulosin Hcl 0.4 Mg Cap PO 06/10/23 08:59 0.4 mg DAILY FILEMON Administration
--- NOTE | 2023-05-11 17:01 | Cardiology Consultation ---
Date of Consultation May 11, 2023 Assessment & Plan (1) Episode of shaking: (2) Elevated troponin: (3) Cardiomyopathy: (4) Labile hypertension: Plan 72-year-old male with complex cardiac and vascular history as outlined. Recent difficulties with increasing vascular dementia. Presents with change in mental status, right arm shaking, chest pressure. Possible lapse in medications including opioids initiating concern Patient clinically stable at this point in time. Troponins elevated but flat Blood pressures transiently hypotensive now elevated Echocardiogram not significantly changed from prior studies with diffuse cardiomyopathy. No prior history of ischemic heart disease but multiple risk factors for such and chronic reduced LV function EF 40% Patient RSV positive with chronic obstructive lung disease and cough Recommendations: Agree with resumption of prehospital ordered medications given lapse in therapies including clopidogrel, aspirin and atorvastatin Prior outpatient therapies per list included carvedilol 25 mg twice per day, lisinopril 20 mg p.o. daily, terazosin 5 mg every afternoon and furosemide 40 mg p.o. daily Agree with restarting clopidogrel at 25 mg twice per day Pacemaker functioning appropriately History of Present Illness Reason for Consultation: Mental status changes, hypertension, pacemaker Requesting Physician: Dr. Watts Attending Physician: Norma Watts MD History of Present Illness Patient is a complex 72-year-old male with ongoing medical issues which include 1. Vascular dementia/prior stroke 2. Hypertension with past hypertensive urgency 3. Moderate diffuse cardiomyopathy nonischemic by repeat nuclear stress 4. COPD class C intermittently O2 use, ongoing tobacco use 5. Peripheral and cerebral vascular disease. Status post left carotid enterectomy 2012, left carotid stenting July 2022 with chronic right carotid artery occlusion. Prior left SFA stent, subsequent left femoral artery endarterectomy and left common iliac stent 2014. Chronic left subclavian stenosis 6. Tachybradycardia syndrome status post dual-chamber pacemaker insertion 03/29/2022, [employer] Amie XT DR MRI W1 DR 01 7. CKD stage IIIb with proteinuria, MGUS, left partial nephrectomy for renal cell carcinoma 2019 Patient presents acutely for admission with abrupt mental status changes. Info rmation gained from review of records both inpatient and outpatient. Patient poor historian Records reflect complaints of chest pressure and shaking after lapse in medications for several days or perhaps longer. Does use narcotics chronically. After readministration of narcotics had transient obtundation This morning no acute complaints. Blood pressures are labile. No fevers chills. Allergies Allergy/AdvReac Type Severity Reaction Status Date / Time No Known Allergies Allergy Unknown Verified 02/01/20 00:10 Home Medications Medication Instructions Recorded Confirmed Type albuterol sulfate 90 mcg/actuation 2 puff inhalation Q4H PRN Wheezing 09/06/18 05/10/23 History aerosol inhaler atorvastatin 80 mg tablet 80 mg PO DAILY 09/06/18 05/10/23 History clopidogrel 75 mg tablet 75 mg PO DAILY 09/06/18 05/10/23 History ferrous sulfate 325 mg (65 mg 325 mg PO BID 09/06/18 05/10/23 History iron) tablet glipizide 10 mg tablet 10 mg PO DAILY 09/06/18 05/10/23 History albuterol sulfate 2.5 mg/3 mL 2.5 mg inhalation Q4H PRN 02/01/20 05/10/23 History (0.083 %) solution for nebulization Shortness Of Breath Or Wheezing aspirin 325 mg tablet 325 mg PO DAILY 02/01/20 05/10/23 History pantoprazole 40 mg tablet,delayed 40 mg PO DAILY 02/01/20 05/10/23 History release (Protonix) tamsulosin 0.4 mg capsule (Flomax) 0.4 mg PO DAILY 02/01/20 05/10/23 History Patient History Medical History (Updated 05/11/23 @ 17:04 by Tano Villarreal MD) Hypertensive crisis Hypertension Acute exacerbation of chronic obstructive pulmonary disease Bulging disc LUMBAR AREA Osteoarthritis Diabetes mellitus, type 2 Anemia HX OF Macular degeneration Hypertension Peripheral neuropathy On home oxygen therapy 2L AT HS Myocardial Infarction 2003 (LIFE FLIGHTED TO [place]) Hyperlipidemia GERD (gastroesophageal reflux disease) CAD (coronary artery disease) PAD (peripheral artery disease) COPD (chronic obstructive pulmonary disease) WEARS O2 AT 2L HS "SOMETIMES" Surgical History Fusion of spine CERVICAL History of esophagogastroduodenoscopy (EGD) History of colonoscopy History of discectomy CERVICAL H/O eye surgery LASER SURGERY FOR BLEEDING EYE H/O vascular surgery Family History Mother CKD (chronic kidney disease) Social History Smoking Status: Heavy tobacco smoker Tobacco Type: Cigarettes Cigarettes Per Day: 6 -8/day; Second Hand Exposure: Yes; Do You Dip or Chew Tobacco: No; Hx Alcohol Use: Yes Alcohol type: beer Hx Substance Use: No Preferred Language: Citizen Of [place] Communication Ability: Effective Plating Inspector Required: No Beliefs That Will Affect Care: None marital status: Current Living Situation: Family and Other Current Living Situation Comment: W/son and friends in home, 1 lvl Other Information That Helps Us Care for You: No Feels Safe at Home: Yes Safety Concerns: Feels Safe At This Time Assistive Devices: Oxygen - at Night Assistive Devices Comment: Intermittent O2 at night Review of Systems Review of Systems: All systems reviewed & are unremarkable except as noted in HPI & below Results & Data Vital Signs (Past 12 Hours) Vital Signs Pulse Pulse Resp BP BP Pulse Ox O2 Del Method 05/11/23 16:00 79 20 99 05/11/23 15:00 80 19 97 05/11/23 14:00 186/85 H 05/11/23 14:00 80 21 97 05/11/23 13:38 80 17 96 05/11/23 13:00 88 12 96 05/11/23 12:00 80 17 98 05/11/23 11:17 148/75 H 05/11/23 11:17 82 18 05/11/23 11:12 93 05/11/23 11:12 128/63 05/11/23 11:11 81 19 96 05/11/23 11:11 135/85 05/11/23 11:07 83 19 05/11/23 11:07 78/67 L 05/11/23 11:05 83 19 05/11/23 11:05 79/65 L 05/11/23 11:00 79 16 95 05/11/23 11:00 99/78 L 05/11/23 10:00 90/65 L 05/11/23 10:00 80 24 05/11/23 09:23 79 20 114/96 97 Nasal Cannula 05/11/23 09:14 82 16 95 05/11/23 09:14 114/96 05/11/23 09:00 81 21 97 05/11/23 08:28 89 05/11/23 08:00 94 H 17 95 05/11/23 07:00 88 24 98 05/11/23 07:00 Nasal Cannula 05/11/23 06:56 Nasal Cannula 05/11/23 06:00 18 99 05/11/23 05:00 84 20 100 O2 Flow Rate 05/11/23 16:00 05/11/23 15:00 05/11/23 14:00 05/11/23 14:00 05/11/23 13:38 05/11/23 13:00 05/11/23 12:00 05/11/23 11:17 05/11/23 11:17 05/11/23 11:12 05/11/23 11:12 05/11/23 11:11 05/11/23 11:11 05/11/23 11:07 05/11/23 11:07 05/11/23 11:05 05/11/23 11:05 05/11/23 11:00 05/11/23 11:00 05/11/23 10:00 05/11/23 10:00 05/11/23 09:23 4 05/11/23 09:14 05/11/23 09:14 05/11/23 09:00 05/11/23 08:28 05/11/23 08:00 05/11/23 07:00 05/11/23 07:00 4 05/11/23 06:56 2 05/11/23 06:00 05/11/23 05:00 Laboratory Results Laboratory Results - last 24 hr 05/10/23 05/10/23 05/10/23 16:00 18:48 21:08 WBC RBC Hgb Hct MCV MCH MCHC RDW Std Deviation RDW Coeff of David Plt Count MPV PT 11.3 INR 1.0 APTT 30 PTT Ratio 1.1 Sodium Potassium Chloride Carbon Dioxide Anion Gap BUN Creatinine Est Cr Clr Drug Dosing Est GFR ( Amer) Est GFR (Non-Af Amer) BUN/Creatinine Ratio Glucose POC Glucose Estimat Average Glucose Hemoglobin A1c Calcium Phosphorus Magnesium Total Bilirubin AST ALT Alkaline Phosphatase Troponin I High Sens 82.8 H* 77.3 H* Total Protein Albumin Globulin Albumin/Globulin Ratio Procalcitonin TSH 1.752 Urine Color Yellow Urine Appearance Clear Urine pH 7.0 Ur Specific [place] 1.015 Urine Protein 4+ H Urine Glucose (UA) Negative Urine Ketones Negative Urine Blood Negative Urine Nitrite Negative Urine Bilirubin Negative Urine Urobilinogen Negative Ur Leukocyte Esterase Negative Urine WBC (Auto) 1-5 Urine RBC (Auto) 0-4 U Hyaline Cast (Auto) 1-5 U Epithel Cells (Auto) 5-10 H Urine Bacteria (Auto) Negative Urine Opiates Screen Pos H U Codeine Confrm GC/MS Pending Ur Morphine (GC/MS) Pending Ur Hydrocodone (GC/MS) Pending Ur Norhydrocodone Pending Ur Noroxycodone Pending Urine Oxycodone (GC/MS) Pending U Oxymorphone GC/MS Pending Ur Methadone, Qual Neg Ur Hydromorphone (GC/MS) Pending Urine Barbiturates Neg Ur Phencyclidine (PCP) Neg U Amphetamin/Meth Scrn Neg MDMA (Ecstasy) Screen Neg U Benzodiazepines Scrn Neg Ur Cocaine Metabolite Neg U Marijuana (THC) Screen Neg Drug Screen Comment Pending SARS-CoV-2 (PCR) Influenza Type A (PCR) Influenza Type B (PCR) RSV (RT-PCR) 05/10/23 05/10/23 05/10/23 21:18 22:47 23:39 WBC RBC Hgb Hct MCV MCH MCHC RDW Std Deviation RDW Coeff of David Plt Count MPV PT INR APTT PTT Ratio Sodium Potassium Chloride Carbon Dioxide Anion Gap BUN Creatinine Est Cr Clr Drug Dosing Est GFR ( Amer) Est GFR (Non-Af Amer) BUN/Creatinine Ratio Glucose POC Glucose 132 H Estimat Average Glucose Hemoglobin A1c Calcium Phosphorus Magnesium Total Bilirubin AST ALT Alkaline Phosphatase Troponin I High Sens 84.3 H* Total Protein Albumin Globulin Albumin/Globulin Ratio Procalcitonin TSH Urine Color Urine Appearance Urine pH Ur Specific [place] Urine Protein Urine Glucose (UA) Urine Ketones Urine Blood Urine Nitrite Urine Bilirubin Urine Urobilinogen Ur Leukocyte Esterase Urine WBC (Auto) Urine RBC (Auto) U Hyaline Cast (Auto) U Epithel Cells (Auto) Urine Bacteria (Auto) Urine Opiates Screen U Codeine Confrm GC/MS Ur Morphine (GC/MS) Ur Hydrocodone (GC/MS) Ur Norhydrocodone Ur Noroxycodone Urine Oxycodone (GC/MS) U Oxymorphone GC/MS Ur Methadone, Qual Ur Hydromorphone (GC/MS) Urine Barbiturates Ur Phencyclidine (PCP) U Amphetamin/Meth Scrn MDMA (Ecstasy) Screen U Benzodiazepines Scrn Ur Cocaine Metabolite U Marijuana (THC) Screen Drug Screen Comment SARS-CoV-2 (PCR) NEGATIVE Influenza Type A (PCR) Negative Influenza Type B (PCR) Negative RSV (RT-PCR) Positive A* 05/11/23 05/11/23 05/11/23 04:04 08:07 12:07 WBC 8.98 RBC 4.78 Hgb 15.3 Hct 46.1 MCV 96.4 MCH 32.0 MCHC 33.2 RDW Std Deviation 48.0 H RDW Coeff of David 13.4 Plt Count 217 MPV 10.0 PT INR APTT PTT Ratio Sodium 140 Potassium 3.8 Chloride 104 Carbon Dioxide 29 Anion Gap 7 BUN 14 Creatinine 1.57 H Est Cr Clr Drug Dosing 43.2 Est GFR ( Amer) 50.6 Est GFR (Non-Af Amer) 43.7 BUN/Creatinine Ratio 8.9 L Glucose 129 H POC Glucose 125 H 153 H Estimat Average Glucose 148 Hemoglobin A1c 6.8 H Calcium 9.1 Phosphorus 3.9 Magnesium 1.9 Total Bilirubin 0.7 AST 12 L ALT 9 Alkaline Phosphatase 68 Troponin I High Sens 77.7 H* Total Protein 6.7 Albumin 3.5 Globulin 3.2 Albumin/Globulin Ratio 1.1 Procalcitonin 0.09 TSH Urine Color Urine Appearance Urine pH Ur Specific [place] Urine Protein Urine Glucose (UA) Urine Ketones Urine Blood Urine Nitrite Urine Bilirubin Urine Urobilinogen Ur Leukocyte Esterase Urine WBC (Auto) Urine RBC (Auto) U Hyaline Cast (Auto) U Epithel Cells (Auto) Urine Bacteria (Auto) Urine Opiates Screen U Codeine Confrm GC/MS Ur Morphine (GC/MS) Ur Hydrocodone (GC/MS) Ur Norhydrocodone Ur Noroxycodone Urine Oxycodone (GC/MS) U Oxymorphone GC/MS Ur Methadone, Qual Ur Hydromorphone (GC/MS) Urine Barbiturates Ur Phencyclidine (PCP) U Amphetamin/Meth Scrn MDMA (Ecstasy) Screen U Benzodiazepines Scrn Ur Cocaine Metabolite U Marijuana (THC) Screen Drug Screen Comment SARS-CoV-2 (PCR) Influenza Type A (PCR) Influenza Type B (PCR) RSV (RT-PCR) 05/11/23 16:49 WBC RBC Hgb Hct MCV MCH MCHC RDW Std Deviation RDW Coeff of David Plt Count MPV PT INR APTT PTT Ratio Sodium Potassium Chloride Carbon Dioxide Anion Gap BUN Creatinine Est Cr Clr Drug Dosing Est GFR ( Amer) Est GFR (Non-Af Amer) BUN/Creatinine Ratio Glucose POC Glucose 84 Estimat Average Glucose Hemoglobin A1c Calcium Phosphorus Magnesium Total Bilirubin AST ALT Alkaline Phosphatase Troponin I High Sens Total Protein Albumin Globulin Albumin/Globulin Ratio Procalcitonin TSH Urine Color Urine Appearance Urine pH Ur Specific [place] Urine Protein Urine Glucose (UA) Urine Ketones Urine Blood Urine Nitrite Urine Bilirubin Urine Urobilinogen Ur Leukocyte Esterase Urine WBC (Auto) Urine RBC (Auto) U Hyaline Cast (Auto) U Epithel Cells (Auto) Urine Bacteria (Auto) Urine Opiates Screen U Codeine Confrm GC/MS Ur Morphine (GC/MS) Ur Hydrocodone (GC/MS) Ur Norhydrocodone Ur Noroxycodone Urine Oxycodone (GC/MS) U Oxymorphone GC/MS Ur Methadone, Qual Ur Hydromorphone (GC/MS) Urine Barbiturates Ur Phencyclidine (PCP) U Amphetamin/Meth Scrn MDMA (Ecstasy) Screen U Benzodiazepines Scrn Ur Cocaine Metabolite U Marijuana (THC) Screen Drug Screen Comment SARS-CoV-2 (PCR) Influenza Type A (PCR) Influenza Type B (PCR) RSV (RT-PCR) Diagnostic Findings Echocardiogram 05/11/2023 The left ventricle is normal in size with mild left ventricular hypertrophy. There is moderate global hypokinesis with septal dyssynergy consistent with conduction abnormality, EF 35-40% Aortic sclerosis without stenosis Trace aortic and mild mitral and mild tricuspid insufficiency Mild elevation right heart pressures
[2023-05-11 18:00] LABS: Appearance Urine Clear (Clear); Bacteria Urine Automated Negative (Negative); Bilirubin Urine Negative (Negative); Blood Urine Trace (Negative); Color Urine Yellow; Glucose Urine UA Trace (Negative); Ketones Urine Negative (Negative); Leukocyte Esterase Urine Negative (Negative); Nitrite Urine Negative (Negative); Protein Urine 4+ (Negative); Specific Gravity Urine 1.024 (1.000-1.030); Urobilinogen Urine Negative (Negative); pH Urine 6.5 (4.5-7.5)
[2023-05-11] MEDS ORDERED: FUROSEMIDE 40 MG/4 ML VIAL IV ONE (19:14)
[2023-05-11] MEDS ORDERED: hydrALAZINE HCL 20 MG/ML VIAL IV ONE (19:15)
[2023-05-11] MEDS: carvediloL 25 MG TAB PO SCH (19:51)
[2023-05-12 05:24] LABS: Hematocrit (blood only) 47.8 % (42.0-52.0); Hemoglobin 15.5 g/dl (14.0-18.0); Mean Corpuscular Hemoglobin 31.2 pg (25.0-34.0); Mean Corpuscular Hgb Conc 32.4 g/dL (32.0-36.0); Mean Corpuscular Volume 96.2 fL (80.0-100.0); Mean Platelet Volume 10.1 fL (9.4-12.4); Platelet Count 218 K/uL (130-400); RDW Coefficient of Variation 13.4 % (11.5-14.5); RDW Standard Deviation 47.9 fL (36.4-46.3); Red Blood Count 4.97 M/uL (4.70-6.10); White Blood Count 10.62 K/ul (4.8-10.8)
[2023-05-12 05:49] LABS: BUN Creatinine Ratio 13.7 (10-20); Calcium 9.1 mg/dl (8.6-10.3); Creatinine Clr Calc Pharmacy 26.5 ml/min; Est GFR (Non-African American) 24.2 ml/min; Magnesium 1.7 mg/dl (1.7-2.4); Phosphorus 3.5 mg/dl (2.5-4.9); Potassium 3.8 mmol/L (3.5-5.1)
[2023-05-12] MEDS: oxyCODONE/APAP 7.5/325MG TAB PO SCH ×3 (05:56→21:35)
[2023-05-12] MEDS: carvediloL 25 MG TAB PO SCH ×2 (06:33→18:56)
[2023-05-12] MEDS: FLUTICASONE/VILANTEROL 200/25MCG 14 PUFFS/INHALER INH SCH (08:03)
[2023-05-12] MEDS: PANTOprazole 40 MG TAB PO SCH (08:04)
[2023-05-12] MEDS: FERROUS SULFATE 325 MG TAB PO SCH ×2 (08:05→20:48)
[2023-05-12] MEDS: TAMSULOSIN HCL 0.4 MG CAP PO SCH (08:05)
[2023-05-12] MEDS: CLOPIDOGREL BISULFATE 75 MG TAB PO SCH (08:06)
[2023-05-12] MEDS: ATORVASTATIN 40 MG TAB PO SCH (08:06)
[2023-05-12] MEDS: ASPIRIN 325 MG ECTAB PO SCH (08:07)
[2023-05-12] MEDS ORDERED: lisinopril 20 MG TAB PO SCH (09:00)
[2023-05-12] MEDS: INSULIN ASPART PER UNIT CHARGE SC SCH ×4 (09:04→20:49)
--- NOTE | 2023-05-12 13:45 | Hospitalist Progress Note ---
Date of Service May 12, 2023 Assessment & Plan (1) Episode of shaking: (2) Elevated troponin: (3) Tachycardia: (4) Cardiomyopathy: (5) Chronic pain: Plan Mr. Israel Salcedo a 72 year old gentleman with a history of HLD, HTN, tachy- merari syndrome s/p PPM, COPD, DM2, L renal clear cell carcinoma, CKDII, BPH, chronic pain on chronic opioids, COPD/emphysema, HFmEF, lacunar stroke, prior GIB, PVD, tobacco use who is being admitted for monitoring of shaking episode after 2 days of missing medications. This episode resolved when given morphine in ED. Patient is on longstanding narcotics for chronic pain, and given the holidays, had a lapse in prescription. This is thought to be the precipitating event, but the spell was concerning for the family. The patient was obtunded after 6mg of morphine and the son does not seem to know the medications the patient is on. Patient does have recent event where he was found lost driving in [place] and no longer able to drive given moderate dementia and was trialed on memenda, which . Attempted to resume home medications verified by Son, coreg and lisinopril, however, patient became notably hypotensive with associated ZINA on am labs. Patient's medical history over last year is marked by multiple medications being discontinued and resumed, however, seems this was far too much. #Acute kidney injury #Left Renal Cell Carcinoma #CKDIII likely prerenal Renal function at baseline, avoid nephrotoxic agents -resumed lisinopril home po and 1xlasix in setting of elevated BP and O2 requirement, however, blood pressure dropped with subsequent increase in Cr. Multiple medications started and discontinued including lasix/lisinopril over the course of last year repeat BMP, if uptrending neprhology consult #Shaking Event -Unclear eitology at this time, possibly precipitated by withdrawal as resolved with morphine -Resume home pain regimen -EEG with generalized slowing iso dementia, appears resolved this am -Infectious work up to r/o insidious infectious event as potential source #Atypical Chest Pain #CAD, HFrEF (EF 35-40%) #Tachy-merari syndrome s/p PM -Pain associated with tremors, not on exertion, no ischemic changes on EKG -Trop up to 82 -Trend troponin, monitor on telemetry -Continue plavix, ASA, statin -Continue Carvedilol 25mg -Hold lisinopril -ECHO reviewed -Replace lytes #Prior Lacunar stroke Continue ASA, Plavix, statin #Vascular Dementia -Delirium Precautions -Avoid benzos and further opioids #COPD/Emphysema on room air -Continue breo inhaler,albuterol #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 Physical Exam Constitutional: WD/WN, vitals as above Respiratory: diminished breath sounds Cardiovascular: RRR, no murmur, no edema Gastrointestinal (Abdomen): normal bowel sounds, soft, nontender, no hepatosplenomegaly Results & Data Results & Data Vital Signs (Past 12 Hours) Vital Signs Pulse Pulse Pulse Pulse Resp Resp Resp 05/12/23 11:00 80 18 05/12/23 08:46 89 86 18 15 05/12/23 08:38 05/12/23 07:44 80 05/12/23 07:00 80 12 05/12/23 06:09 82 18 05/12/23 05:00 78 20 05/12/23 04:00 80 19 05/12/23 03:00 80 17 05/12/23 02:24 05/12/23 02:24 80 18 05/12/23 02:00 80 17 BP BP BP Pulse Ox Pulse Ox Pulse Ox O2 Del Method 05/12/23 11:00 143/63 H 90 Room Air 05/12/23 08:46 91 94 05/12/23 08:38 Nasal Cannula 05/12/23 07:44 05/12/23 07:00 101/59 L 99 Nasal Cannula 05/12/23 06:09 95/64 L 200/87 H 97 Nasal Cannula 05/12/23 05:00 96 05/12/23 04:00 96 05/12/23 03:00 98 05/12/23 02:24 115/55 L 05/12/23 02:24 95 Nasal Cannula 05/12/23 02:00 O2 Flow Rate 05/12/23 11:00 05/12/23 08:46 05/12/23 08:38 4 05/12/23 07:44 05/12/23 07:00 4 05/12/23 06:09 4 05/12/23 05:00 05/12/23 04:00 05/12/23 03:00 05/12/23 02:24 05/12/23 02:24 4 05/12/23 02:00 Laboratory Results Short CBC 05/12/23 Range/Units 04:37 WBC 10.62 (4.8-10.8) K/ul Hgb 15.5 (14.0-18.0) g/dl Hct 47.8 (42.0-52.0) % Plt Count 218 (130-400) K/uL BMP 05/12/23 04:37 Sodium 139 Potassium 3.8 Chloride 101 Carbon Dioxide 30 BUN 35 H D Creatinine 2.56 H D Glucose 132 H Calcium 9.1 Urine 05/11/23 Range/Units 17:40 Urine Color Yellow Urine Appearance Clear (Clear) Urine pH 6.5 (4.5-7.5) Ur Specific [place] 1.024 (1.000-1.030) Urine Protein 4+ H (Negative) Urine Glucose (UA) Trace H (Negative) Medications Administered Home Medications Medication Instructions Recorded Confirmed Last Taken albuterol sulfate 90 mcg/actuation 2 puff inhalation Q4H PRN Wheezing 09/06/18 05/10/23 01/31/20 aerosol inhaler atorvastatin 80 mg tablet 80 mg PO DAILY 09/06/18 05/10/23 01/31/20 clopidogrel 75 mg tablet 75 mg PO DAILY 09/06/18 05/10/23 01/31/20 ferrous sulfate 325 mg (65 mg 325 mg PO BID 09/06/18 05/10/23 01/31/20 iron) tablet glipizide 10 mg tablet 10 mg PO DAILY 09/06/18 05/10/23 01/31/20 albuterol sulfate 2.5 mg/3 mL 2.5 mg inhalation Q4H PRN 02/01/20 05/10/23 01/31/20 (0.083 %) solution for nebulization Shortness Of Breath Or Wheezing aspirin 325 mg tablet 325 mg PO DAILY 02/01/20 05/10/23 01/31/20 pantoprazole 40 mg tablet,delayed 40 mg PO DAILY 02/01/20 05/10/23 01/31/20 release (Protonix) tamsulosin 0.4 mg capsule (Flomax) 0.4 mg PO DAILY 02/01/20 05/10/23 01/31/20 Active Medications Generic Name Dose Route Start Last Admin Trade Name Lakhwinder PRN Reason Stop Dose Admin Aspirin 325 mg 05/11/23 09:00 05/12/23 08:07 Aspirin 325 Mg Ectab PO 06/10/23 08:59 325 mg DAILY FILEMON Administration Atorvastatin Calcium 80 mg 05/11/23 09:00 05/12/23 08:06 Atorvastatin 40 Mg Tab PO 06/10/23 08:59 80 mg DAILY FILEMON Administration Clopidogrel Bisulfate 75 mg 05/11/23 09:00 05/12/23 08:06 Clopidogrel Bisulfate 75 Mg Tab PO 06/10/23 08:59 75 mg DAILY FILEMON Administration Ferrous Sulfate 325 mg 05/10/23 22:05 05/12/23 08:05 Ferrous Sulfate 325 Mg Tab PO 06/09/23 22:04 325 mg BID FILEMON Administration Fluticasone/Vilanterol 1 puffs 05/11/23 09:00 05/12/23 08:03 Fluticasone/Vilanterol 200/25mcg 14 Puffs/Inhaler INH 06/10/23 08:59 1 puffs DAILY FILEMON Administration Insulin Aspart 0 units 05/10/23 22:05 05/12/23 12:55 Insulin Aspart Per Unit Charge SC 06/09/23 22:04 1 units ACHS FILEMON Administration Oxycodone/Acetaminophen 1 tab 05/10/23 23:00 05/12/23 05:56 Oxycodone/Apap 7.5/325mg Tab PO 05/24/23 22:59 1 tab Q8 FILEMON Administration Pantoprazole Sodium 40 mg 05/11/23 09:00 05/12/23 08:04 Pantoprazole 40 Mg Tab PO 06/10/23 08:59 40 mg DAILY FILEMON Administration Tamsulosin HCl 0.4 mg 05/11/23 09:00 05/12/23 08:05 Tamsulosin Hcl 0.4 Mg Cap PO 06/10/23 08:59 0.4 mg DAILY FILEMON Administration
[2023-05-12] MEDS ORDERED: LACTATED RINGER'S 500 ML IV ONE (14:04)
--- NOTE | 2023-05-12 14:11 | Cardiology Progress Note ---
Date of Service May 12, 2023 Assessment & Plan (1) Episode of shaking: (2) Elevated troponin: (3) Cardiomyopathy: (4) Labile hypertension: Plan 72-year-old male with complex cardiac and vascular history as outlined. Recent difficulties with increasing vascular dementia. Presents with change in mental status, right arm shaking, chest pressure. Possible lapse in medications including opioids initiating concern Patient clinically stable at this point in time. Troponins elevated but flat Blood pressures transiently hypotensive now elevated Echocardiogram not significantly changed from prior studies with diffuse cardiomyopathy. No prior history of ischemic heart disease but multiple risk factors for such and chronic reduced LV function EF 40% Patient RSV positive with chronic obstructive lung disease and cough Recommendations: Agree with resumption of prehospital ordered medications given lapse in therapies including clopidogrel, aspirin and atorvastatin Prior outpatient therapies per list included carvedilol 25 mg twice per day, lisinopril 20 mg p.o. daily, terazosin 5 mg every afternoon and furosemide 40 mg p.o. daily Agree with restarting clopidogrel at 75mg per day, carvedilol 25 mg twice Pacemaker functioning appropriately 05/12/2023 Medical problem list 1. Vascular dementia/prior stroke 2. Hypertension with past hypertensive urgency 3. Moderate diffuse cardiomyopathy nonischemic by repeat nuclear stress 4. COPD class C intermittently O2 use, ongoing tobacco use 5. Peripheral and cerebral vascular disease. Status post left carotid enterectomy 2012, left carotid stenting July 2022 with chronic right carotid artery occlusion. Prior left SFA stent, subsequent left femoral artery endarterectomy and left common iliac stent 2014. Chronic left subclavian stenosis 6. Tachybradycardia syndrome status post dual-chamber pacemaker insertion 03/29/2022, [employer] Amie XT DR MRI W1 01 7. CKD stage IIIb with proteinuria, MGUS, left partial nephrectomy for renal cell carcinoma 2019 Atypical chest discomfort but no further symptoms that resulted in ER presentation. No shakiness or unsteadiness. Overall feels improved though renal function has declined acutely. Troponin elevated likely on the basis of demand as well as acute renal insufficiency Still with cough minimally productive no fevers or or chills Plan as previously outlined. Continue carvedilol aspirin and atorvastatin Review of records reveals diffuse vascular disease including left subclavian stenosis/occlusion. All blood pressures via right arm with blood pressure labile to improved. Given degree of vascular disease may require higher blood pressures for renal perfusion. History of prior partial nephrectomy Admission and Anticipated Discharge Date Admission Date: May 10, 2023 Subjective Patient seen and examined, chart, medications, telemetry reviewed No acute complaints this morning Results & Data Vital Signs (Past 12 Hours) Vital Signs Pulse Pulse Pulse Pulse Resp Resp Resp 05/12/23 11:00 80 18 05/12/23 08:46 89 86 18 15 05/12/23 08:38 05/12/23 07:44 80 05/12/23 07:00 80 12 05/12/23 06:09 82 18 05/12/23 05:00 78 20 05/12/23 04:00 80 19 05/12/23 03:00 80 17 05/12/23 02:24 05/12/23 02:24 80 18 BP BP BP Pulse Ox Pulse Ox Pulse Ox O2 Del Method 05/12/23 11:00 143/63 H 90 Room Air 05/12/23 08:46 91 94 05/12/23 08:38 Nasal Cannula 05/12/23 07:44 05/12/23 07:00 101/59 L 99 Nasal Cannula 05/12/23 06:09 95/64 L 200/87 H 97 Nasal Cannula 05/12/23 05:00 96 05/12/23 04:00 96 05/12/23 03:00 98 05/12/23 02:24 115/55 L 05/12/23 02:24 95 Nasal Cannula O2 Flow Rate 05/12/23 11:00 05/12/23 08:46 05/12/23 08:38 4 05/12/23 07:44 05/12/23 07:00 4 05/12/23 06:09 4 05/12/23 05:00 05/12/23 04:00 05/12/23 03:00 05/12/23 02:24 05/12/23 02:24 4 Laboratory Results Laboratory Results - last 24 hr 05/11/23 05/11/23 05/11/23 16:49 17:40 21:09 WBC RBC Hgb Hct MCV MCH MCHC RDW Std Deviation RDW Coeff of David Plt Count MPV Sodium Potassium Chloride Carbon Dioxide Anion Gap BUN Creatinine Est Cr Clr Drug Dosing Est GFR ( Amer) Est GFR (Non-Af Amer) BUN/Creatinine Ratio Glucose POC Glucose 84 154 H Calcium Phosphorus Magnesium Urine Color Yellow Urine Appearance Clear Urine pH 6.5 Ur Specific [place] 1.024 Urine Protein 4+ H Urine Glucose (UA) Trace H Urine Ketones Negative Urine Blood Trace H Urine Nitrite Negative Urine Bilirubin Negative Urine Urobilinogen Negative Ur Leukocyte Esterase Negative Urine WBC (Auto) 1-5 Urine RBC (Auto) 5-10 H U Hyaline Cast (Auto) 1-5 U Epithel Cells (Auto) 10-20 H Urine Bacteria (Auto) Negative 05/12/23 05/12/23 05/12/23 04:37 08:55 12:50 WBC 10.62 RBC 4.97 Hgb 15.5 Hct 47.8 MCV 96.2 MCH 31.2 MCHC 32.4 RDW Std Deviation 47.9 H RDW Coeff of David 13.4 Plt Count 218 MPV 10.1 Sodium 139 Potassium 3.8 Chloride 101 Carbon Dioxide 30 Anion Gap 8 BUN 35 H D Creatinine 2.56 H D Est Cr Clr Drug Dosing 26.5 Est GFR ( Amer) 28.0 Est GFR (Non-Af Amer) 24.2 BUN/Creatinine Ratio 13.7 Glucose 132 H POC Glucose 178 H 79 Calcium 9.1 Phosphorus 3.5 Magnesium 1.7 Urine Color Urine Appearance Urine pH Ur Specific [place] Urine Protein Urine Glucose (UA) Urine Ketones Urine Blood Urine Nitrite Urine Bilirubin Urine Urobilinogen Ur Leukocyte Esterase Urine WBC (Auto) Urine RBC (Auto) U Hyaline Cast (Auto) U Epithel Cells (Auto) Urine Bacteria (Auto)
[2023-05-12 14:52] LABS: Calcium 8.3 mg/dl (8.6-10.3); Creatinine Clr Calc Pharmacy 30.5 ml/min; Est GFR (African American) 33.3 ml/min; Est GFR (Non-African American) 28.7 ml/min; Potassium 3.8 mmol/L (3.5-5.1)
[2023-05-12] MEDS ORDERED: carvediloL 12.5 MG TAB PO SCH (17:00)
[2023-05-12] MEDS: HEPARIN SOD 5,000 UNIT/0.5 ML VIAL SC SCH (20:49)
[2023-05-13] MEDS: oxyCODONE/APAP 7.5/325MG TAB PO SCH (05:24)
[2023-05-13 07:14] LABS: Hematocrit (blood only) 46.5 % (42.0-52.0); Mean Corpuscular Hemoglobin 31.1 pg (25.0-34.0); Mean Corpuscular Hgb Conc 32.3 g/dL (32.0-36.0); Mean Corpuscular Volume 96.5 fL (80.0-100.0); Mean Platelet Volume 10.4 fL (9.4-12.4); Platelet Count 225 K/uL (130-400); RDW Coefficient of Variation 13.4 % (11.5-14.5); RDW Standard Deviation 48.1 fL (36.4-46.3); Red Blood Count 4.82 M/uL (4.70-6.10); White Blood Count 9.92 K/ul (4.8-10.8)
[2023-05-13 07:27] LABS: BUN Creatinine Ratio 14.5 (10-20); Creatinine Clr Calc Pharmacy 29.5 ml/min; Est GFR (African American) 32.3 ml/min; Est GFR (Non-African American) 27.8 ml/min; Magnesium 1.7 mg/dl (1.7-2.4); Phosphorus 2.8 mg/dl (2.5-4.9); Potassium 4.5 mmol/L (3.5-5.1)
[2023-05-13] MEDS: INSULIN ASPART PER UNIT CHARGE SC SCH (08:56)
[2023-05-13] MEDS: CLOPIDOGREL BISULFATE 75 MG TAB PO SCH (08:58)
[2023-05-13] MEDS: carvediloL 25 MG TAB PO SCH (08:58)
[2023-05-13] MEDS: ATORVASTATIN 40 MG TAB PO SCH (08:58)
[2023-05-13] MEDS: TAMSULOSIN HCL 0.4 MG CAP PO SCH (08:59)
[2023-05-13] MEDS: FERROUS SULFATE 325 MG TAB PO SCH (08:59)
[2023-05-13] MEDS: ASPIRIN 325 MG ECTAB PO SCH (08:59)
[2023-05-13] MEDS: HEPARIN SOD 5,000 UNIT/0.5 ML VIAL SC SCH (09:00)
[2023-05-13] MEDS: PANTOprazole 40 MG TAB PO SCH (09:00)
[2023-05-13] MEDS: FLUTICASONE/VILANTEROL 200/25MCG 14 PUFFS/INHALER INH SCH (10:58)
--- NOTE | 2023-05-13 14:19 | Discharge Summary ---
Discharge Summary Date of Service May 13, 2023 Notes For Next Care Provider Patient blood pressure extremely liable reported home regimen of carvedilol 25mg bid and lisinopril 20mg Will need close ambulatory monitoring and BMP as renal function likely requires permissive hypertension/increased perfusion iso known vascular disease Needs 1 week BMP for renal function Medication Changes From Visit -Discontinued home lisinopril 20mg -Continue home Carvedilol 25mg BID Admission HPI Per Admitting Provider Mr. Israel Salcedo a 72 year old gentleman with a history of HLD, HTN, tachy- merari syndrome s/p PPM, COPD, DM2, L renal clear cell carcinoma, CKDII, BPH, chronic pain on chronic opioids, COPD/emphysema, HFmEF, lacunar stroke, prior GIB, PVD, tobacco use who presented to the ED due to over two days of change in behavior and new onset right arm shaking and chest pain. History per patient states that he "just couldn't get his meds because the holidays and he just doesn't know." Patient examined after receiving 6 mg of morphine. Further Information obtained from son due to poor information from patient, however, both proved to be fairly unreliable regarding details on medications, medical follow up, etc. Patient last followed up with PCP in 03/2023. Patient has not followed with Cardiology in person in over a year (not including an inpatient stay for a lacunar stroke), with multiple no shows for post hospitalization follow up. Son states patient had delay in receiving scheduled narcotics, in which he felt perhaps the patient was experiencing withdrawal. In the ED, patient was given morphine x 2 with subsequent resolution of symptoms, as well as metoprolol 5mg IV and lorzepam. EKG with PACs and tachycardia. Labs with low mag 1.5 which was replaced and trop of 82.8 Reviewed notes from [employer] from 08/2022 and information learned includes... "Carvedilol dose increased for better blood pressure control Furosemide discontinued due to acute kidney injury Amlodipine discontinued as carvedilol was increased for blood pressure control Hydroxyzine discontinued as it may worsen confusion Lisinopril discontinued because of recent acute on chronic kidney injury" Admission Exam Per Admitting Provider GENERAL APPEARANCE: AxO to self, calm, slightly confused HEENT: NC, AT. MMM. EOMI, clear conjunctiva, oropharynx clear. poor dentition NECK: Supple without lymphadenopathy. No stiffness or restricted ROM. HEART: Normal rate and regular rhythm, normal S1/S1, no m/r/g LUNGS: CTAB, poor airway movement ABDOMEN: Soft, nontender, nondistended with good bowel sounds heard. BACK: No CVAT, no obvious deformity. EXTREMITIES: Without cyanosis, clubbing or edema. NEUROLOGICAL: Grossly nonfocal. Alert and oriented, moving all 4 extremities. CN not formally tested but appear grossly intact. Skin: Warm and dry without any rash. Principal Dx & Hospital Course #1 = Principal Diagnosis (1) Episode of shaking: (2) Elevated troponin: (3) Tachycardia: (4) Cardiomyopathy: (5) Chronic pain: Plan Mr. Israel Salcedo a 72 year old gentleman with a history of HLD, HTN, tachy- merari syndrome s/p PPM, COPD, DM2, L renal clear cell carcinoma, CKDII, BPH, chronic pain on chronic opioids, COPD/emphysema, HFmEF, lacunar stroke, prior GIB, PVD, tobacco use who is being admitted for monitoring of shaking episode after 2 days of missing medications. This episode resolved when given morphine in ED. Patient is on longstanding narcotics for chronic pain, and given the holidays, had a lapse in prescription. This is thought to be the precipitating event, but the spell was concerning for the family. The patient was obtunded after 6mg of morphine and the son does not seem to know the medications the patient is on. Patient does have recent event where he was found lost driving in [place] and no longer able to drive given moderate dementia and was trialed on memenda, which . Attempted to resume home medications verified by Son, coreg and lisinopril, however, patient became notably hypotensive with associated ZINA on am labs. Patient's medical history over last year is marked by multiple medications being discontinued and resumed, however, seems this was far too much. #Acute kidney injury #Left Renal Cell Carcinoma #CKDIII likely prerenal Renal function at baseline, avoid nephrotoxic agents -resumed lisinopril home po and 1xlasix in setting of elevated BP and O2 requirement, however, blood pressure dropped with subsequent increase in Cr. Multiple medications started and discontinued including lasix/lisinopril over the course of last year Improved and downtrended, follow up with PCP for post hospitalization follow p and labs #Shaking Event *resolved -Unclear eitology at this time, possibly precipitated by withdrawal as resolved with morphine and implementation of home chronic pain regimen -Resume home pain regimen -EEG with generalized slowing iso dementia, appears resolved this am -Infectious work up to r/o insidious infectious event as potential source. negative #RSV positive -History of emphysema -2 step without O2 needs #Atypical Chest Pain #CAD, HFrEF (EF 35-40%) #Tachy-merari syndrome s/p PM -Pain associated with tremors, not on exertion, no ischemic changes on EKG -Trop up to 82, plateaued -Continue plavix, ASA, statin -Continue Carvedilol 25mg -Stop lisinopril #Prior Lacunar stroke Continue ASA, Plavix, statin #Vascular Dementia -Delirium Precautions Reinforced no driving #COPD/Emphysema on room air -Continue breo inhaler,albuterol #DMTII glipizide home daily On day of discharge, patient was ambulating without difficulty and eager to get him. He denied any chest pain, return of shaking symptoms, or other acute complaints. Discharge Exam Constitutional WD/WN, vitals as above Respiratory dimished breath sounds, no crackles or wheezing Gastrointestinal (Abdomen) normal bowel sounds, soft, nontender, no hepatosplenomegaly Updated Medication List Medication Instructions Recorded Confirmed Type albuterol sulfate 90 mcg/actuation 2 puff inhalation Q4H PRN Wheezing 09/06/18 05/10/23 History aerosol inhaler atorvastatin 80 mg tablet 80 mg PO DAILY 09/06/18 05/10/23 History clopidogrel 75 mg tablet 75 mg PO DAILY 09/06/18 05/10/23 History ferrous sulfate 325 mg (65 mg 325 mg PO BID 09/06/18 05/10/23 History iron) tablet glipizide 10 mg tablet 10 mg PO DAILY 09/06/18 05/10/23 History albuterol sulfate 2.5 mg/3 mL 2.5 mg inhalation Q4H PRN 02/01/20 05/10/23 History (0.083 %) solution for nebulization Shortness Of Breath Or Wheezing aspirin 325 mg tablet 325 mg PO DAILY 02/01/20 05/10/23 History pantoprazole 40 mg tablet,delayed 40 mg PO DAILY 02/01/20 05/10/23 History release (Protonix) tamsulosin 0.4 mg capsule (Flomax) 0.4 mg PO DAILY 02/01/20 05/10/23 History carvedilol 25 mg tablet 25 mg PO BIDM #60 tabs 05/13/23 Rx fluticasone furoate 200 1 inh inhalation DAILY #60 ea 05/13/23 Rx mcg-vilanterol 25 mcg/dose inhalation powder (Breo Ellipta) Hospital Stay Data Consultations 05/10/23 18:33 ED Decision to Admit Stat 05/11/23 08:01 Consult Cardiology Routine Diagnostic Imagining Performed 05/10/23 16:15 CT head/brain wo con Stat Pending Results Patient Have Any Pending Studies at Discharge: No Discharge Instructions Given to Patient (Per Discharging Provider) You were admitted due to concerns of abnormal shaking after 2 days of not taking your pain medication. Your shaking like movements did resolve with resumption of the oxycodone. Please continue to take the oxycodone in accordance to the pain agreement you have with your primary care proivder. Your EEG (the neurological test for strokes) was negative for seizures. There was concern for chest pain. You were evaluated by the heart doctor who did not feel there was any acute concerns while you were admitted, but recommends you should keep your follow up with your primary care provider. Your blood pressure and kidney function is liable/sensitive. You tolerated the carvedilol 25mg twice a day, but the addition of lisinopril was enough to drop your pressure to a very low level and impact your kidney function. Please discontinue lisinopril and continue Carvedilol 25mg twice a day. The following medications are very important to continue: Aspirin 325 mg daily Atorvastatin 80mg daily Carvedilol 25mg twice a day Glipizide 5mg daily for diabetes Breo inhaler for emphysema Again, please continue Carvedilol and discontinue any home lisinopril at this time until evaluated by your executive chairman. Total Time Total Time Spent Total Time Spent (In Minutes): 55
[2023-05-14 09:23] LABS: Codeine Urine NEGATIVE ng/mL (<50); Hydrocodone Urine NEGATIVE ng/mL (<50); Hydromor Urine NEGATIVE ng/mL (<50); Morphine Urine 1040 ng/mL (<50); Norhydrocodone Conf Ur NEGATIVE ng/mL (<50); Noroxycodone Urine NEGATIVE ng/mL (<50); Oxycodone Urine NEGATIVE ng/mL (<50); Oxymorph Urine NEGATIVE ng/mL (<50)
== END 2023-05-13 13:04 | disposition home or self-care (01) | DRG 897 ==
LOC: ED 15:41 → EDINP 19:10 → 2N 22:05

== ENCOUNTER 2023-08-23 16:07 | Inpatient (IN) ==
--- NOTE | 2023-08-23 16:17 | ED Triage Note ---
Date of Service August 23, 2023 Provider in Triage Author: Tri Sims History of Present Illness This patient was briefly evaluated while in triage. An abbreviated physical exam was performed. This patient is a 72-year-old Male who presents to the ED for evaluation of . Physical Exam Initial orders for labs and / or imaging were placed and patient was placed in the waiting area until a bed is available. Please see further documentation for the full ED course.
[2023-08-23] MEDS: methylPREDNISolone 125 MG/2 ML VIAL IV STA (16:55)
[2023-08-23] MEDS: ALBUT/IPRATROP 3MG/0.5MG NEB 3 ML VIAL NEB STA ×2 (16:56→21:28)
--- NOTE | 2023-08-23 16:57 | Emergency Department Note ---
History of Present Illness General Chief Complaint: Shortness of Breath/Dyspnea Stated Complaint: VOMITING, SOB, HOT/COLD FLASH, BODYACHES Time Seen by Provider: 08/23/23 16:20 History of Present Illness Provider Complaint: shortness of breath and cough Onset (ago): day(s) (2) Consistency/Duration: + progressively worsening Relieved By: + oxygen Exacerbated By: + exertion and + coughing Known history of: COPD Associated symptoms: + fever (Tmax 100), + cough, + wheezing, + sputum production and + chest congestion; no polyuria, no paresthesias, no palpitations or no hemoptysis Treatment prior to arrival: oxygen and bronchodilator Related Data Home oxygen amount: none Home Medications Medication Instructions Recorded Confirmed Type albuterol sulfate 90 mcg/actuation 2 puff inhalation Q4H PRN 09/06/18 08/23/23 History aerosol inhaler cough,SOB,wheezing atorvastatin 80 mg tablet 80 mg PO QAM 09/06/18 08/23/23 History clopidogrel 75 mg tablet 75 mg PO QAM 09/06/18 08/23/23 History ferrous sulfate 325 mg (65 mg 325 mg PO [facility] 09/06/18 08/23/23 History iron) tablet glipizide 10 mg tablet 10 mg PO QAM 09/06/18 08/23/23 History albuterol sulfate 2.5 mg/3 mL 2.5 mg inhalation Q4H PRN 02/01/20 08/23/23 History (0.083 %) solution for nebulization Shortness Of Breath Or Wheezing pantoprazole 40 mg tablet,delayed 40 mg PO QAM 02/01/20 08/23/23 History release (Protonix) carvedilol 25 mg tablet 25 mg PO BIDM #60 tabs 05/13/23 08/23/23 Rx ascorbic acid (vitamin C) 500 mg 500 mg PO DAILY 08/23/23 08/23/23 History chewable tablet (Vitamin C) cholecalciferol (vitamin D3) 125 125 mcg PO QAM 08/23/23 08/23/23 History mcg (5,000 unit) capsule docusate sodium 100 mg capsule 100 mg PO BID 08/23/23 08/23/23 History duloxetine 60 mg capsule,delayed 60 mg PO QAM 08/23/23 08/23/23 History release fluticasone furoate 200 1 inh inhalation QAM 08/23/23 08/23/23 History mcg-vilanterol 25 mcg/dose inhalation powder (Breo Ellipta) furosemide 20 mg tablet 20 mg PO QAM 08/23/23 08/23/23 History isosorbide mononitrate 30 mg 30 mg PO QAM 08/23/23 08/23/23 History tablet,extended release 24 hr memantine 5 mg tablet 5 mg PO BID 08/23/23 08/23/23 History naloxone 4 mg/actuation nasal spray 4 mg intranasal UD PRN Opioid 08/23/23 08/23/23 History Overdose nitroglycerin 0.4 mg sublingual 0.4 mg sublingual UD PRN Chest Pain 08/23/23 08/23/23 History tablet omega-3 fatty acids 1,000 mg 1,000 mg PO BID 08/23/23 08/23/23 History capsule oxycodone-acetaminophen 7.5 mg-325 1 tab PO Q8 PRN Severe Pain (Scale 08/23/23 08/23/23 History mg tablet Score 7-10) potassium chloride 10 mEq 10 meq PO QAM 08/23/23 08/23/23 History tablet,extended release(part/cryst) sennosides 8.6 mg tablet (Senokot) 8.6 mg PO BID 08/23/23 08/23/23 History terazosin 5 mg capsule 5 mg PO HS 08/23/23 08/23/23 History Allergies Allergy/AdvReac Type Severity Reaction Status Date / Time No Known Allergies Allergy Unknown Verified 08/23/23 18:04 Past Med/Surg History Medical History Opioid dependence Precordial chest pain Hypertensive crisis Bulging disc LUMBAR AREA Osteoarthritis Diabetes mellitus, type 2 Anemia HX OF Macular degeneration Hypertension Peripheral neuropathy On home oxygen therapy 2L AT HS Myocardial Infarction 2003 (LIFE FLIGHTED TO [place]) Hyperlipidemia GERD (gastroesophageal reflux disease) CAD (coronary artery disease) PAD (peripheral artery disease) COPD (chronic obstructive pulmonary disease) WEARS O2 AT 2L HS "SOMETIMES" Surgical History Fusion of spine CERVICAL History of esophagogastroduodenoscopy (EGD) History of colonoscopy History of discectomy CERVICAL H/O eye surgery LASER SURGERY FOR BLEEDING EYE H/O vascular surgery Family History Mother CKD (chronic kidney disease) Social History Smoking Status: Former smoker Tobacco Type: Cigarettes Cigarettes Per Day: 6 -8/day; Second Hand Exposure: Yes; Do You Dip or Chew Tobacco: No; Hx Alcohol Use: Yes Alcohol type: beer Hx Substance Use: No Preferred Language: Macedonian Communication Ability: Effective City Sanitarian Required: No Beliefs That Will Affect Care: None marital status: Current Living Situation: Family Current Living Situation Comment: lives with 3 sons Feels Safe at Home: Yes Assistive Devices: Oxygen - at Night and Walker Physical Exam 2 Vital Signs: Vital Signs - 24 hr 08/23/23 16:07 08/23/23 16:15 08/23/23 16:17 Temperature 35.8 C L Temperature Source Temporal Artery Sc an Pulse Rate 91 H Pulse Rhythm Regular Pulse Strength Normal Respiratory Rate 20 Respiratory Effort / Characteristics Non-Labored Sponta neous Respiratory Depth Normal Respiratory Patter n Regular Blood Pressure 191/64 H Blood Pressure Terri n 106 Blood Pressure Pos ition Sitting Pulse Oximetry 97 83 L Oxygen Delivery Me thod Nasal Cannula Room Air Nasal Cannula Oxygen Flow Rate 2 2 Sepsis Recent Feve r Within 48 Hours No Sepsis New/Unexpla ined Change in Men óscar Status No Sepsis Action Take n by Nursing No Action Required 08/23/23 16:17 08/23/23 16:47 Temperature Temperature Source Pulse Rate 88 85 Pulse Rhythm Regular Pulse Strength Respiratory Rate 22 Respiratory Effort / Characteristics Respiratory Depth Respiratory Patter n Blood Pressure Blood Pressure Terri n Blood Pressure Pos ition Pulse Oximetry 99 Oxygen Delivery Me thod Nasal Cannula Oxygen Flow Rate Sepsis Recent Feve r Within 48 Hours Sepsis New/Unexpla ined Change in Men óscar Status Sepsis Action Take n by Nursing Physical Exam: Physical Exam GENERAL: oriented to person, place, and time. appears well-developed and well- nourished. HENT: Exam performed. - Head: Normocephalic and atraumatic. EYES: Conjunctivae and EOM are normal. Right eye exhibits no discharge. Left eye exhibits no discharge. No scleral icterus. NECK: Normal range of motion. Neck supple. No JVD present. CV: Normal rate, regular rhythm, normal heart sounds and intact distal pulses. There is no peripheral edema. Palpable radial pulses bue. PULM/CHEST: Expiratory wheezes bilaterally. ABD: The abdomen is soft. There is no tenderness. NEURO: Motor and sensation grossly intact. SKIN: Skin is warm and dry. He is not diaphoretic. PSYCH: normal mood and affect. Behavior is normal. Judgment and thought content normal. Course Course 1620: The patient was evaluated in room B11. A complete history and physical exam was performed Cardiac monitoring: An order was placed for continuous cardiac monitoring. The monitor shows a rate of 90 with paced rhythm interpreted by me Patient is hypoxic on room air. Family and patient states that the patient usually does not wear home oxygen but does use nebulizers as needed. Supplemental oxygen was applied via nasal cannula which improved the patient's oxygen saturation. DuoNebs will be ordered for the patient as well as steroids. 1750: Vital signs stable. Labs and imaging are consistent with patient being fluid overloaded. Chest x-ray shows cardiomegaly with cephalization and BNP is elevated at 2564. High-sensitivity troponin is also elevated. Patient's pCO2 on VBG is 68 and venous pH is 7.29. [facility] be [facility] with Las[facility]. Administered Medications Docusate Sodium (Docusate Sodium 100 Mg Cap) 100 mg PO BID [facility] Stop: 09/22/23 20:59 Last Admin: 08/23/23 22:11 Dose: 100 mg Documented By: MARTIN Ferrous Sulfate (Ferrous Sulfate 325 Mg Tab) 325 mg PO [facility] FILEMON Stop: 09/22/23 20:59 Last Admin: 08/23/23 22:11 Dose: 325 mg Documented By: MARTIN Insulin Aspart (Insulin Aspart Per Unit Charge) 0 units SC ACHS [facility] Stop: 09/22/23 20:59 Last Admin: 08/23/23 21:54 Dose: 2 units Documented By: MARTIN Co-signed By: LAKESHA Labetalol HCl (Labetalol Hcl Iv 5 Mg/Ml 20ml) 5 mg IV Q6H PRN PRN Reason: SBP >180 Stop: 09/22/23 18:41 Last Admin: 08/23/23 22:10 Dose: 5 mg Documented By: MARTIN Co-signed By: LAKESHA Memantine (Memantine Hcl 5 Mg Tab) 5 mg PO BID [facility] Stop: 09/22/23 20:59 Last Admin: 08/23/23 22:14 Dose: 5 mg Documented By: MARTIN Sennosides (Senna 8.6 Mg Tab) 8.6 mg PO BID [facility] Stop: 09/22/23 20:59 Last Admin: 08/23/23 22:13 Dose: 8.6 mg Documented By: MARTIN Terazosin HCl (Terazosin Hcl 5 Mg Cap) 5 mg PO HS [facility] Stop: 09/22/23 20:59 Last Admin: 08/23/23 22:12 Dose: 5 mg Documented By: MARTIN Discontinued Medications Albuterol (Albut/Ipratrop 3mg/0.5mg Neb 3 Ml Vial) 3 ml NEB NOW STA; Protocol Stop: 08/23/23 16:18 Last Admin: 08/23/23 16:56 Dose: 3 ml Documented By: JESSICA Albuterol (Albut/Ipratrop 3mg/0.5mg Neb 3 Ml Vial) 3 ml NEB NOW STA; Protocol Stop: 08/23/23 16:49 Last Admin: 08/23/23 21:28 Dose: Not Given Documented By: GUILLE Carvedilol (Carvedilol 25 Mg Tab) 25 mg PO NOW ONE Stop: 08/23/23 18:42 Last Admin: 08/23/23 19:14 Dose: 25 mg Documented By: GUILLE Furosemide (Furosemide 40 Mg/4 Ml Vial) 40 mg IV ONE ONE Stop: 08/23/23 17:47 Last Admin: 08/23/23 18:18 Dose: 40 mg Documented By: JESSICA Methylprednisolone (Methylprednisolone 125 Mg/2 Ml Vial) 125 mg IV NOW STA Stop: 08/23/23 16:18 Last Admin: 08/23/23 16:55 Dose: 125 mg Documented By: JESSICA Oxycodone/Acetaminophen (Oxycodone/Apap 7.5/325mg Tab) 1 tab PO Q8H PRN PRN Reason: Severe Pain (Scale 7, 8, 9,10) Stop: 09/06/23 18:42 Last Admin: 08/23/23 19:17 Dose: 1 tab Documented By: GUILLE Medical Decision Making Laboratory Data Attestation: I reviewed the patient's lab results. 08/23/23 16:50 08/23/23 16:50 Lab Results 08/23/23 08/23/23 Range/Units 16:50 18:30 WBC 9.66 (4.8-10.8) K/ul RBC 4.61 L (4.70-6.10) M/uL Hgb 13.6 L (14.0-18.0) g/dl Hct 44.0 (42.0-52.0) % MCV 95.4 (80.0-100.0) fL MCH 29.5 (25.0-34.0) pg MCHC 30.9 L (32.0-36.0) g/dL RDW Std Deviation 53.6 H (36.4-46.3) fL RDW Coeff of David 15.4 H (11.5-14.5) % Plt Count 206 (130-400) K/uL MPV 10.3 (9.4-12.4) fL Immature Gran % (Auto) 0.5 % Neut % (Auto) 87.4 % Lymph % (Auto) 2.5 % Miller % (Auto) 7.7 % Eos % (Auto) 1.7 % Baso % (Auto) 0.2 % Neut # (Auto) 8.45 H (1.40-6.50) K/uL Lymph # (Auto) 0.24 L (1.20-3.40) K/uL Miller # (Auto) 0.74 H (0.11-0.59) K/uL Eos # (Auto) 0.16 (0.00-0.50) K/uL Baso # (Auto) 0.02 (0.00-0.20) K/uL Immature Gran # (Auto) 0.05 (0.01-0.20) K/uL VBG pH 7.29 L (7.36-7.41) VBG pCO2 68 H (38-50) mmHg VBG pO2 29 mmHg VBG HCO3 33 mmol/L VBG O2 Saturation < 60.0 % VBG Base Excess 4.0 mEq/L Sodium 137 (136-145) mmol/L Potassium 4.9 (3.5-5.1) mmol/L Chloride 100 (98-107) mmol/L Carbon Dioxide 30 (21-32) mmol/L Anion Gap 7 (3-11) BUN 22 (6-23) mg/dl Creatinine 1.85 H (0.6-1.4) mg/dl Est Cr Clr Drug Dosing 34.2 ml/min Est GFR ( Amer) 41.5 ml/min Est GFR (Non-Af Amer) 35.8 ml/min BUN/Creatinine Ratio 11.9 (10-20) Glucose 165 H (70-99(Fasting)) mg/dl Calcium 9.3 (8.6-10.3) mg/dl Magnesium 1.7 (1.7-2.4) mg/dl Total Bilirubin 1.1 H (0.2-1.0) mg/dl AST 18 (13-39) U/L ALT 20 (7-52) U/L Alkaline Phosphatase 79 (34-104) U/L Troponin I High Sens 48.1 H (0-20) pg/ml B-Natriuretic Peptide 2564 H (0-100) pg/ml Total Protein 7.6 (6.0-8.3) gm/dl Albumin 4.0 (3.4-5.0) gm/dl Globulin 3.6 (2.5-4.0) gm/dl Albumin/Globulin Ratio 1.1 (0.9-2) SARS-CoV-2 (PCR) NEGATIVE (Negative) Influenza Type A (PCR) Positive A (Neg) Influenza Type B (PCR) Negative (Neg) RSV (RT-PCR) Negative (Neg) Imaging Data Attestation: I personally reviewed and interpreted this imaging study as follows: My Impression: Chest x-ray: Cardiomegaly with cephalization Radiologist's Impression: Chest X-Ray 08/23/23 16:17 XR chest 1V portable CLINICAL HISTORY: Dyspnea. COMPARISON STUDY: Chest radiograph May 10, 2023. FINDINGS: Left subclavian pacer is in place. Moderate cardiomegaly is unchanged. There has been interval development of interstitial pulmonary edema. A calcified left lung granuloma is benign. Postoperative findings within the spine are incidentally noted. There is no consolidation to suggest pneumonia. There is no pneumothorax. There is a trace right pleural effusion. IMPRESSION: Cardiomegaly with interstitial pulmonary edema and a trace right pleural effusion. ACT 112: Negative or not required by law. Electronically signed by: Drew Patrick M.D. 08/23/2023 5:01 PM ECG Data Attestation: I personally reviewed and interpreted this ECG as follows: Interpretation: Paced rhythm with a rate of 90. [place] 294 QRS 132 QTc 496. No ectopy. [facility] Narrative 1620: The patient was evaluated in room B11. A complete history and physical exam was performed Cardiac monitoring: An order was placed for continuous cardiac monitoring. The monitor shows a rate of 90 with paced rhythm interpreted by me Patient is hypoxic on room air. Family and patient states that the patient usually does not wear home oxygen but does use nebulizers as needed. Supplemental oxygen was applied via nasal cannula which improved the patient's oxygen saturation. DuoNebs will be ordered for the patient as well as steroids. 1750: Vital signs stable. Labs and imaging are consistent with patient being fluid overloaded. Chest x-ray shows cardiomegaly with cephalization and BNP is elevated at 2564. High-sensitivity troponin is also elevated. Patient's pCO2 on VBG is 68 and venous pH is 7.29. [facility] be [facility] with Lasix [facility] Impression & Plan COPD (chronic obstructive pulmonary disease), Congestive heart failure Discharge Plan Visit Data Chief Complaint: Shortness of Breath/Dyspnea Stated Complaint: VOMITING, SOB, HOT/COLD FLASH, BODYACHES ED Provider: Nicolas Jaimes Discharge Problem: COPD (chronic obstructive pulmonary disease), Congestive heart failure Patient Disposition: Admitted As Inpatient Discharge Instructions Interventions: ED Discharge Assessment Last Done: 08/23/23 20:51 Discharge Problem: COPD (chronic obstructive pulmonary disease) Qualifiers: COPD type: unspecified COPD Qualified Code(s): J44.9 - Chronic obstructive pulmonary disease, unspecified Congestive heart failure Qualifiers: Heart failure type: unspecified Heart failure chronicity: acute on chronic Q ualified Code(s): I50.9 - Heart failure, unspecified
--- NOTE | 2023-08-23 17:02 | XRay Report ---
XR chest 1V portable CLINICAL HISTORY: Dyspnea. COMPARISON STUDY: Chest radiograph May 10, 2023. FINDINGS: Left subclavian pacer is in place. Moderate cardiomegaly is unchanged. There has been inter arturo development of interstitial pulmonary edema. A calcified left lung granuloma is benign. Postopera tive findings within the spine are incidentally noted. There is no consolidation to suggest pneumonia . There is no pneumothorax. There is a trace right pleural effusion. IMPRESSION: Cardiomegaly with interstitial pulmonary edema and a trace right pleural effusion. ACT 112: Negative or not required by law. Electronically signed by: Drew Patrick M.D. 08/23/2023 5:01 PM
[2023-08-23 17:08] LABS: HCO3 VBG 33 mmol/L; Oxygen Saturation VBG < 60.0 %; PCO2 VBG 68 mmHg (38-50); PO2 VBG 29 mmHg; pH VBG 7.29 (7.36-7.41)
[2023-08-23 17:13] LABS: Basophils # (auto) 0.02 K/uL (0.00-0.20); Basophils % (auto) 0.2 %; Eosinophils # (auto) 0.16 K/uL (0.00-0.50); Eosinophils % (auto) 1.7 %; Hemoglobin 13.6 g/dl (14.0-18.0); Immature Granulocytes # (auto) 0.05 K/uL (0.01-0.20); Immature Granulocytes % (auto) 0.5 %; Lymphocytes # (auto) 0.24 K/uL (1.20-3.40); Lymphocytes % (auto) 2.5 %; Mean Corpuscular Hemoglobin 29.5 pg (25.0-34.0); Mean Corpuscular Hgb Conc 30.9 g/dL (32.0-36.0); Mean Corpuscular Volume 95.4 fL (80.0-100.0); Mean Platelet Volume 10.3 fL (9.4-12.4); Monocytes # (auto) 0.74 K/uL (0.11-0.59); Monocytes % (auto) 7.7 %; Neutrophils # (auto) 8.45 K/uL (1.40-6.50); Neutrophils % (auto) 87.4 %; Platelet Count 206 K/uL (130-400); RDW Coefficient of Variation 15.4 % (11.5-14.5); RDW Standard Deviation 53.6 fL (36.4-46.3); Red Blood Count 4.61 M/uL (4.70-6.10); White Blood Count 9.66 K/ul (4.8-10.8)
[2023-08-23 17:32] LABS: Albumin Globulin Ratio 1.1 (0.9-2); BUN Creatinine Ratio 11.9 (10-20); Bilirubin,Total 1.1 mg/dl (0.2-1.0); Calcium 9.3 mg/dl (8.6-10.3); Creatinine Clr Calc Pharmacy 34.2 ml/min; Est GFR (African American) 41.5 ml/min; Est GFR (Non-African American) 35.8 ml/min; Globulin 3.6 gm/dl (2.5-4.0); Magnesium 1.7 mg/dl (1.7-2.4); Potassium 4.9 mmol/L (3.5-5.1); Total Protein 7.6 gm/dl (6.0-8.3)
[2023-08-23 17:38] LABS: Troponin I High Sensitivity 48.1 pg/ml (0-20)
--- NOTE | 2023-08-23 18:07 | History & Physical Report ---
Date of Service August 23, 2023 Assessment & Plan (1) Acute decompensated heart failure: (2) Labile hypertension: (3) Pulmonary hypertension: (4) Chronic hypoxic respiratory failure: (5) COPD (chronic obstructive pulmonary disease): (6) PAD (peripheral artery disease): (7) CAD (coronary artery disease): (8) Diabetes mellitus, type 2: (9) Opioid dependence: (10) Chronic pain: Plan This is a 72yo M with a PMH of moderate vascular dementia, tachy-merari syndrome s/p PPM in 2020, COPD, DM II, chronic respiratory failure with hypoxia and hypercapnia, HTN, HLD, L renal clear cell carcinoma s/p partial left nephrectomy in 2019, BPH, chronic pain on opioids, combined systolic and diastolic HF, lacunar infarct in 2022, h/o left carotid endarterectomy in 2012 following left hemispheric CVA, significant PVD history with multiple interventions, chronic paresthesia LLL since 2014 surgery, tobacco use and other medical problems listed below with worsening SOB over the past week and found to have decompensated heart failure and Flu A. Chronic hypoxic resp failure, noncompliant with O2 In setting of COPD, CHF, Flu A Resumed supplemental O2 - has not been compliant at home until today Flu A Supportive care, droplet precautions Acute decompensated heart failure Progressive SOB and BLE edema x 1 week Recently resumed on lasix per PCP note from 07/17 - instructed to take 40mg lasix x 1 week and then continue 20mg daily 2D echo from May 2023 echo showing EF 35-40%, mild concentric LVH, moderate global hypokinesis of LV Given 40mg IV lasix in ED Strict I&Os Daily Weights Low sodium diet Routine nephro consult for guidance with diuresis given CKD, h/o nephrectomy Continue Carvedilol COPD/Emphysema Saturating at 93% on 3L NC O2 Initial VBG with acidosis pH 7.29, CO2 68 noted - no confusion, at mentation baseline, alert Repeat VBG pH in AM No acute exacerbation noted Continue home inhalers Continue breo inhaler, duonebs QID PRN HTN H/o labile blood pressure on previous admission in setting of severe PAD BP 187/90 in ED - given 40mg IV lasix, missed dose of Percocet, PRN Labetalol Monitor closely CAD Presumed CAD per cards notes No CP or acute ST changes on EKG Continue Carvedilol, aspirin, plavix, statin, Imdur Tachy-merari syndrome S/[place] pac[place] [address] Live CKD III H/o Left renal cell carcinoma S/p partial left nephrectomy in 2019 Cr 1.8 (baseline 1.8-2.5) Monitor with daily BMP H/o Lacunar stroke in 2022 PAD Continue aspirin, Plavix, statin Quit smoking per family, still using snuff pouches Vascular Dementia A&O to person only at time of admission Son notes worsening dementia at home, also staring into distance, not answering promptly Likelihood opioids are exacerbating confusion Palliative discussion to discuss ongoing pain mgmt given comorbidities Delirium Precautions DM II A1c 6.5 03/30, repeat in AM Hold home agents SSI while in-patient BSG AC HS Chronic back pain on opioids Reviewed PDMP, reducing home Percocet 7.5-325 from Q8H to Q12 given worsening mentation as above Avoid additional opioids given dementia as above DVT Ppx:SQ heparin Code status: FULL PCP: Marek Dispo: Admit to PCU Patient seen in collaboration with Dr. Watts. Please see addendum. I spent a total of 80 minutes coordinating, documenting, and providing care for this patient excluding time spent in the performance of separately billed services. History of Present Illness Chief Complaint: SOB Primary Care Provider: Chad Jara MD This is a 72yo M with a PMH of tachy-merari syndrome s/p PPM in 2020, COPD, DM II, chronic respiratory failure with hypoxia and hypercapnia, HTN, HLD, L renal clear cell carcinoma s/p partial left nephrectomy in 2019, BPH, chronic pain on opioids, combined systolic and diastolic HF, lacunar infarct in 2022, h/o left carotid endarterectomy in 2012 following left hemispheric CVA, significant PVD history with multiple interventions, chronic paresthesia LLL since 2014 surgery, tobacco use and other medical problems listed below with worsening SOB over the past week. Further information provided from son over the phone. Recent viral illness with fever and cough. Had Patient has felt progressively more SOB and weak with dyspnea on exertion. Noticing more swelling of ankles. States he has been compliant with home meds. Is due for an oxycodone pill. States he takes 3- 4x/day. Family has been telling him he has worsening memory over the past few months. No F/C, CP, palpitations, N/V, abdominal pain, dysuria, diarrhea or constipation. Was admitted in May 2023 with decompensated HF in setting of medication non- compliance. Also noted to have labile hypotension during that admission. At that time, lisinopril was discontinued. Stopped smoking but is still using snuff pouches. Per chart review, lasix was discontinued in August 2022 but recently resumed at PCP appt 07/17 due to increased BLE edema. Currently endorses taking lasix at home, unsure of dose. Allergies Allergy/AdvReac Type Severity Reaction Status Date / Time No Known Allergies Allergy Unknown Verified 08/23/23 18:04 Home Medications Medication Instructions Recorded Confirmed Type albuterol sulfate 90 mcg/actuation 2 puff inhalation Q4H PRN 09/06/18 08/23/23 History aerosol inhaler cough,SOB,wheezing atorvastatin 80 mg tablet 80 mg PO QAM 09/06/18 08/23/23 History clopidogrel 75 mg tablet 75 mg PO QAM 09/06/18 08/23/23 History ferrous sulfate 325 mg (65 mg 325 mg PO AMHS 09/06/18 08/23/23 History iron) tablet glipizide 10 mg tablet 10 mg PO QAM 09/06/18 08/23/23 History albuterol sulfate 2.5 mg/3 mL 2.5 mg inhalation Q4H PRN 02/01/20 08/23/23 History (0.083 %) solution for nebulization Shortness Of Breath Or Wheezing pantoprazole 40 mg tablet,delayed 40 mg PO QAM 02/01/20 08/23/23 History release (Protonix) carvedilol 25 mg tablet 25 mg PO BIDM #60 tabs 05/13/23 08/23/23 Rx ascorbic acid (vitamin C) 500 mg 500 mg PO DAILY 08/23/23 08/23/23 History chewable tablet (Vitamin C) cholecalciferol (vitamin D3) 125 125 mcg PO QAM 08/23/23 08/23/23 History mcg (5,000 unit) capsule docusate sodium 100 mg capsule 100 mg PO BID 08/23/23 08/23/23 History duloxetine 60 mg capsule,delayed 60 mg PO QAM 08/23/23 08/23/23 History release fluticasone furoate 200 1 inh inhalation QAM 08/23/23 08/23/23 History mcg-vilanterol 25 mcg/dose inhalation powder (Breo Ellipta) furosemide 20 mg tablet 20 mg PO QAM 08/23/23 08/23/23 History isosorbide mononitrate 30 mg 30 mg PO QAM 08/23/23 08/23/23 History tablet,extended release 24 hr memantine 5 mg tablet 5 mg PO BID 08/23/23 08/23/23 History naloxone 4 mg/actuation nasal spray 4 mg intranasal UD PRN Opioid 08/23/23 08/23/23 History Overdose nitroglycerin 0.4 mg sublingual 0.4 mg sublingual UD PRN Chest Pain 08/23/23 08/23/23 History tablet omega-3 fatty acids 1,000 mg 1,000 mg PO BID 08/23/23 08/23/23 History capsule oxycodone-acetaminophen 7.5 mg-325 1 tab PO Q8 PRN Severe Pain (Scale 08/23/23 08/23/23 History mg tablet Score 7-10) potassium chloride 10 mEq 10 meq PO QAM 08/23/23 08/23/23 History tablet,extended release(part/cryst) sennosides 8.6 mg tablet (Senokot) 8.6 mg PO BID 08/23/23 08/23/23 History terazosin 5 mg capsule 5 mg PO HS 08/23/23 08/23/23 History Past Med/Surg History Medical History Opioid dependence Precordial chest pain Hypertensive crisis Bulging disc LUMBAR AREA Osteoarthritis Diabetes mellitus, type 2 Anemia HX OF Macular degeneration Hypertension Peripheral neuropathy On home oxygen therapy 2L AT HS Myocardial Infarction 2003 (LIFE FLIGHTED TO [place]) Hyperlipidemia GERD (gastroesophageal reflux disease) CAD (coronary artery disease) PAD (peripheral artery disease) COPD (chronic obstructive pulmonary disease) WEARS O2 AT 2L HS "SOMETIMES" Surgical History Fusion of spine CERVICAL History of esophagogastroduodenoscopy (EGD) History of colonoscopy History of discectomy CERVICAL H/O eye surgery LASER SURGERY FOR BLEEDING EYE H/O vascular surgery Family History Mother CKD (chronic kidney disease) Social History Smoking Status: Never smoker Tobacco Type: Cigarettes Cigarettes Per Day: 6 -8/day; Second Hand Exposure: Yes; Do You Dip or Chew Tobacco: No; Hx Alcohol Use: Yes Alcohol type: beer Hx Substance Use: No Preferred Language: Sinhala Communication Ability: Effective Intervention Nurse Required: No Beliefs That Will Affect Care: None marital status: Current Living Situation: Family and Other Current Living Situation Comment: W/son and friends in home, 1 lvl Feels Safe at Home: Yes Assistive Devices: Oxygen - at Night Review of Systems Review of Systems: At least ten systems reviewed and negative except as noted in the HPI. Physical Exam Physical Exam: Please see Dr. Watts' addendum for physical exam. Results & Data Results & Data Vital Signs (Past 12 Hours) Vital Signs Temp Pulse Resp BP Pulse Ox O2 Del Method O2 Flow Rate 08/23/23 16:47 85 08/23/23 16:17 88 22 99 Nasal Cannula 08/23/23 16:17 Nasal Cannula 2 08/23/23 16:15 35.8 C L 91 H 20 191/64 H 83 L Room Air 08/23/23 16:07 97 Nasal Cannula 2 Laboratory Results Short CBC 08/23/23 Range/Units 16:50 WBC 9.66 (4.8-10.8) K/ul Hgb 13.6 L (14.0-18.0) g/dl Hct 44.0 (42.0-52.0) % Plt Count 206 (130-400) K/uL BMP 08/23/23 16:50 Sodium 137 Potassium 4.9 Chloride 100 Carbon Dioxide 30 BUN 22 Creatinine 1.85 H Glucose 165 H Calcium 9.3 Liver Function 08/23/23 Range/Units 16:50 Total Bilirubin 1.1 H (0.2-1.0) mg/dl AST 18 (13-39) U/L ALT 20 (7-52) U/L Alkaline Phosphatase 79 (34-104) U/L Albumin 4.0 (3.4-5.0) gm/dl Diagnostic Findings Chest X-Ray 08/23/23 16:17 XR chest 1V portable CLINICAL HISTORY: Dyspnea. COMPARISON STUDY: Chest radiograph May 10, 2023. FINDINGS: Left subclavian pacer is in place. Moderate cardiomegaly is unchanged. There has been interval development of interstitial pulmonary edema. A calcified left lung granuloma is benign. Postoperative findings within the spine are incidentally noted. There is no consolidation to suggest pneumonia. There is no pneumothorax. There is a trace right pleural effusion. IMPRESSION: Cardiomegaly with interstitial pulmonary edema and a trace right pleural effusion. ACT 112: Negative or not required by law. Electronically signed by: Drew Patrick M.D. 08/23/2023 5:01 PM Supervising Physician Co-Signing Physician Notes I have seen and discussed the case with the collaborating advanced practitioner. I agree with the above H&P. I have reviewed and confirmed the patients medical history, the findings on physical examination, and the patients diagnosis and treatment plan with Pankaj GARDNER and agree with the information documented. Mr. Israel Salcedo a 72 year old gentleman with a history of HLD, HTN, tachy- merari syndrome s/p PPM, COPD, DM2, L renal clear cell carcinoma, CKDII, BPH, chronic pain on chronic opioids, COPD/emphysema, HFmEF, lacunar stroke, prior GIB, PVD, tobacco use who is being admitted for SOB and seems to be in acute heart failure exacerbation, noted by BNP of 2564. URI symptoms recently reported by son, which is supported by Flu A+ on quadtest. Patient denies any acute concerns. He knows the president. He knows he is in a hospital--but is not aware of day, year, or city. Discussion with son is Full Code. However, no history of palliative discussions recently and given progressive decline, chronic opioids, and complex comordibities, may be appropriate to open discussions. GENERAL APPEARANCE: AxOx2, no acute distress. HEENT: NC, AT. MMM. EOMI, clear conjunctiva, oropharynx clear. NECK: Supple without lymphadenopathy. No stiffness or restricted ROM. HEART: Normal rate and regular rhythm, LUNGS: CTAB, diminished bibasilar breath sound s ABDOMEN: Soft, nontender, nondistended with good bowel sounds heard. BACK: No CVAT, no obvious deformity. EXTREMITIES: Without cyanosis, clubbing or edema. NEUROLOGICAL: Grossly nonfocal. Alert and oriented, moving all 4 extremities. CN not formally tested but appear grossly intact. Observed to ambulate with normal gait. Skin: Warm and dry without any rash. : #Acute hypoxic/hypercapnic respiratory failure, likely multifactorial #Influenza A + #Emphysema/COPD Flu +, droplet precautions No WBC or resp symptoms History of RSV 05/2023, 2 step with out O2 repeat VBG in am Continue home inhalers No wheezing on exam, diminished BL breath sounds #CAD, HFrEF (EF 35-40%) #Tachy-merari syndrome s/p PM -Pain associated with tremors, not on exertion, no ischemic changes on EKG -Continue plavix, ASA, statin -Continue Carvedilol 25mg BID -Renal function likely to limit diuresis, consult nephro. #CKDIII #Left Renal Cell Carcinoma Renal function seemingly improved, suspect 2/2 HFrEF, avoid nephrotoxic agents -Just started on lasix on 07/18/2023 due to edema in lower extremities. #Prior Lacunar stroke Continue ASA, Plavix, statin #Vascular Dementia -Delirium Precautions imaging c/w above, progressive decline in mentation per son Did not follow up with Neurology as scheduled as OP #DMTII glipizide home medication Rest of plan as above I spent a total of 35 minutes coordinating, documenting, and providing care for this patient excluding time spent in the performance of separately billed services. All of the aforementioned completed outside of collaborating with the assigned advanced practitioner for a full treatment plan. I have reviewed the advanced practitioner's documentation, and I agree with, and take responsibility for the plan of care
[2023-08-23] MEDS: FUROSEMIDE 40 MG/4 ML VIAL IV ONE (18:18)
[2023-08-23 19:08] LABS: Appearance Urine Clear (Clear); Bacteria Urine Automated None Seen (None Seen); Bilirubin Urine Negative (Negative); Blood Urine Trace (Negative); Cast Urine Automated 0-2 /lpf (0-2); Color Urine Yellow; Epithelial Cell Urine Auto 0-2 /hpf (0-2); Glucose Urine UA Negative (Negative); Ketones Urine Negative (Negative); Leukocyte Esterase Urine Negative (Negative); Nitrite Urine Negative (Negative); Protein Urine 2+ (Negative); RBC Urine Automated 0-2 /hpf (0-2); Specific Gravity Urine 1.008 (1.000-1.030); Urobilinogen Urine Negative (Negative); WBC Urine Automated 0-5 /hpf (0-5); pH Urine 6.5 (4.5-7.5)
[2023-08-23] MEDS: carvediloL 25 MG TAB PO ONE (19:14)
[2023-08-23] MEDS: oxyCODONE/APAP 7.5/325MG TAB PO PRN (19:17)
[2023-08-23] MEDS ORDERED: oxyCODONE/APAP 7.5/325MG TAB PO PRN (19:43)
[2023-08-23 19:44] LABS: Influenza A virus by PCR Positive (Neg); Influenza B virus by PCR Negative (Neg); RSV by PCR Negative (Neg); SARS CoV2 RNA(COVID-19) Ceph NEGATIVE (Negative)
[2023-08-23] MEDS ORDERED: GLUCOSE 40% GEL 15 GM TUBE PO PRN (20:49)
[2023-08-23] MEDS ORDERED: ONDANSETRON INJ 2 MG/ML 2 ML VIAL IV PRN (20:49)
[2023-08-23] MEDS ORDERED: NALOXONE NASAL SPRAY 4 MG ER HOMEPACK PRN (20:49)
[2023-08-23] MEDS ORDERED: GLUCOSE 10 TAB/TUBE PO PRN (20:49)
[2023-08-23] MEDS ORDERED: DEXTROSE 50% 50 ML SYRINGE IV PRN (20:49)
[2023-08-23] MEDS ORDERED: GLUCAGON FOR INJ 1 MG VIAL SQ PRN (20:49)
[2023-08-23] MEDS ORDERED: POLYETHYLENE (MIRALAX) 17 GM PACK PO PRN (20:49)
[2023-08-23] MEDS ORDERED: ALBUTEROL HFA 8 GM INHALER INH PRN (20:49)
[2023-08-23] MEDS: INSULIN ASPART PER UNIT CHARGE SC SCH (21:54)
[2023-08-23] MEDS: LABETALOL HCL IV 5 MG/ML 20ML IV PRN (22:10)
[2023-08-23] MEDS: FERROUS SULFATE 325 MG TAB PO SCH (22:11)
[2023-08-23] MEDS: DOCUSATE SODIUM 100 MG CAP PO SCH (22:11)
[2023-08-23] MEDS: TERAZOSIN HCL 5 MG CAP PO SCH (22:12)
[2023-08-23] MEDS: SENNA 8.6 MG TAB PO SCH (22:13)
[2023-08-23] MEDS: MEMANTINE HCL 5 MG TAB PO SCH (22:14)
[2023-08-23] MEDS: OSELTAMIVIR PHOSPHATE 75 MG CAP PO STA (22:42)
[2023-08-23] MEDS: OSELTAMIVIR PHOSPHATE 75 MG CAP PO ONE (22:42)
--- NOTE | 2023-08-23 22:52 | Communication Note ---
Date of Service: August 23, 2023 Made aware by RN of uncontrolled blood pressure. SBP 210-230s the last 24 hours. Patient asymptomatic as per RN. AP Hypertensive urgency Add amlodipine to high-dose Coreg and Hytrin Will relay to AM provider.
[2023-08-23] MEDS: amLODIPine BESYLATE 5 MG TAB PO SCH (23:30)
[2023-08-24] MEDS: carvediloL 25 MG TAB PO ONE (02:17)
[2023-08-24 04:07] LABS: Hematocrit (blood only) 40.8 % (42.0-52.0); Hemoglobin 12.8 g/dl (14.0-18.0); Mean Corpuscular Hemoglobin 29.9 pg (25.0-34.0); Mean Corpuscular Hgb Conc 31.4 g/dL (32.0-36.0); Mean Corpuscular Volume 95.3 fL (80.0-100.0); Mean Platelet Volume 10.1 fL (9.4-12.4); Platelet Count 166 K/uL (130-400); RDW Coefficient of Variation 15.2 % (11.5-14.5); Red Blood Count 4.28 M/uL (4.70-6.10); White Blood Count 7.27 K/ul (4.8-10.8)
[2023-08-24 04:14] LABS: BUN Creatinine Ratio 12.7 (10-20); Calcium 9.1 mg/dl (8.6-10.3); Creatinine Clr Calc Pharmacy 30.9 ml/min; Est GFR (African American) 36.7 ml/min; Est GFR (Non-African American) 31.7 ml/min; Potassium 4.4 mmol/L (3.5-5.1)
[2023-08-24] MEDS: MELATONIN 3 MG TAB PO PRN (05:01)
[2023-08-24 07:07] LABS: Estimated Average Glucose 166 mg/dl; Hemoglobin A1C 7.4 % (4.5-5.6)
[2023-08-24] MEDS ORDERED: carvediloL 25 MG TAB PO SCH (08:00)
[2023-08-24] MEDS: POTASSIUM CHLORIDE 10 MEQ TABCR PO SCH (08:12)
[2023-08-24] MEDS: ISOSORBIDE MONO EXTENDED REL 30 MG TABCR PO SCH (08:12)
[2023-08-24] MEDS: DULoxetine HCL 60 MG CAP PO SCH (08:13)
[2023-08-24] MEDS: CLOPIDOGREL BISULFATE 75 MG TAB PO SCH (08:13)
[2023-08-24] MEDS: CHOLECALCIFEROL 125 MCG (5,000 UNITS) TAB PO SCH (08:13)
[2023-08-24] MEDS: FLUTICASONE/VILANTEROL 200/25MCG 14 PUFFS/INHALER INH SCH (08:14)
[2023-08-24] MEDS: ASCORBIC ACID 500 MG TAB PO SCH (08:14)
[2023-08-24] MEDS: ATORVASTATIN 40 MG TAB PO SCH (08:14)
--- NOTE | 2023-08-24 09:07 | Electrocardiogram Report ---
Test Reason : Blood Pressure : / mmHG Vent. Rate : 090 BPM Atrial Rate : 090 BPM P-R Int : 294 ms QRS Dur : 132 ms QT Int : 406 ms P-R-T Axes : -29 -71 111 degrees QTc Int : 496 ms Atrial-paced rhythm with prolonged AV conduction Left axis deviation Right bundle branch block T wave abnormality, consider lateral ischemia Abnormal ECG When compared with ECG of 11-MAY-2023 09:00, Electronic atrial pacemaker has replaced Sinus rhythm Confirmed by Nathanael Kennedy ([id number]) on 08/24/2023 9:06:45 AM Referred By: REFERRED SELF Confirmed By:Stephan Kennedy
[2023-08-24] MEDS: PANTOprazole 40 MG TAB PO SCH (10:42)
[2023-08-24] MEDS: LANTUS PER UNIT CHARGE SQ SCH (10:43)
--- NOTE | 2023-08-24 11:46 | Nephrology Consultation ---
Date of Consultation August 24, 2023 Assessment & Plan (1) Acute decompensated heart failure: (2) CKD (chronic kidney disease) stage 3, GFR 30-59 ml/min: (3) Chronic hypoxic respiratory failure: (4) Influenza A: Plan He has CKD 3B with baseline creat of around 1.9. cause is multifactorial including partial u/l nephrectomy + all his Comorbid Dz. Current creat is baseline but he does have Acute decompensated CHF and needs more aggressive diuresis. High BP and CXR pattern Consistent with that. Also Has InF A which makes situation more difficult. Will recommend lasix 40 iv at least daily but may need more. so give one dose now. he had one dose last evening. expect some rise in creat but he does needs Diuretics. Creat went up from 1.8 to 2 overnight. Was +ve for Influenza A--this is quite commonly associated with Some ZINA. Will follow and guide diuretics dosing. also check total CK for rhabdo given Influenza A History of Present Illness Reason for Consultation: Zina on CKD for diuretics guidance Attending Physician: Sunil Escalante MD History of Present Illness 72/M with pre existing CKD --baseline creat 1.9 asof as outpt. Last seen Dr Bourgeois in clinic. has tachy-merari syndrome s/p PPM in 2020, COPD, DM II, chronic respiratory failure with hypoxia and hypercapnia, HTN, HLD, L renal clear cell carcinoma s/p partial left nephrectomy in 2019, BPH, chronic pain on opioids, combined systolic and diastolic HF, lacunar infarct in 2022, h/o left carotid endarterectomy in 2012 following left hemispheric CVA, significant PVD history with multiple interventions, chronic paresthesia LLL since 2014 surgery, tobacco use and other medical problems listed below presented to [facility] with worsening SOB over the past week. Current creat is baseline about 2. Recent viral illness with fever and cough. Patient progressively more SOB and weak with dyspnea on exertion. Noticing more swelling of ankles. States he has been compliant with home meds. No F/C, CP, palpitations, N/V, abdominal pain, dysuria, diarrhea or constipation. Was admitted in May 2023 with decompensated HF in setting of medication non- compliance. Also noted to have labile hypotension during that admission. At that time, lisinopril was discontinued. Stopped smoking but is still using snuff pouches. Per chart review, lasix was discontinued in August 2022 but recently resumed at PCP appt 07/17 due to increased BLE edema. given lasix 40 daily for 1 week and then 20 daily. Since admission one dose of lasix 40 iv given . BP is very high and CXR shows Pulm edema. ROS--see HPI. otherwise 12 Systems reviewed and negative EXAM: GENERAL APPEARANCE: Awake and alert. +ve resp distress. HEENT: MM moist. Neck supple HEART: Normal rate and regular rhythm, LUNGS: b/l basal crackles ABDOMEN: Soft, nontender, nondistended with good bowel sounds heard. BACK: No CVAT, no obvious deformity. EXTREMITIES: Trace + edema Skin: Warm and dry without any rash. Allergies Allergy/AdvReac Type Severity Reaction Status Date / Time No Known Allergies Allergy Unknown Verified 08/23/23 18:04 Home Medications Medication Instructions Recorded Confirmed Type albuterol sulfate 90 mcg/actuation 2 puff inhalation Q4H PRN 09/06/18 08/23/23 History aerosol inhaler cough,SOB,wheezing atorvastatin 80 mg tablet 80 mg PO QAM 09/06/18 08/23/23 History clopidogrel 75 mg tablet 75 mg PO QAM 09/06/18 08/23/23 History ferrous sulfate 325 mg (65 mg 325 mg PO AMHS 09/06/18 08/23/23 History iron) tablet glipizide 10 mg tablet 10 mg PO QAM 09/06/18 08/23/23 History albuterol sulfate 2.5 mg/3 mL 2.5 mg inhalation Q4H PRN 02/01/20 08/23/23 History (0.083 %) solution for nebulization Shortness Of Breath Or Wheezing pantoprazole 40 mg tablet,delayed 40 mg PO QAM 02/01/20 08/23/23 History release (Protonix) carvedilol 25 mg tablet 25 mg PO BIDM #60 tabs 05/13/23 08/23/23 Rx ascorbic acid (vitamin C) 500 mg 500 mg PO DAILY 08/23/23 08/23/23 History chewable tablet (Vitamin C) cholecalciferol (vitamin D3) 125 125 mcg PO QAM 08/23/23 08/23/23 History mcg (5,000 unit) capsule docusate sodium 100 mg capsule 100 mg PO BID 08/23/23 08/23/23 History duloxetine 60 mg capsule,delayed 60 mg PO QAM 08/23/23 08/23/23 History release fluticasone furoate 200 1 inh inhalation QAM 08/23/23 08/23/23 History mcg-vilanterol 25 mcg/dose inhalation powder (Breo Ellipta) furosemide 20 mg tablet 20 mg PO QAM 08/23/23 08/23/23 History isosorbide mononitrate 30 mg 30 mg PO QAM 08/23/23 08/23/23 History tablet,extended release 24 hr memantine 5 mg tablet 5 mg PO BID 08/23/23 08/23/23 History naloxone 4 mg/actuation nasal spray 4 mg intranasal UD PRN Opioid 08/23/23 08/23/23 History Overdose nitroglycerin 0.4 mg sublingual 0.4 mg sublingual UD PRN Chest Pain 08/23/23 08/23/23 History tablet omega-3 fatty acids 1,000 mg 1,000 mg PO BID 08/23/23 08/23/23 History capsule oxycodone-acetaminophen 7.5 mg-325 1 tab PO Q8 PRN Severe Pain (Scale 08/23/23 08/23/23 History mg tablet Score 7-10) potassium chloride 10 mEq 10 meq PO QAM 08/23/23 08/23/23 History tablet,extended release(part/cryst) sennosides 8.6 mg tablet (Senokot) 8.6 mg PO BID 08/23/23 08/23/23 History terazosin 5 mg capsule 5 mg PO HS 08/23/23 08/23/23 History Patient History Medical History Opioid dependence Precordial chest pain Hypertensive crisis Bulging disc LUMBAR AREA Osteoarthritis Diabetes mellitus, type 2 Anemia HX OF Macular degeneration Hypertension Peripheral neuropathy On home oxygen therapy 2L AT HS Myocardial Infarction 2003 (LIFE FLIGHTED TO [place]) Hyperlipidemia GERD (gastroesophageal reflux disease) CAD (coronary artery disease) PAD (peripheral artery disease) COPD (chronic obstructive pulmonary disease) WEARS O2 AT 2L HS "SOMETIMES" Surgical History Fusion of spine CERVICAL History of esophagogastroduodenoscopy (EGD) History of colonoscopy History of discectomy CERVICAL H/O eye surgery LASER SURGERY FOR BLEEDING EYE H/O vascular surgery Family History Mother CKD (chronic kidney disease) Social History Smoking Status: Former smoker Tobacco Type: Cigarettes Cigarettes Per Day: 6 -8/day; Second Hand Exposure: Yes; Do You Dip or Chew Tobacco: No; Hx Alcohol Use: Yes Alcohol type: beer Hx Substance Use: No Preferred Language: Maori Communication Ability: Effective Stained Glass Window Designer Required: No Beliefs That Will Affect Care: None marital status: Current Living Situation: Family Current Living Situation Comment: lives with 3 sons Feels Safe at Home: Yes Assistive Devices: Oxygen - at Night and Walker Results & Data Vital Signs (Past 12 Hours) Vital Signs Temp Pulse Pulse Resp BP BP Pulse Ox 08/24/23 08:29 80 184/79 H 08/24/23 08:24 36.8 C 86 24 184/79 H 97 08/24/23 07:44 08/24/23 07:19 85 08/24/23 07:15 85 20 184/81 H 91 08/24/23 07:03 86 202/95 H 08/24/23 04:00 87 16 204/94 H 90 08/24/23 03:00 85 18 211/91 H 99 08/24/23 02:00 82 17 231/79 H 99 08/24/23 01:00 88 21 98 08/24/23 00:30 80 20 198/74 H 100 08/24/23 00:00 83 16 213/90 H Pulse Ox O2 Del Method O2 Del Method O2 Flow Rate O2 Flow Rate 08/24/23 08:29 08/24/23 08:24 Nasal Cannula 4 08/24/23 07:44 91 Nasal Cannula 4 08/24/23 07:19 08/24/23 07:15 Nasal Cannula 4 08/24/23 07:03 08/24/23 04:00 Nasal Cannula 4 08/24/23 03:00 Nasal Cannula 4 08/24/23 02:00 Nasal Cannula 4 08/24/23 01:00 Nasal Cannula 4 08/24/23 00:30 Nasal Cannula 4 08/24/23 00:00
[2023-08-24] MEDS: FUROSEMIDE 40 MG/4 ML VIAL IV ONE (12:41)
[2023-08-24] MEDS: ACETAMINOPHEN 325 MG TAB PO PRN (12:45)
--- NOTE | 2023-08-24 16:43 | Hospitalist Progress Note ---
Date of Service August 24, 2023 Assessment & Plan (1) Acute decompensated heart failure: (2) Labile hypertension: (3) Pulmonary hypertension: (4) Chronic hypoxic respiratory failure: (5) COPD (chronic obstructive pulmonary disease): (6) PAD (peripheral artery disease): (7) CAD (coronary artery disease): (8) Diabetes mellitus, type 2: (9) Opioid dependence: (10) Chronic pain: Plan Patient is a 72yo M with a PMH of moderate vascular dementia, tachy-merari syndrome s/p PPM in 2020, COPD, DM II, chronic respiratory failure with hypoxia and hypercapnia, HTN, HLD, L renal clear cell carcinoma s/p partial left nephrectomy in 2019, BPH, chronic pain on opioids, combined systolic and diastolic HF, lacunar infarct in 2022, h/o left carotid endarterectomy in 2012 following left hemispheric CVA, significant PVD history with multiple interventions, chronic paresthesia LLL since 2014 surgery, tobacco use and other medical problems listed below with worsening SOB over the past week and found to have decompensated heart failure and Flu A. Acute hypoxic hypercarbic respiratory failure Likely multifactorial secondary to COPD, CHF exacerbation, influenza A H/O tobacco use H/O noncompliance with supplemental oxygen --CXR:Cardiomegaly with interstitial pulmonary edema and a trace right pleural effusion. -- Serology positive for influenza A Given onset of symptoms, currently no indication for Tamiflu Continue home inhalers Monitor volume status Diuretics per nephrology Will repeat VBG tomorrow May need 2 step prior to discharge Supplemental oxygen as needed to keep sats 88 to 92% Currently saturating well on room air Acute on chronic systolic heart failure Progressive SOB and BLE edema x 1 week --2D echo from May 2023 echo showing EF 35-40%, mild concentric LVH, moderate global hypokinesis of LV Continue IV Lasix Monitor I's and O's, daily weight, volume status Appreciate nephrology input to help with diuresis Reassess tomorrow for further IV diuresis Continue carvedilol CKD III H/O Left renal clear cell carcinoma s/p partial left nephrectomy Baseline creatinine about 1.9 Monitor renal function Avoid nephrotoxic agents as able Appreciate nephrology input Will check CK levels Hypertensive urgency Troponin elevation likely demand ischemia in setting of infection, CKD, HTN Likely due to noncompliance Doubt ACS Denies any chest pain Continue carvedilol, Hytrin Also on isosorbide Added amlodipine IV labetalol as needed Monitor and adjust medications as needed CAD Presumed CAD per cards notes Continue Carvedilol, Plavix, statin, Imdur Tachy-merari syndrome S/[place] pacemaker [place] [address] Live Continue carvedilol H/o Lacunar stroke in 2022 PAD S/P left carotid endarterectomy in 2012 Continue Plavix, statin Quit smoking per family, still using snuff pouches Vascular Dementia Son notes worsening dementia at home, also staring into distance, not answering promptly Likelihood opioids and hypercarbia likely exacerbating confusion Palliative discussion to discuss ongoing pain mgmt given comorbidities Delirium Precautions DM II HbA1c 7.4 Hold home agents Continue insulin while hospitalized Monitor BGs Chronic back pain on opioids Reviewed PDMP, reducing home Percocet 7.5-325 from Q8H to Q12 given worsening mentation as above Avoid additional opioids given dementia as above DVT Px: SQ heparin Code status: FULL CODE Admission and Anticipated Discharge Date Admission Date: August 23, 2023 Subjective Patient is seen and examined at bedside Cough, dyspnea much improved per patient Offers no new complaints Eager to get discharged Denies any chest pain, nausea, vomiting, abdominal pain Saturating low 90s on room air Review of Systems Review of Systems: All systems reviewed & are unremarkable except as noted in Subjective Physical Exam Physical Exam: Physical Exam: Vitals signs as noted above General Appearance:Moderately built and nourished, no apparent distress Head: normocephalic, Atraumatic Eyes: normal inspection, EOMI Neck: supple, Trachea midline Respiratory/Chest: Decreased breath sounds, CTA, No accessory muscle use Cardiovascular: S1, S2, No murmur Abdomen/GI:Soft, Non tender, Bowel sounds present Extremities/Musculoskeletal:normal inspection, no edema Neurologic/Psych:AAOX2, grossly no focal neurological deficits Skin: normal color, warm Results & Data Results & Data Vital Signs (Past 12 Hours) Vital Signs Temp Pulse Pulse Resp BP BP Pulse Ox 08/24/23 15:18 08/24/23 15:17 36.9 C 82 26 H 172/69 H 92 08/24/23 08:29 80 184/79 H 08/24/23 08:24 36.8 C 86 24 184/79 H 97 08/24/23 07:44 08/24/23 07:19 85 08/24/23 07:15 85 20 184/81 H 91 08/24/23 07:03 86 202/95 H Pulse Ox O2 Del Method O2 Del Method O2 Flow Rate O2 Flow Rate 08/24/23 15:18 Room Air 08/24/23 15:17 Room Air 08/24/23 08:29 08/24/23 08:24 Nasal Cannula 4 08/24/23 07:44 91 Nasal Cannula 4 08/24/23 07:19 08/24/23 07:15 Nasal Cannula 4 08/24/23 07:03 Laboratory Results Short CBC 08/23/23 08/24/23 Range/Units 16:50 03:44 WBC 9.66 7.27 (4.8-10.8) K/ul Hgb 13.6 L 12.8 L (14.0-18.0) g/dl Hct 44.0 40.8 L (42.0-52.0) % Plt Count 206 166 (130-400) K/uL BMP 08/23/23 08/24/23 16:50 03:44 Sodium 137 134 L Potassium 4.9 4.4 Chloride 100 96 L Carbon Dioxide 30 28 BUN 22 26 H Creatinine 1.85 H 2.05 H Glucose 165 H 247 H Calcium 9.3 9.1 Liver Function 08/23/23 Range/Units 16:50 Total Bilirubin 1.1 H (0.2-1.0) mg/dl AST 18 (13-39) U/L ALT 20 (7-52) U/L Alkaline Phosphatase 79 (34-104) U/L Albumin 4.0 (3.4-5.0) gm/dl Urine 08/23/23 Range/Units 18:50 Urine Color Yellow Urine Appearance Clear (Clear) Urine pH 6.5 (4.5-7.5) Ur Specific [place] 1.008 (1.000-1.030) Urine Protein 2+ H (Negative) Urine Glucose (UA) Negative (Negative) (5) COPD (chronic obstructive pulmonary disease) COPD type: unspecified COPD Qualified Code(s): J44.9 - Chronic obstructive pulmonary disease, unspecified
[2023-08-24] MEDS: carvediloL 25 MG TAB PO SCH (20:04)
[2023-08-25 07:21] LABS: Base Excess VBG 8.8 mEq/L; HCO3 VBG 37 mmol/L; Oxygen Saturation VBG < 60.0 %; PCO2 VBG 65 mmHg (38-50); PO2 VBG 34 mmHg; pH VBG 7.36 (7.36-7.41)
[2023-08-25 07:32] LABS: Hemoglobin 13.1 g/dl (14.0-18.0); Mean Corpuscular Hemoglobin 29.7 pg (25.0-34.0); Mean Corpuscular Hgb Conc 32.8 g/dL (32.0-36.0); Mean Corpuscular Volume 90.7 fL (80.0-100.0); Mean Platelet Volume 9.8 fL (9.4-12.4); Platelet Count 193 K/uL (130-400); RDW Coefficient of Variation 15.1 % (11.5-14.5); RDW Standard Deviation 50.4 fL (36.4-46.3); Red Blood Count 4.41 M/uL (4.70-6.10); White Blood Count 9.56 K/ul (4.8-10.8)
[2023-08-25 08:01] LABS: BUN Creatinine Ratio 16.6 (10-20); Calcium 9.3 mg/dl (8.6-10.3); Creatinine Clr Calc Pharmacy 30.9 ml/min; Est GFR (African American) 36.7 ml/min; Est GFR (Non-African American) 31.7 ml/min; Magnesium 1.6 mg/dl (1.7-2.4); Potassium 3.8 mmol/L (3.5-5.1)
--- NOTE | 2023-08-25 09:19 | Nephrology Progress Note ---
Date of Service August 25, 2023 Assessment & Plan Admission and Anticipated Discharge Date Admission Date: August 23, 2023 Subjective Assessment & Plan (1) Acute decompensated heart failure: (2) CKD (chronic kidney disease) stage 3, GFR 30-59 ml/min: (3) Chronic hypoxic respiratory failure: (4) Influenza A: Plan He has CKD 3B with baseline creat of around 1.9. cause is multifactorial including partial u/l nephrectomy + all his Comorbid Dz. Current creat is baseline but he does have Acute decompensated CHF and needs more aggressive diuresis. High BP and CXR pattern Consistent with that. Also Has InF A which makes situation more difficult. Will recommend lasix 40 iv at least daily but may need more. so give one dose now. he had one dose last evening. expect some rise in creat but he does needs Diuretics. Creat went up from 1.8 to 2 overnight. Was +ve for Influenza A--this is quite commonly associated with Some ZINA. Will follow and guide diuretics dosing. Add lasix 40 iv bid. Creat today same as yesterday. will do few doses like this then change to PO. he is very eager to go home tomorrow. Normal total CK--so no rhabdo with Influenza A S--still somewhat SOB and needing 4 liters o2. Making urine ? amount EXAM: GENERAL APPEARANCE: Awake and alert. +ve resp distress. HEENT: MM moist. Neck supple HEART: Normal rate and regular rhythm, LUNGS: b/l basal crackles ABDOMEN: Soft, nontender, nondistended with good bowel sounds heard. BACK: No CVAT, no obvious deformity. EXTREMITIES: Trace + edema Skin: Warm and dry without any rash. Results & Data Vital Signs (Past 12 Hours) Vital Signs Temp Pulse Resp BP Pulse Ox O2 Del Method O2 Flow Rate 08/25/23 07:02 37.0 C 82 17 195/85 H 91 Nasal Cannula 4 08/25/23 03:01 37.0 C 86 20 113/82 96 Room Air 08/24/23 22:00 36.7 C 70 18 144/82 H 95 Room Air
--- NOTE | 2023-08-25 10:10 | Palliative Care Consultation ---
Date of Consultation August 25, 2023 Assessment & Plan (1) Dyspnea and respiratory abnormalities: (2) Chronic pain: Chronic pain type: chronic pain syndrome Qualified Code(s): G89.4 - Chronic pain syndrome (3) Palliative care by specialist: (4) Acute decompensated heart failure: (5) Chronic hypoxic respiratory failure: (6) PAD (peripheral artery disease): (7) COPD (chronic obstructive pulmonary disease): COPD type: unspecified COPD Qualified Code(s): J44.9 - Chronic obstructive pulmonary disease, unspecified (8) Opioid dependence: (9) CKD (chronic kidney disease) stage 3, GFR 30-59 ml/min: (10) Influenza A: Plan * Elderly gentleman with respiratory failure admission due to flu a, further com plicated by his pre-existing heart and lung diseases. He has advancing dementia. He is confused during my visit today and not able to participate in this visit. There is no family present at the time of my evaluation. * I attempted to call his next of kin without success. I will continue to follow-up on this next week Monday when I return. Any urgent needs arise over the weekend please page me and I will try to assist as possible from home/via telemed. * Please note: the above document was generated using voice recognition software. It may contain unintentional grammatical, syntax or spelling errors. Any formal questions or concerns about the content, text or information contained within the body of this dictation should be directly addressed to the provider for clarification. Thank you for allowing us to participate in the ongoing care of this patient. Please don't hesitate to call or page with any additional concerns. Dr. Perla Padgett DNP Director, Palliative Care History of Present Illness Reason for Consultation: On 08/23/23 @ 19:52 Emma Lira Wrote To Perla Padgett pain mgmt, many comorbidities Attending Physician: Sunil Escalante MD History of Present Illness per admitting note, "This is a 72yo M with a PMH of moderate vascular dementia, tachy-merari syndrome s/p PPM in 2020, COPD, DM II, chronic respiratory failure with hypoxia and hypercapnia, HTN, HLD, L renal clear cell carcinoma s/p partial left nephrectomy in 2019, BPH, chronic pain on opioids, combined systolic and diastolic HF, lacunar infarct in 2022, h/o left carotid endarterectomy in 2012 following left hemispheric CVA, significant PVD history with multiple interventions, chronic paresthesia LLL since 2014 surgery, tobacco use and other medical problems listed below with worsening SOB over the past week and found to have decompensated heart failure and Flu A." pt is awake and alert to self. he cannot provide HPI He is not decisional Allergies Allergy/AdvReac Type Severity Reaction Status Date / Time No Known Allergies Allergy Unknown Verified 08/23/23 18:04 Home Medications Medication Instructions Recorded Confirmed Type albuterol sulfate 90 mcg/actuation 2 puff inhalation Q4H PRN 09/06/18 08/23/23 History aerosol inhaler cough,SOB,wheezing atorvastatin 80 mg tablet 80 mg PO QAM 09/06/18 08/23/23 History clopidogrel 75 mg tablet 75 mg PO QAM 09/06/18 08/23/23 History ferrous sulfate 325 mg (65 mg 325 mg PO AMHS 09/06/18 08/23/23 History iron) tablet glipizide 10 mg tablet 10 mg PO QAM 09/06/18 08/23/23 History albuterol sulfate 2.5 mg/3 mL 2.5 mg inhalation Q4H PRN 02/01/20 08/23/23 History (0.083 %) solution for nebulization Shortness Of Breath Or Wheezing pantoprazole 40 mg tablet,delayed 40 mg PO QAM 02/01/20 08/23/23 History release (Protonix) carvedilol 25 mg tablet 25 mg PO BIDM #60 tabs 05/13/23 08/23/23 Rx ascorbic acid (vitamin C) 500 mg 500 mg PO DAILY 08/23/23 08/23/23 History chewable tablet (Vitamin C) cholecalciferol (vitamin D3) 125 125 mcg PO QAM 08/23/23 08/23/23 History mcg (5,000 unit) capsule docusate sodium 100 mg capsule 100 mg PO BID 08/23/23 08/23/23 History duloxetine 60 mg capsule,delayed 60 mg PO QAM 08/23/23 08/23/23 History release fluticasone furoate 200 1 inh inhalation QAM 08/23/23 08/23/23 History mcg-vilanterol 25 mcg/dose inhalation powder (Breo Ellipta) furosemide 20 mg tablet 20 mg PO QAM 08/23/23 08/23/23 History isosorbide mononitrate 30 mg 30 mg PO QAM 08/23/23 08/23/23 History tablet,extended release 24 hr memantine 5 mg tablet 5 mg PO BID 08/23/23 08/23/23 History naloxone 4 mg/actuation nasal spray 4 mg intranasal UD PRN Opioid 08/23/23 08/23/23 History Overdose nitroglycerin 0.4 mg sublingual 0.4 mg sublingual UD PRN Chest Pain 08/23/23 08/23/23 History tablet omega-3 fatty acids 1,000 mg 1,000 mg PO BID 08/23/23 08/23/23 History capsule oxycodone-acetaminophen 7.5 mg-325 1 tab PO Q8 PRN Severe Pain (Scale 08/23/23 08/23/23 History mg tablet Score 7-10) potassium chloride 10 mEq 10 meq PO QAM 08/23/23 08/23/23 History tablet,extended release(part/cryst) sennosides 8.6 mg tablet (Senokot) 8.6 mg PO BID 08/23/23 08/23/23 History terazosin 5 mg capsule 5 mg PO HS 08/23/23 08/23/23 History Patient History Medical History (Updated 08/26/23 @ 00:12 by Perla Padgett, EMERALD) Palliative care by specialist Dyspnea and respiratory abnormalities Chronic pain Opioid dependence Precordial chest pain Hypertensive crisis Bulging disc LUMBAR AREA Osteoarthritis Diabetes mellitus, type 2 Anemia HX OF Macular degeneration Hypertension Peripheral neuropathy On home oxygen therapy 2L AT HS Myocardial Infarction 2003 (LIFE FLIGHTED TO [place]) Hyperlipidemia GERD (gastroesophageal reflux disease) CAD (coronary artery disease) PAD (peripheral artery disease) COPD (chronic obstructive pulmonary disease) WEARS O2 AT 2L HS "SOMETIMES" Surgical History Fusion of spine CERVICAL History of esophagogastroduodenoscopy (EGD) History of colonoscopy History of discectomy CERVICAL H/O eye surgery LASER SURGERY FOR BLEEDING EYE H/O vascular surgery Family History Mother CKD (chronic kidney disease) Social History Smoking Status: Former smoker Tobacco Type: Cigarettes Cigarettes Per Day: 6 -8/day; Second Hand Exposure: Yes; Do You Dip or Chew Tobacco: No; Hx Alcohol Use: Yes Alcohol type: beer Hx Substance Use: No Preferred Language: Croatian Communication Ability: Effective Cardiac Specialist Required: No Beliefs That Will Affect Care: None marital status: Current Living Situation: Family Current Living Situation Comment: lives with 3 sons Feels Safe at Home: Yes Assistive Devices: Oxygen - at Night and Walker Review of Systems Review of Systems: Unobtainable due to cognitive status Physical Exam Physical Exam: Elderly male, resting in bed, Pupils are equal, round and reactive to light. Confused, bitemporal wasting noted. Neck is supple and without stridor. There is no thyromegaly. Decreased breath sounds are noted bilaterally. There are few scattered wheezes. There is not appear to be any overt use of accessory muscles. CV: S1-S2, no gross JVD noted. Abdomen soft, nontender, BS + Extremities with some generalized weakness, no gross edema to the BLE He is alert to self, he is not able to provide HPI. He is not able to tell me the date or time. Not able to tell me place. Skin is pale but warm. There is no gross cyanosis, erythema, or mottling. Results & Data Vital Signs (Past 12 Hours) Vital Signs Temp Pulse Resp BP Pulse Ox O2 Del Method O2 Flow Rate 08/25/23 07:02 37.0 C 82 17 195/85 H 91 Nasal Cannula 4 08/25/23 03:01 37.0 C 86 20 113/82 96 Room Air Laboratory Results 08/25/23 08/25/23 08/24/23 Range/Units 07:28 07:09 19:55 WBC 9.56 (4.8-10.8) K/ul RBC 4.41 L (4.70-6.10) M/uL Hgb 13.1 L (14.0-18.0) g/dl Hct 40.0 L (42.0-52.0) % MCV 90.7 (80.0-100.0) fL MCH 29.7 (25.0-34.0) pg MCHC 32.8 (32.0-36.0) g/dL RDW Std Deviation 50.4 H (36.4-46.3) fL RDW Coeff of David 15.1 H (11.5-14.5) % Plt Count 193 (130-400) K/uL MPV 9.8 (9.4-12.4) fL Immature Gran % (Auto) % Neut % (Auto) % Lymph % (Auto) % Randall % (Auto) % Eos % (Auto) % Baso % (Auto) % Neut # (Auto) (1.40-6.50) K/uL Lymph # (Auto) (1.20-3.40) K/uL Randall # (Auto) (0.11-0.59) K/uL Eos # (Auto) (0.00-0.50) K/uL Baso # (Auto) (0.00-0.20) K/uL Immature Gran # (Auto) (0.01-0.20) K/uL VBG pH 7.36 (7.36-7.41) VBG pCO2 65 H (38-50) mmHg VBG pO2 34 mmHg VBG HCO3 37 mmol/L VBG O2 Saturation < 60.0 % VBG Base Excess 8.8 mEq/L Sodium 136 (136-145) mmol/L Potassium 3.8 (3.5-5.1) mmol/L Chloride 96 L (98-107) mmol/L Carbon Dioxide 32 (21-32) mmol/L Anion Gap 8 (3-11) BUN 34 H (6-23) mg/dl Creatinine 2.05 H (0.6-1.4) mg/dl Est Cr Clr Drug Dosing 30.9 ml/min Est GFR ( Amer) 36.7 ml/min Est GFR (Non-Af Amer) 31.7 ml/min BUN/Creatinine Ratio 16.6 (10-20) Glucose 113 H (70-99(Fasting)) mg/dl POC Glucose 107 H 209 H (70-99) mg/dl Estimat Average Glucose mg/dl Hemoglobin A1c (4.5-5.6) % Calcium 9.3 (8.6-10.3) mg/dl Magnesium 1.6 L (1.7-2.4) mg/dl Total Bilirubin (0.2-1.0) mg/dl AST (13-39) U/L ALT (7-52) U/L Alkaline Phosphatase (34-104) U/L Total Creatine Kinase 220 (30-223) U/L Troponin I High Sens (0-20) pg/ml B-Natriuretic Peptide (0-100) pg/ml Total Protein (6.0-8.3) gm/dl Albumin (3.4-5.0) gm/dl Globulin (2.5-4.0) gm/dl Albumin/Globulin Ratio (0.9-2) Urine Color Urine Appearance (Clear) Urine pH (4.5-7.5) Ur Specific Calvin (1.000-1.030) Urine Protein (Negative) Urine Glucose (UA) (Negative) Urine Ketones (Negative) Urine Blood (Negative) Urine Nitrite (Negative) Urine Bilirubin (Negative) Urine Urobilinogen (Negative) Ur Leukocyte Esterase (Negative) Urine WBC (Auto) (0-5) /hpf Urine RBC (Auto) (0-2) /hpf U Hyaline Cast (Auto) (0-2) /lpf U Epithel Cells (Auto) (0-2) /hpf Urine Bacteria (Auto) (None Seen) SARS-CoV-2 (PCR) (Negative) Hepatitis C Ab (EIA) Influenza Type A (PCR) (Neg) Influenza Type B (PCR) (Neg) RSV (RT-PCR) (Neg) 08/24/23 08/24/23 08/24/23 Range/Units 18:11 12:04 08:10 WBC (4.8-10.8) K/ul RBC (4.70-6.10) M/uL Hgb (14.0-18.0) g/dl Hct (42.0-52.0) % MCV (80.0-100.0) fL MCH (25.0-34.0) pg MCHC (32.0-36.0) g/dL RDW Std Deviation (36.4-46.3) fL RDW Coeff of David (11.5-14.5) % Plt Count (130-400) K/uL MPV (9.4-12.4) fL Immature Gran % (Auto) % Neut % (Auto) % Lymph % (Auto) % Randall % (Auto) % Eos % (Auto) % Baso % (Auto) % Neut # (Auto) (1.40-6.50) K/uL Lymph # (Auto) (1.20-3.40) K/uL Randall # (Auto) (0.11-0.59) K/uL Eos # (Auto) (0.00-0.50) K/uL Baso # (Auto) (0.00-0.20) K/uL Immature Gran # (Auto) (0.01-0.20) K/uL VBG pH (7.36-7.41) VBG pCO2 (38-50) mmHg VBG pO2 mmHg VBG HCO3 mmol/L VBG O2 Saturation % VBG Base Excess mEq/L Sodium (136-145) mmol/L Potassium (3.5-5.1) mmol/L Chloride (98-107) mmol/L Carbon Dioxide (21-32) mmol/L Anion Gap (3-11) BUN (6-23) mg/dl Creatinine (0.6-1.4) mg/dl Est Cr Clr Drug Dosing ml/min Est GFR ( Amer) ml/min Est GFR (Non-Af Amer) ml/min BUN/Creatinine Ratio (10-20) Glucose (70-99(Fasting)) mg/dl POC Glucose 86 178 H 201 H (70-99) mg/dl Estimat Average Glucose mg/dl Hemoglobin A1c (4.5-5.6) % Calcium (8.6-10.3) mg/dl Magnesium (1.7-2.4) mg/dl Total Bilirubin (0.2-1.0) mg/dl AST (13-39) U/L ALT (7-52) U/L Alkaline Phosphatase (34-104) U/L Total Creatine Kinase (30-223) U/L Troponin I High Sens (0-20) pg/ml B-Natriuretic Peptide (0-100) pg/ml Total Protein (6.0-8.3) gm/dl Albumin (3.4-5.0) gm/dl Globulin (2.5-4.0) gm/dl Albumin/Globulin Ratio (0.9-2) Urine Color Urine Appearance (Clear) Urine pH (4.5-7.5) Ur Specific Calvin (1.000-1.030) Urine Protein (Negative) Urine Glucose (UA) (Negative) Urine Ketones (Negative) Urine Blood (Negative) Urine Nitrite (Negative) Urine Bilirubin (Negative) Urine Urobilinogen (Negative) Ur Leukocyte Esterase (Negative) Urine WBC (Auto) (0-5) /hpf Urine RBC (Auto) (0-2) /hpf U Hyaline Cast (Auto) (0-2) /lpf U Epithel Cells (Auto) (0-2) /hpf Urine Bacteria (Auto) (None Seen) SARS-CoV-2 (PCR) (Negative) Hepatitis C Ab (EIA) Influenza Type A (PCR) (Neg) Influenza Type B (PCR) (Neg) RSV (RT-PCR) (Neg) 08/24/23 08/23/23 08/23/23 Range/Units 03:44 21:39 19:22 WBC 7.27 (4.8-10.8) K/ul RBC 4.28 L (4.70-6.10) M/uL Hgb 12.8 L (14.0-18.0) g/dl Hct 40.8 L (42.0-52.0) % MCV 95.3 (80.0-100.0) fL MCH 29.9 (25.0-34.0) pg MCHC 31.4 L (32.0-36.0) g/dL RDW Std Deviation 53.0 H (36.4-46.3) fL RDW Coeff of David 15.2 H (11.5-14.5) % Plt Count 166 (130-400) K/uL MPV 10.1 (9.4-12.4) fL Immature Gran % (Auto) % Neut % (Auto) % Lymph % (Auto) % Randall % (Auto) % Eos % (Auto) % Baso % (Auto) % Neut # (Auto) (1.40-6.50) K/uL Lymph # (Auto) (1.20-3.40) K/uL Randall # (Auto) (0.11-0.59) K/uL Eos # (Auto) (0.00-0.50) K/uL Baso # (Auto) (0.00-0.20) K/uL Immature Gran # (Auto) (0.01-0.20) K/uL VBG pH 7.29 L (7.36-7.41) VBG pCO2 (38-50) mmHg VBG pO2 mmHg VBG HCO3 mmol/L VBG O2 Saturation % VBG Base Excess mEq/L Sodium 134 L (136-145) mmol/L Potassium 4.4 (3.5-5.1) mmol/L Chloride 96 L (98-107) mmol/L Carbon Dioxide 28 (21-32) mmol/L Anion Gap 10 (3-11) BUN 26 H (6-23) mg/dl Creatinine 2.05 H (0.6-1.4) mg/dl Est Cr Clr Drug Dosing 30.9 ml/min Est GFR ( Amer) 36.7 ml/min Est GFR (Non-Af Amer) 31.7 ml/min BUN/Creatinine Ratio 12.7 (10-20) Glucose 247 H (70-99(Fasting)) mg/dl POC Glucose 193 H (70-99) mg/dl Estimat Average Glucose 166 mg/dl Hemoglobin A1c 7.4 H (4.5-5.6) % Calcium 9.1 (8.6-10.3) mg/dl Magnesium (1.7-2.4) mg/dl Total Bilirubin (0.2-1.0) mg/dl AST (13-39) U/L ALT (7-52) U/L Alkaline Phosphatase (34-104) U/L Total Creatine Kinase (30-223) U/L Troponin I High Sens 48.2 H (0-20) pg/ml B-Natriuretic Peptide (0-100) pg/ml Total Protein (6.0-8.3) gm/dl Albumin (3.4-5.0) gm/dl Globulin (2.5-4.0) gm/dl Albumin/Globulin Ratio (0.9-2) Urine Color Urine Appearance (Clear) Urine pH (4.5-7.5) Ur Specific Calvin (1.000-1.030) Urine Protein (Negative) Urine Glucose (UA) (Negative) Urine Ketones (Negative) Urine Blood (Negative) Urine Nitrite (Negative) Urine Bilirubin (Negative) Urine Urobilinogen (Negative) Ur Leukocyte Esterase (Negative) Urine WBC (Auto) (0-5) /hpf Urine RBC (Auto) (0-2) /hpf U Hyaline Cast (Auto) (0-2) /lpf U Epithel Cells (Auto) (0-2) /hpf Urine Bacteria (Auto) (None Seen) SARS-CoV-2 (PCR) (Negative) Hepatitis C Ab (EIA) Pending Influenza Type A (PCR) (Neg) Influenza Type B (PCR) (Neg) RSV (RT-PCR) (Neg) 08/23/23 08/23/23 08/23/23 Range/Units 18:50 18:30 16:50 WBC 9.66 (4.8-10.8) K/ul RBC 4.61 L (4.70-6.10) M/uL Hgb 13.6 L (14.0-18.0) g/dl Hct 44.0 (42.0-52.0) % MCV 95.4 (80.0-100.0) fL MCH 29.5 (25.0-34.0) pg MCHC 30.9 L (32.0-36.0) g/dL RDW Std Deviation 53.6 H (36.4-46.3) fL RDW Coeff of David 15.4 H (11.5-14.5) % Plt Count 206 (130-400) K/uL MPV 10.3 (9.4-12.4) fL Immature Gran % (Auto) 0.5 % Neut % (Auto) 87.4 % Lymph % (Auto) 2.5 % Randall % (Auto) 7.7 % Eos % (Auto) 1.7 % Baso % (Auto) 0.2 % Neut # (Auto) 8.45 H (1.40-6.50) K/uL Lymph # (Auto) 0.24 L (1.20-3.40) K/uL Randall # (Auto) 0.74 H (0.11-0.59) K/uL Eos # (Auto) 0.16 (0.00-0.50) K/uL Baso # (Auto) 0.02 (0.00-0.20) K/uL Immature Gran # (Auto) 0.05 (0.01-0.20) K/uL VBG pH 7.29 L (7.36-7.41) VBG pCO2 68 H (38-50) mmHg VBG pO2 29 mmHg VBG HCO3 33 mmol/L VBG O2 Saturation < 60.0 % VBG Base Excess 4.0 mEq/L Sodium 137 (136-145) mmol/L Potassium 4.9 (3.5-5.1) mmol/L Chloride 100 (98-107) mmol/L Carbon Dioxide 30 (21-32) mmol/L Anion Gap 7 (3-11) BUN 22 (6-23) mg/dl Creatinine 1.85 H (0.6-1.4) mg/dl Est Cr Clr Drug Dosing 34.2 ml/min Est GFR ( Amer) 41.5 ml/min Est GFR (Non-Af Amer) 35.8 ml/min BUN/Creatinine Ratio 11.9 (10-20) Glucose 165 H (70-99(Fasting)) mg/dl POC Glucose (70-99) mg/dl Estimat Average Glucose mg/dl Hemoglobin A1c (4.5-5.6) % Calcium 9.3 (8.6-10.3) mg/dl Magnesium 1.7 (1.7-2.4) mg/dl Total Bilirubin 1.1 H (0.2-1.0) mg/dl AST 18 (13-39) U/L ALT 20 (7-52) U/L Alkaline Phosphatase 79 (34-104) U/L Total Creatine Kinase (30-223) U/L Troponin I High Sens 48.1 H (0-20) pg/ml B-Natriuretic Peptide 2564 H (0-100) pg/ml Total Protein 7.6 (6.0-8.3) gm/dl Albumin 4.0 (3.4-5.0) gm/dl Globulin 3.6 (2.5-4.0) gm/dl Albumin/Globulin Ratio 1.1 (0.9-2) Urine Color Yellow Urine Appearance Clear (Clear) Urine pH 6.5 (4.5-7.5) Ur Specific Calvin 1.008 (1.000-1.030) Urine Protein 2+ H (Negative) Urine Glucose (UA) Negative (Negative) Urine Ketones Negative (Negative) Urine Blood Trace H (Negative) Urine Nitrite Negative (Negative) Urine Bilirubin Negative (Negative) Urine Urobilinogen Negative (Negative) Ur Leukocyte Esterase Negative (Negative) Urine WBC (Auto) 0-5 (0-5) /hpf Urine RBC (Auto) 0-2 (0-2) /hpf U Hyaline Cast (Auto) 0-2 (0-2) /lpf U Epithel Cells (Auto) 0-2 (0-2) /hpf Urine Bacteria (Auto) None Seen (None Seen) SARS-CoV-2 (PCR) NEGATIVE (Negative) Hepatitis C Ab (EIA) Influenza Type A (PCR) Positive A (Neg) Influenza Type B (PCR) Negative (Neg) RSV (RT-PCR) Negative (Neg) Diagnostic Findings Chest X-Ray 08/23/23 16:17 XR chest 1V portable CLINICAL HISTORY: Dyspnea. COMPARISON STUDY: Chest radiograph May 10, 2023. FINDINGS: Left subclavian pacer is in place. Moderate cardiomegaly is unchanged. There has been interval development of interstitial pulmonary edema. A calcified left lung granuloma is benign. Postoperative findings within the spine are incidentally noted. There is no consolidation to suggest pneumonia. There is no pneumothorax. There is a trace right pleural effusion. IMPRESSION: Cardiomegaly with interstitial pulmonary edema and a trace right pleural effusion. ACT 112: Negative or not required by law. Electronically signed by: Drew Patrick M.D. 08/23/2023 5:01 PM PG Care Time/CCT Total # of Minutes Spent Total Time Spent with Patient: Total time spent is greater than 50% in coordination of care (as documented) at patient's floor/unit and/or counseling patient: I spent minutes overall addressing this case: 20 min in medical data review/discussion with referring provider(s) and/or preparation for the visit 10 min in direct interaction with the patient/exam 00 min in Advance Care Planning/Goals of Care discussions as detailed above in note (must be >16min) 5 min in subsequent review and synthesis of assessment and plan 5 min communicating with other providers regarding the patient's case: primary team [place] [address] IN/OBS CONSULT LVL 4,60M Patient Type New History Comprehensive Exam Comprehensive Medical Decision Making High Complexity Diagnoses Dyspnea and respiratory abnormalities R06.00; R06.89 Chronic pain syndrome G89.4 Chronic pain type: chronic pain syndrome Palliative care by specialist Z51.5 Acute decompensated heart failure I50.9 Chronic hypoxic respiratory failure J96.11 PAD (peripheral artery disease) I73.9 COPD (chronic obstructive pulmonary disease) J44.9 COPD type: unspecified COPD Opioid dependence F11.20 CKD (chronic kidney disease) stage 3, GFR 30-59 ml/min N18.30 Influenza A J10.1
[2023-08-25] MEDS: MAGNESIUM SULFATE / D5W 1 GM/100 ML BAG IV ONE (12:34)
[2023-08-25] MEDS: FUROSEMIDE 40 MG/4 ML VIAL IV SCH (12:34)
[2023-08-25] MEDS: CARBOHYDRATES FOR HYPOGLYCEMIA PO PRN (15:21)
--- NOTE | 2023-08-25 16:47 | Hospitalist Progress Note ---
Date of Service August 25, 2023 Assessment & Plan (1) Acute decompensated heart failure: (2) Labile hypertension: (3) Pulmonary hypertension: (4) Chronic hypoxic respiratory failure: (5) COPD (chronic obstructive pulmonary disease): (6) PAD (peripheral artery disease): (7) CAD (coronary artery disease): (8) Diabetes mellitus, type 2: (9) Opioid dependence: (10) Chronic pain: Plan Patient is a 72yo M with a PMH of moderate vascular dementia, tachy-merari syndrome s/p PPM in 2020, COPD, DM II, chronic respiratory failure with hypoxia and hypercapnia, HTN, HLD, L renal clear cell carcinoma s/p partial left nephrectomy in 2019, BPH, chronic pain on opioids, combined systolic and diastolic HF, lacunar infarct in 2022, h/o left carotid endarterectomy in 2012 following left hemispheric CVA, significant PVD history with multiple interventions, chronic paresthesia LLL since 2014 surgery, tobacco use and other medical problems listed below with worsening SOB over the past week and found to have decompensated heart failure and Flu A. Acute hypoxic hypercarbic respiratory failure Likely multifactorial secondary to COPD, CHF exacerbation, influenza A H/O tobacco use H/O noncompliance with supplemental oxygen --CXR:Cardiomegaly with interstitial pulmonary edema and a trace right pleural effusion. -- Serology positive for influenza A Given onset of symptoms, currently no indication for Tamiflu Continue home inhalers Monitor volume status Diuretics per nephrology May need 2 step prior to discharge Supplemental oxygen as needed to keep sats 88 to 92% Currently saturating well on room air Started on low-dose prednisone Continue IV Lasix per nephrology Acute on chronic systolic heart failure Progressive SOB and BLE edema x 1 week --2D echo from May 2023 echo showing EF 35-40%, mild concentric LVH, moderate g lobal hypokinesis of LV Continue IV Lasix Monitor I's and O's, daily weight, volume status Appreciate nephrology input to help with diuresis Continue carvedilol CKD III H/O Left renal clear cell carcinoma s/p partial left nephrectomy Baseline creatinine about 1.9 Monitor renal function Avoid nephrotoxic agents as able Appreciate nephrology input Hypertensive urgency Troponin elevation likely demand ischemia in setting of infection, CKD, HTN Likely due to noncompliance Doubt ACS Denies any chest pain Continue carvedilol, Hytrin Also on isosorbide Added amlodipine IV labetalol as needed Monitor and adjust medications as needed Blood pressure very variable CAD Presumed CAD per cards notes Continue Carvedilol, Plavix, statin, Imdur Tachy-merari syndrome S/[place] pac[place] [address] Live Continue carvedilol H/o Lacunar stroke in 2022 PAD S/P left carotid endarterectomy in 2012 Continue Plavix, statin Quit smoking per family, still using snuff pouches Vascular Dementia Son notes worsening dementia at home, also staring into distance, not answering promptly Likelihood opioids and hypercarbia likely exacerbating confusion Palliative discussion to discuss ongoing pain mgmt given comorbidities Delirium Precautions DM II HbA1c 7.4 Hold home agents Continue insulin while hospitalized Monitor BGs Chronic back pain on opioids Reviewed PDMP, reducing home Percocet 7.5-325 from Q8H to Q12 given worsening mentation as above Avoid additional opioids given dementia as above DVT Px: SQ heparin Code status: FULL CODE Admission and Anticipated Discharge Date Admission Date: August 23, 2023 Subjective Patient is seen and examined at bedside States having dyspnea on exertion Otherwise no complaints today Eager to get discharged No significant cough today Denies any chest pain, nausea, vomiting, abdominal pain Review of Systems Review of Systems: All systems reviewed & are unremarkable except as noted in Subjective Physical Exam Physical Exam: Physical Exam: Vitals signs as noted above General Appearance:Moderately built and nourished, no apparent distress Head: normocephalic, Atraumatic Eyes: normal inspection, EOMI Neck: supple, Trachea midline Respiratory/Chest: Decreased breath sounds, scattered wheezes, No accessory muscle use Cardiovascular: S1, S2, No murmur Abdomen/GI:Soft, Non tender, Bowel sounds present Extremities/Musculoskeletal:normal inspection, no edema Neurologic/Psych:AAOX2, grossly no focal neurological deficits Skin: normal color, warm Results & Data Results & Data Vital Signs (Past 12 Hours) Vital Signs Temp Pulse Resp BP Pulse Ox O2 Del Method O2 Del Method 08/25/23 15:00 36.9 C 80 16 128/96 93 Room Air 08/25/23 10:57 36.6 C 84 19 96/73 L 92 Room Air 08/25/23 07:02 37.0 C 82 17 195/85 H 91 Nasal Cannula 08/25/23 07:00 Room Air, Nasal Cannula O2 Flow Rate 08/25/23 15:00 04/19/24 10:57 08/25/23 07:02 4 08/25/23 07:00 Laboratory Results Short CBC 08/25/23 Range/Units 07:09 WBC 9.56 (4.8-10.8) K/ul Hgb 13.1 L (14.0-18.0) g/dl Hct 40.0 L (42.0-52.0) % Plt Count 193 (130-400) K/uL BMP 08/25/23 07:09 Sodium 136 Potassium 3.8 Chloride 96 L Carbon Dioxide 32 BUN 34 H Creatinine 2.05 H Glucose 113 H Calcium 9.3 Cardiac Enzymes 08/25/23 Range/Units 07:09 Total Creatine Kinase 220 (30-223) U/L (5) COPD (chronic obstructive pulmonary disease) COPD type: unspecified COPD Qualified Code(s): J44.9 - Chronic obstructive pulmonary disease, unspecified
[2023-08-25] MEDS: predniSONE 20 MG TAB PO STA (17:20)
[2023-08-25] MEDS: ALBUT/IPRATROP 3MG/0.5MG NEB 3 ML VIAL NEB PRN (21:29)
--- NOTE | 2023-08-26 06:10 | Electrocardiogram Report ---
Test Reason : Blood Pressure : / mmHG Vent. Rate : 081 BPM Atrial Rate : 081 BPM P-R Int : 320 ms QRS Dur : 148 ms QT Int : 446 ms P-R-T Axes : 000 -56 149 degrees QTc Int : 518 ms Poor data quality, interpretation may be adversely affected Atrial-paced rhythm with prolonged AV conduction Right bundle branch block Left anterior fascicular block Bifascicular block T wave abnormality, consider inferolateral ischemia Abnormal ECG Confirmed by Nathanael Kennedy ([id number]) on 08/26/2023 6:10:27 AM Referred By: REFERRED SELF Confirmed By:Stephan Kennedy
[2023-08-26 06:33] LABS: BUN Creatinine Ratio 16.2 (10-20); Creatinine Clr Calc Pharmacy 27.7 ml/min; Est GFR (African American) 32.1 ml/min; Est GFR (Non-African American) 27.7 ml/min; Magnesium 1.8 mg/dl (1.7-2.4); Potassium 3.7 mmol/L (3.5-5.1)
[2023-08-26] MEDS: predniSONE 20 MG TAB PO SCH (09:05)
[2023-08-26] MEDS: LANTUS PER UNIT CHARGE SQ SCH (09:06)
--- NOTE | 2023-08-26 10:43 | Nephrology Progress Note ---
Date of Service August 26, 2023 Assessment & Plan Admission and Anticipated Discharge Date Admission Date: August 23, 2023 Subjective Assessment & Plan (1) Acute decompensated heart failure: (2) CKD (chronic kidney disease) stage 3B, GFR 30-59 ml/min: (3) Chronic hypoxic respiratory failure: (4) Influenza A: Plan He has CKD 3B with baseline creat of around 1.9. cause is multifactorial including partial u/l nephrectomy + all his Comorbid Dz. Current creat is baseline but he does have Acute decompensated CHF and needs more aggressive diuresis. High BP and CXR pattern Consistent with that. Also Has InF A which makes situation more difficult. Was +ve for Influenza A--this is quite commonly associated with Some ZINA. he is very eager to go home tomorrow and in fact already dressed up to go home. Although creat slightly higher than baseline it is still acceptable for discharge for discharge use lasix 40 bid ( was on 20 to 40 daily without response). f/u PCP, cards. f/u nephrology within 2 weeks. has been difficult to schedule in the past S--still somewhat SOB and needing 4 liters o2. Making urine ? amount EXAM: GENERAL APPEARANCE: Awake and alert. +ve resp distress. HEENT: MM moist. Neck supple HEART: Normal rate and regular rhythm, LUNGS: b/l basal crackles ABDOMEN: Soft, nontender, nondistended with good bowel sounds heard. BACK: No CVAT, no obvious deformity. EXTREMITIES: Trace + edema Skin: Warm and dry without any rash. Results & Data Vital Signs (Past 12 Hours) Vital Signs Temp Pulse Resp BP BP Pulse Ox O2 Del Method 08/26/23 03:13 36.6 C 83 20 107/72 183/83 H 90 Room Air 08/26/23 00:23 36.9 C 84 16 100/79 196/82 H 97 Room Air
--- NOTE | 2023-08-26 12:19 | Hospitalist Progress Note ---
Date of Service August 26, 2023 Assessment & Plan (1) Acute decompensated heart failure: (2) Labile hypertension: (3) Pulmonary hypertension: (4) Chronic hypoxic respiratory failure: (5) COPD (chronic obstructive pulmonary disease): (6) PAD (peripheral artery disease): (7) CAD (coronary artery disease): (8) Diabetes mellitus, type 2: (9) Opioid dependence: (10) Chronic pain: Plan Patient is a 72yo M with a PMH of moderate vascular dementia, tachy-merari syndrome s/p PPM in 2020, COPD, DM II, chronic respiratory failure with hypoxia and hypercapnia, HTN, HLD, L renal clear cell carcinoma s/p partial left nephrectomy in 2019, BPH, chronic pain on opioids, combined systolic and diastolic HF, lacunar infarct in 2022, h/o left carotid endarterectomy in 2012 following left hemispheric CVA, significant PVD history with multiple interventions, chronic paresthesia LLL since 2014 surgery, tobacco use and other medical problems listed below with worsening SOB over the past week and found to have decompensated heart failure and Flu A. Acute hypoxic hypercarbic respiratory failure Likely multifactorial secondary to COPD, CHF exacerbation, influenza A H/O tobacco use H/O noncompliance with supplemental oxygen --CXR:Cardiomegaly with interstitial pulmonary edema and a trace right pleural effusion. -- Serology positive for influenza A Given onset of symptoms, currently no indication for Tamiflu Continue home inhalers Once status improved Currently saturating well on room air IV Lasix transition to p.o. Lasix 40 mg twice daily as recommended by nephrology Had 2 step did not qualify for oxygen Advised patient to follow-up with nephrology, cardiology on discharge Acute on chronic systolic heart failure Progressive SOB and BLE edema x 1 week --2D echo from May 2023 echo showing EF 35-40%, mild concentric LVH, moderate global hypokinesis of LV Continue IV Lasix Monitor I's and O's, daily weight, volume status Appreciate nephrology input to help with diuresis Continue carvedilol Lasix as above ZINA on CKD IIIB H/O Left renal clear cell carcinoma s/p partial left nephrectomy Baseline creatinine about 1.9 Monitor renal function Avoid nephrotoxic agents as able Appreciate nephrology input Hypertensive urgency Troponin elevation likely demand ischemia in setting of infection, CKD, HTN Likely due to noncompliance Doubt ACS Denies any chest pain Continue carvedilol, Hytrin Also on isosorbide IV labetalol as needed Monitor and adjust medications as needed Blood pressure very variable CAD Presumed CAD per cards notes Continue Carvedilol, Plavix, statin, Imdur Tachy-merari syndrome S/[place] [address] Live Continue carvedilol H/o Lacunar stroke in 2022 PAD S/P left carotid endarterectomy in 2012 Continue Plavix, statin Quit smoking per family, still using snuff pouches Vascular Dementia Son notes worsening dementia at home, also staring into distance, not answering promptly Likelihood opioids and hypercarbia likely exacerbating confusion Palliative discussion to discuss ongoing pain mgmt given comorbidities Delirium Precautions DM II HbA1c 7.4 Hold home agents Continue insulin while hospitalized Monitor BGs Chronic back pain on opioids Reviewed PDMP, reducing home Percocet 7.5-325 from Q8H to Q12 given worsening mentation as above Avoid additional opioids given dementia as above DVT Px: SQ heparin Code status: FULL CODE Disposition Home Admission and Anticipated Discharge Date Admission Date: August 23, 2023 Subjective Patient is seen and examined at bedside Patient feels well today Offers no complaints Saturating low 90s on room air Discussed with nephrology today Patient eager to get discharged today Denies any chest pain, nausea, vomiting, abdominal pain, dyspnea Review of Systems Review of Systems: All systems reviewed & are unremarkable except as noted in Subjective Physical Exam Physical Exam: Physical Exam: Vitals signs as noted above General Appearance:Moderately built and nourished, no apparent distress Head: normocephalic, Atraumatic Eyes: normal inspection, EOMI Neck: supple, Trachea midline Respiratory/Chest: Decreased breath sounds, scattered wheezes, No accessory muscle use Cardiovascular: S1, S2, No murmur Abdomen/GI:Soft, Non tender, Bowel sounds present Extremities/Musculoskeletal:normal inspection, no edema Neurologic/Psych:AAOX2, grossly no focal neurological deficits Skin: normal color, warm Results & Data Results & Data Vital Signs (Past 12 Hours) Vital Signs Temp Pulse Resp BP BP Pulse Ox O2 Del Method 08/26/23 10:55 Room Air, Nasal Cannula 08/26/23 03:13 36.6 C 83 20 107/72 183/83 H 90 Room Air 08/26/23 00:23 36.9 C 84 16 100/79 196/82 H 97 Room Air Laboratory Results BMP 08/26/23 05:19 Sodium 134 L Potassium 3.7 Chloride 91 L Carbon Dioxide 37 H BUN 37 H Creatinine 2.29 H Glucose 285 H Calcium 9.0 (5) COPD (chronic obstructive pulmonary disease) COPD type: unspecified COPD Qualified Code(s): J44.9 - Chronic obstructive pulmonary disease, unspecified (10) Chronic pain Chronic pain type: chronic pain syndrome Qualified Code(s): G89.4 - Chronic pain syndrome
[2023-08-26] MEDS: FUROSEMIDE 40 MG TAB PO SCH (12:58)
--- NOTE | 2023-08-26 14:19 | Discharge Summary ---
Date of Service August 26, 2023 Admission HPI Per Admitting Provider This is a 72yo M with a PMH of tachy-merari syndrome s/p PPM in 2020, COPD, DM II, chronic respiratory failure with hypoxia and hypercapnia, HTN, HLD, L renal clear cell carcinoma s/p partial left nephrectomy in 2019, BPH, chronic pain on opioids, combined systolic and diastolic HF, lacunar infarct in 2022, h/o left carotid endarterectomy in 2012 following left hemispheric CVA, significant PVD history with multiple interventions, chronic paresthesia LLL since 2014 surgery, tobacco use and other medical problems listed below with worsening SOB over the past week. Further information provided from son over the phone. Recent viral illness with fever and cough. Had Patient has felt progressively more SOB and weak with dyspnea on exertion. Noticing more swelling of ankles. States he has been compliant with home meds. Is due for an oxycodone pill. States he takes 3- 4x/day. Family has been telling him he has worsening memory over the past few months. No F/C, CP, palpitations, N/V, abdominal pain, dysuria, diarrhea or constipation. Was admitted in May 2023 with decompensated HF in setting of medication non- compliance. Also noted to have labile hypotension during that admission. At that time, lisinopril was discontinued. Stopped smoking but is still using snuff pouches. Per chart review, lasix was discontinued in August 2022 but recently resumed at PCP appt 07/17 due to increased BLE edema. Currently endorses taking lasix at home, unsure of dose. Admission Exam Per Admitting Provider GENERAL APPEARANCE: AxOx2, no acute distress. HEENT: NC, AT. MMM. EOMI, clear conjunctiva, oropharynx clear. NECK: Supple without lymphadenopathy. No stiffness or restricted ROM. HEART: Normal rate and regular rhythm, LUNGS: CTAB, diminished bibasilar breath sound s ABDOMEN: Soft, nontender, nondistended with good bowel sounds heard. BACK: No CVAT, no obvious deformity. EXTREMITIES: Without cyanosis, clubbing or edema. NEUROLOGICAL: Grossly nonfocal. Alert and oriented, moving all 4 extremities. CN not formally tested but appear grossly intact. Observed to ambulate with normal gait. Skin: Warm and dry without any rash. Principal Diagnosis Acute on chronic systolic heart failure Acute hypoxic hypercarbic respiratory failure Influenza A COPD Hypertensive urgency Discharge Data Allergies Allergy/AdvReac Type Severity Reaction Status Date / Time No Known Allergies Allergy Unknown Verified 08/23/23 18:04 Consultations 08/23/23 17:48 ED Decision to Admit Stat 08/23/23 19:51 Consult Palliative Care Routine 08/23/23 19:55 Consult Nephrology Routine Procedures Performed Laboratory Results WBC 9.56 K/ul (4.8-10.8) 08/25/23 07:09 RBC 4.41 M/uL (4.70-6.10) L 08/25/23 07:09 Hgb 13.1 g/dl (14.0-18.0) L 08/25/23 07:09 Hct 40.0 % (42.0-52.0) L 08/25/23 07:09 MCV 90.7 fL (80.0-100.0) 08/25/23 07:09 MCH 29.7 pg (25.0-34.0) 08/25/23 07:09 MCHC 32.8 g/dL (32.0-36.0) 08/25/23 07:09 RDW Std Deviation 50.4 fL (36.4-46.3) H 08/25/23 07:09 RDW Coeff of David 15.1 % (11.5-14.5) H 08/25/23 07:09 Plt Count 193 K/uL (130-400) 08/25/23 07:09 MPV 9.8 fL (9.4-12.4) 08/25/23 07:09 Immature Gran % (Auto) 0.5 % 08/23/23 16:50 Neut % (Auto) 87.4 % 08/23/23 16:50 Lymph % (Auto) 2.5 % 08/23/23 16:50 [place] % (Auto) 7.7 % 08/23/23 16:50 Eos % (Auto) 1.7 % 08/23/23 16:50 Baso % (Auto) 0.2 % 08/23/23 16:50 Neut # (Auto) 8.45 K/uL (1.40-6.50) H 08/23/23 16:50 Lymph # (Auto) 0.24 K/uL (1.20-3.40) L 08/23/23 16:50 [place] # (Auto) 0.74 K/uL (0.11-0.59) H 08/23/23 16:50 Eos # (Auto) 0.16 K/uL (0.00-0.50) 08/23/23 16:50 Baso # (Auto) 0.02 K/uL (0.00-0.20) 08/23/23 16:50 Immature Gran # (Auto) 0.05 K/uL (0.01-0.20) 08/23/23 16:50 VBG pH 7.36 (7.36-7.41) 08/25/23 07:09 VBG pCO2 65 mmHg (38-50) H 08/25/23 07:09 VBG pO2 34 mmHg 08/25/23 07:09 VBG HCO3 37 mmol/L 08/25/23 07:09 VBG O2 Saturation < 60.0 % 08/25/23 07:09 VBG Base Excess 8.8 mEq/L 08/25/23 07:09 Sodium 134 mmol/L (136-145) L 08/26/23 05:19 Potassium 3.7 mmol/L (3.5-5.1) 08/26/23 05:19 Chloride 91 mmol/L (98-107) L 08/26/23 05:19 Carbon Dioxide 37 mmol/L (21-32) H 08/26/23 05:19 Anion Gap 6 (3-11) 08/26/23 05:19 BUN 37 mg/dl (6-23) H 08/26/23 05:19 Creatinine 2.29 mg/dl (0.6-1.4) H 08/26/23 05:19 Est Cr Clr Drug Dosing 27.7 ml/min 08/26/23 05:19 Est GFR ( Amer) 32.1 ml/min 08/26/23 05:19 Est GFR (Non-Af Amer) 27.7 ml/min 08/26/23 05:19 BUN/Creatinine Ratio 16.2 (10-20) 08/26/23 05:19 Glucose 285 mg/dl (70-99(Fasting)) H 08/26/23 05:19 POC Glucose 90 mg/dl (70-99) 08/26/23 11:14 Estimat Average Glucose 166 mg/dl 08/24/23 03:44 Hemoglobin A1c 7.4 % (4.5-5.6) H 08/24/23 03:44 Calcium 9.0 mg/dl (8.6-10.3) 08/26/23 05:19 Magnesium 1.8 mg/dl (1.7-2.4) 08/26/23 05:19 Total Bilirubin 1.1 mg/dl (0.2-1.0) H 08/23/23 16:50 AST 18 U/L (13-39) 08/23/23 16:50 ALT 20 U/L (7-52) 08/23/23 16:50 Alkaline Phosphatase 79 U/L (34-104) 08/23/23 16:50 Total Creatine Kinase 220 U/L (30-223) 08/25/23 07:09 Troponin I High Sens 48.2 pg/ml (0-20) H 08/23/23 19:22 B-Natriuretic Peptide 2564 pg/ml (0-100) H 08/23/23 16:50 Total Protein 7.6 gm/dl (6.0-8.3) 08/23/23 16:50 Albumin 4.0 gm/dl (3.4-5.0) 08/23/23 16:50 Globulin 3.6 gm/dl (2.5-4.0) 08/23/23 16:50 Albumin/Globulin Ratio 1.1 (0.9-2) 08/23/23 16:50 Urine Color Yellow 08/23/23 18:50 Urine Appearance Clear (Clear) 08/23/23 18:50 Urine pH 6.5 (4.5-7.5) 08/23/23 18:50 Ur Specific [place] 1.008 (1.000-1.030) 08/23/23 18:50 Urine Protein 2+ (Negative) H 08/23/23 18:50 Urine Glucose (UA) Negative (Negative) 08/23/23 18:50 Urine Ketones Negative (Negative) 08/23/23 18:50 Urine Blood Trace (Negative) H 08/23/23 18:50 Urine Nitrite Negative (Negative) 08/23/23 18:50 Urine Bilirubin Negative (Negative) 08/23/23 18:50 Urine Urobilinogen Negative (Negative) 08/23/23 18:50 Ur Leukocyte Esterase Negative (Negative) 08/23/23 18:50 Urine WBC (Auto) 0-5 /hpf (0-5) 08/23/23 18:50 Urine RBC (Auto) 0-2 /hpf (0-2) 08/23/23 18:50 U Hyaline Cast (Auto) 0-2 /lpf (0-2) 08/23/23 18:50 U Epithel Cells (Auto) 0-2 /hpf (0-2) 08/23/23 18:50 Urine Bacteria (Auto) None Seen (None Seen) 08/23/23 18:50 SARS-CoV-2 (PCR) NEGATIVE (Negative) 08/23/23 18:30 Hepatitis C Ab (EIA) NON-REACTIVE (NON-REACTIVE) 08/24/23 03:44 Influenza Type A (PCR) Positive (Neg) A 08/23/23 18:30 Influenza Type B (PCR) Negative (Neg) 08/23/23 18:30 RSV (RT-PCR) Negative (Neg) 08/23/23 18:30 Impressions Chest X-Ray 08/23/23 16:17 XR chest 1V portable CLINICAL HISTORY: Dyspnea. COMPARISON STUDY: Chest radiograph May 10, 2023. FINDINGS: Left subclavian pacer is in place. Moderate cardiomegaly is unchanged. There has been interval development of interstitial pulmonary edema. A calcified left lung granuloma is benign. Postoperative findings within the spine are incidentally noted. There is no consolidation to suggest pneumonia. There is no pneumothorax. There is a trace right pleural effusion. IMPRESSION: Cardiomegaly with interstitial pulmonary edema and a trace right pleural effusion. ACT 112: Negative or not required by law. Electronically signed by: Drew Patrick M.D. 08/23/2023 5:01 PM Hospital Course (1) Acute decompensated heart failure: (2) Labile hypertension: (3) Pulmonary hypertension: (4) Chronic hypoxic respiratory failure: (5) COPD (chronic obstructive pulmonary disease): (6) PAD (peripheral artery disease): (7) CAD (coronary artery disease): (8) Diabetes mellitus, type 2: (9) Opioid dependence: (10) Chronic pain: Plan Patient is a 72yo M with a PMH of moderate vascular dementia, tachy-merari syndrome s/p PPM in 2020, COPD, DM II, chronic respiratory failure with hypoxia and hypercapnia, HTN, HLD, L renal clear cell carcinoma s/p partial left nephrectomy in 2019, BPH, chronic pain on opioids, combined systolic and diastolic HF, lacunar infarct in 2022, h/o left carotid endarterectomy in 2012 following left hemispheric CVA, significant PVD history with multiple interventions, chronic paresthesia LLL since 2014 surgery, tobacco use and other medical problems listed below with worsening SOB over the past week and found to have decompensated heart failure and Flu A. Acute hypoxic hypercarbic respiratory failure Likely multifactorial secondary to COPD, CHF exacerbation, influenza A H/O tobacco use H/O noncompliance with supplemental oxygen --CXR:Cardiomegaly with interstitial pulmonary edema and a trace right pleural effusion. -- Serology positive for influenza A Given onset of symptoms, currently no indication for Tamiflu Continue home inhalers Once status improved Currently saturating well on room air IV Lasix transition to p.o. Lasix 40 mg twice daily as recommended by nephrology Had 2 step did not qualify for oxygen Advised patient to follow-up with nephrology, cardiology on discharge Acute on chronic systolic heart failure Progressive SOB and BLE edema x 1 week --2D echo from May 2023 echo showing EF 35-40%, mild concentric LVH, moderate global hypokinesis of LV Continue IV Lasix Monitor I's and O's, daily weight, volume status Appreciate nephrology input to help with diuresis Continue carvedilol Lasix as above ZINA on CKD IIIB H/O Left renal clear cell carcinoma s/p partial left nephrectomy Baseline creatinine about 1.9 Monitor renal function Avoid nephrotoxic agents as able Appreciate nephrology input Hypertensive urgency Troponin elevation likely demand ischemia in setting of infection, CKD, HTN Likely due to noncompliance Doubt ACS Denies any chest pain Continue carvedilol, Hytrin Also on isosorbide IV labetalol as needed Monitor and adjust medications as needed Blood pressure very variable CAD Presumed CAD per cards notes Continue Carvedilol, Plavix, statin, Imdur Tachy-merari syndrome S/[place] pac[place] [address] Live Continue carvedilol H/o Lacunar stroke in 2022 PAD S/P left carotid endarterectomy in 2012 Continue Plavix, statin Quit smoking per family, still using snuff pouches Vascular Dementia Son notes worsening dementia at home, also staring into distance, not answering promptly Likelihood opioids and hypercarbia likely exacerbating confusion Palliative discussion to discuss ongoing pain mgmt given comorbidities Delirium Precautions DM II HbA1c 7.4 Hold home agents Continue insulin while hospitalized Monitor BGs Chronic back pain on opioids Reviewed PDMP, reducing home Percocet 7.5-325 from Q8H to Q12 given worsening mentation as above Avoid additional opioids given dementia as above DVT Px: SQ heparin Code status: FULL CODE Disposition Home Total Time Total Time Spent Total Time Spent (In Minutes): 54 minutes Discharge Plan Discharge Items Patient Disposition: Home - Self-Care Reason For Visit: SOB, DECOMPENSATED HF Discharge Diagnosis: Acute on chronic systolic heart failure Acute hypoxic hypercarbic respiratory failure Influenza A COPD Hypertensive urgency Activity: Per Instructions section Exercise/Sports: Wait until after follow-up appointment Non-emergency contact: Primary Care Provider, Care Navigator and Marriage Performer Call non-emergency contact if: you have any medication questions, your symptoms worsen, your pain is concerning for you and you have a fever Follow-up/Referrals: Chad Jara MD [Primary Care Provider] - (Date & Time 09/01/2023 11:20 AM Provider Chad [facility] ) Diet: Carb Consistent or DM2 and Low Sodium (2gm) Addtl Attending Provider Instructions: Follow-up with your primary care physician on 09/01/2023 11:20 AM Follow-up with your distribution analyst Dr. Arias in 2 weeks with repeat blood work basic metabolic panel Follow-up with your senior business intelligence analyst in 2 weeks as recommended by your distribution analyst -- Your blood pressure has been very variable during the hospital stay. Monitor your blood pressure regularly at home and discuss with your physician for further adjustment of medications as needed. -- Given distribution analyst recommends to increase your Lasix to 40 mg twice a day. Further recommendations on follow-up. Seek immediate medical attention if your symptoms reoccur or worsen Please take all medications as instructed on discharge list below. Please call if you have any questions or problems. You can reach a [facility] hospitalist on duty at [facility] 24 hours a day by calling [phone] Call your Primary Care doctor if any of the following symptoms or problems start or get worse: * Shortness of breath or difficulty breathing * Wake up at night short of breath * Chest pain * Cough * Swelling of your hands, feet, or legs * More fatigued or tired with your normal activity * Palpitations - sudden fast heart beats WEIGHT * Weigh yourself every morning after using the bathroom. * Use the same scale. * Wear the same amount of clothing. * Write your weight down on a chart. * Call your Primary Care doctor if you gain more than 2-3 pounds in 1-2 days. MEDICATIONS * Use this discharge instruction sheet for medication instructions. * Take your medications at the time your doctor ordered. * Do not skip a dose of your medicines. * If you miss a dose of medicine, take it as soon as possible, but DO NOT DOUBLE A DOSE. * Read your medicine information when you get home. * Know all of the side effects of your medicine. If in doubt, ask your pharmacist * Call your Primary Care doctor's office if you have any side effects. * Be sure all of your doctors know what medicine and herbs you take (including cold, flu, and herbal medicine). Take the following with you to your follow-up doctor appointments: * Weight Chart * Medication List * List of questions Do not drink excessive alcohol, beer or wine. Pending Studies at Discharge: No Stand-Alone Forms: My [facility] [employer], Smoking Cessation Medications and DC Order Prescriptions: New furosemide 40 mg Tablet 40 mg PO [id number] Qty: 60 0RF Continued atorvastatin 80 mg Tablet 80 mg PO QAM clopidogrel 75 mg Tablet 75 mg PO QAM albuterol sulfate 90 mcg/actuation Hfa Aerosol Inhaler 2 puff INHALATION Q4H PRN (Reason: cough,SOB,wheezing) ferrous sulfate 325 mg (65 mg iron) Tablet 325 mg PO AMHS glipizide 10 mg Tablet 10 mg PO QAM Rx Instructions: TAKE 30 MIN PRIOR TO BREAKFAST AND DINNER albuterol sulfate 2.5 mg /3 mL (0.083 %) Solution For Nebulization 2.5 mg INHALATION Q4H PRN (Reason: Shortness Of Breath Or Wheezing) pantoprazole [Protonix] 40 mg Tablet,Delayed Release (Dr/Ec) 40 mg PO QAM carvedilol 25 mg Tablet 25 mg PO BIDM Qty: 60 0RF duloxetine 60 mg capsule,delayed release(DR/EC) 60 mg PO QAM oxycodone-acetaminophen 7.5-325 mg tablet 1 tab PO Q8 PRN (Reason: Severe Pain (Scale Score 7-10)) terazosin 5 mg capsule 5 mg PO HS cholecalciferol (vitamin D3) 125 mcg (5,000 unit) capsule 125 mcg PO QAM fluticasone furoate-vilanterol [Breo Ellipta] 200-25 mcg/dose blister with device 1 inh inhalation QAM isosorbide mononitrate 30 mg tablet extended release 24 hr 30 mg PO QAM omega-3 fatty acids 1,000 mg Capsule 1,000 mg PO BID ascorbic acid (vitamin C) [Vitamin C] 500 mg Tablet,Chewable 500 mg PO DAILY nitroglycerin 0.4 mg tablet, sublingual 0.4 mg sublingual UD PRN (Reason: Chest Pain) Rx Instructions: may repeat 3 times...5 minutes apart naloxone 4 mg/actuation [place],Non-Aerosol 4 mg INTRANASAL UD PRN (Reason: Opioid Overdose) Rx Instructions: administer 1 spray into 1 nostril for suspected opioid overdose. seek immediate medical attention sennosides [Senokot] 8.6 mg Tablet 8.6 mg PO BID docusate sodium 100 mg Capsule 100 mg PO BID memantine 5 mg tablet 5 mg PO BID Changed potassium chloride 10 mEq tablet,ER particles/crystals 10 meq PO BID Qty: 1 0RF Discontinued furosemide 20 mg tablet 20 mg PO QAM Discharge Orders: Discharge Order (Routine); Ordered 08/26/23 Ordered By: Sunil Rogers/Other Patient Handouts: Managing Type 2 Diabetes Admission Data Admit Date/Time: 08/23/23 18:50 Attending Provider: Sunil Escalante Admit Provider: Norma Watts Primary Care Provider: Chad Jara Other Providers: Norma Watts; Perla Padgett Roshan
== END 2023-08-26 15:46 | disposition home or self-care (01) | DRG 291 ==
LOC: ED 16:07 → EDINP 18:50 → SUATTDRO 18:50 → 2E 20:51
DX: I24.89 Other forms of acute ischemic heart disease; I27.20 Pulmonary hypertension, unspecified; J96.01 Acute respiratory failure with hypoxia; I25.10 Atherosclerotic heart disease of native coronary artery without angina pectoris; I16.0 Hypertensive urgency; J10.1 Influenza due to other identified influenza virus with other respiratory manifestations; I50.23 Acute on chronic systolic (congestive) heart failure; N17.9 Acute kidney failure, unspecified; Z86.73 Personal history of transient ischemic attack (TIA), and cerebral infarction without residual deficits; F11.20 Opioid dependence, uncomplicated; I49.5 Sick sinus syndrome; E11.22 Type 2 diabetes mellitus with diabetic chronic kidney disease; Z87.891 Personal history of nicotine dependence; Z79.84 Long term (current) use of oral hypoglycemic drugs; Z95.0 Presence of cardiac pacemaker; F01.50 Vascular dementia, unspecified severity, without behavioral disturbance, psychotic disturbance, mood disturbance, and anxiety; I13.0 Hypertensive heart and chronic kidney disease with heart failure and stage 1 through stage 4 chronic kidney disease, or unspecified chronic kidney disease; Z79.02 Long term (current) use of antithrombotics/antiplatelets; E87.20 Acidosis, unspecified; N18.32 Chronic kidney disease, stage 3b; E11.51 Type 2 diabetes mellitus with diabetic peripheral angiopathy without gangrene; J43.9 Emphysema, unspecified; Z91.199 Patient's noncompliance with other medical treatment and regimen due to unspecified reason; J96.02 Acute respiratory failure with hypercapnia; Z90.5 Acquired absence of kidney; I25.2 Old myocardial infarction; G89.4 Chronic pain syndrome; Z98.1 Arthrodesis status

== ENCOUNTER 2023-12-18 05:17 | Inpatient (IN) ==
[2023-12-18] MEDS: NITROGLYCERIN SL 0.4 MG/TAB TAB SL STA ×3 (05:47→07:24)
[2023-12-18 06:02] LABS: Basophils # (auto) 0.03 K/uL (0.00-0.20); Basophils % (auto) 0.3 %; Eosinophils # (auto) 0.13 K/uL (0.00-0.50); Eosinophils % (auto) 1.3 %; Hematocrit (blood only) 41.2 % (42.0-52.0); Hemoglobin 12.5 g/dl (14.0-18.0); Immature Granulocytes # (auto) 0.16 K/uL (0.01-0.20); Immature Granulocytes % (auto) 1.6 %; Lymphocytes # (auto) 0.64 K/uL (1.20-3.40); Lymphocytes % (auto) 6.4 %; Mean Corpuscular Hemoglobin 29.8 pg (25.0-34.0); Mean Corpuscular Hgb Conc 30.3 g/dL (32.0-36.0); Mean Corpuscular Volume 98.1 fL (80.0-100.0); Mean Platelet Volume 9.8 fL (9.4-12.4); Monocytes # (auto) 1.43 K/uL (0.11-0.59); Monocytes % (auto) 14.3 %; Neutrophils # (auto) 7.59 K/uL (1.40-6.50); Neutrophils % (auto) 76.1 %; Platelet Count 176 K/uL (130-400); RDW Coefficient of Variation 14.4 % (11.5-14.5); RDW Standard Deviation 51.7 fL (36.4-46.3); White Blood Count 9.98 K/ul (4.8-10.8)
--- NOTE | 2023-12-18 06:09 | Emergency Department Note ---
Impression & Plan CHF (congestive heart failure), Substernal chest pain, Uncontrolled hypertension admit to the [facility] ED Provider Note NAME: JALYEN POP AGE: 73 SEX: Male INFORMANT: Patient ED PROVIDER(S): Janine Kumari DO CHIEF COMPLAINT: Chest pain and shortness of breath PLAN: Disposition: admit to the [facility] MEDICAL DECISION MAKING: This is a 73-year-old male patient with a history of COPD who presents to the emergency department with gradual onset of shortness of breath, chest pain and dry cough. patient has oxygen available at home but did not use it. O2 saturations were low and he was placed on supplemental oxygen here. Laboratory studies revealed no leukocytosis. H&H were stable. BUN was 29 and creatinine was 1.86 which is baseline for the patient. Glucose was 179. Troponin was slightly elevated at 37.2. Upper respiratory bio fire testing was negative. Chest x-ray shows evidence of pulmonary edema. Patient was placed on supplemental oxygen. He was given a dose of IV Lasix. patient was given a dose of sublingual nitroglycerin which relieved his chest discomfort. He was given 2 additional doses to lower his blood pressure. EKG shows evidence of an atrial paced rhythm which is baseline for the patient. Care/management discussed with: racing manager and [facility] Triage Nursing notes: reviewed and agree with them. Vital Signs: reviewed and remarkable for significant hypertension and hypoxia Additional History obtained from: Per the patient's son who was at the bedside. Chronic Medical/Social Conditions affecting care: CHF and coronary artery disease along with COPD. Differential Diagnosis: COPD exacerbation, CHF, STEMI, NSTEMI, pneumonia, COVID Diagnostics, independently interpreted by me: ECG: Atrial paced rhythm at a rate of 82 with prolonged AV conduction. This is unchanged from previous ECGs. There is no obvious ectopy. Cardiac Monitoring: Atrial paced rhythm at a rate of 92 Imaging studies: portable chest x-ray: as per my independent interpretation- cardiomegaly with pulmonary edema HPI: 73 year old Male arrives for evaluation of Chest pain and shortness of breath. patient developed gradual onset of chest pain shortness of breath and a dry cough since yesterday. Patient does have home oxygen but did not use it. PAST MEDICAL HISTORY: See Below, PAST SURGICAL HISTORY: See Below, SOCIAL HISTORY: See Below, HOME MEDICATIONS: See list ALLERGIES: none VITALS: See Below PHYSICAL EXAMINATION: HEENT: Head - normocephalic and atraumatic. Pupils are equal, round, and reactive to light. Extraocular eye muscles are intact, and sclera are anicteric. Nose - moist nasal mucosa without discharge. Mouth - moist buccal mucosa. Oropharynx is nonerythematous and there is no tonsillar exudate or edema noted. there is poor dentition. Neck: Supple; no JVD, nuchal rigidity, cervical lymphadenopathy, or auscultated bruits. Heart: Regular rate and rhythm. There is a normal S1 and S2 with no murmurs, clicks, or gallops appreciated. Lungs: Diminished breath sounds in all lung baldwin with expiratory wheezes. Abdomen: Soft, completely nontender, nondistended, with good bowel sounds. There are no palpable pulsatile masses or hepatosplenomegaly. There is no guarding, rigidity, or rebound noted. Extremities: No evidence of cyanosis, clubbing, or edema. There are easily palpable peripheral pulses. Skin: Pale,warm and dry with good turgor and no rashes. Emergency department treatment: nursing educator, supplemental oxygen, DuoNeb treatment, IV Lasix, sublingual nitro emergency department course: The patient was evaluated in room A-2. A complete history and physical was performed. Patient was placed on supplemental oxygen. A DuoNeb treatment was given. Normal was placed for continuous cardiac monitoring. The patient was in an atrial paced rhythm at a rate of 92. A twelve-lead EKG was obtained as described above. Laboratory studies were drawn as above. Portable chest x-ray was performed. Patient was given a dose of sublingual nitroglycerin which helped with his chest discomfort. He was given a dose of IV Lasix. 2 additional doses of sublingual nitroglycerin were given. I discussed the case with the [facility] Hospitalist and they will evaluate for further inpatient care. Past Med/Surg History Problem List (Updated 12/18/23 @ 16:41 by Janine Kumari DO) Uncontrolled hypertension (Acute) Substernal chest pain (Acute) CHF (congestive heart failure) (Acute) Acute on chronic respiratory failure with hypoxia Acute on chronic heart failure Palliative care by specialist Dyspnea and respiratory abnormalities Chronic pain (Chronic) Influenza A CKD (chronic kidney disease) stage 3, GFR 30-59 ml/min Congestive heart failure (Acute) Opioid dependence Acute decompensated heart failure Chronic hypoxic respiratory failure COPD (chronic obstructive pulmonary disease) (Acute) WEARS O2 AT 2L HS "SOMETIMES" PAD (peripheral artery disease) CAD (coronary artery disease) Diabetes mellitus, type 2 Labile hypertension Seizure-like activity Episode of shaking (Acute) Elevated troponin (Acute) Tachycardia (Acute) Pulmonary hypertension Cardiomyopathy Encounter for pre-operative examination GI bleed (Acute) Symptomatic anemia (Acute) Acute blood loss anemia Medical History Precordial chest pain Hypertensive crisis Bulging disc LUMBAR AREA Osteoarthritis Anemia HX OF Macular degeneration Hypertension Peripheral neuropathy On home oxygen therapy 2L AT HS Myocardial Infarction 2003 (LIFE FLIGHTED TO [place]) Hyperlipidemia GERD (gastroesophageal reflux disease) Surgical History Fusion of spine CERVICAL History of esophagogastroduodenoscopy (EGD) History of colonoscopy History of discectomy CERVICAL H/O eye surgery LASER SURGERY FOR BLEEDING EYE H/O vascular surgery Family History Mother CKD (chronic kidney disease) Social History Smoking Status: Former smoker Tobacco Type: Cigarettes Cigarettes Per Day: 6 -8/day; Second Hand Exposure: Yes; Do You Dip or Chew Tobacco: No; Hx Alcohol Use: Yes Alcohol type: beer Hx Substance Use: No Preferred Language: Lithuanian Communication Ability: Effective Rib Cloth Knitter Required: No Beliefs That Will Affect Care: None marital status: Current Living Situation: Family Current Living Situation Comment: lives with 3 sons Other Information That Helps Us Care for You: No Feels Safe at Home: Yes Assistive Devices: Oxygen - Continuous and Walker Allergies Allergies Allergy/AdvReac Type Severity Reaction Status Date / Time No Known Allergies Allergy Unknown Verified 12/18/23 08:12 Home Meds Home Medications Medication Instructions Recorded Confirmed albuterol sulfate 90 mcg/actuation 2 puff inhalation Q4H PRN SOB or 09/06/18 12/18/23 aerosol inhaler Wheezing atorvastatin 80 mg tablet 80 mg PO QAM 09/06/18 12/18/23 clopidogrel 75 mg tablet 75 mg PO QAM 09/06/18 12/18/23 ferrous sulfate 325 mg (65 mg 325 mg PO AMHS 09/06/18 12/18/23 iron) tablet glipizide 10 mg tablet 10 mg PO QAM 09/06/18 12/18/23 albuterol sulfate 2.5 mg/3 mL 2.5 mg inhalation Q4H PRN 02/01/20 12/18/23 (0.083 %) solution for nebulization Shortness Of Breath Or Wheezing pantoprazole 40 mg tablet,delayed 40 mg PO QAM 02/01/20 12/18/23 release (Protonix) ascorbic acid (vitamin C) 500 mg 500 mg PO DAILY 08/23/23 12/18/23 chewable tablet (Vitamin C) cholecalciferol (vitamin D3) 125 125 mcg PO QAM 08/23/23 12/18/23 mcg (5,000 unit) capsule docusate sodium 100 mg capsule 100 mg PO BID 08/23/23 12/18/23 duloxetine 60 mg capsule,delayed 60 mg PO QAM 08/23/23 12/18/23 release fluticasone furoate 200 1 inh inhalation QAM 08/23/23 12/18/23 mcg-vilanterol 25 mcg/dose inhalation powder (Breo Ellipta) isosorbide mononitrate 30 mg 30 mg PO QAM 08/23/23 12/18/23 tablet,extended release 24 hr memantine 5 mg tablet 5 mg PO BID 08/23/23 12/18/23 naloxone 4 mg/actuation nasal spray 4 mg intranasal UD PRN Opioid 08/23/23 12/18/23 Overdose nitroglycerin 0.4 mg sublingual 0.4 mg sublingual UD PRN Chest Pain 08/23/23 12/18/23 tablet omega-3 fatty acids 1,000 mg 1,000 mg PO BID 08/23/23 12/18/23 capsule sennosides 8.6 mg tablet (Senokot) 8.6 mg PO BID 08/23/23 12/18/23 terazosin 5 mg capsule 5 mg PO HS 08/23/23 12/18/23 furosemide 40 mg tablet 40 mg PO BID 12/18/23 12/18/23 oxycodone 10 mg tablet 10 mg PO TID 12/18/23 12/18/23 potassium chloride 10 mEq 10 meq PO DAILY 12/18/23 12/18/23 tablet,extended release(part/cryst) Previous Rx's Medication Instructions Recorded carvedilol 25 mg tablet 25 mg PO BIDM #60 tabs 05/13/23 Results & Data (ED) Vital Signs Vital Signs - 24 hr 12/18/23 05:18 12/18/23 05:20 12/18/23 05:40 Temperature 36.4 C L Temperature Source Temporal Artery Scan Pulse Rate 96 H Pulse Rate [Apical] Pulse Rate from SpO2 Sensor Pulse Rhythm [Apical] Pulse Strength [Apical] Respiratory Rate 18 Respiratory Effort / Characteristics Non-Labored Spontaneous Respiratory Depth Normal Respiratory Pattern Blood Pressure 233/81 H Blood Pressure [Right Arm] Blood Pressure Mean 131 Blood Pressure Mean [Right Arm] Blood Pressure Position [Right Arm] Pulse Oximetry 86 L 91 96 Oxygen Delivery Method Room Air Room Air Nasal Cannula Oxygen Flow Rate 0 3 Sepsis Recent Fever Within 48 Hours No Sepsis New/Unexplained Change in Mental Status No Sepsis Action Taken by Nursing No Action Required Oxygen Flow Rate - Titration 3 Pulse Oximetry Post Tiitration 96 12/18/23 06:45 12/18/23 07:21 12/18/23 07:30 Temperature Temperature Source Pulse Rate 89 Pulse Rate [Apical] 80 Pulse Rate from SpO2 Sensor 90 Pulse Rhythm [Apical] Regular Pulse Strength [Apical] Normal Respiratory Rate 22 19 Respiratory Effort / Characteristics Non-Labored Spontaneous Respiratory Depth Normal Respiratory Pattern Regular Blood Pressure 127/92 Blood Pressure [Right Arm] 229/102 H 133/101 H Blood Pressure Mean 103 Blood Pressure Mean [Right Arm] 144 111 Blood Pressure Position [Right Arm] Sitting Pulse Oximetry 97 93 Oxygen Delivery Method Nasal Cannula Nasal Cannula Oxygen Flow Rate 3 2 Sepsis Recent Fever Within 48 Hours Sepsis New/Unexplained Change in Mental Status Sepsis Action Taken by Nursing Oxygen Flow Rate - Titration Pulse Oximetry Post Tiitration 12/18/23 07:40 Temperature Temperature Source Pulse Rate 90 Pulse Rate [Apical] Pulse Rate from SpO2 Sensor Pulse Rhythm [Apical] Pulse Strength [Apical] Respiratory Rate Respiratory Effort / Characteristics Respiratory Depth Respiratory Pattern Blood Pressure Blood Pressure [Right Arm] Blood Pressure Mean Blood Pressure Mean [Right Arm] Blood Pressure Position [Right Arm] Pulse Oximetry Oxygen Delivery Method Oxygen Flow Rate Sepsis Recent Fever Within 48 Hours Sepsis New/Unexplained Change in Mental Status Sepsis Action Taken by Nursing Oxygen Flow Rate - Titration Pulse Oximetry Post Tiitration Laboratory Data 12/18/23 05:44 12/18/23 05:44 Lab Results 12/18/23 12/18/23 12/18/23 Range/Units 05:44 06:41 07:47 WBC 9.98 (4.8-10.8) K/ul RBC 4.20 L (4.70-6.10) M/uL Hgb 12.5 L (14.0-18.0) g/dl Hct 41.2 L (42.0-52.0) % MCV 98.1 (80.0-100.0) fL MCH 29.8 (25.0-34.0) pg MCHC 30.3 L (32.0-36.0) g/dL RDW Std Deviation 51.7 H (36.4-46.3) fL RDW Coeff of David 14.4 (11.5-14.5) % Plt Count 176 (130-400) K/uL MPV 9.8 (9.4-12.4) fL Immature Gran % (Auto) 1.6 % Neut % (Auto) 76.1 % Lymph % (Auto) 6.4 % [place] % (Auto) 14.3 % Eos % (Auto) 1.3 % Baso % (Auto) 0.3 % Neut # (Auto) 7.59 H (1.40-6.50) K/uL Lymph # (Auto) 0.64 L (1.20-3.40) K/uL [place] # (Auto) 1.43 H (0.11-0.59) K/uL Eos # (Auto) 0.13 (0.00-0.50) K/uL Baso # (Auto) 0.03 (0.00-0.20) K/uL Immature Gran # (Auto) 0.16 (0.01-0.20) K/uL Sodium 134 L (136-145) mmol/L Potassium 4.8 (3.5-5.1) mmol/L Chloride 102 (98-107) mmol/L Carbon Dioxide 27 (21-32) mmol/L Anion Gap 5 (3-11) BUN 29 H (6-23) mg/dl Creatinine 1.86 H (0.6-1.4) mg/dl Est Cr Clr Drug Dosing 36.7 ml/min Est GFR ( Amer) 41.0 ml/min Est GFR (Non-Af Amer) 35.4 ml/min BUN/Creatinine Ratio 15.6 (10-20) Glucose 179 H (70-99(Fasting)) mg/dl Calcium 8.9 (8.6-10.3) mg/dl Total Bilirubin 0.6 (0.2-1.0) mg/dl AST 34 (13-39) U/L ALT 44 (7-52) U/L Alkaline Phosphatase 84 (34-104) U/L Troponin I High Sens 37.2 H 40.2 H (0-20) pg/ml Total Protein 7.3 (6.0-8.3) gm/dl Albumin 4.1 (3.4-5.0) gm/dl Globulin 3.2 (2.5-4.0) gm/dl Albumin/Globulin Ratio 1.3 (0.9-2) Lipase 16 (11-82) U/L Adenovirus (PCR) Not Detected (NotDetected) B. pertussis DNA (PCR) Not Detected (NotDetected) B.parapertussis DNA PCR Not Detected (NotDetected) C. pneumoniae DNA (PCR) Not Detected (NotDetected) Coronavirus OC43 (PCR) Not Detected (NotDetected) Coronavirus HKU1 (PCR) Not Detected (NotDetected) Coronavirus 229E (PCR) Not Detected (NotDetected) SARS-CoV-2 (PCR) Not Detected (NotDetected) Coronavirus NL63 (PCR) Not Detected (NotDetected) Human Metapneumovir PCR Not Detected (NotDetected) Influenza Type A (PCR) Not Detected (NotDetected) Influenza Type B (PCR) Not Detected (NotDetected) M. pneumoniae (PCR) Not Detected (NotDetected) Parainfluenza 1 (PCR) Not Detected (NotDetected) Parainfluenza 2 (PCR) Not Detected (NotDetected) Parainfluenza 3 (PCR) Not Detected (NotDetected) Parainfluenza 4 (PCR) Not Detected (NotDetected) RSV (PCR) Not Detected (NotDetected) Entero/Rhino (PCR) Not Detected (NotDetected) Administered Medications Atorvastatin Calcium (Atorvastatin 40 Mg Tab) 80 mg PO QAM [facility] Stop: 01/17/24 13:44 Last Admin: 12/18/23 14:42 Dose: 80 mg Documented By: JAZMIN Carvedilol (Carvedilol 25 Mg Tab) 25 mg PO BIDM [facility] Stop: 01/17/24 13:59 Last Admin: 12/18/23 14:42 Dose: 25 mg Documented By: JAZMIN Clopidogrel Bisulfate (Clopidogrel Bisulfate 75 Mg Tab) [facility] [place]: 01/17/24 13:44 Last Admin: 12/18/23 14:42 Dose: 75 mg Documented By: JAZMIN Fluticasone/Vilanterol (Fluticasone/Vilanterol 200/25mcg 14 Puffs/Inhaler) 1 puffs [facility] Stop: 01/17/24 13:44 Last Admin: 12/18/23 14:43 Dose: 1 puffs Documented By: JAZMIN Heparin Sodium (Porcine) (Heparin Sod 5,000 Unit/0.5 Ml Vial) 5,000 units SQ Q12 [facility] Stop: 01/17/24 13:27 Last Admin: 12/18/23 14:42 Dose: 5,000 units Documented By: JAZMIN Insulin Aspart (Insulin Aspart Per Unit Charge) 0 units SC ACHS [facility] Stop: 01/17/24 13:44 Last Admin: 12/18/23 14:39 Dose: Not Given Documented By: JAZMIN Oxycodone HCl (Oxycodone Hcl Ir 5 Mg Tab (Immediate Release)) 10 mg PO TID [facility] Stop: 01/01/24 13:59 Last Admin: 12/18/23 14:42 Dose: 10 mg Documented By: JAZMIN Pantoprazole Sodium (Pantoprazole 40 Mg Tab) 40 mg PO QAM [facility] Stop: 01/17/24 13:27 Last Admin: 12/18/23 14:42 Dose: 40 mg Documented By: JAZMIN Discontinued Medications Albuterol (Albut/Ipratrop 3mg/0.5mg Neb 3 Ml Vial) 3 ml NEB NOW STA; Protocol Stop: 12/18/23 06:32 Last Admin: 12/18/23 06:34 Dose: 3 ml Documented By: ANNY Furosemide (Furosemide 40 Mg/4 Ml Vial) 40 mg IV ONE ONE Stop: 12/18/23 06:57 Last Admin: 12/18/23 07:09 Dose: 40 mg Documented By: JENNIFER Methylprednisolone (Methylprednisolone 125 Mg/2 Ml Vial) 125 mg IV NOW STA Stop: 12/18/23 06:36 Last Admin: 12/18/23 06:39 Dose: 125 mg Documented By: ANNY Nitroglycerin (Nitroglycerin Sl 0.4 Mg/Tab Tab) 0.4 mg SL NOW STA Stop: 12/18/23 05:41 Last Admin: 12/18/23 05:47 Dose: 0.4 mg Documented By: ANNY Nitroglycerin (Nitroglycerin Sl 0.4 Mg/Tab Tab) 0.4 mg SL NOW STA Stop: 12/18/23 07:05 Last Admin: 12/18/23 07:09 Dose: 0.4 mg Documented By: JENNIFER Nitroglycerin (Nitroglycerin Sl 0.4 Mg/Tab Tab) 0.4 mg SL NOW STA Stop: 12/18/23 07:05 Last Admin: 12/18/23 07:24 Dose: 0.4 mg Documented By: JENNIFER Imaging Data Radiologist's Impression: Chest X-Ray 12/18/23 05:40 XR chest 1V portable CLINICAL HISTORY: Chest pain, nonspecific TECHNIQUE: Single frontal radiograph of the chest was obtained. Comparison: Comparison is made to chest radiograph 08/23/2023 FINDINGS: An implanted pacemaker is seen. Cardiomegaly is noted. The aortic arch is calcified. There is prominence and cephalization of the vasculature with Leisa B lines seen. No evidence of pleural effusion or pneumothorax. IMPRESSION: Cardiomegaly and moderate pulmonary edema. ACT 112: Negative or not required by law. Electronically signed by: Juan Diego Parsons M.D. 12/18/2023 6:46 AM Discharge Plan Visit Data Chief Complaint: Respiratory Problems Stated Complaint: HAVING TROUBLE BREATHING,PAIN ALL OVER,CHEST PAIN ED Provider: Janine Kumari Discharge Problem: CHF (congestive heart failure), Substernal chest pain, Uncontrolled hypertension Patient Disposition: Admitted As Inpatient Discharge Instructions Interventions: ED Discharge Assessment Last Done: 12/18/23 13:16
[2023-12-18 06:21] LABS: Albumin Globulin Ratio 1.3 (0.9-2); Albumin Level 4.1 gm/dl (3.4-5.0); BUN Creatinine Ratio 15.6 (10-20); Bilirubin,Total 0.6 mg/dl (0.2-1.0); Calcium 8.9 mg/dl (8.6-10.3); Creatinine Clr Calc Pharmacy 36.7 ml/min; Est GFR (Non-African American) 35.4 ml/min; Globulin 3.2 gm/dl (2.5-4.0); Potassium 4.8 mmol/L (3.5-5.1); Total Protein 7.3 gm/dl (6.0-8.3)
[2023-12-18 06:27] LABS: Troponin I High Sensitivity 37.2 pg/ml (0-20)
[2023-12-18] MEDS: ALBUT/IPRATROP 3MG/0.5MG NEB 3 ML VIAL NEB STA (06:34)
[2023-12-18] MEDS: methylPREDNISolone 125 MG/2 ML VIAL IV STA (06:39)
--- NOTE | 2023-12-18 06:47 | XRay Report ---
XR chest 1V portable CLINICAL HISTORY: Chest pain, nonspecific TECHNIQUE: Single frontal radiograph of the chest was obtained. Comparison: Comparison is made to chest radiograph 08/23/2023 FINDINGS: An implanted pacemaker is seen. Cardiomegaly is noted. The aortic arch is calcified. There is promine nce and cephalization of the vasculature with Leisa B lines seen. No evidence of pleural effusion or pneumothorax. IMPRESSION: Cardiomegaly and moderate pulmonary edema. ACT 112: Negative or not required by law. Electronically signed by: Juan Diego Parsons M.D. 12/18/2023 6:46 AM
[2023-12-18] MEDS: FUROSEMIDE 40 MG/4 ML VIAL IV ONE (07:09)
[2023-12-18 07:46] LABS: Adenovirus PCR Not Detected (NotDetected); Bordetella parapertussis PCR Not Detected (NotDetected); Bordetella pertussis PCR Not Detected (NotDetected); Chlamydia pneumoniae PCR Not Detected (NotDetected); Coronavirus 229E PCR Not Detected (NotDetected); Coronavirus CoV-2 (COVID19)PCR Not Detected (NotDetected); Coronavirus HKU1 PCR Not Detected (NotDetected); Coronavirus NL63 PCR Not Detected (NotDetected); Coronavirus OC43PCR Not Detected (NotDetected); Human Metapneumovirus PCR Not Detected (NotDetected); Influenza A PCR Not Detected (NotDetected); Influenza B PCR Not Detected (NotDetected); Mycoplasma pneumoniae PCR Not Detected (NotDetected); Parainfluenza Virus 1 PCR Not Detected (NotDetected); Parainfluenza Virus 2 PCR Not Detected (NotDetected); Parainfluenza Virus 3 PCR Not Detected (NotDetected); Parainfluenza Virus 4 PCR Not Detected (NotDetected); Respiratory Syncytial VirusPCR Not Detected (NotDetected); Rhinovirus/Enterovirus PCR Not Detected (NotDetected)
--- NOTE | 2023-12-18 08:02 | History & Physical Report ---
<Statement entered by Jackson Wilde, - 12/18/23 12:40> I have seen and examined the patient and have discussed the case with the provider above. I have reviewed the advanced practitioner's documentation, and I agree with, and take responsibility for that plan of care. 18 minutes spent on review records and examination of the patient and coordinating care with TOAN patient seen and examined while in the emergency department. 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], COPD, DM type II, chronic respiratory failure with hypoxia and hypercapnia (history of noncompliance with supplement oxygen therapy), HTN, HLD, left renal clear cell carcinoma s/p partial left nephrectomy [2019], CKD stage III, BPH, chronic back pain on opioid therapy, chronic combined systolic and diastolic HF, history of lacunar infarct [2022], history of left carotid endarterectomy following left hemispheric CVA [2012], significant PVD history with multiple interventions, chronic paresthesia LLL [since 2014 surgery], history of tobacco use, vascular dementia, history of iron deficiency anemia and other medical problems listed below who presented to the ED for evaluation of increasing SOB, chest pain and dry cough. Patient with complete resolution of his chest pain following administration of sublingual nitroglycerin x 3 in the ED. He received an albuterol nebulizer treatment in the ED, which helped with his breathing. Patient was also administered a 40mg dose of IV Lasix in the ED secondary to findings of moderate pulmonary edema on his chest x-ray. Patient saturating well on 2L of supplemental oxygen via nasal cannula in the ED. Acute on Chronic Combined Systolic & Diastolic Heart Failure CXR w/ cardiomegaly and moderate pulmonary edema on presentation. Patient administered 40mg IV Lasix in ED. Will continue IV diuretic therapy w/ 40mg Lasix BID. Strict I&Os, daily weights, 2L daily fluid restriction and low sodium diet. Trop slightly elevated at 37.2 on presentation, repeat trop 40.2 at 07:47. EKG w/out ischemic changes. Will continue to trend trop Q6H x 3 - follow results. EKG w/ chest pain PRN. Echo done in May 2023 showing EF 35-40%, mild concentric LVH and moderate global hypokinesis of LV. Acute on Chronic Respiratory Failure with Hypoxia, COPD/Emphysema H/O Noncompliance with Supplemental Oxygen Therapy No leukocytosis on admission, RVP negative. Admitting VBG w/ resp acidosis - pH 7.32 and pCO2 elevated at 60. No anion gap on presentation. Will repeat VBG in AM - follow closely. Patient noncompliant w/ supplement oxygen therapy at home per son. Will continue w/ 2L supplement O2 therapy via NC, saturating at 96% at time of admission. Can continue MEASUREMENT PSYCHOLOGIST nebulizer treatments PRN and daily Breo Ellipta inhaler therapy. HTN History of labile BP during previous admissions in setting of severe PAD. SBP was in the 220s at time of presentation. BP improved following administration of sublingual nitro x 3 in ED. Patient did not take any of his medications today. Will proceed with administering his MEASUREMENT PSYCHOLOGIST carvedilol dose now. CKD Stage III H/O Left Renal Cell Carcinoma Patient s/p partial left nephrectomy in 2019. Cr 1.86 on admission, baseline Cr ~1.8-2.2 per chart review. Continue to monitor renal function & avoid nephrotoxic meds when able. DM Type II Hold MEASUREMENT PSYCHOLOGIST diabetic agents, SSI regimen while inpatient. BSG checks ACHS, plan to repeat Hgb A1c in AM - follow results. Iron Deficiency Anemia Hgb 12.5 on admission, baseline Hgb ~12-13 per chart review. Will continue MEASUREMENT PSYCHOLOGIST iron supplementation therapy and monitor Hgb closely. H/O Tachy-Bacilio Syndrome: Patient s/p pacemaker [place] [address] Live. H/O Lacunar Stroke [2022] PAD S/P Left Carotid Endarterectomy [2012] Continue MEASUREMENT PSYCHOLOGIST atorvastatin and Plavix. Coronary Artery Disease - Presumed CAD as per previous cardiology documentation. Continue MEASUREMENT PSYCHOLOGIST carvedilol, Plavix, atorvastatin and Imdur. Vascular Dementia No confusion, mentation at baseline on admission. Son reports progressive increase in confusion and forgetfulness at home. Patient however is fully alert, aware and conversing appropriately throughout our conversation. Chronic Back Pain on Chronic Opioid Therapy Can continue w/ MEASUREMENT PSYCHOLOGIST oxycodone therapy. Avoid any additional opioid or sedative therapy given dementia as above. Delirium precautions in place. DVT Prophylaxis: SQ Heparin Code Status: FULL CODE PCP: Chad Jara MD Disposition: Admit to Med/Surg + Telemetry Patient seen in collaboration with Dr. Wilde. Please see addendum. I spent a total of 60 minutes coordinating, documenting, and providing care for this patient excluding time spent in the performance of separately billed services. This included personally reviewing all current laboratories and imaging studies, medical reconciliation, outpatient chart review and discussion with specialists. This chart was completed in part utilizing Speech Voice Recognition Software. Grammatical errors, random word insertions, pronoun errors, and incomplete sentences are an occasional consequence of this system due to software limitations, ambient noise, and hardware issues. Any formal questions or concerns about the content, text, or information contained within the body of this dictation should be directly addressed to the provider for clarification. 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], COPD, DM type II, chronic respiratory failure with hypoxia and hypercapnia (history of noncompliance with supplement oxygen therapy), HTN, HLD, left renal clear cell carcinoma s/p partial left nephrectomy [2019], CKD stage III, BPH, chronic back pain on opioid therapy, chronic combined systolic and diastolic HF, history of lacunar infarct [2022], history of left carotid endarterectomy following left hemispheric CVA [2012], significant PVD history with multiple interventions, chronic paresthesia LLL [since 2015 surgery], tobacco use, vascular dementia, history of iron deficiency anemia and other medical problems listed below who presented to the ED for evaluation of increasing SOB, chest pain and dry cough. History obtained from patient and associated chart review. Patient reports that he woke up this morning feeling rather short of breath and was also experiencing some left-sided chest pain. Patient states he also has a dry cough. He denies any recent illnesses or known sick contacts. No fevers, body aches or chills. He mentions that he slept very poorly last night secondary to his cough keeping him up. Patient reports complete resolution of his chest pain following administration of sublingual nitroglycerin in the ED. He also received an albuterol nebulizer treatment in the ED, which he reports has helped with his breathing. Patient was also administered a dose of IV Lasix in the ED secondary to findings of moderate pulmonary edema on chest x-ray. Patient mentions that he has supplemental oxygen at home available to him, but he does not use it much at all. Patient is saturating well on 2L of supplemental oxygen via nasal cannula in the ED. Patient denies any abdominal pain or urinary/bowel habit concerns. He denies any recent lower extremity swelling/edema. Spoke with the patient's son, Chris, over the phone to gather more information given patient's history of vascular dementia. Chris reports that his father woke up this morning and was yelling out for help due to increasing shortness of breath, which therefore prompted him to bring him into the ED. Son reports that he has become progressively more confused and forgetful at home. He has supplemental oxygen therapy at home available for him, but he does not use this regularly per his son. The patient does live at home with his son and has a teller coordinator who visits him daily. Patient does have nebulizer treatments available at home, but his son mentions that he does not use them very much. His son reports that he has been doing well up until this morning. He denies any recent illnesses, falls or trauma. Patient did not take any of his medications this morning. Allergies Allergy/AdvReac Type Severity Reaction Status Date / Time No Known Allergies Allergy Unknown Verified 12/18/23 08:12 Home Medications Medication Instructions Recorded Confirmed Type albuterol sulfate 90 mcg/actuation 2 puff inhalation Q4H PRN SOB or 09/06/18 12/18/23 History aerosol inhaler Wheezing atorvastatin 80 mg tablet 80 mg PO QAM 09/06/18 12/18/23 History clopidogrel 75 mg tablet 75 mg PO QAM 09/06/18 12/18/23 History ferrous sulfate 325 mg (65 mg 325 mg PO AMHS 09/06/18 12/18/23 History iron) tablet glipizide 10 mg tablet 10 mg PO QAM 09/06/18 12/18/23 History albuterol sulfate 2.5 mg/3 mL 2.5 mg inhalation Q4H PRN 02/01/20 12/18/23 History (0.083 %) solution for nebulization Shortness Of Breath Or Wheezing pantoprazole 40 mg tablet,delayed 40 mg PO QAM 02/01/20 12/18/23 History release (Protonix) carvedilol 25 mg tablet 25 mg PO BIDM #60 tabs 05/13/23 12/18/23 Rx ascorbic acid (vitamin C) 500 mg 500 mg PO DAILY 08/23/23 12/18/23 History chewable tablet (Vitamin C) cholecalciferol (vitamin D3) 125 125 mcg PO QAM 08/23/23 12/18/23 History mcg (5,000 unit) capsule docusate sodium 100 mg capsule 100 mg PO BID 08/23/23 12/18/23 History duloxetine 60 mg capsule,delayed 60 mg PO QAM 08/23/23 12/18/23 History release fluticasone furoate 200 1 inh inhalation QAM 08/23/23 12/18/23 History mcg-vilanterol 25 mcg/dose inhalation powder (Breo Ellipta) isosorbide mononitrate 30 mg 30 mg PO QAM 08/23/23 12/18/23 History tablet,extended release 24 hr memantine 5 mg tablet 5 mg PO BID 08/23/23 12/18/23 History naloxone 4 mg/actuation nasal spray 4 mg intranasal UD PRN Opioid 08/23/23 12/18/23 History Overdose nitroglycerin 0.4 mg sublingual 0.4 mg sublingual UD PRN Chest Pain 08/23/23 12/18/23 History tablet omega-3 fatty acids 1,000 mg 1,000 mg PO BID 08/23/23 12/18/23 History capsule sennosides 8.6 mg tablet (Senokot) 8.6 mg PO BID 08/23/23 12/18/23 History terazosin 5 mg capsule 5 mg PO HS 08/23/23 12/18/23 History furosemide 40 mg tablet 40 mg PO BID 12/18/23 12/18/23 History oxycodone 10 mg tablet 10 mg PO TID 12/18/23 12/18/23 History potassium chloride 10 mEq 10 meq PO DAILY 12/18/23 12/18/23 History tablet,extended release(part/cryst) Past Med/Surg History Problem List Acute on chronic respiratory failure with hypoxia Acute on chronic heart failure Palliative care by specialist Dyspnea and respiratory abnormalities Chronic pain (Chronic) Influenza A CKD (chronic kidney disease) stage 3, GFR 30-59 ml/min Congestive heart failure (Acute) Opioid dependence Acute decompensated heart failure Chronic hypoxic respiratory failure COPD (chronic obstructive pulmonary disease) (Acute) WEARS O2 AT 2L HS "SOMETIMES" PAD (peripheral artery disease) CAD (coronary artery disease) Diabetes mellitus, type 2 Labile hypertension Seizure-like activity Episode of shaking (Acute) Elevated troponin (Acute) Tachycardia (Acute) Pulmonary hypertension Cardiomyopathy Encounter for pre-operative examination GI bleed (Acute) Symptomatic anemia (Acute) Acute blood loss anemia Medical History Precordial chest pain Hypertensive crisis Bulging disc LUMBAR AREA Osteoarthritis Anemia HX OF Macular degeneration Hypertension Peripheral neuropathy On home oxygen therapy 2L AT HS Myocardial Infarction 2003 (LIFE FLIGHTED TO [facility]) Hyperlipidemia GERD (gastroesophageal reflux disease) Surgical History Fusion of spine CERVICAL History of esophagogastroduodenoscopy (EGD) History of colonoscopy History of discectomy CERVICAL H/O eye surgery LASER SURGERY FOR BLEEDING EYE H/O vascular surgery Family History Mother CKD (chronic kidney disease) Social History Smoking Status: Former smoker Tobacco Type: Cigarettes Cigarettes Per Day: 6 -8/day; Second Hand Exposure: Yes; Do You Dip or Chew Tobacco: No; Hx Alcohol Use: Yes Alcohol type: beer Hx Substance Use: No Preferred Language: Latvian Communication Ability: Effective Hvac Service Tech Required: No Beliefs That Will Affect Care: None marital status: Current Living Situation: Family Current Living Situation Comment: lives with 3 sons Feels Safe at Home: Yes Assistive Devices: Oxygen - at Night and Walker Review of Systems Review of Systems: At least ten systems reviewed and negative, except as noted in the HPI. Physical Exam Physical Exam: General: WD/WN, vitals as above, NAD, sitting up in bed, pleasant, conversing appropriately. A+Ox3, euthymic affect. HEENT: Normocephalic, atraumatic. Conjunctivae normal, anicteric sclerae. External ear and nose normal, oropharynx normal. Respiratory: Diminished bibasilar breath sounds, no wheeze, rales, rhonchi. No accessory muscle use. Cardiovascular: Regular rate, rhythm, no murmur, normal peripheral pulses, no BLE edema. Vessels: No JVD. Abdomen/GI: Normal bowel sounds, soft, nontender, no hepatosplenomegaly. Extremities/Musculoskeletal: No cyanosis or clubbing, observed ambulation with normal gait, moves all extremities. Neurologic: PERRL, EOMI, no focal deficits, CN's II-XI not formally tested but appear grossly intact bilaterally. Skin: No rashes, normal color, warm/dry. Results & Data Results & Data Vital Signs (Past 12 Hours) Vital Signs Temp Pulse Pulse Resp BP BP Pulse Ox 12/18/23 07:40 90 12/18/23 07:30 89 19 127/92 93 12/18/23 07:21 133/101 H 12/18/23 06:45 80 22 229/102 H 97 12/18/23 05:40 96 12/18/23 05:20 36.4 C L 96 H 18 233/81 H 91 12/18/23 05:18 86 L O2 Del Method O2 Flow Rate 12/18/23 07:40 12/18/23 07:30 Nasal Cannula 2 12/18/23 07:21 12/18/23 06:45 Nasal Cannula 3 12/18/23 05:40 Nasal Cannula 3 12/18/23 05:20 Room Air 12/18/23 05:18 Room Air 0 Laboratory Results Short CBC 12/18/23 Range/Units 05:44 WBC 9.98 (4.8-10.8) K/ul Hgb 12.5 L (14.0-18.0) g/dl Hct 41.2 L (42.0-52.0) % Plt Count 176 (130-400) K/uL BMP 12/18/23 05:44 Sodium 134 L Potassium 4.8 Chloride 102 Carbon Dioxide 27 BUN 29 H Creatinine 1.86 H Glucose 179 H Calcium 8.9 Liver Function 12/18/23 Range/Units 05:44 Total Bilirubin 0.6 (0.2-1.0) mg/dl AST 34 (13-39) U/L ALT 44 (7-52) U/L Alkaline Phosphatase 84 (34-104) U/L Albumin 4.1 (3.4-5.0) gm/dl Diagnostic Findings Chest X-Ray 12/18/23 05:40 XR chest 1V portable CLINICAL HISTORY: Chest pain, nonspecific TECHNIQUE: Single frontal radiograph of the chest was obtained. Comparison: Comparison is made to chest radiograph 08/23/2023 FINDINGS: An implanted pacemaker is seen. Cardiomegaly is noted. The aortic arch is calcified. There is prominence and cephalization of the vasculature with Leisa B lines seen. No evidence of pleural effusion or pneumothorax. IMPRESSION: Cardiomegaly and moderate pulmonary edema. ACT 112: Negative or not required by law. Electronically signed by: Juan Diego Parsons M.D. 12/18/2023 6:46 AM Medications Administered Discontinued Medications Albuterol (Albut/Ipratrop 3mg/0.5mg Neb 3 Ml Vial) 3 ml NEB NOW STA; Protocol Stop: 12/18/23 06:32 Last Admin: 12/18/23 06:34 Dose: 3 ml Documented By: ANNY Furosemide (Furosemide 40 Mg/4 Ml Vial) 40 mg IV ONE ONE Stop: 12/18/23 06:57 Last Admin: 12/18/23 07:09 Dose: 40 mg Documented By: JENNIFER Methylprednisolone (Methylprednisolone 125 Mg/2 Ml Vial) 125 mg IV NOW STA Stop: 12/18/23 06:36 Last Admin: 12/18/23 06:39 Dose: 125 mg Documented By: ANNY Nitroglycerin (Nitroglycerin Sl 0.4 Mg/Tab Tab) 0.4 mg SL NOW STA Stop: 12/18/23 05:41 Last Admin: 12/18/23 05:47 Dose: 0.4 mg Documented By: ANNY Nitroglycerin (Nitroglycerin Sl 0.4 Mg/Tab Tab) 0.4 mg SL NOW STA Stop: 12/18/23 07:05 Last Admin: 12/18/23 07:09 Dose: 0.4 mg Documented By: JENNIFER Nitroglycerin (Nitroglycerin Sl 0.4 Mg/Tab Tab) 0.4 mg SL NOW STA Stop: 12/18/23 07:05 Last Admin: 12/18/23 07:24 Dose: 0.4 mg Documented By: JENNIFER Code Status & VTE Plan Code Status FULL CODE (1) Acute on chronic heart failure Heart failure type: combined systolic and diastolic Qualified Code(s): I50.43 - Acute on chronic combined systolic (congestive) and diastolic (congestive) heart failure
[2023-12-18 08:55] LABS: Base Excess VBG 3.2 mEq/L; HCO3 VBG 31 mmol/L; Oxygen Saturation VBG < 60.0 %; PCO2 VBG 60 mmHg (38-50); PO2 VBG 20 mmHg; pH VBG 7.32 (7.36-7.41)
--- NOTE | 2023-12-18 13:17 | Electrocardiogram Report ---
Test Reason : Blood Pressure : */* mmHG Vent. Rate : 82 BPM Atrial Rate : 82 BPM P-R Int : 298 ms QRS Dur : 148 ms QT Int : 406 ms P-R-T Axes : -17 -33 127 degrees QTcB Int : 474 ms Atrial-paced rhythm with prolonged AV conduction Left axis deviation Non-specific intra-ventricular conduction block Minimal voltage criteria for LVH, may be normal variant Abnormal ECG When compared with ECG of 25-Aug-2023 15:47, Non-specific intra-ventricular conduction block has replaced Right bundle branch block Confirmed by Gregor Najera ([id number]) on 12/18/2023 1:16:24 PM Referred By: REFERRED SELF Confirmed By: Gregor Najera
[2023-12-18] MEDS ORDERED: ACETAMINOPHEN 325 MG TAB PO PRN (13:28)
[2023-12-18] MEDS ORDERED: GLUCAGON FOR INJ 1 MG VIAL SQ PRN (13:28)
[2023-12-18] MEDS ORDERED: DEXTROSE 50% 50 ML SYRINGE IV PRN (13:28)
[2023-12-18] MEDS ORDERED: GLUCOSE 40% GEL 15 GM TUBE PO PRN (13:28)
[2023-12-18] MEDS ORDERED: ONDANSETRON INJ 2 MG/ML 2 ML VIAL IV PRN (13:28)
[2023-12-18] MEDS ORDERED: CARBOHYDRATES FOR HYPOGLYCEMIA PO PRN (13:28)
[2023-12-18] MEDS ORDERED: POLYETHYLENE (MIRALAX) 17 GM PACK PO PRN (13:28)
[2023-12-18] MEDS ORDERED: GLUCOSE 10 TAB/TUBE PO PRN (13:28)
[2023-12-18] MEDS ORDERED: ALBUTEROL 0.083% NEBU SOLN 3 ML VIAL INH PRN (13:28)
[2023-12-18] MEDS: INSULIN ASPART PER UNIT CHARGE SC SCH (14:39)
[2023-12-18] MEDS: carvediloL 25 MG TAB PO SCH (14:42)
[2023-12-18] MEDS: ATORVASTATIN 40 MG TAB PO SCH (14:42)
[2023-12-18] MEDS: HEPARIN SOD 5,000 UNIT/0.5 ML VIAL SQ SCH (14:42)
[2023-12-18] MEDS: oxyCODONE HCL IR 5 MG TAB (IMMEDIATE RELEASE) PO SCH (14:42)
[2023-12-18] MEDS: PANTOprazole 40 MG TAB PO SCH (14:42)
[2023-12-18] MEDS: CLOPIDOGREL BISULFATE 75 MG TAB PO SCH (14:42)
[2023-12-18] MEDS: FLUTICASONE/VILANTEROL 200/25MCG 14 PUFFS/INHALER INH SCH (14:43)
[2023-12-18] MEDS: FUROSEMIDE 40 MG/4 ML VIAL IV SCH (17:29)
[2023-12-18] MEDS: FERROUS SULFATE 325 MG TAB PO SCH (20:22)
[2023-12-18] MEDS: MEMANTINE HCL 5 MG TAB PO SCH (20:22)
[2023-12-18] MEDS: DOCUSATE SODIUM 100 MG CAP PO SCH (20:22)
[2023-12-18] MEDS: TERAZOSIN HCL 5 MG CAP PO SCH (20:22)
[2023-12-18] MEDS: SENNA 8.6 MG TAB PO SCH (20:22)
[2023-12-18] MEDS ORDERED: OMEGA-3 (PURIFIED FISH OIL) 1 GM CAP PO SCH (21:00)
[2023-12-19 06:36] LABS: Base Excess VBG 3.4 mEq/L; HCO3 VBG 29 mmol/L; Oxygen Saturation VBG < 60.0 %; PCO2 VBG 44 mmHg (38-50); PO2 VBG 31 mmHg; pH VBG 7.42 (7.36-7.41)
[2023-12-19 06:46] LABS: Hematocrit (blood only) 39.5 % (42.0-52.0); Mean Corpuscular Hemoglobin 30.7 pg (25.0-34.0); Mean Corpuscular Hgb Conc 32.9 g/dL (32.0-36.0); Mean Corpuscular Volume 93.2 fL (80.0-100.0); Mean Platelet Volume 9.7 fL (9.4-12.4); Platelet Count 213 K/uL (130-400); RDW Coefficient of Variation 14.2 % (11.5-14.5); RDW Standard Deviation 47.7 fL (36.4-46.3); Red Blood Count 4.24 M/uL (4.70-6.10); White Blood Count 15.45 K/ul (4.8-10.8)
[2023-12-19 07:08] LABS: Estimated Average Glucose 166 mg/dl; Hemoglobin A1C 7.4 % (4.5-5.6)
[2023-12-19 07:13] LABS: BUN Creatinine Ratio 20.1 (10-20); Calcium 8.8 mg/dl (8.6-10.3); Creatinine Clr Calc Pharmacy 27.3 ml/min; Est GFR (African American) 31.9 ml/min; Est GFR (Non-African American) 27.5 ml/min; Magnesium 1.6 mg/dl (1.7-2.4); Phosphorus 3.5 mg/dl (2.5-4.9); Potassium 4.1 mmol/L (3.5-5.1)
[2023-12-19] MEDS: DULoxetine HCL 60 MG CAP PO SCH (08:56)
[2023-12-19] MEDS: ASCORBIC ACID 500 MG TAB PO SCH (08:56)
[2023-12-19] MEDS: CHOLECALCIFEROL 125 MCG (5,000 UNITS) TAB PO SCH (08:56)
--- NOTE | 2023-12-19 10:58 | Electrocardiogram Report ---
Test Reason : Blood Pressure : */* mmHG Vent. Rate : 80 BPM Atrial Rate : 80 BPM P-R Int : 352 ms QRS Dur : 144 ms QT Int : 400 ms P-R-T Axes : -23 27 214 degrees QTcB Int : 461 ms Atrial-paced rhythm with prolonged AV conduction Non-specific intra-ventricular conduction block T wave abnormality, consider inferolateral ischemia Abnormal ECG When compared with ECG of 18-Dec-2023 05:33, QRS axis Shifted right T wave inversion now evident in Inferior leads T wave inversion more evident in Lateral leads Confirmed by Gregor Najera ([id number]) on 12/19/2023 10:58:46 AM Referred By: REFERRED SELF Confirmed By: Gregro Najera
[2023-12-19] MEDS: ISOSORBIDE MONO EXTENDED REL 30 MG TABCR PO SCH (11:21)
--- NOTE | 2023-12-19 12:47 | Hospitalist Progress Note ---
<Statement entered by Jackson Wilde, DO - 12/19/23 15:23> I have seen and examined the patient and have discussed the case with the provider above. I have reviewed the advanced practitioner's documentation, and I agree with, and take responsibility for that plan of care. 17 minutes spent on coordination care and examined the patient. Patient reports that he has no shortness of breath or chest pain. Significantly all different blood pressures noted in right versus left upper extremity. 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], COPD, DM type II, chronic respiratory failure with hypoxia and hypercapnia (history of noncompliance with supplement oxygen therapy), HTN, HLD, left renal clear cell carcinoma s/p partial left nephrectomy [2019], CKD stage III, BPH, chronic back pain on opioid therapy, chronic combined systolic and diastolic HF, history of lacunar infarct [2022], history of left carotid endarterectomy following left hemispheric CVA [2012], significant PVD history with multiple interventions, chronic paresthesia LLL [since 2015 surgery], history of tobacco use, vascular dementia, history of iron deficiency anemia and other medical problems listed below who presented to the ED for evaluation of increasing SOB, chest pain and dry cough. Monday, 12/18: Was notified by nursing staff this afternoon that the patient's BP was 182/82 in the L arm and 97/66 in the R arm. Will proceed with obtaining a RUE arterial duplex US to rule out any acute findings. RUE well-perfused on examination. Acute on Chronic Combined Systolic & Diastolic Heart Failure CXR w/ cardiomegaly and moderate pulmonary edema on presentation. Patient administered 40mg IV Lasix in the ED. He received another dose of 40mg IV Lasix on 12/17 in the evening. Strict I&Os, daily weights, 2L daily fluid restriction and low sodium diet. Weight down to 75.8kg today from 81.4kg on admission per chart review. Trop slightly elevated at 37.2 on presentation, trop has remained elevated in the 40s-50s. Elevated trop likely ISO chronic heart failure, appears baseline trop ~40-80 per chart review. EKG w/out ischemic changes on admission. BNP was 44,514 on 07/18/23 per chart review. Repeat EKG this morning still w/o ischemic changes, patient denies any chest pain. EKG w/ chest pain PRN. Echo done in May 2023 showing EF 35-40%, mild concentric LVH and moderate global hypokinesis of LV. Acute on Chronic Respiratory Failure with Hypoxia, COPD/Emphysema H/O Noncompliance with Supplemental Oxygen Therapy No leukocytosis on admission, RVP negative. Admitting VBG w/ resp acidosis - pH 7.32 and pCO2 elevated at 60. No anion gap on presentation. Repeat VBG this morning showing improvement in res piratory acidosis. Patient noncompliant w/ supplement oxygen therapy at home per son. Will continue w/ 2L supplement O2 therapy via NC. Can continue TRAVEL PT nebulizer treatments PRN and daily Breo Ellipta inhaler therapy. Hypertension History of labile BP during previous admissions in setting of severe PAD. Patient with low BP of 95/62 this morning around 9AM. Held his dose of IV Lasix this morning, as well as his TRAVEL PT Coreg and Imdur. CKD Stage III H/O Left Renal Cell Carcinoma Patient s/p partial left nephrectomy in 2019. Baseline Cr ~1.8-2.2 per chart review. Cr 1.86 on admission, Cr increased to 2.29 today. Held Lasix this morning. Continue to monitor renal function and avoid nephrotoxic meds when able. DM Type II Holding TRAVEL PT diabetic agents, SSI regimen while inpatient. BSG checks ACHS, Hgb A1c 7.4% this admission. Iron Deficiency Anemia Hgb stable today at 13.0, baseline Hgb ~12-13 per chart review. Continue TRAVEL PT iron supplementation therapy and monitor Hgb closely. H/O Tachy-Bacilio Syndrome: [place] s/[place] pac[place] [address] Elias sood. H/O Lacunar Stroke [2022] PAD S/P Left Carotid Endarterectomy [2012] Continue TRAVEL PT atorvastatin and Plavix. Coronary Artery Disease - Presumed CAD as per previous cardiology documentation. Continue TRAVEL PT Plavix and atorvastatin. TRAVEL PT Coreg and Imdur both held this morning 2/2 hypotension. Vascular Dementia No confusion, mentation at baseline on admission. Son reports progressive increase in confusion and forgetfulness at home. Patient however is fully alert, aware and conversing appropriately this morning. Chronic Back Pain on Chronic Opioid Therapy Can continue w/ TRAVEL PT oxycodone therapy. Avoid any additional opioid or sedative therapy given dementia as above. Delirium precautions in place. DVT Prophylaxis: SQ Heparin Code Status: FULL CODE PCP: Chad Jara MD Disposition: Admitted in Med/Surg + Telemetry, potential discharge either later on this evening or tomorrow. Patient seen in collaboration with Dr. Wilde. Please see addendum. I spent a total of 50 minutes coordinating, documenting, and providing care for this patient excluding time spent in the performance of separately billed services. This included personally reviewing all current laboratories and imaging studies, medical reconciliation, outpatient chart review and discussion with specialists. This chart was completed in part utilizing Speech Voice Recognition Software. Grammatical errors, random word insertions, pronoun errors, and incomplete sentences are an occasional consequence of this system due to software limitations, ambient noise, and hardware issues. Any formal questions or c oncerns about the content, text, or information contained within the body of this dictation should be directly addressed to the provider for clarification. Admission and Anticipated Discharge Date Admission Date: December 18, 2023 Subjective Patient seen and examined at bedside in room N277-1. Reports that he feels well this morning. Denies any chest pain or SOB. No acute concerns or complaints this morning. Patient would like to go home as soon as he can. Review of Systems Review of Systems: At least ten systems reviewed and negative, except as noted in the HPI. Physical Exam Physical Exam: General: WD/WN, vitals as above, NAD, sitting up in bed, pleasant, conversing appropriately. A+Ox3, euthymic affect. HEENT: Normocephalic, atraumatic. Conjunctivae normal, anicteric sclerae. External ear and nose normal, oropharynx normal. Respiratory: Lung sounds decreased bilaterally, few crackles heard in L lung base, no wheezing. No accessory muscle use. Cardiovascular: Regular rate, rhythm, no murmur, normal peripheral pulses, no BLE edema. Vessels: No JVD. Abdomen/GI: Normal bowel sounds, soft, nontender, no hepatosplenomegaly. Extremities/Musculoskeletal: No cyanosis or clubbing, observed ambulation with normal gait, moves all extremities. Neurologic: PERRL, EOMI, no focal deficits, CN's II-XI not formally tested but appear grossly intact bilaterally. Skin: No rashes, normal color, warm/dry. Results & Data Results & Data Vital Signs (Past 12 Hours) Vital Signs Temp Pulse Pulse Resp BP BP Pulse Ox 12/19/23 11:33 36.4 C L 84 16 88/58 L 175/73 H 95 12/19/23 08:36 36.4 C L 85 17 95/67 L 92 12/19/23 07:45 80 12/19/23 02:35 36.4 C L 83 16 103/71 95 12/19/23 01:00 81 O2 Del Method O2 Flow Rate 12/19/23 11:33 Room Air 12/19/23 08:36 Room Air 12/19/23 07:45 12/19/23 02:35 Nasal Cannula 2 12/19/23 01:00 Laboratory Results Short CBC 12/19/23 Range/Units 06:17 WBC 15.45 H (4.8-10.8) K/ul Hgb 13.0 L (14.0-18.0) g/dl Hct 39.5 L (42.0-52.0) % Plt Count 213 (130-400) K/uL BMP 12/19/23 06:17 Sodium 137 Potassium 4.1 Chloride 99 Carbon Dioxide 28 BUN 46 H Creatinine 2.29 H D Glucose 208 H Calcium 8.8 (1) Acute on chronic heart failure Heart failure type: combined systolic and diastolic Qualified Code(s): I50.43 - Acute on chronic combined systolic (congestive) and diastolic (congestive) heart failure
--- NOTE | 2023-12-19 15:07 | Ultrasound Report ---
US arterial duplex UE RT CLINICAL HISTORY: subclavian steal, low bp RUE PROCEDURE: Right upper extremity real-time arterial vascular ultrasound with Duplex and color Doppler imaging. Comparison: None available at the time of this dictation. FINDINGS/IMPRESSION: Vertebral artery demonstrates antegrade flow of 112 cm/s. Maximum systolic velocity in the subclavian artery measures 164 cm/s. No retrograde flow is seen. ACT 112: Negative or not required by law. Electronically signed by: Juan Diego Parsons M.D. 12/19/2023 3:06 PM
--- NOTE | 2023-12-19 22:09 | Ultrasound Report ---
Exam(s): US ARTERIAL LEFT UPPER EXTREMITY EXAM: US Duplex Left Upper Extremity Arteries CLINICAL HISTORY: low BP LUE. TECHNIQUE: Real-time duplex ultrasound scan of the left upper extremity arteries integrating B-mode two-dimensional vascular structure, Doppler spectral analysis and color flow Doppler imaging. COMPARISON: No relevant prior studies available. FINDINGS: Left subclavian artery: Left subclavian: Monophasic to biphasic waveforms of the left subclavian artery with peak systolic velocities measuring between 23 7 m/s and 58 cm/s. Left axillary artery: Not evaluated. Left brachial artery: Not evaluated. Left radial artery: Not evaluated. Left ulnar artery: Not evaluated. Other arteries: Left vertebral: There is reversal of flow in the left vertebral artery with the peak systolic velocity at 94 cm/s. Biphasic waveforms. Soft tissues: Limited. No soft tissue abnormality. Other findings: The left subclavian vein was interrogated and is patent. IMPRESSION: 1. Limited focused imaging performed of the left upper extremity with only the left subclavian artery and vein interrogated. 2. There is reversal of flow in the left vertebral artery and diminished peak systolic velocities of the left subclavian artery. These findings suggest proximal left subclavian artery stenosis. CTA evaluation is recommended for further analysis. Electronically signed by: Ike Hernandez MD 12/19/23 22:08 PM
[2023-12-19] MEDS: LABETALOL HCL IV 5 MG/ML 20ML IV PRN (23:13)
[2023-12-20] MEDS: LABETALOL HCL IV 5 MG/ML 20ML IV STA (00:01)
[2023-12-20 06:28] LABS: Hematocrit (blood only) 37.8 % (42.0-52.0); Hemoglobin 12.2 g/dl (14.0-18.0); Mean Corpuscular Hemoglobin 30.1 pg (25.0-34.0); Mean Corpuscular Hgb Conc 32.3 g/dL (32.0-36.0); Mean Corpuscular Volume 93.3 fL (80.0-100.0); Mean Platelet Volume 9.6 fL (9.4-12.4); Platelet Count 206 K/uL (130-400); RDW Coefficient of Variation 14.2 % (11.5-14.5); RDW Standard Deviation 48.5 fL (36.4-46.3); Red Blood Count 4.05 M/uL (4.70-6.10); White Blood Count 10.51 K/ul (4.8-10.8)
[2023-12-20 06:52] LABS: BUN Creatinine Ratio 20.5 (10-20); Calcium 8.7 mg/dl (8.6-10.3); Creatinine Clr Calc Pharmacy 24.6 ml/min; Est GFR (African American) 28.1 ml/min; Est GFR (Non-African American) 24.3 ml/min; Magnesium 1.7 mg/dl (1.7-2.4); Phosphorus 3.4 mg/dl (2.5-4.9)
[2023-12-20] MEDS: FUROSEMIDE 80 MG TAB PO SCH (08:05)
--- NOTE | 2023-12-20 09:55 | Communication Note ---
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 Will therefore cancel the routine vascular surgery consult that was placed this morning. Patient already follows [facility].
--- NOTE | 2023-12-20 11:03 | Discharge Summary ---
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], COPD, DM type II, chronic respiratory failure with hypoxia and hypercapnia (history of noncompliance with supplement oxygen therapy), HTN, HLD, left renal clear cell carcinoma s/p partial left nephrectomy [2019], CKD stage III, BPH, chronic back pain on opioid therapy, chronic combined systolic and diastolic HF, history of lacunar infarct [2022], history of left carotid endarterectomy following left hemispheric CVA [2012], significant PVD history with multiple interventions, chronic paresthesia LLL [since 2015 surgery], tobacco use, vascular dementia, history of iron deficiency anemia and other medical problems listed below who presented to the ED for evaluation of increasing SOB, chest pain and dry cough. History obtained from patient and associated chart review. Patient reports that he woke up this morning feeling rather short of breath and was also experiencing some left-sided chest pain. Patient states he also has a dry cough. He denies any recent illnesses or known sick contacts. No fevers, body aches or chills. He mentions that he slept very poorly last night secondary to his cough keeping him up. Patient reports complete resolution of his chest pain following administration of sublingual nitroglycerin in the ED. He also received an albuterol nebulizer treatment in the ED, which he reports has helped with his breathing. Patient was also administered a dose of IV Lasix in the ED secondary to findings of moderate pulmonary edema on chest x-ray. Patient mentions that he has supplemental oxygen at home available to him, but he does not use it much at all. Patient is saturating well on 2L of supplemental oxygen via nasal cannula in the ED. Patient denies any abdominal pain or urinary/bowel habit concerns. He denies any recent lower extremity swelling/edema. Spoke with the patient's son, Chris, over the phone to gather more information given patient's history of vascular dementia. Chris reports that his father woke up this morning and was yelling out for help due to increasing shortness of breath, which therefore prompted him to bring him into the ED. Son reports that he has become progressively more confused and forgetful at home. He has supplemental oxygen therapy at home available for him, but he does not use this regularly per his son. The patient does live at home with his son and has a museum technician who visits him daily. Patient does have nebulizer treatments available at home, but his son mentions that he does not use them very much. His son reports that he has been doing well up until this morning. He denies any recent illnesses, falls or trauma. Patient did not take any of his medications this morning. Admission Exam Per Admitting Provider General: WD/WN, vitals as above, NAD, sitting up in bed, pleasant, conversing appropriately. A+Ox3, euthymic affect. HEENT: Normocephalic, atraumatic. Conjunctivae normal, anicteric sclerae. External ear and nose normal, oropharynx normal. Respiratory: Diminished bibasilar breath sounds, no wheeze, rales, rhonchi. No accessory muscle use. Cardiovascular: Regular rate, rhythm, no murmur, normal peripheral pulses, no BLE edema. Vessels: No JVD. Abdomen/GI: Normal bowel sounds, soft, nontender, no hepatosplenomegaly. Extremities/Musculoskeletal: No cyanosis or clubbing, observed ambulation with normal gait, moves all extremities. Neurologic: PERRL, EOMI, no focal deficits, CN's II-XI not formally tested but appear grossly intact bilaterally. Skin: No rashes, normal color, warm/dry. Principal Diagnosis Acute on Chronic Heart Failure Acute on Chronic Respiratory Failure with Hypoxia Discharge Exam General: WD/WN, vitals as above, NAD, sitting up in bed, pleasant, conversing appropriately. A+Ox3, euthymic affect. HEENT: Normocephalic, atraumatic. Conjunctivae normal, anicteric sclerae. External ear and nose normal, oropharynx normal. Respiratory: Lung sounds decreased bilaterally, no crackles, no wheezing. No accessory muscle use. Cardiovascular: Regular rate, rhythm, no murmur, normal peripheral pulses, no BLE edema. Vessels: No JVD. Abdomen/GI: Normal bowel sounds, soft, nontender, no hepatosplenomegaly. Extremities/Musculoskeletal: No cyanosis or clubbing, observed ambulation with normal gait, moves all extremities. Neurologic: PERRL, EOMI, no focal deficits, CN's II-XI not formally tested but appear grossly intact bilaterally. Skin: No rashes, normal color, warm/dry. 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], COPD, DM type II, chronic respiratory failure with hypoxia and hypercapnia (history of noncompliance with supplement oxygen therapy), HTN, HLD, left renal clear cell carcinoma s/p partial left nephrectomy [2019], CKD stage III, BPH, chronic back pain on opioid therapy, chronic combined systolic and diastolic HF, history of lacunar infarct [2022], history of left carotid endarterectomy following left hemispheric CVA [2012], significant PVD history with multiple interventions, chronic paresthesia LLL [since 2014 surgery], history of tobacco use, vascular dementia, history of iron deficiency anemia and other medical problems listed below who presented to the ED on 12/17 for evaluation of increasing SOB, chest pain and dry cough. He was admitted with ac three affiliated on chronic heart failure and acute on chronic respiratory failure with hypoxia. Acute on Chronic Combined Systolic & Diastolic Heart Failure CXR w/ cardiomegaly and moderate pulmonary edema on presentation. Patient administered 40mg IV Lasix in the ED. He received another dose of 40mg IV Lasix on 12/17 in the evening. Patient was previously taking 40mg oral Lasix BID prior to arrival. Patient ultimately was transitioned to 80mg oral lasix QAM on 12/19. Strict I&Os, daily weights, 2L daily fluid restriction and low sodium diet were enforced during his admission. Patient's weight improved from 81.4kg at time of presentation to 76.3kg on day of discharge. Patient provided with education regarding continuing with a low sodium diet, daily fluid restriction of 2L or less and doing daily weights to monitor for fluid overload. Trop slightly elevated at 37.2 on presentation, trop has remained elevated in the 40s-50s. Elevated trop likely ISO chronic heart failure, appears baseline trop ~40-80 per chart review. EKG without ischemic changes on admission. BNP was 44,514 on 07/18/23 per chart review. Repeat EKG on 12/18 without ischemic changes, patient denies any chest pain. Echo done in May 2023 showing EF 35-40%, mild concentric LVH and moderate global hypokinesis of LV. Acute on Chronic Respiratory Failure with Hypoxia, COPD/Emphysema H/O Noncompliance with Supplemental Oxygen Therapy No leukocytosis on admission, RVP negative. Admitting VBG w/ resp acidosis - pH 7.32 and pCO2 elevated at 60. No anion gap on presentation. Repeat VBG on 12/18 showed significant improvement in his respiratory acidosis. Patient noncompliant with supplemental oxygen therapy at home per son. He remained on 2L supplement O2 therapy via NC throughout his admission, his O2 saturation remained in the high 90s. Can continue nebulizer treatments PRN and daily Breo Ellipta inhaler therapy at time of discharge. Patient encouraged to wear his oxygen at home. He has home oxygen that is provided through [email or web address]. Also spoke with patient's son regarding this, who plans to work with the patient at home to improve his compliance with wearing his oxygen. Hypertension: History of labile BP during previous admissions in setting of severe PAD. Can continue his Lasix, Coreg and Imdur at time of discharge. CKD Stage III H/O Left Renal Cell Carcinoma Patient s/p partial left nephrectomy in 2019. Baseline Cr ~1.8-2.5 per chart review. Cr 1.86 on admission, Cr 2.54 at time of discharge. Will need repeat BMP in ~1 week to monitor his renal function. DM Type II: Can resume [employer] diabetic agents at time of discharge, Hgb A1c 7.4% this admission. Iron Deficiency Anemia: Hgb remained stable throughout his admission, baseline Hgb ~12-13 per chart review. Continue iron supplementation therapy at time of discharge. H/O Tachy-Bacilio Syndrome: [place] pac[place] [address] Live. H/O Lacunar Stroke [2022] PAD S/P Left Carotid Endarterectomy [2012] Continue [employer] atorvastatin and Plavix at time of discharge. Coronary Artery Disease - Presumed CAD as per previous cardiology documentation. Continue [employer] Plavix and atorvastatin at time of discharge. Vascular Dementia: No confusion, mentation at baseline throughout admission. Chronic Back Pain on Chronic Opioid Therapy: Can continue [employer] oxycodone therapy at time of discharge. Left Subclavian Artery Stenosis Was notified by nursing staff in the afternoon on 12/18 that the patient's BP was 182/82 in the R arm and 97/66 in the L arm. After speaking the with patient's son, he does have a chronic history of left subclavian artery stenosis. [facility] PCP: Chad Jara MD Disposition: Discharging patient to home this afternoon. Patient seen in collaboration with Dr. Mathew. Please see addendum. I spent a total of 50 minutes coordinating, documenting, and providing care for this patient excluding time spent in the performance of separately billed services. This included personally reviewing all current laboratories and imaging studies, medical reconciliation, outpatient chart review and discussion with specialists. This chart was completed in part utilizing Speech Voice Recognition Software. Grammatical errors, random word insertions, pronoun errors, and incomplete sentences are an occasional consequence of this system due to software limitations, ambient noise, and hardware issues. Any formal questions or concerns about the content, text, or information contained within the body of this dictation should be directly addressed to the provider for clarification. Home Health Attestation I certify that this patient is under my care and that I, or a physicians regulatory assistant working with me, had a face to-face encounter that meets the home health [id number] encounter requirements with this patient. The encounter with the patient was in whole, or in part, for the following medical condition, which is the primary reason for home health care (list medical condition): I certify that, based on my findings, the following services are medically necessary home health services: My clinical findings support the need for the above services because: Further, I certify that my clinical findings support that this patient is homebound (i.e. absences from home require considerable and taxing effort and are for medical reasons or jehovah's witness services or infrequently or of short duration when for other reasons) because: Certification for Home Health Services: Based on the above findings, I certify that this patient is confined to the home and needs intermittent care home care, physical therapy and/or speech therapy or continues to need occupational therapy. The patient is under my care, and I have initiated the establishment of the plan of care. This patient will be followed by a physician who will periodically review the plan of care. Total Time Total Time Spent Total Time Spent (In Minutes): 50 Discharge Plan Discharge Items Patient Disposition: Home - Self-Care Reason For Visit: ACUTE ON CHRONIC HF, ACUTE ON CHRONIC RESP FAILURE Discharge Diagnosis: Acute on Chronic Heart Failure Acute on Chronic Respiratory Failure with Hypoxia Activity: Resume your previous activity Non-emergency contact: Primary Care Provider Call non-emergency contact if: you have any medication questions, your symptoms worsen and you have a fever Follow-up/Referrals: Chad Jara MD [Primary Care Provider] - (Date & Time 12/27/2023 11:00 AM Provider Chad Jara MD [facility] ) Diet: Carb Consistent or DM2, Heart Healthy and Low Sodium (2gm) Fluids: 2000ml (8 cups) Addtl Attending Provider Instructions: Mr. Boss, You were admitted to the hospital with an acute heart failure exacerbation and acute respiratory failure. You were found to have moderate pulmonary edema on your admitting chest x-ray, meaning there was fluid in your lungs that was making it hard for you to breathe. Therefore, we treated you with IV and oral Lasix (diuretic) therapy to help remove the fluid from your lungs and to assist with your breathing. You have required 2L of supplemental oxygen via nasal cannula throughout your hospitalization. I recommend that you wear your oxygen at home, at least throughout the night like we discussed. Please continue with a low sodium (salt) diet at home and restrict your total daily fluid intake to 2L or less. It would be beneficial for you to weigh yourself at home on a daily basis to make sure you are not retaining fluid - I highly recommend and encourage you to do so. You are being discharged back home today. You are already scheduled to follow-up with your primary care provider (PCP), Dr. Jara, on 12/27/2023 at 11am. MEDICATION NOTICES: * Please continue to take your 40mg of oral furosemide (Lasix) twice daily at home. You can also continue taking your potassium supplement. If you notice a weight gain of 3-5 pounds when you weigh yourself in the morning, please take an additional tablet of your Lasix [for a total of 80mg] and call your PCP immediately. SUMMARY OF TEST RESULTS: * Your creatinine level is 2.54 at time of discharge. RECOMMENDATIONS FOR FOLLOW-UP: * You will need a repeat BMP in approximately 1 week to see how your kidney function is doing. * This can be done at your follow-up appointment with Dr. Jara next week. SEEK MEDICAL ATTENTION IF YOU HAVE: * A temperature above 101. * Chest pain or trouble breathing. * Abdominal pain, nausea or vomiting. * Diarrhea, dark stools or bloody stools. * Any unanswered questions or concerns. Call 911 if symptoms are severe. Please take good care of yourself. It has been a pleasure taking care of you. If you have any questions regarding your recent hospitalization please contact [facility] and request Yoni Terryist @ [phone]. Pending Studies at Discharge: No Stand-Alone Forms: My [facility], Smoking Cessation Medications and DC Order Prescriptions: Continued clopidogrel 75 mg Tablet 75 mg PO QAM albuterol sulfate 90 mcg/actuation Hfa Aerosol Inhaler 2 puff INHALATION Q4H PRN (Reason: SOB or Wheezing) ferrous sulfate 325 mg (65 mg iron) Tablet 325 mg PO AMHS glipizide 10 mg Tablet 10 mg PO QAM albuterol sulfate 2.5 mg /3 mL (0.083 %) Solution For Nebulization 2.5 mg INHALATION Q4H PRN (Reason: Shortness Of Breath Or Wheezing) pantoprazole [Protonix] 40 mg Tablet,Delayed Release (Dr/Ec) 40 mg PO QAM carvedilol 25 mg Tablet 25 mg PO BIDM Qty: 60 0RF duloxetine 60 mg capsule,delayed release(DR/EC) 60 mg PO QAM terazosin 5 mg capsule 5 mg PO HS cholecalciferol (vitamin D3) 125 mcg (5,000 unit) capsule 125 mcg PO QAM fluticasone furoate-vilanterol [Breo Ellipta] 200-25 mcg/dose blister with device 1 inh inhalation QAM isosorbide mononitrate 30 mg tablet extended release 24 hr 30 mg PO QAM omega-3 fatty acids 1,000 mg Capsule 1,000 mg PO BID ascorbic acid (vitamin C) [Vitamin C] 500 mg Tablet,Chewable 500 mg PO DAILY nitroglycerin 0.4 mg tablet, sublingual 0.4 mg sublingual UD PRN (Reason: Chest Pain) Rx Instructions: May repeat 3 times, 5 minutes apart. naloxone 4 mg/actuation Neola,Non-Aerosol 4 mg INTRANASAL UD PRN (Reason: Opioid Overdose) Rx Instructions: Administer 1 spray into 1 nostril for suspected opioid overdose. sennosides [Senokot] 8.6 mg Tablet 8.6 mg PO BID docusate sodium 100 mg Capsule 100 mg PO BID memantine 5 mg tablet 5 mg PO BID oxycodone 10 mg tablet 10 mg PO TID furosemide 40 mg tablet 40 mg PO BID potassium chloride 10 mEq tablet,ER particles/crystals 10 meq PO DAILY Changed atorvastatin 80 mg Tablet 40 mg PO BID Qty: 0 0RF Discharge Orders: Discharge Order (Routine); Ordered 12/20/23 Ordered By: Anayeli Rogers/Other Patient Handouts: What Is Heart Failure, Managing Type 2 Diabetes, Coping with Heart Failure Admission Data Admit Date/Time: 12/18/23 08:06 Attending Provider: Armin Mathew Admit Provider: Jackson Wilde Primary Care Provider: Chad Jara Other Providers: Jackson Wilde Other Interventions: Discharge Summary Assessment (RN) Last Done: 12/20/23 12:06 Supervising Physician Co-Signing Physician Notes Patient seen and examined at bedside. He reports significant improvement in his shortness of breath, oxygen requirement is back to baseline. I discussed with the patient and patient's son at bedside regarding monitoring daily weights at home. I discussed about increasing dose of Lasix if they notice increased lower extremity swelling and noticed increased weight of 3 pounds. They verbalized understanding. I have reviewed the advanced practitioner's documentation, and I agree with, and take responsibility for the plan of care I spent a total of 20 minutes coordinating, documenting, and providing care for this patient excluding time spent in the performance of separately billed services. All of the aforementioned completed while collaborating with the assigned advanced practitioner for a full treatment plan
[2023-12-20 11:24] VITALS: BP 152/69; PULSE 75; RESP 18; TEMP 97; O2SAT 96
== END 2023-12-20 13:45 | disposition home or self-care (01) | DRG 291 ==
LOC: ED 05:17 → 4W 08:06 → SUATTDRO 08:06 → 4W 13:16 → 2N 12-19 00:07
DX: N18.30 Chronic kidney disease, stage 3 unspecified; M54.9 Dorsalgia, unspecified; D50.9 Iron deficiency anemia, unspecified; Z86.73 Personal history of transient ischemic attack (TIA), and cerebral infarction without residual deficits; Z91.199 Patient's noncompliance with other medical treatment and regimen due to unspecified reason; J96.21 Acute and chronic respiratory failure with hypoxia; I50.43 Acute on chronic combined systolic (congestive) and diastolic (congestive) heart failure; Z79.899 Other long term (current) drug therapy; F01.50 Vascular dementia, unspecified severity, without behavioral disturbance, psychotic disturbance, mood disturbance, and anxiety; I13.0 Hypertensive heart and chronic kidney disease with heart failure and stage 1 through stage 4 chronic kidney disease, or unspecified chronic kidney disease; G89.29 Other chronic pain; J44.9 Chronic obstructive pulmonary disease, unspecified; E11.9 Type 2 diabetes mellitus without complications; J43.9 Emphysema, unspecified; I77.1 Stricture of artery; Z85.528 Personal history of other malignant neoplasm of kidney; Z95.0 Presence of cardiac pacemaker; I25.10 Atherosclerotic heart disease of native coronary artery without angina pectoris; Z90.5 Acquired absence of kidney; J96.22 Acute and chronic respiratory failure with hypercapnia; Z79.891 Long term (current) use of opiate analgesic; E87.29 Other acidosis; Z79.02 Long term (current) use of antithrombotics/antiplatelets; Z87.891 Personal history of nicotine dependence

== ENCOUNTER 2023-12-29 17:22 | Observation (INO) ==
[2023-12-29 18:04] LABS: Basophils # (auto) 0.04 K/uL (0.00-0.20); Basophils % (auto) 0.2 %; Eosinophils # (auto) 0.11 K/uL (0.00-0.50); Eosinophils % (auto) 0.6 %; Hematocrit (blood only) 41.5 % (42.0-52.0); Hemoglobin 13.4 g/dl (14.0-18.0); Immature Granulocytes # (auto) 0.23 K/uL (0.01-0.20); Immature Granulocytes % (auto) 1.3 %; Lymphocytes # (auto) 1.04 K/uL (1.20-3.40); Lymphocytes % (auto) 5.8 %; Mean Corpuscular Hemoglobin 30.1 pg (25.0-34.0); Mean Corpuscular Hgb Conc 32.3 g/dL (32.0-36.0); Mean Corpuscular Volume 93.3 fL (80.0-100.0); Mean Platelet Volume 9.8 fL (9.4-12.4); Monocytes # (auto) 1.32 K/uL (0.11-0.59); Monocytes % (auto) 7.3 %; Neutrophils # (auto) 15.22 K/uL (1.40-6.50); Neutrophils % (auto) 84.8 %; Platelet Count 259 K/uL (130-400); RDW Coefficient of Variation 14.1 % (11.5-14.5); RDW Standard Deviation 48.2 fL (36.4-46.3); Red Blood Count 4.45 M/uL (4.70-6.10); White Blood Count 17.96 K/ul (4.8-10.8)
--- NOTE | 2023-12-29 18:09 | XRay Report ---
XR shoulder LT min 2V routine CLINICAL HISTORY: left shoulder pain fall TECHNIQUE: 3 views of the right shoulder were obtained. Comparison: None available at the time of this dictation. FINDINGS: There is no evidence of an acute fracture. Joint spaces are well-preserved. The overlying soft tissue s are unremarkable. The visualized portions of the lungs are clear. IMPRESSION: No evidence of acute osseous injury. ACT 112: Negative or not required by law. Electronically signed by: Juan Diego Parsons M.D. 12/29/2023 6:08 PM
--- NOTE | 2023-12-29 18:10 | XRay Report ---
XR chest 1V portable CLINICAL HISTORY: chf TECHNIQUE: Single frontal radiograph of the chest was obtained. Comparison: Comparison is made to chest radiograph 12/18/2023 FINDINGS: An implanted pacemaker is seen. Calcified aortic knob is seen. The lungs are clear. No evidence of pl eural effusion or pneumothorax. IMPRESSION: No acute chest disease. ACT 112: Negative or not required by law. Electronically signed by: Juan Diego Parsons M.D. 12/29/2023 6:09 PM
[2023-12-29 18:15] LABS: Albumin Globulin Ratio 1.1 (0.9-2); BUN Creatinine Ratio 21.8 (10-20); Bilirubin,Total 0.7 mg/dl (0.2-1.0); Calcium 9.4 mg/dl (8.6-10.3); Creatinine Clr Calc Pharmacy 24.8 ml/min; Est GFR (African American) 28.4 ml/min; Est GFR (Non-African American) 24.5 ml/min; Globulin 3.5 gm/dl (2.5-4.0); Potassium 4.6 mmol/L (3.5-5.1); Total Protein 7.5 gm/dl (6.0-8.3)
--- NOTE | 2023-12-29 18:43 | CT Scan Report ---
CT head/brain wo con CLINICAL HISTORY: trauma Technique: Contiguous axial CT images of the head were acquired from the base of the skull to the merline giancarlo without intravenous contrast administration. Images were viewed in brain, subdural and bone [facility]. Automated dose lowering techniques and/or adjustment according to patient size were utilized for this exam. Comparison: Comparison is made to CT head 05/10/2023 Findings: Areas of decreased attenuation are present in the periventricular and subcortical white matter bilate rally consistent with small vessel ischemic disease. Generalized cerebral atrophy with commensurate e nlargement of the ventricles, sulci, and cisterns is also present. There is no acute intracranial hem orrhage or evidence of acute territorial infarction. No shift of the midline structures, mass effect, or extra-axial abnormalities are shown. Atherosclerotic calcifications are present in the intracran ial segments of the internal carotid arteries. Focal encephalomalacia is again seen in the right mikaela etal cortex. Imaged portions of the paranasal sinuses and mastoid air cells are clear. The orbits appear normal. There are no acute fractures of the calvaria or scalp swelling. Impression: No acute intracranial hemorrhage, no evidence of acute territorial infarction or other acute intracra nial disease process. ACT 112: Negative or not required by law. Electronically signed by: Juan Diego Parsons M.D. 12/29/2023 6:41 PM
[2023-12-29 18:45] LABS: HCO3 VBG 30 mmol/L; Oxygen Saturation VBG < 60.0 %; PCO2 VBG 61 mmHg (38-50); PO2 VBG < 20 mmHg
--- NOTE | 2023-12-29 18:45 | CT Scan Report ---
CT cervical spine wo con CLINICAL HISTORY: trauma TECHNIQUE: Multidetector row helical CT of the cervical spine was performed without administration of intravenous contrast. Coronal and sagittal reformations were obtained. Automated dose lowering techn iques and/or adjustment according to patient size were utilized for this exam. Comparison: None available at the time of this dictation. FINDINGS: No acute fractures or subluxations are identified. Degenerative changes are seen in the visualized sp ine. ACDF spans C4-C7. The alignment is normal. Prominent calcification in the right carotid bulb and left carotid stent are seen. IMPRESSION: Degenerative changes without evidence of acute bony injury. ACT 112: Negative or not required by law. Electronically signed by: Juan Diego Parsons M.D. 12/29/2023 6:43 PM
[2023-12-29 19:01] LABS: Partial Thromboplastin Time 27 Seconds (21-31); Prothrombin Time 11.1 Seconds (9.0-12.0)
[2023-12-29 19:04] LABS: Magnesium 1.9 mg/dl (1.7-2.4)
[2023-12-29 19:11] LABS: Troponin I High Sensitivity 30.4 pg/ml (0-20)
[2023-12-29 19:50] LABS: Appearance Urine Clear (Clear); Bacteria Urine Automated None Seen (None Seen); Bilirubin Urine Negative (Negative); Blood Urine Negative (Negative); Cast Urine Automated 0-2 /lpf (0-2); Color Urine Yellow; Epithelial Cell Urine Auto 0-2 /hpf (0-2); Glucose Urine UA Negative (Negative); Ketones Urine Negative (Negative); Leukocyte Esterase Urine Negative (Negative); Nitrite Urine Negative (Negative); Protein Urine 3+ (Negative); RBC Urine Automated 0-2 /hpf (0-2); Specific Gravity Urine 1.015 (1.000-1.030); Urobilinogen Urine Negative (Negative); WBC Urine Automated 0-5 /hpf (0-5); pH Urine 5.5 (4.5-7.5)
[2023-12-29 20:24] LABS: Amphetamines+Metham, Urine Neg (Neg); Barbiturates, Urine Neg (Neg); Benzodiazepine, Urine Neg (Neg); Cocaine, Urine Neg (Neg); Fentanyl, Urine Neg (Neg); MDMA (Ecstacy), Urine Neg (Neg); Marijuana, Urine Neg (Neg); Methadone, Urine Neg (Neg); Opiate, Urine Neg (Neg); Phencyclidine, Urine Neg (Neg)
--- NOTE | 2023-12-29 20:56 | History & Physical Report ---
Date of Service December 29, 2023 Assessment & Plan (1) CAD (coronary artery disease): (2) Diabetes mellitus, type 2: (3) CKD (chronic kidney disease) stage 3, GFR 30-59 ml/min: (4) CHF (congestive heart failure): (5) GERD (gastroesophageal reflux disease): (6) Hyperlipidemia: Plan Mr. Boss is a 73 year old male that presents to the ED after experiencing a fall. He reports that he was walking to the bathroom to go to the bathroom and felt a little dizziy and fell. He did hit the back of his head, but does remember falling. He denies LOC. He does take Plavix. Patient had a recent admission from 12/17-12/19 for which he was admitted for SOB and left-sided chest pain that improved with taking Nitro. He was discharged home on the same medications without intervention. Since his return home, his caregiver indicated that he has had more cognitive decline. Previous admission Palliative medicine was consulted given complexity of numerous chronic medical conditions; given recurrent hospitalizations and HfrEF and advancing dementia, would consider re-involvement of Palliative Medicine. Leukocytosis 17.96, Procalcitonin negative, lactate normal, VBG: pH7.30, Co261, HCO3 30, creatinine 2.52 (baseline 1.86-2.2) no transaminitis, glucose 189, and otherwise electrolytes normal.Mg+ 1.9. BNP 160; most recent admit > 2000. ETOH level 11 but he does deny any ETOH use. Head CT with negative for ICH, SDH or midline shift. CXR negative and cervical spine CT revealed degenerative changes. Most recent ECHO 10/05/23: LVEF 38% with LV wall concentric. mild AR, moderate MR, mild TR and severe LVH. Syncope: Fall: Generalized weakness: Acute Recent admit 12/17-12/19 Leukocytosis 17.96 ETOH level 11.0 CXR negative CSCT degenerative changes Head CT: negative for ICH, SDH, and midline shift Most recent ECHO: 10/05/23: LVEF 38% with LV wall concentric. mild AR, moderate MR, mild TR and severe LVH. UA negative Procal negative and lactate normal; does not appear toxic Mg+ 1.9 avoid aggressive IVF; Gentle IVF given extensive HFrEF Check CK given fall Chronic Respiratory failure: Chronic On RA today PH 7.30, CO2 61, HCO3 30 Takes ElliptaBreo inhaler QAM Takes Albuterol inhaler for breakthrough CAD: TBS s/p Pacemaker: chronic PM [place] [address] Live. consider pacer interrogation given syncope check ortho BPs Takes Plavix; will hold for now and repeat head CT; consider restarting based on results HFrEF: Chronic Most recent ECHO: 10/05/23: LVEF 38% with LV wall concentric. mild AR, moderate MR, mild TR and severe LVH. Takes Imdur and Coreg; continue Takes furosemide 40mg PO BID and Potassium; consider holding given worsening ZINA on CKD on RA and appears euvolemic on exam Chronic pain Syndrome: Chronic Takes Oxycodone 10mg PO TID; continue DM2: Chronic Most recent A1C: 12/27/23: 7.2 Takes Glipizde; hold while admitted and place on SSI ACHS CKD: H/O L Renal Cell Carcinoma: Chronic s/p partial L nephrectomy 2019 Serum creatinine 2.52; baseline 1.86-2.2 Avoid nephrotoxic medications Iron Deficiency Anemia Hgb 13.4 on admission, baseline Hgb ~12-13 Most recent anemia workup 12/27/23: Fe+ 89, Transferrin 30, Ferritin 546, TIBC 297 Vascular dementia: Palliative Care Encounter: Chronic Takes Namenda; continue Previous admission Palliative medicine was consulted given complexity of numerous chronic medical conditions; given recurrent hospitalizations and HfrEF and advancing dementia, would consider reinvolvement of Palliative Medicine. Depression: Chronic Takes duloxetine; continue HLD: Chronic Takes atorvastatin;continue GERD: Chronic Takes Protonix; continue BPH: Chronic Takes Terazosin;continue Disposition: PCP: Dr. Jara Code Status: Full Code VTE Prophylaxis: Teds and SCDs for now I spent a total of 84 minutes coordinating, documenting, and providing care for this patient excluding time spent in the performance of separately billed services. All of the aforementioned completed while collaborating with the assigned attending physician for a full treatment plan. Please see their addendum for further details. History of Present Illness Chief Complaint: syncope Primary Care Provider: Chad Jara MD Mr. Boss is a 73 year old male that presents to the ED after experiencing a fall. He reports that he was walking to the bathroom to go to the bathroom and felt a little dizziy and fell. He did hit the back of his head, but does remember falling. He denies LOC. He does take Plavix. Patient had a recent admission from 12/17-12/19 for which he was admitted for SOB and left-sided chest pain that improved with taking Nitro. He was discharged home on the same medications without intervention. Since his return home, his caregiver indicated that he has had more cognitive decline. Previous admission Palliative medicine was consulted given complexity of numerous chronic medical conditions; given recurrent hospitalizations and HfrEF and advancing dementia, would consider re- involvement of Palliative Medicine. Leukocytosis 17.96, Procalcitonin negative, lactate normal, VBG: pH7.30, Co261, HCO3 30, creatinine 2.52 (baseline 1.86-2.2) no transaminitis, glucose 189, and otherwise electrolytes normal.Mg+ 1.9. BNP 160; most recent admit > 2000. ETOH level 11 but he does deny any ETOH use. Head CT with negative for ICH, SDH or midline shift. CXR negative and cervical spine CT revealed degenerative changes. Most recent ECHO 10/05/23: LVEF 38% with LV wall concentric. mild AR, moderate MR, mild TR and severe LVH. He has an extensive PMH that includes H/O AMI s/p stent placement, DM2, TBS s/p PM placement combined chronic CHF, HTN, HLD, MGUS, chronic pain syndrome, vascular dementia, CKD, NICM, chronic respiratory failure, Fe+ deficiency anemia, BPH and depression. Currently, Patient is AAOx4 and able to tell me where he is, he denies MAYO, dizziness, SOB, chest pain, abdominal pain or tenderness, dysuria, constipation/diarrhea. On examination, he is euvolemic, lungs are CTA without adventitious lung sounds, paced on monitor. He reports taking his medications this morning and he states that he eats and drinks adequately; however, I am not sure that this individual is a reliable historian given his vascular dementia. Despite him being able to have conversation in a meaningful manner, I am not certain he would be reliable for decision making. Patient will be admitted for further evaluation and management. Please see A/P for further details. Allergies Allergy/AdvReac Type Severity Reaction Status Date / Time No Known Allergies Allergy Unknown Verified 12/29/23 21:29 Home Medications Medication Instructions Recorded Confirmed Type albuterol sulfate 90 mcg/actuation 2 puff inhalation Q4H PRN SOB or 09/06/18 12/29/23 History aerosol inhaler Wheezing clopidogrel 75 mg tablet 75 mg PO QAM 09/06/18 12/29/23 History ferrous sulfate 325 mg (65 mg 325 mg PO AMHS 09/06/18 12/29/23 History iron) tablet glipizide 10 mg tablet 10 mg PO QAM 09/06/18 12/29/23 History albuterol sulfate 2.5 mg/3 mL 2.5 mg inhalation Q4H PRN 02/01/20 12/29/23 History (0.083 %) solution for nebulization Shortness Of Breath Or Wheezing pantoprazole 40 mg tablet,delayed 40 mg PO QAM 02/01/20 12/29/23 History release (Protonix) carvedilol 25 mg tablet 25 mg PO BIDM #60 tabs 05/13/23 12/29/23 Rx ascorbic acid (vitamin C) 500 mg 500 mg PO DAILY 08/23/23 12/29/23 History chewable tablet (Vitamin C) cholecalciferol (vitamin D3) 125 125 mcg PO QAM 08/23/23 12/29/23 History mcg (5,000 unit) capsule docusate sodium 100 mg capsule 100 mg PO BID 08/23/23 12/29/23 History duloxetine 60 mg capsule,delayed 60 mg PO QAM 08/23/23 12/29/23 History release fluticasone furoate 200 1 inh inhalation QAM 08/23/23 12/29/23 History mcg-vilanterol 25 mcg/dose inhalation powder (Breo Ellipta) isosorbide mononitrate 30 mg 30 mg PO QAM 08/23/23 12/29/23 History tablet,extended release 24 hr memantine 5 mg tablet 5 mg PO BID 08/23/23 12/29/23 History naloxone 4 mg/actuation nasal spray 4 mg intranasal UD PRN Opioid 08/23/23 12/29/23 History Overdose nitroglycerin 0.4 mg sublingual 0.4 mg sublingual UD PRN Chest Pain 08/23/23 0 12/29/23 History tablet omega-3 fatty acids 1,000 mg 1,000 mg PO BID 08/23/23 12/29/23 History capsule sennosides 8.6 mg tablet (Senokot) 8.6 mg PO BID 08/23/23 12/29/23 History terazosin 5 mg capsule 5 mg PO HS 08/23/23 12/29/23 History furosemide 40 mg tablet 40 mg PO BID 12/18/23 12/29/23 History oxycodone 10 mg tablet 10 mg PO TID 12/18/23 12/29/23 History potassium chloride 10 mEq 10 meq PO DAILY 12/18/23 12/29/23 History tablet,extended release(part/cryst) atorvastatin 80 mg tablet (Lipitor) 40 mg PO DAILY 12/30/23 12/30/23 History Past Med/Surg History Problem List (Updated 12/29/23 @ 23:25 by Nicolas Jaimes MD) CHI (closed head injury) (Acute) Syncope (Acute) Uncontrolled hypertension (Acute) Substernal chest pain (Acute) CHF (congestive heart failure) (Acute) Acute on chronic respiratory failure with hypoxia Acute on chronic heart failure Palliative care by specialist Dyspnea and respiratory abnormalities Chronic pain (Chronic) Influenza A CKD (chronic kidney disease) stage 3, GFR 30-59 ml/min (Acute) Congestive heart failure (Acute) Opioid dependence Acute decompensated heart failure Chronic hypoxic respiratory failure COPD (chronic obstructive pulmonary disease) (Acute) WEARS O2 AT 2L HS "SOMETIMES" PAD (peripheral artery disease) CAD (coronary artery disease) Diabetes mellitus, type 2 Labile hypertension Seizure-like activity Episode of shaking (Acute) Elevated troponin (Acute) Tachycardia (Acute) Pulmonary hypertension Cardiomyopathy Encounter for pre-operative examination GI bleed (Acute) Symptomatic anemia (Acute) Acute blood loss anemia Medical History Precordial chest pain Hypertensive crisis Bulging disc LUMBAR AREA Osteoarthritis Anemia HX OF Macular degeneration Hypertension Peripheral neuropathy On home oxygen therapy 2L AT HS Myocardial Infarction 2003 (LIFE FLIGHTED TO COPPELL) Hyperlipidemia GERD (gastroesophageal reflux disease) Surgical History Fusion of spine CERVICAL History of esophagogastroduodenoscopy (EGD) History of colonoscopy History of discectomy CERVICAL H/O eye surgery LASER SURGERY FOR BLEEDING EYE H/O vascular surgery Family History Mother CKD (chronic kidney disease) Social History Smoking Status: Former smoker Tobacco Type: Cigarettes Cigarettes Per Day: 6 -8/day; Second Hand Exposure: Yes; Do You Dip or Chew Tobacco: No; Hx Alcohol Use: No Hx Substance Use: No Preferred Language: Kosovan Communication Ability: Effective Lens Cutter Required: No Beliefs That Will Affect Care: None marital status: Current Living Situation: Family Current Living Situation Comment: Chris Torres Son Feels Safe at Home: Yes Assistive Devices: Walker Review of Systems Review of Systems: Neuro: (-) Falls, trauma, slurred speech HEENT: (-) MAYO, dizziness, dysphagia, visual or auditory changes CV: (-) CP, palpitations, swelling Resp: (-) SOB GI: (-) appetite changes, N/V/D, bowel changes : (-) urinary changes Skin: (-) rashes Psych: (-) anxiety, depression Physical Exam Physical Exam: Please see Dr. Bucio's addendum for physical examination findings Results & Data Results & Data Vital Signs (Past 12 Hours) Vital Signs Temp Pulse Pulse Resp BP BP Pulse Ox 12/29/23 20:00 80 17 142/71 H 93 12/29/23 19:30 139/70 12/29/23 19:30 80 17 92 12/29/23 19:21 76 13 93 12/29/23 19:00 126/66 12/29/23 19:00 80 18 126/66 95 12/29/23 18:57 80 17 94 12/29/23 18:54 80 15 93 12/29/23 18:42 71 15 95 12/29/23 18:30 80 14 110/66 93 12/29/23 18:21 82 15 111/68 94 12/29/23 18:06 80 14 96 12/29/23 18:00 116/61 12/29/23 17:41 12/29/23 17:36 80 12/29/23 17:14 36.6 C 80 18 128/65 94 12/29/23 17:14 36.6 C 80 16 128/65 94 O2 Del Method 12/29/23 20:00 Room Air 12/29/23 19:30 12/29/23 19:30 12/29/23 19:21 12/29/23 19:00 12/29/23 19:00 Room Air 12/29/23 18:57 12/29/23 18:54 12/29/23 18:42 12/29/23 18:30 Room Air 12/29/23 18:21 Room Air 12/29/23 18:06 Room Air 12/29/23 18:00 12/29/23 17:41 Room Air 12/29/23 17:36 12/29/23 17:14 Room Air 12/29/23 17:14 Room Air Laboratory Results Short CBC 12/29/23 Range/Units 17:40 WBC 17.96 H (4.8-10.8) K/ul Hgb 13.4 L (14.0-18.0) g/dl Hct 41.5 L (42.0-52.0) % Plt Count 259 (130-400) K/uL BMP 12/29/23 17:40 Sodium 137 Potassium 4.6 Chloride 99 Carbon Dioxide 28 BUN 55 H Creatinine 2.52 H Glucose 189 H Calcium 9.4 Liver Function 12/29/23 Range/Units 17:40 Total Bilirubin 0.7 (0.2-1.0) mg/dl AST 13 (13-39) U/L ALT 19 (7-52) U/L Alkaline Phosphatase 71 (34-104) U/L Albumin 4.0 (3.4-5.0) gm/dl Urine 12/29/23 Range/Units 18:32 Urine Color Yellow Urine Appearance Clear (Clear) Urine pH 5.5 (4.5-7.5) Ur Specific Sixes 1.015 (1.000-1.030) Urine Protein 3+ H (Negative) Urine Glucose (UA) Negative (Negative) Diagnostic Findings Shoulder X-Ray 12/29/23 17:30 XR shoulder LT min 2V routine CLINICAL HISTORY: left shoulder pain fall TECHNIQUE: 3 views of the right shoulder were obtained. Comparison: None available at the time of this dictation. FINDINGS: There is no evidence of an acute fracture. Joint spaces are well-preserved. The overlying soft tissues are unremarkable. The visualized portions of the lungs are clear. IMPRESSION: No evidence of acute osseous injury. ACT 112: Negative or not required by law. Electronically signed by: Juan Diego Parsons M.D. 12/29/2023 6:08 PM Chest X-Ray 12/29/23 17:31 XR chest 1V portable CLINICAL HISTORY: chf TECHNIQUE: Single frontal radiograph of the chest was obtained. Comparison: Comparison is made to chest radiograph 12/18/2023 FINDINGS: An implanted pacemaker is seen. Calcified aortic knob is seen. The lungs are clear. No evidence of pleural effusion or pneumothorax. IMPRESSION: No acute chest disease. ACT 112: Negative or not required by law. Electronically signed by: Juan Diego Parsons M.D. 12/29/2023 6:[address] 12/29/23 18:08 CT cervical spine wo con CLINICAL HISTORY: trauma TECHNIQUE: Multidetector row helical CT of the cervical spine was performed without administration of intravenous contrast. Coronal and sagittal reformations were obtained. Automated dose lowering techniques and/or adjustment according to patient size were utilized for this exam. Comparison: None available at the time of this dictation. FINDINGS: No acute fractures or subluxations are identified. Degenerative changes are seen in the visualized spine. ACDF spans C4-C7. The alignment is normal. Prominent calcification in the right carotid bulb and left carotid stent are seen. IMPRESSION: Degenerative changes without evidence of acute bony injury. ACT 112: Negative or not required by law. Electronically signed by: Juan Diego Parsons M.D. 12/29/2023 6:[address] 12/29/23 18:08 CT head/brain wo con CLINICAL HISTORY: trauma Technique: Contiguous axial CT images of the head were acquired from the base of the skull to the vertex without intravenous contrast administration. Images were viewed in brain, subdural and bone windows. Automated dose lowering techniques and/or adjustment according to patient size were utilized for this exam. Comparison: Comparison is made to CT head 05/10/2023 Findings: Areas of decreased attenuation are present in the periventricular and subcortical white matter bilaterally consistent with small vessel ischemic disease. Generalized cerebral atrophy with commensurate enlargement of the ventricles, sulci, and cisterns is also present. There is no acute intracranial hemorrhage or evidence of acute territorial infarction. No shift of the midline structures, mass effect, or extra-axial abnormalities are shown. Atherosclerotic calcifications are present in the intracranial segments of the internal carotid arteries. Focal encephalomalacia is again seen in the right parietal cortex. Imaged portions of the paranasal sinuses and mastoid air cells are clear. The orbits appear normal. There are no acute fractures of the calvaria or scalp swelling. Impression: No acute intracranial hemorrhage, no evidence of acute territorial infarction or other acute intracranial disease process. ACT 112: Negative or not required by law. Electronically signed by: Juan Diego Parsons M.D. 12/29/2023 6:41 PM Code Status & VTE Plan Code Status Full Code in the event of cardiac or respiratory arrest Supervising Physician Co-Signing Physician Notes IM ATTENDING : Patient seen and examined. History obtained from patient and records. Patient is a fair historian. Concur with salient points upon review of preceding documentation by GUI Ball I take responsibility for plan of care below. In addition, patient denies syncope. FINAL ASSESSMENT AND PLAN as follows : Head trauma secondary to fall secondary to ambulatory dysfunction Orthostasis possibly contributory to fall given abnormal orthostatic vitals obtained at the ER. [id number] oxycodone is an additional risk factor for falls in an elderly patient. Rule out pacemaker dysfunction, history SSS status post PPM Asymptomatic troponin elevation in the setting of kidney dysfunction HTN, slightly elevated with abnormal orthostatic vitals chronic systolic heart failure (EF 35 to 40%), patient euvolemic to dry hx CAD, CVA,, PVD status post surgery Moderate MR COPD, chronic cough symptoms Pulmonary hypertension hyperlipidemia on statin Rx RCCA left status post surgery DM2 on oral medications, reasonable control as of recent hemoglobin A1c of 7.4 this month. CRI, at baseline chronic anemia, hemoglobin at baseline Dementia, patient mentating well, patient caregiver verbalized increased patient cognitive decline on PCP visit a few days ago. Recurrent admissions, possible deconditioning, functional disability Ongoing tobacco abuse OBS Medical telemetry Gentle IV hydration. Decrease maintenance Coreg dose for now given orthostasis Pacemaker interrogation Change oxycodone to as needed dosing given propensity for confusion and falls. Repeat CT head 12 hours after first scan, hold antiplatelet Rx for now Follow troponin Basal insulin, ISS BG goal [id number], carb count coverage PT OT eval Nicotine patch PRN DVT prophylaxis SCDs re: recent head trauma Full code Attempted to contact patient's son over the phone (Mr. Chris Torres, contact #[phone]) to get additional historical info and to discuss plan of care. No answer. Son's phone not accepting messages. Text document was generated using [employer] voice recognition software. It may contain grammatical or spelling errors. Kindly contact undersigned for clarification of any documentation item in question.
[2023-12-29] MEDS: ACETAMINOPHEN 325 MG TAB PO STA (21:04)
[2023-12-29] MEDS: SODIUM CHLORIDE 0.9% 1,000 ML IV STA (21:29)
[2023-12-29] MEDS ORDERED: DEXTROSE 50% 50 ML SYRINGE IV PRN (22:45)
[2023-12-29] MEDS ORDERED: GLUCOSE 40% GEL 15 GM TUBE PO PRN (22:45)
[2023-12-29] MEDS ORDERED: GLUCAGON FOR INJ 1 MG VIAL SQ PRN (22:45)
[2023-12-29] MEDS ORDERED: GLUCOSE 10 TAB/TUBE PO PRN (22:45)
--- NOTE | 2023-12-29 23:07 | Emergency Department Note ---
History of Present Illness General Chief complaint: Trauma Stated complaint: TRAUMA ALERT Time Seen by Provider: 12/29/23 18:02 History of Present Illness Provider Complaint: + accidental head injury and + fall Onset (ago): day(s) (1) Mechanism of Injury: + unsure Loss of Consciousness: + unsure Location of injury: + occipital Maximum Pain Intensity: 9 Current Pain Intensity: 8 Quality: + dull, + aching and + throbbing Radiation: + neck and + LUE Other Injuries: no laceration, no laceration to scalp or no laceration to face Context: + on plavix Associated symptoms: + syncope; no repetitive questioning, no nausea, no vomiting, no numbness or no tingling Home Medications Medication Instructions Recorded Confirmed Type albuterol sulfate 90 mcg/actuation 2 puff inhalation Q4H PRN SOB or 09/06/18 12/29/23 History aerosol inhaler Wheezing clopidogrel 75 mg tablet 75 mg PO QAM 09/06/18 12/29/23 History ferrous sulfate 325 mg (65 mg 325 mg PO AMHS 09/06/18 12/29/23 History iron) tablet glipizide 10 mg tablet 10 mg PO QAM 09/06/18 12/29/23 History albuterol sulfate 2.5 mg/3 mL 2.5 mg inhalation Q4H PRN 02/01/20 12/29/23 History (0.083 %) solution for nebulization Shortness Of Breath Or Wheezing pantoprazole 40 mg tablet,delayed 40 mg PO QAM 02/01/20 12/29/23 History release (Protonix) carvedilol 25 mg tablet 25 mg PO BIDM #60 tabs 05/13/23 12/29/23 Rx ascorbic acid (vitamin C) 500 mg 500 mg PO DAILY 08/23/23 12/29/23 History chewable tablet (Vitamin C) cholecalciferol (vitamin D3) 125 125 mcg PO QAM 08/23/23 12/29/23 History mcg (5,000 unit) capsule docusate sodium 100 mg capsule 100 mg PO BID 08/23/23 12/29/23 History duloxetine 60 mg capsule,delayed 60 mg PO QAM 08/23/23 12/29/23 History release fluticasone furoate 200 1 inh inhalation QAM 08/23/23 12/29/23 History mcg-vilanterol 25 mcg/dose inhalation powder (Breo Ellipta) isosorbide mononitrate 30 mg 30 mg PO QAM 08/23/23 12/29/23 History tablet,extended release 24 hr memantine 5 mg tablet 5 mg PO BID 08/23/23 12/29/23 History naloxone 4 mg/actuation nasal spray 4 mg intranasal UD PRN Opioid 08/23/23 12/29/23 History Overdose nitroglycerin 0.4 mg sublingual 0.4 mg sublingual UD PRN Chest Pain 08/23/23 12/29/23 History tablet omega-3 fatty acids 1,000 mg 1,000 mg PO BID 08/23/23 12/29/23 History capsule sennosides 8.6 mg tablet (Senokot) 8.6 mg PO BID 08/23/23 12/29/23 History terazosin 5 mg capsule 5 mg PO HS 08/23/23 12/29/23 History furosemide 40 mg tablet 40 mg PO BID 12/18/23 12/29/23 History oxycodone 10 mg tablet 10 mg PO TID 12/18/23 12/29/23 History potassium chloride 10 mEq 10 meq PO DAILY 12/18/23 12/29/23 History tablet,extended release(part/cryst) atorvastatin 80 mg tablet 40 mg (1/2 x 80 mg) PO BID #0 tabs 12/20/23 12/29/23 Rx Allergies Allergy/AdvReac Type Severity Reaction Status Date / Time No Known Allergies Allergy Unknown Verified 12/29/23 21:29 Past Med/Surg History Problem List (Updated 12/29/23 @ 23:25 by Nicolas Jaimes MD) CHI (closed head injury) (Acute) Syncope (Acute) Uncontrolled hypertension (Acute) Substernal chest pain (Acute) CHF (congestive heart failure) (Acute) Acute on chronic respiratory failure with hypoxia Acute on chronic heart failure Palliative care by specialist Dyspnea and respiratory abnormalities Chronic pain (Chronic) Influenza A CKD (chronic kidney disease) stage 3, GFR 30-59 ml/min (Acute) Congestive heart failure (Acute) Opioid dependence Acute decompensated heart failure Chronic hypoxic respiratory failure COPD (chronic obstructive pulmonary disease) (Acute) WEARS O2 AT 2L HS "SOMETIMES" PAD (peripheral artery disease) CAD (coronary artery disease) Diabetes mellitus, type 2 Labile hypertension Seizure-like activity Episode of shaking (Acute) Elevated troponin (Acute) Tachycardia (Acute) Pulmonary hypertension Cardiomyopathy Encounter for pre-operative examination GI bleed (Acute) Symptomatic anemia (Acute) Acute blood loss anemia Medical History Precordial chest pain Hypertensive crisis Bulging disc LUMBAR AREA Osteoarthritis Anemia HX OF Macular degeneration Hypertension Peripheral neuropathy On home oxygen therapy 2L AT HS Myocardial Infarction 2003 (LIFE FLIGHTED TO [place]) Hyperlipidemia GERD (gastroesophageal reflux disease) Surgical History Fusion of spine CERVICAL History of esophagogastroduodenoscopy (EGD) History of colonoscopy History of discectomy CERVICAL H/O eye surgery LASER SURGERY FOR BLEEDING EYE H/O vascular surgery Family History Mother CKD (chronic kidney disease) Social History Smoking Status: Former smoker Tobacco Type: Cigarettes Cigarettes Per Day: 6 -8/day; Second Hand Exposure: Yes; Do You Dip or Chew Tobacco: No; Hx Alcohol Use: Yes Alcohol type: beer Hx Substance Use: No Preferred Language: Persian Communication Ability: Effective Shoemaker Custom Required: No Beliefs That Will Affect Care: None marital status: Current Living Situation: Family Current Living Situation Comment: lives with 3 sons Feels Safe at Home: Yes Assistive Devices: Cane, Oxygen - Continuous and Walker Physical Exam 2 Vital Signs: Vital Signs - 24 hr 12/29/23 17:14 12/29/23 17:14 12/29/23 17:36 Temperature 36.6 C 36.6 C Temperature Source Oral Pulse Rate - Lying Pulse Rate - Sitti ng Pulse Rate - Stand ing Pulse Rate 80 80 80 Pulse Rate [Apical ] Pulse Rate from Sp O2 Sensor Respiratory Rate 16 18 Respiratory Effort / Characteristics Non-Labored Sponta neous Respiratory Depth Normal Respiratory Patter n Blood Pressure - L rivka Blood Pressure - S itting Blood Pressure- St anding Blood Pressure 128/65 128/65 Blood Pressure [Le ft Arm] Blood Pressure Terri n 86 Blood Pressure Terri n [Left Arm] Pulse Oximetry 94 94 Oxygen Delivery Me thod Room Air Room Air Sepsis Recent Feve r Within 48 Hours No Sepsis New/Unexpla ined Change in Men óscar Status No Sepsis Action Take n by Nursing No Action Required 12/29/23 17:41 12/29/23 18:00 12/29/23 18:06 Temperature Temperature Source Pulse Rate - Lying Pulse Rate - Sitti ng Pulse Rate - Stand ing Pulse Rate 80 Pulse Rate [Apical ] Pulse Rate from Sp O2 Sensor 80 Respiratory Rate 14 Respiratory Effort / Characteristics Respiratory Depth Respiratory Patter n Blood Pressure - L rivka Blood Pressure - S itting Blood Pressure- St anding Blood Pressure 116/61 Blood Pressure [Le ft Arm] Blood Pressure Terri n 82 Blood Pressure Terri n [Left Arm] Pulse Oximetry 96 Oxygen Delivery Me thod Room Air Room Air Sepsis Recent Feve r Within 48 Hours Sepsis New/Unexpla ined Change in Men óscar Status Sepsis Action Take n by Nursing 12/29/23 18:21 12/29/23 18:30 12/29/23 18:42 Temperature Temperature Source Pulse Rate - Lying Pulse Rate - Sitti ng Pulse Rate - Stand ing Pulse Rate 82 80 71 Pulse Rate [Apical ] Pulse Rate from Sp O2 Sensor 81 75 Respiratory Rate 15 14 15 Respiratory Effort / Characteristics Respiratory Depth Respiratory Patter n Blood Pressure - L rivka Blood Pressure - S itting Blood Pressure- St anding Blood Pressure 111/68 110/66 Blood Pressure [Le ft Arm] Blood Pressure Terri n 82 80 Blood Pressure Terri n [Left Arm] Pulse Oximetry 94 93 95 Oxygen Delivery Me thod Room Air Room Air Sepsis Recent Feve r Within 48 Hours Sepsis New/Unexpla ined Change in Men óscar Status Sepsis Action Take n by Nursing 12/29/23 18:54 12/29/23 18:57 12/29/23 19:00 Temperature Temperature Source Pulse Rate - Lying Pulse Rate - Sitti ng Pulse Rate - Stand ing Pulse Rate 80 80 Pulse Rate [Apical ] 80 Pulse Rate from Sp O2 Sensor 80 80 Respiratory Rate 15 17 18 Respiratory Effort / Characteristics Non-Labored Sponta neous Respiratory Depth Normal Respiratory Patter n Regular Blood Pressure - L rivka Blood Pressure - S itting Blood Pressure- St anding Blood Pressure Blood Pressure [Le ft Arm] 126/66 Blood Pressure Terri n Blood Pressure Terri n [Left Arm] 86 Pulse Oximetry 93 94 95 Oxygen Delivery Me thod Room Air Sepsis Recent Feve r Within 48 Hours Sepsis New/Unexpla ined Change in Men óscar Status Sepsis Action Take n by Nursing 12/29/23 19:00 12/29/23 19:21 12/29/23 19:30 Temperature Temperature Source Pulse Rate - Lying Pulse Rate - Sitti ng Pulse Rate - Stand ing Pulse Rate 76 80 Pulse Rate [Apical ] Pulse Rate from Sp O2 Sensor 76 74 Respiratory Rate 13 17 Respiratory Effort / Characteristics Respiratory Depth Respiratory Patter n Blood Pressure - L rivka Blood Pressure - S itting Blood Pressure- St anding Blood Pressure 126/66 Blood Pressure [Le ft Arm] Blood Pressure Terri n 84 Blood Pressure Terri n [Left Arm] Pulse Oximetry 93 92 Oxygen Delivery Me thod Sepsis Recent Feve r Within 48 Hours Sepsis New/Unexpla ined Change in Men óscar Status Sepsis Action Take n by Nursing 12/29/23 19:30 12/29/23 19:30 12/29/23 19:45 Temperature Temperature Source Pulse Rate - Lying Pulse Rate - Sitti ng Pulse Rate - Stand ing Pulse Rate 71 Pulse Rate [Apical ] Pulse Rate from Sp O2 Sensor 73 Respiratory Rate 20 Respiratory Effort / Characteristics Respiratory Depth Respiratory Patter n Blood Pressure - L rivka Blood Pressure - S itting Blood Pressure- St anding Blood Pressure 139/70 139/70 Blood Pressure [Le ft Arm] Blood Pressure Terri n 105 105 Blood Pressure Terri n [Left Arm] Pulse Oximetry 93 Oxygen Delivery Me thod Sepsis Recent Feve r Within 48 Hours Sepsis New/Unexpla ined Change in Men óscar Status Sepsis Action Take n by Nursing 12/29/23 20:00 12/29/23 20:18 12/29/23 20:30 Temperature Temperature Source Pulse Rate - Lying Pulse Rate - Sitti ng Pulse Rate - Stand ing Pulse Rate 80 Pulse Rate [Apical ] 80 Pulse Rate from Sp O2 Sensor 80 Respiratory Rate 17 17 Respiratory Effort / Characteristics Non-Labored Sponta neous Respiratory Depth Normal Respiratory Patter n Regular Blood Pressure - L rivka Blood Pressure - S itting Blood Pressure- St anding Blood Pressure 154/73 H Blood Pressure [Le ft Arm] 142/71 H Blood Pressure Terri n 92 Blood Pressure Terri n [Left Arm] 94 Pulse Oximetry 93 94 Oxygen Delivery Me thod Room Air Sepsis Recent Feve r Within 48 Hours Sepsis New/Unexpla ined Change in Men óscar Status Sepsis Action Take n by Nursing 12/29/23 20:30 12/29/23 21:00 12/29/23 21:00 Temperature Temperature Source Pulse Rate - Lying 80 Pulse Rate - Sitti ng 80 Pulse Rate - Stand ing 80 Pulse Rate 80 Pulse Rate [Apical ] Pulse Rate from Sp O2 Sensor 79 Respiratory Rate 17 18 Respiratory Effort / Characteristics Non-Labored Sponta neous Respiratory Depth Normal Respiratory Patter n Regular Blood Pressure - L rivka 165/74 H Blood Pressure - S itting 143/78 H Blood Pressure- St anding 109/72 Blood Pressure Blood Pressure [Le ft Arm] Blood Pressure Terri n Blood Pressure Terri n [Left Arm] Pulse Oximetry 94 Oxygen Delivery Me thod Sepsis Recent Feve r Within 48 Hours Sepsis New/Unexpla ined Change in Men óscar Status Sepsis Action Take n by Nursing 12/29/23 21:00 12/29/23 21:03 12/29/23 21:21 Temperature Temperature Source Pulse Rate - Lying Pulse Rate - Sitti ng Pulse Rate - Stand ing Pulse Rate 82 Pulse Rate [Apical ] Pulse Rate from Sp O2 Sensor 82 Respiratory Rate 21 Respiratory Effort / Characteristics Respiratory Depth Respiratory Patter n Blood Pressure - L rivka Blood Pressure - S itting Blood Pressure- St anding Blood Pressure 148/64 H 143/78 H Blood Pressure [Le ft Arm] Blood Pressure Terri n 81 79 Blood Pressure Terri n [Left Arm] Pulse Oximetry 94 Oxygen Delivery Me thod Sepsis Recent Feve r Within 48 Hours Sepsis New/Unexpla ined Change in Men óscar Status Sepsis Action Take n by Nursing 12/29/23 21:21 12/29/23 21:23 12/29/23 21:39 Temperature Temperature Source Pulse Rate - Lying Pulse Rate - Sitti ng Pulse Rate - Stand ing Pulse Rate 80 80 Pulse Rate [Apical ] Pulse Rate from Sp O2 Sensor 80 80 Respiratory Rate 13 21 Respiratory Effort / Characteristics Respiratory Depth Respiratory Patter n Blood Pressure - L rivka Blood Pressure - S itting Blood Pressure- St anding Blood Pressure 104/72 Blood Pressure [Le ft Arm] Blood Pressure Terri n 83 Blood Pressure Terri n [Left Arm] Pulse Oximetry 95 93 Oxygen Delivery Me thod Sepsis Recent Feve r Within 48 Hours Sepsis New/Unexpla ined Change in Men óscar Status Sepsis Action Take n by Nursing 12/29/23 21:41 12/29/23 21:54 12/29/23 21:57 Temperature Temperature Source Pulse Rate - Lying Pulse Rate - Sitti ng Pulse Rate - Stand ing Pulse Rate 80 80 80 Pulse Rate [Apical ] Pulse Rate from Sp O2 Sensor 80 80 Respiratory Rate 12 20 Respiratory Effort / Characteristics Respiratory Depth Respiratory Patter n Blood Pressure - L rivka Blood Pressure - S itting Blood Pressure- St anding Blood Pressure Blood Pressure [Le ft Arm] Blood Pressure Terri n Blood Pressure Terri n [Left Arm] Pulse Oximetry 94 96 Oxygen Delivery Me thod Sepsis Recent Feve r Within 48 Hours Sepsis New/Unexpla ined Change in Men óscar Status Sepsis Action Take n by Nursing 12/29/23 22:00 12/29/23 22:00 12/29/23 22:03 Temperature Temperature Source Pulse Rate - Lying Pulse Rate - Sitti ng Pulse Rate - Stand ing Pulse Rate 80 Pulse Rate [Apical ] 80 Pulse Rate from Sp O2 Sensor 80 Respiratory Rate 17 14 Respiratory Effort / Characteristics Non-Labored Sponta neous Respiratory Depth Normal Respiratory Patter n Regular Blood Pressure - L rivka Blood Pressure - S itting Blood Pressure- St anding Blood Pressure 156/76 H Blood Pressure [Le ft Arm] 156/76 H Blood Pressure Terri n 118 Blood Pressure Terri n [Left Arm] 102 Pulse Oximetry 95 96 Oxygen Delivery Me thod Room Air Sepsis Recent Feve r Within 48 Hours Sepsis New/Unexpla ined Change in Men óscar Status Sepsis Action Take n by Nursing 12/29/23 22:18 12/29/23 23:00 Temperature Temperature Source Pulse Rate - Lying Pulse Rate - Sitti ng Pulse Rate - Stand ing Pulse Rate 80 Pulse Rate [Apical ] 80 Pulse Rate from Sp O2 Sensor 80 Respiratory Rate 18 18 Respiratory Effort / Characteristics Non-Labored Sponta neous Respiratory Depth Normal Respiratory Patter n Regular Blood Pressure - L rivka Blood Pressure - S itting Blood Pressure- St anding Blood Pressure Blood Pressure [Le ft Arm] 145/75 H Blood Pressure Terri n Blood Pressure Terri n [Left Arm] 98 Pulse Oximetry 94 94 Oxygen Delivery Me thod Room Air Sepsis Recent Feve r Within 48 Hours Sepsis New/Unexpla ined Change in Men óscar Status Sepsis Action Take n by Nursing Physical Exam: Physical Exam HENT: Exam performed. - Head: Normocephalic and atraumatic. EYES: Conjunctivae and EOM are normal. Pupils are equal, round, and reactive to light. Right eye exhibits no discharge. Left eye exhibits no discharge. No scleral icterus. NECK: Normal range of motion. Neck supple. No JVD present. No spinous process tenderness present. CV: Normal rate, regular rhythm, normal heart sounds and intact distal pulses. There is no peripheral edema. Palpable radial pulses bue. PULM/CHEST: Effort normal and breath sounds normal. No respiratory distress. No stridor. He has no wheezes. He has no rales. - Chest Wall: He exhibits no tenderness. No crepitus bilaterally. ABD: The abdomen is soft. There is no tenderness. There is no rebound, no guarding. MUSC/SKEL: Pelvis stable. NEURO: Motor and sensation grossly intact. Course Course 1801: The patient was evaluated in room A10. A complete history and physical exam was performed Cardiac monitoring: An order was placed for continuous cardiac monitoring. The monitor shows a rate of 80 with paced rhythm interpreted by ak Trauma alert was activated by nursing. 2020: Vital signs stable. Labs show leukocytosis 17.96. Thought to be reactive. Venous pH 7.3 venous pCO2 61. Creatinine 2.52 at baseline. Lactate within normal limits. High-sensitivity troponin 30.4. BNP 160. Patient will be admitted for syncope [facility]. [facility] hospitalist will be notified. Administered Medications Sodium Chloride (Nss) 1,000 mls @ 60 mls/hr IV .[id number] STA Stop: 12/30/23 13:54 Last Admin: 12/29/23 21:29 Dose: 60 mls/hr Documented By: [facility] Discontinued Medications Acetaminophen (Acetaminophen 325 Mg Tab) 650 mg PO NOW STA Stop: 12/29/23 20:36 Last Admin: 12/29/23 21:04 Dose: 650 mg Documented By: [facility] Medical Decision Making Laboratory Data Attestation: I reviewed the patient's lab results. 12/29/23 17:40 12/29/23 17:40 Lab Results 12/29/23 12/29/23 12/29/23 Range/Units 17:40 18:21 18:32 WBC 17.96 H (4.8-10.8) K/ul RBC 4.45 L (4.70-6.10) M/uL Hgb 13.4 L (14.0-18.0) g/dl Hct 41.5 L (42.0-52.0) % MCV 93.3 (80.0-100.0) fL MCH 30.1 (25.0-34.0) pg MCHC 32.3 (32.0-36.0) g/dL RDW Std Deviation 48.2 H (36.4-46.3) fL RDW Coeff of David 14.1 (11.5-14.5) % Plt Count 259 (130-400) K/uL MPV 9.8 (9.4-12.4) fL Immature Gran % (Auto) 1.3 % Neut % (Auto) 84.8 % Lymph % (Auto) 5.8 % [place] % (Auto) 7.3 % Eos % (Auto) 0.6 % Baso % (Auto) 0.2 % Neut # (Auto) 15.22 H (1.40-6.50) K/uL Lymph # (Auto) 1.04 L (1.20-3.40) K/uL [place] # (Auto) 1.32 H (0.11-0.59) K/uL Eos # (Auto) 0.11 (0.00-0.50) K/uL Baso # (Auto) 0.04 (0.00-0.20) K/uL Immature Gran # (Auto) 0.23 H (0.01-0.20) K/uL PT 11.1 (9.0-12.0) Seconds INR 1.0 (0.9-1.1) APTT 27 (21-31) Seconds PTT Ratio 1.0 VBG pH 7.30 L (7.36-7.41) VBG pCO2 61 H (38-50) mmHg VBG pO2 < 20 mmHg VBG HCO3 30 mmol/L VBG O2 Saturation < 60.0 % VBG Base Excess 2.0 mEq/L Sodium 137 (136-145) mmol/L Potassium 4.6 (3.5-5.1) mmol/L Chloride 99 (98-107) mmol/L Carbon Dioxide 28 (21-32) mmol/L Anion Gap 10 (3-11) BUN 55 H (6-23) mg/dl Creatinine 2.52 H (0.6-1.4) mg/dl Est Cr Clr Drug Dosing 24.8 ml/min Est GFR ( Amer) 28.4 ml/min Est GFR (Non-Af Amer) 24.5 ml/min BUN/Creatinine Ratio 21.8 H (10-20) Glucose 189 H (70-99(Fasting)) mg/dl Lactate 1.0 (0.4-2.0) mmol/L Calcium 9.4 (8.6-10.3) mg/dl Magnesium 1.9 (1.7-2.4) mg/dl Total Bilirubin 0.7 (0.2-1.0) mg/dl AST 13 (13-39) U/L ALT 19 (7-52) U/L Alkaline Phosphatase 71 (34-104) U/L Total Creatine Kinase 29 L (30-223) U/L Troponin I High Sens 30.4 H (0-20) pg/ml B-Natriuretic Peptide 160 H (0-100) pg/ml Total Protein 7.5 (6.0-8.3) gm/dl Albumin 4.0 (3.4-5.0) gm/dl Globulin 3.5 (2.5-4.0) gm/dl Albumin/Globulin Ratio 1.1 (0.9-2) Procalcitonin 0.21 (0-0.5) ng/ml Urine Color Yellow Urine Appearance Clear (Clear) Urine pH 5.5 (4.5-7.5) Ur Specific [place] 1.015 (1.000-1.030) Urine Protein 3+ H (Negative) Urine Glucose (UA) Negative (Negative) Urine Ketones Negative (Negative) Urine Blood Negative (Negative) Urine Nitrite Negative (Negative) Urine Bilirubin Negative (Negative) Urine Urobilinogen Negative (Negative) Ur Leukocyte Esterase Negative (Negative) Urine WBC (Auto) 0-5 (0-5) /hpf Urine RBC (Auto) 0-2 (0-2) /hpf U Hyaline Cast (Auto) 0-2 (0-2) /lpf U Epithel Cells (Auto) 0-2 (0-2) /hpf Urine Bacteria (Auto) None Seen (None Seen) Urine Opiates Screen Neg (Neg) Ur Methadone, Qual Neg (Neg) Urine Fentanyl Screen Neg (Neg) Urine Barbiturates Neg (Neg) Ur Phencyclidine (PCP) Neg (Neg) U Amphetamin/Meth Scrn Neg (Neg) MDMA (Ecstasy) Screen Neg (Neg) U Benzodiazepines Scrn Neg (Neg) Ur Cocaine Metabolite Neg (Neg) U Marijuana (THC) Screen Neg (Neg) Ethyl Alcohol mg/dL 11.0 H (<10.0) mg/dl 12/29/23 Range/Units 22:00 WBC (4.8-10.8) K/ul RBC (4.70-6.10) M/uL Hgb (14.0-18.0) g/dl Hct (42.0-52.0) % MCV (80.0-100.0) fL MCH (25.0-34.0) pg MCHC (32.0-36.0) g/dL RDW Std Deviation (36.4-46.3) fL RDW Coeff of David (11.5-14.5) % Plt Count (130-400) K/uL MPV (9.4-12.4) fL Immature Gran % (Auto) % Neut % (Auto) % Lymph % (Auto) % [place] % (Auto) % Eos % (Auto) % Baso % (Auto) % Neut # (Auto) (1.40-6.50) K/uL Lymph # (Auto) (1.20-3.40) K/uL [place] # (Auto) (0.11-0.59) K/uL Eos # (Auto) (0.00-0.50) K/uL Baso # (Auto) (0.00-0.20) K/uL Immature Gran # (Auto) (0.01-0.20) K/uL PT (9.0-12.0) Seconds INR (0.9-1.1) APTT (21-31) Seconds PTT Ratio VBG pH (7.36-7.41) VBG pCO2 (38-50) mmHg VBG pO2 mmHg VBG HCO3 mmol/L VBG O2 Saturation % VBG Base Excess mEq/L Sodium (136-145) mmol/L Potassium (3.5-5.1) mmol/L Chloride (98-107) mmol/L Carbon Dioxide (21-32) mmol/L Anion Gap (3-11) BUN (6-23) mg/dl Creatinine (0.6-1.4) mg/dl Est Cr Clr Drug Dosing ml/min Est GFR ( Amer) ml/min Est GFR (Non-Af Amer) ml/min BUN/Creatinine Ratio (10-20) Glucose (70-99(Fasting)) mg/dl Lactate (0.4-2.0) mmol/L Calcium (8.6-10.3) mg/dl Magnesium (1.7-2.4) mg/dl Total Bilirubin (0.2-1.0) mg/dl AST (13-39) U/L ALT (7-52) U/L Alkaline Phosphatase (34-104) U/L Total Creatine Kinase (30-223) U/L Troponin I High Sens 29.4 H (0-20) pg/ml B-Natriuretic Peptide (0-100) pg/ml Total Protein (6.0-8.3) gm/dl Albumin (3.4-5.0) gm/dl Globulin (2.5-4.0) gm/dl Albumin/Globulin Ratio (0.9-2) Procalcitonin (0-0.5) ng/ml Urine Color Urine Appearance (Clear) Urine pH (4.5-7.5) Ur Specific [place] (1.000-1.030) Urine Protein (Negative) Urine Glucose (UA) (Negative) Urine Ketones (Negative) Urine Blood (Negative) Urine Nitrite (Negative) Urine Bilirubin (Negative) Urine Urobilinogen (Negative) Ur Leukocyte Esterase (Negative) Urine WBC (Auto) (0-5) /hpf Urine RBC (Auto) (0-2) /hpf U Hyaline Cast (Auto) (0-2) /lpf U Epithel Cells (Auto) (0-2) /hpf Urine Bacteria (Auto) (None Seen) Urine Opiates Screen (Neg) Ur Methadone, Qual (Neg) Urine Fentanyl Screen (Neg) Urine Barbiturates (Neg) Ur Phencyclidine (PCP) (Neg) U Amphetamin/Meth Scrn (Neg) MDMA (Ecstasy) Screen (Neg) U Benzodiazepines Scrn (Neg) Ur Cocaine Metabolite (Neg) U Marijuana (THC) Screen (Neg) Ethyl Alcohol mg/dL (<10.0) mg/dl Imaging Data Attestation: I personally reviewed and interpreted this imaging study as follows: My Impression: Left shoulder x-ray: No acute fracture or dislocation Chest x-ray: Chest x-ray negative. Airway clear. No pneumothorax. No consolidation. No cardiomegaly or cephalization.. No free air under the diaphragm. No fractures of the skeletal structures. Radiologist's Impression: Shoulder X-Ray 12/29/23 17:30 XR shoulder LT min 2V routine CLINICAL HISTORY: left shoulder pain fall TECHNIQUE: 3 views of the right shoulder were obtained. Comparison: None available at the time of this dictation. FINDINGS: There is no evidence of an acute fracture. Joint spaces are well-preserved. The overlying soft tissues are unremarkable. The visualized portions of the lungs are clear. IMPRESSION: No evidence of acute osseous injury. ACT 112: Negative or not required by law. Electronically signed by: Juan Diego Parsons M.D. 12/29/2023 6:08 PM Chest X-Ray 12/29/23 17:31 XR chest 1V portable CLINICAL HISTORY: chf TECHNIQUE: Single frontal radiograph of the chest was obtained. Comparison: Comparison is made to chest radiograph 12/18/2023 FINDINGS: An implanted pacemaker is seen. Calcified aortic knob is seen. The lungs are clear. No evidence of pleural effusion or pneumothorax. IMPRESSION: No acute chest disease. ACT 112: Negative or not required by law. Electronically signed by: Juan Diego Parsons M.D. 12/29/2023 6:[address] 12/29/23 18:08 CT cervical spine wo con CLINICAL HISTORY: trauma TECHNIQUE: Multidetector row helical CT of the cervical spine was performed without administration of intravenous contrast. Coronal and sagittal reformations were obtained. Automated dose lowering techniques and/or adjustment according to patient size were utilized for this exam. Comparison: None available at the time of this dictation. FINDINGS: No acute fractures or subluxations are identified. Degenerative changes are seen in the visualized spine. ACDF spans C4-C7. The alignment is normal. Prominent calcification in the right carotid bulb and left carotid stent are seen. IMPRESSION: Degenerative changes without evidence of acute bony injury. ACT 112: Negative or not required by law. Electronically signed by: Juan Diego Parsons M.D. 12/29/2023 6:[address] 12/29/23 18:08 CT head/brain wo con CLINICAL HISTORY: trauma Technique: Contiguous axial CT images of the head were acquired from the base of the skull to the vertex without intravenous contrast administration. Images were viewed in brain, subdural and bone windows. Automated dose lowering techniques and/or adjustment according to patient size were utilized for this exam. Comparison: Comparison is made to CT head 05/10/2023 Findings: Areas of decreased attenuation are present in the periventricular and subcortical white matter bilaterally consistent with small vessel ischemic disease. Generalized cerebral atrophy with commensurate enlargement of the ventricles, sulci, and cisterns is also present. There is no acute intracranial hemorrhage or evidence of acute territorial infarction. No shift of the midline structures, mass effect, or extra-axial abnormalities are shown. Atherosclerotic calcifications are present in the intracranial segments of the internal carotid arteries. Focal encephalomalacia is again seen in the right parietal cortex. Imaged portions of the paranasal sinuses and mastoid air cells are clear. The orbits appear normal. There are no acute fractures of the calvaria or scalp swelling. Impression: No acute intracranial hemorrhage, no evidence of acute territorial infarction or other acute intracranial disease process. ACT 112: Negative or not required by law. Electronically signed by: Juan Diego Parsons M.D. 12/29/2023 6:41 PM [facility] Narrative 1802: The patient was evaluated in room A10. A complete history and physical exam was performed Cardiac monitoring: An order was placed for continuous cardiac monitoring. The monitor shows a rate of 80 with paced rhythm interpreted by me Trauma alert was activated by nursing. 2020: Vital signs stable. Labs show leukocytosis 17.96. Thought to be reactive. Venous pH 7.3 venous pCO2 61. Creatinine 2.52 at baseline. Lactate within normal limits. High-sensitivity troponin 30.4. BNP 160. Patient will be admitted for syncope Dr. Earnest Vallejo hospitalist will be notified. Impression & Plan Syncope, CHI (closed head injury), Elevated troponin, CKD (chronic kidney disease) stage 3, GFR 30-59 ml/min Discharge Plan Visit Data Chief Complaint: Trauma Stated Complaint: TRAUMA ALERT ED Provider: Nicolas Jaimes Discharge Problem: Syncope, CHI (closed head injury), Elevated troponin, CKD (chronic kidney disease) stage 3, GFR 30-59 ml/min Patient Disposition: Admitted As Inpatient Forms Stand Alone Forms: My [facility] Prescriptions Prescriptions: No Action clopidogrel 75 mg Tablet 75 mg PO QAM albuterol sulfate 90 mcg/actuation Hfa Aerosol Inhaler 2 puff INHALATION Q4H PRN (Reason: SOB or Wheezing) ferrous sulfate 325 mg (65 mg iron) Tablet 325 mg PO AMHS glipizide 10 mg Tablet 10 mg PO QAM albuterol sulfate 2.5 mg /3 mL (0.083 %) Solution For Nebulization 2.5 mg INHALATION Q4H PRN (Reason: Shortness Of Breath Or Wheezing) pantoprazole [Protonix] 40 mg Tablet,Delayed Release (Dr/Ec) 40 mg PO QAM carvedilol 25 mg Tablet 25 mg PO BIDM Qty: 60 0RF duloxetine 60 mg capsule,delayed release(DR/EC) 60 mg PO QAM terazosin 5 mg capsule 5 mg PO HS cholecalciferol (vitamin D3) 125 mcg (5,000 unit) capsule 125 mcg PO QAM fluticasone furoate-vilanterol [Breo Ellipta] 200-25 mcg/dose blister with device 1 inh inhalation QAM isosorbide mononitrate 30 mg tablet extended release 24 hr 30 mg PO QAM omega-3 fatty acids 1,000 mg Capsule 1,000 mg PO BID ascorbic acid (vitamin C) [Vitamin C] 500 mg Tablet,Chewable 500 mg PO DAILY nitroglycerin 0.4 mg tablet, sublingual 0.4 mg sublingual UD PRN (Reason: Chest Pain) Rx Instructions: May repeat 3 times, 5 minutes apart. naloxone 4 mg/actuation [place],Non-Aerosol 4 mg INTRANASAL UD PRN (Reason: Opioid Overdose) Rx Instructions: Administer 1 spray into 1 nostril for suspected opioid overdose. sennosides [Senokot] 8.6 mg Tablet 8.6 mg PO BID docusate sodium 100 mg Capsule 100 mg PO BID memantine 5 mg tablet 5 mg PO BID oxycodone 10 mg tablet 10 mg PO TID furosemide 40 mg tablet 40 mg PO BID potassium chloride 10 mEq tablet,ER particles/crystals 10 meq PO DAILY atorvastatin 80 mg Tablet 40 mg PO BID Qty: 0 0RF Referrals Referrals: Chad Jara MD [Primary Care Provider] - Discharge Problem: Syncope Qualifiers: Syncope type: unspecified Qualified Code(s): R55 - Syncope and collapse CHI (closed head injury) Qualifiers: Encounter type: initial encounter Qualified Code(s): S09.90XA - Unspecified injury of head, initial encounter
[2023-12-30] MEDS ORDERED: NITROGLYCERIN SL 0.4 MG/TAB TAB SL PRN (00:57)
[2023-12-30] MEDS: INSULIN ASPART PER UNIT CHARGE SC STA (00:59)
[2023-12-30] MEDS: oxyCODONE HCL IR 5 MG TAB (IMMEDIATE RELEASE) PO PRN ×2 (01:09→15:03)
[2023-12-30 06:18] LABS: Basophils # (auto) 0.02 K/uL (0.00-0.20); Basophils % (auto) 0.2 %; Eosinophils # (auto) 0.07 K/uL (0.00-0.50); Eosinophils % (auto) 0.6 %; Hematocrit (blood only) 38.2 % (42.0-52.0); Hemoglobin 12.4 g/dl (14.0-18.0); Immature Granulocytes # (auto) 0.14 K/uL (0.01-0.20); Immature Granulocytes % (auto) 1.2 %; Lymphocytes # (auto) 0.95 K/uL (1.20-3.40); Lymphocytes % (auto) 8.3 %; Mean Corpuscular Hemoglobin 30.2 pg (25.0-34.0); Mean Corpuscular Hgb Conc 32.5 g/dL (32.0-36.0); Mean Corpuscular Volume 92.9 fL (80.0-100.0); Mean Platelet Volume 9.8 fL (9.4-12.4); Monocytes # (auto) 1.31 K/uL (0.11-0.59); Monocytes % (auto) 11.4 %; Neutrophils # (auto) 8.98 K/uL (1.40-6.50); Neutrophils % (auto) 78.3 %; Platelet Count 211 K/uL (130-400); RDW Coefficient of Variation 14.2 % (11.5-14.5); RDW Standard Deviation 48.5 fL (36.4-46.3); Red Blood Count 4.11 M/uL (4.70-6.10); White Blood Count 11.47 K/ul (4.8-10.8)
[2023-12-30 06:43] LABS: BUN Creatinine Ratio 23.8 (10-20); Calcium 8.7 mg/dl (8.6-10.3); Est GFR (African American) 28.9 ml/min
[2023-12-30] MEDS: DULoxetine HCL 60 MG CAP PO SCH (08:48)
[2023-12-30] MEDS: carvediloL 6.25 MG TAB PO SCH (08:48)
[2023-12-30] MEDS: FLUTICASONE/VILANTEROL 200/25MCG 14 PUFFS/INHALER INH SCH (08:49)
[2023-12-30] MEDS: MEMANTINE HCL 5 MG TAB PO SCH (08:49)
[2023-12-30] MEDS: DOCUSATE SODIUM 100 MG CAP PO SCH (08:49)
[2023-12-30] MEDS: ATORVASTATIN 40 MG TAB PO SCH (08:49)
[2023-12-30] MEDS: OMEGA-3 (PURIFIED FISH OIL) 1 GM CAP PO SCH (08:49)
[2023-12-30] MEDS: FERROUS SULFATE 325 MG TAB PO SCH (08:49)
[2023-12-30] MEDS: PANTOprazole 40 MG TAB PO SCH (08:49)
[2023-12-30] MEDS: SENNA 8.6 MG TAB PO SCH (08:49)
[2023-12-30] MEDS: INSULIN ASPART PER UNIT CHARGE SC SCH (08:53)
[2023-12-30] MEDS ORDERED: ATORVASTATIN 40 MG TAB PO SCH (09:00)
[2023-12-30] MEDS: ISOSORBIDE MONO EXTENDED REL 30 MG TABCR PO SCH (09:22)
--- NOTE | 2023-12-30 09:26 | CT Scan Report ---
Exam(s): CT HEAD Without Contrast EXAM: CT Head Without Intravenous Contrast CLINICAL HISTORY: Reason for exam: ffup, head trauma. TECHNIQUE: Axial computed tomography images of the head/brain without intravenous contrast. CTDI is 35.65 mGy and DLP is 547.75 mGy-cm. Automated exposure control was utilized for the study. A dose lowering technique was utilized adhering to the principles of ALARA. COMPARISON: No relevant prior studies available. FINDINGS: Brain: Chronic periventricular ischemic demolished changes seen due to small vessel disease. No hemorrhage. Old encephalomalacia seen at the right frontoparietal junction. Ventricles: Unremarkable. No ventriculomegaly. Bones/joints: Unremarkable. No acute fracture. Soft tissues: Unremarkable. Sinuses: Unremarkable as visualized. No acute sinusitis. Mastoid air cells: Unremarkable as visualized. No mastoid effusion. IMPRESSION: No acute findings in the head/brain. Electronically signed by: Stew Mijares MD 12/30/23 09:26 AM
--- NOTE | 2023-12-30 11:11 | Hospitalist Progress Note ---
Date of Service December 30, 2023 Assessment & Plan (1) Recurrent syncope: (2) Nonsustained ventricular tachycardia: (3) Chronic systolic congestive heart failure: (4) COPD (chronic obstructive pulmonary disease): (5) Diabetes mellitus, type 2: (6) CKD (chronic kidney disease) stage 3, GFR 30-59 ml/min: (7) Pulmonary hypertension: (8) Sick sinus syndrome with tachycardia: (9) Stenosis of left subclavian artery: (10) Vascular dementia: Plan Patient with recurrent syncopal events and falls at home. Suspect may be felt multifactorial. Patient does have a history of tachybradycardia syndrome, status post pacemaker placement. May be having bursts of nonsustained V. tach as a cause of his recurrent syncopal symptoms. Increase Coreg for rate control and blood pressure control Therapies Case management for possible placement Patient has chronic left subclavian artery stenosis, this is known, significant fluctuation in his blood pressure from left to right arm. All blood pressure should be taken in right arm Continue to monitor glucose, managed with insulin Continue other outpatient medications Phone conversation with patient's son, updated, he reports that patient was doing fairly well at home by himself since his most recent discharge. He did state that he noticed some forgetfulness consistent with his vascular dementia. Son also reports that starting in January he will be having a caregiver come into the house at least some hours during the week. He is not sure but he thinks it may be through the office of aging. Admission and Anticipated Discharge Date Admission Date: December 29, 2023 Subjective Patient offers no new complaints. No chest pain no shortness of breath. Physical Exam Physical Exam: Constitutional: Alert, nontoxic HEENT: Mucous membranes moist. Lungs: Clear to auscultation, decreased, no wheezes rales or rhonchi CV: S1-S2, regular Abdomen: Soft, nontender, nondistended Extremities: No significant edema Neuro: No focal deficits, generalized weakness Psych: Cooperative, normal mood Results & Data Results & Data Vital Signs (Past 12 Hours) Vital Signs Temp Pulse Pulse Pulse Resp BP BP 12/30/23 10:54 80 20 12/30/23 07:52 36.8 C 80 18 92/71 L 12/30/23 07:09 80 12/30/23 01:25 80 12/30/23 00:20 08/24/24 00:20 36.5 C 81 20 152/70 H 12/30/23 00:20 36.5 C 81 20 152/70 H 12/29/23 23:54 80 24 12/29/23 23:36 80 19 12/29/23 23:30 147/73 H 12/29/23 23:24 80 15 12/29/23 23:18 80 15 12/29/23 23:03 80 16 12/29/23 23:00 145/75 H 12/29/23 23:00 80 18 145/75 H BP Pulse Ox O2 Del Method 12/30/23 10:54 197/73 H 93 Room Air 12/30/23 07:52 95 Room Air 12/30/23 07:09 12/30/23 01:25 12/30/23 00:20 Room Air 12/30/23 00:20 93 Room Air 12/30/23 00:20 93 Room Air 12/29/23 23:54 92 12/29/23 23:36 93 12/29/23 23:30 12/29/23 23:24 94 12/29/23 23:18 95 12/29/23 23:03 94 12/29/23 23:00 12/29/23 23:00 94 Room Air Diagnostic Findings Reviewed imaging, laboratory and diagnostic studies. Pertinent findings as below. Hemoglobin 12.4 Creatinine 2.48, baseline Glucose 250 Troponin 29.4 Telemetry reviewed, 15 beat run of nonsustained V. tach (4) COPD (chronic obstructive pulmonary disease) COPD type: unspecified COPD Qualified Code(s): J44.9 - Chronic obstructive pulmonary disease, unspecified
[2023-12-30] MEDS: CLOPIDOGREL BISULFATE 75 MG TAB PO SCH (13:13)
[2023-12-30] MEDS: ACETAMINOPHEN 500 MG TAB PO SCH (13:24)
--- NOTE | 2023-12-30 15:17 | CT Scan Report ---
CT SCAN OF THE LEFT SHOULDER WITHOUT IV CONTRAST CLINICAL HISTORY: Trauma. Left shoulder injury. COMPARISON STUDY: Radiographs of the left shoulder dated 12/29/2023. TECHNIQUE: CT scan of the left shoulder is performed from the lower neck to the humeral shaft. Images are reviewed in the axial, sagittal, and coronal planes. IV contrast was not administered for this e xamination. A dose lowering technique was utilized adhering to the principles of ALARA. CT DOSE: 880.78 mGy.cm FINDINGS: The skeletal structures are osteopenic. There is an impacted and comminuted fracture of the left humeral head and neck with small displaced fragments and surrounding hemorrhage. Lipohemarthros is is observed. Near anatomic alignment is maintained. No additional fracture is seen at the shoulder joint. There is no dislocation. The glenohumeral and acromioclavicular joints are preserved. A pacem jeet is seen in the left upper chest wall. There is no left axillary lymphadenopathy. Calcific tendin opathy is observed. Emphysematous change is noted. A calcified granuloma is seen in the left upper lo be. IMPRESSION: Impacted and comminuted fracture of the left humeral head and neck as above. ACT 112: Negative or not required by law. Electronically signed by: Aquiles Wiggins M.D. 12/30/2023 3:15 PM
[2023-12-30] MEDS: carvediloL 12.5 MG TAB PO SCH (17:13)
[2023-12-30] MEDS: TERAZOSIN HCL 5 MG CAP PO SCH (21:02)
[2023-12-31 06:25] LABS: Hematocrit (blood only) 37.3 % (42.0-52.0); Hemoglobin 12.2 g/dl (14.0-18.0); Mean Corpuscular Hemoglobin 30.1 pg (25.0-34.0); Mean Corpuscular Hgb Conc 32.7 g/dL (32.0-36.0); Mean Corpuscular Volume 92.1 fL (80.0-100.0); Mean Platelet Volume 9.7 fL (9.4-12.4); Platelet Count 173 K/uL (130-400); RDW Coefficient of Variation 13.9 % (11.5-14.5); RDW Standard Deviation 47.3 fL (36.4-46.3); Red Blood Count 4.05 M/uL (4.70-6.10); White Blood Count 10.47 K/ul (4.8-10.8)
[2023-12-31 07:02] LABS: BUN Creatinine Ratio 22.5 (10-20); Calcium 9.1 mg/dl (8.6-10.3); Est GFR (African American) 31.5 ml/min; Est GFR (Non-African American) 27.2 ml/min
[2023-12-31] MEDS: oxyCODONE HCL IR 5 MG TAB (IMMEDIATE RELEASE) PO PRN ×2 (08:12→21:48)
--- NOTE | 2023-12-31 08:18 | Orthopedic Consultation ---
Date of Consultation December 31, 2023 Assessment & Plan (1) Proximal humeral fracture: IMPRESSION: Left Proximal Humerus fracture, comminuted, non-displaced, closed, initial visit PLAN: Continue conservative treatment with Sling, will classy monitor, if the fracture stays in its current position, it should heal without surgery. RICE Continue pain control. Continue care per primary service. Follow-up as outpatient in 1-2 weeks for X-rays Present on Admission?: Yes History of Present Illness Reason for Consultation: Left Proximal Humerus fracture Requesting Physician: Shayy Knowles MD Attending Physician: Jackson Wilde DO History of Present Illness 73 yo male, RHD who had a syncopal episode a couple of days ago. He was admitted to hospitalist service. He was complaining of left shoulder pain, x-rays and CT scan were obtained and he was found to have a non-displaced comminuted left proximal humerus fracture. He has been placed in a sling. Allergies Allergy/AdvReac Type Severity Reaction Status Date / Time No Known Allergies Allergy Unknown Verified 12/29/23 21:29 Home Medications Medication Instructions Recorded Confirmed Type albuterol sulfate 90 mcg/actuation 2 puff inhalation Q4H PRN SOB or 09/06/18 12/29/23 History aerosol inhaler Wheezing clopidogrel 75 mg tablet 75 mg PO QAM 09/06/18 12/29/23 History ferrous sulfate 325 mg (65 mg 325 mg PO AMHS 09/06/18 12/29/23 History iron) tablet glipizide 10 mg tablet 10 mg PO QAM 09/06/18 12/29/23 History albuterol sulfate 2.5 mg/3 mL 2.5 mg inhalation Q4H PRN 02/01/20 12/29/23 History (0.083 %) solution for nebulization Shortness Of Breath Or Wheezing pantoprazole 40 mg tablet,delayed 40 mg PO QAM 02/01/20 12/29/23 History release (Protonix) carvedilol 25 mg tablet 25 mg PO BIDM #60 tabs 05/13/23 12/29/23 Rx ascorbic acid (vitamin C) 500 mg 500 mg PO DAILY 08/23/23 12/29/23 History chewable tablet (Vitamin C) cholecalciferol (vitamin D3) 125 125 mcg PO QAM 08/23/23 12/29/23 History mcg (5,000 unit) capsule docusate sodium 100 mg capsule 100 mg PO BID 08/23/23 12/29/23 History duloxetine 60 mg capsule,delayed 60 mg PO QAM 08/23/23 12/29/23 History release fluticasone furoate 200 1 inh inhalation QAM 08/23/23 12/29/23 History mcg-vilanterol 25 mcg/dose inhalation powder (Breo Ellipta) isosorbide mononitrate 30 mg 30 mg PO QAM 08/23/23 12/29/23 History tablet,extended release 24 hr memantine 5 mg tablet 5 mg PO BID 08/23/23 12/29/23 History naloxone 4 mg/actuation nasal spray 4 mg intranasal UD PRN Opioid 08/23/23 12/29/23 History Overdose nitroglycerin 0.4 mg sublingual 0.4 mg sublingual UD PRN Chest Pain 08/23/23 12/29/23 History tablet omega-3 fatty acids 1,000 mg 1,000 mg PO BID 08/23/23 12/29/23 History capsule sennosides 8.6 mg tablet (Senokot) 8.6 mg PO BID 08/23/23 12/29/23 History terazosin 5 mg capsule 5 mg PO HS 08/23/23 12/29/23 History furosemide 40 mg tablet 40 mg PO BID 12/18/23 12/29/23 History oxycodone 10 mg tablet 10 mg PO TID 12/18/23 12/29/23 History potassium chloride 10 mEq 10 meq PO DAILY 12/18/23 12/29/23 History tablet,extended release(part/cryst) atorvastatin 80 mg tablet (Lipitor) 40 mg PO DAILY 12/30/23 12/30/23 History Patient History Medical History Precordial chest pain Hypertensive crisis Bulging disc LUMBAR AREA Osteoarthritis Anemia HX OF Macular degeneration Hypertension Peripheral neuropathy On home oxygen therapy 2L AT HS Myocardial Infarction 2003 (LIFE FLIGHTED TO [place]) Hyperlipidemia GERD (gastroesophageal reflux disease) Surgical History Fusion of spine CERVICAL History of esophagogastroduodenoscopy (EGD) History of colonoscopy History of discectomy CERVICAL H/O eye surgery LASER SURGERY FOR BLEEDING EYE H/O vascular surgery Family History Mother CKD (chronic kidney disease) Social History Smoking Status: Former smoker Tobacco Type: Cigarettes Cigarettes Per Day: 6 -8/day; Second Hand Exposure: Yes; Do You Dip or Chew Tobacco: No; Hx Alcohol Use: No Hx Substance Use: No Preferred Language: Ecuadorean Communication Ability: Effective 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 Sensation to light touch intact distally. Motor to: median, radial, ulnar, AIN,PIN, and Musculocutaneous nerves are intact. ++ TTP proximal humerus. + Swelling about the shoulder. Results & Data Vital Signs (Past 12 Hours) Vital Signs Temp Pulse Pulse Resp BP Pulse Ox O2 Del Method 12/31/23 07:24 36.3 C L 80 18 196/78 H 93 Room Air 12/31/23 07:10 80 12/31/23 03:10 37 C 69 18 136/71 96 Room Air 12/31/23 00:12 78 12/30/23 23:28 36.5 C 71 18 168/71 H 95 Room Air Laboratory Results 12/31/23 12/30/23 12/30/23 Range/Units 05:50 19:58 17:00 WBC 10.47 (4.8-10.8) K/ul RBC 4.05 L (4.70-6.10) M/uL Hgb 12.2 L (14.0-18.0) g/dl Hct 37.3 L (42.0-52.0) % MCV 92.1 (80.0-100.0) fL MCH 30.1 (25.0-34.0) pg MCHC 32.7 (32.0-36.0) g/dL RDW Std Deviation 47.3 H (36.4-46.3) fL RDW Coeff of David 13.9 (11.5-14.5) % Plt Count 173 (130-400) K/uL MPV 9.7 (9.4-12.4) fL Sodium 137 (136-145) mmol/L Potassium 4.0 (3.5-5.1) mmol/L Chloride 102 (98-107) mmol/L Carbon Dioxide 25 (21-32) mmol/L Anion Gap 10 (3-11) BUN 52 H (6-23) mg/dl Creatinine 2.31 H (0.6-1.4) mg/dl Est Cr Clr Drug Dosing 28.0 ml/min Est GFR ( Amer) 31.5 ml/min Est GFR (Non-Af Amer) 27.2 ml/min BUN/Creatinine Ratio 22.5 H (10-20) Glucose 164 H (70-99(Fasting)) mg/dl POC Glucose 133 H 85 (70-99) mg/dl Calcium 9.1 (8.6-10.3) mg/dl 12/30/23 12/30/23 Range/Units 12:12 08:18 WBC (4.8-10.8) K/ul RBC (4.70-6.10) M/uL Hgb (14.0-18.0) g/dl Hct (42.0-52.0) % MCV (80.0-100.0) fL MCH (25.0-34.0) pg MCHC (32.0-36.0) g/dL RDW Std Deviation (36.4-46.3) fL RDW Coeff of David (11.5-14.5) % Plt Count (130-400) K/uL MPV (9.4-12.4) fL Sodium (136-145) mmol/L Potassium (3.5-5.1) mmol/L Chloride (98-107) mmol/L Carbon Dioxide (21-32) mmol/L Anion Gap (3-11) BUN (6-23) mg/dl Creatinine (0.6-1.4) mg/dl Est Cr Clr Drug Dosing ml/min Est GFR ( Amer) ml/min Est GFR (Non-Af Amer) ml/min BUN/Creatinine Ratio (10-20) Glucose (70-99(Fasting)) mg/dl POC Glucose 186 H 136 H (70-99) mg/dl Calcium (8.6-10.3) mg/dl Diagnostic Findings CT SCAN OF THE LEFT SHOULDER WITHOUT IV CONTRAST CLINICAL HISTORY: Trauma. Left shoulder injury. COMPARISON STUDY: Radiographs of the left shoulder dated 12/29/2023. TECHNIQUE: CT scan of the left shoulder is performed from the lower neck to the humeral shaft. Images are reviewed in the axial, sagittal, and coronal planes. IV contrast was not administered for this examination. A dose lowering technique was utilized adhering to the principles of ALARA. CT DOSE: 880.78 mGy.cm FINDINGS: The skeletal structures are osteopenic. There is an impacted and comminuted fracture of the left humeral head and neck with small displaced fragments and surrounding hemorrhage. Lipohemarthrosis is observed. Near anatomic alignment is maintained. No additional fracture is seen at the shoulder joint. There is no dislocation. The glenohumeral and acromioclavicular joints are preserved. A pacemaker is seen in the left upper chest wall. There is no left axillary lymphadenopathy. Calcific tendinopathy is observed. Emphysematous change is noted. A calcified granuloma is seen in the left upper lobe. IMPRESSION: Impacted and comminuted fracture of the left humeral head and neck as above. ACT 112: Negative or not required by law. Electronically signed by: Aquiles Wiggins M.D. 12/30/2023 3:15 PM XR shoulder LT min 2V routine CLINICAL HISTORY: left shoulder pain fall TECHNIQUE: 3 views of the right shoulder were obtained. Comparison: None available at the time of this dictation. FINDINGS: There is no evidence of an acute fracture. Joint spaces are well-preserved. The overlying soft tissues are unremarkable. The visualized portions of the lungs are clear. IMPRESSION: No evidence of acute osseous injury. ACT 112: Negative or not required by law. Electronically signed by: Juan Diego Parsons M.D. 12/29/2023 6:08 PM
[2023-12-31] MEDS ORDERED: oxyCODONE HCL IR 5 MG TAB (IMMEDIATE RELEASE) PO PRN (12:19)
[2023-12-31] MEDS ORDERED: bisacodyL 10 MG SUPP PR PRN (12:23)
--- NOTE | 2023-12-31 12:23 | Hospitalist Progress Note ---
Date of Service December 31, 2023 Assessment & Plan (1) Recurrent syncope: (2) Nonsustained ventricular tachycardia: (3) Comminuted left humeral fracture: (4) Chronic systolic congestive heart failure: (5) COPD (chronic obstructive pulmonary disease): (6) Diabetes mellitus, type 2: (7) CKD (chronic kidney disease) stage 3, GFR 30-59 ml/min: (8) Pulmonary hypertension: (9) Sick sinus syndrome with tachycardia: (10) Stenosis of left subclavian artery: (11) Vascular dementia: Plan Patient presents with recurrent syncope and fall sustaining a left shoulder fracture. Reviewed orthopedic consultation, continue immobilization, follow-up in office in 1 to 2 weeks with x-rays Patient's pain uncontrolled, increase oxycodone Bowel regimen Therapies Continued increased dose of Coreg for blood pressure and rhythm control Case management for need for placement now with arm immobilization Admission and Anticipated Discharge Date Admission Date: December 29, 2023 Subjective Patient still having significant shoulder pain. Medications only helped slightly. Physical Exam Physical Exam: Constitutional: Alert, sitting on edge of bed HEENT: Mucous membranes moist. Lungs: Clear to auscultation, decreased, no wheezes rales or rhonchi CV: S1-S2, regular Abdomen: Soft, nontender, nondistended Extremities: No significant edema Musculoskeletal: Left upper extremity in sling immobilizer, tenderness to palpation Neuro: No focal deficits Psych: Cooperative, normal mood Results & Data Results & Data Vital Signs (Past 12 Hours) Vital Signs Temp Pulse Pulse Pulse Resp BP Pulse Ox 12/31/23 11:36 36.4 C L 80 18 165/69 H 93 12/31/23 09:20 80 109/65 12/31/23 07:45 12/31/23 07:24 36.3 C L 80 18 196/78 H 93 12/31/23 07:10 80 12/31/23 03:10 37 C 69 18 136/71 96 O2 Del Method 12/31/23 11:36 Room Air 12/31/23 09:20 12/31/23 07:45 Room Air 12/31/23 07:24 Room Air 12/31/23 07:10 12/31/23 03:10 Room Air Diagnostic Findings Reviewed imaging, laboratory and diagnostic studies. Pertinent findings as below. Creatinine 2.3, stable Glucoses reviewed Reviewed to mental maturity with nursing staff, no recurrent runs of SVT (5) COPD (chronic obstructive pulmonary disease) COPD type: unspecified COPD Qualified Code(s): J44.9 - Chronic obstructive pulmonary disease, unspecified
[2023-12-31] MEDS: POLYETHYLENE (MIRALAX) 17 GM PACK PO SCH (13:21)
[2023-12-31] MEDS: CARBOHYDRATES FOR HYPOGLYCEMIA PO PRN (17:02)
--- NOTE | 2024-01-01 00:52 | Communication Note ---
Date of Service: January 01, 2024 Made aware by RN of uncontrolled blood pressure. SBP 160-180s since noontime . Heart rate 60 to 80s Patient asymptomatic as per RN. AP Hypertensive urgency Add amlodipine to regimen Will relay to AM provider.
[2024-01-01] MEDS: amLODIPine BESYLATE 5 MG TAB PO SCH ×2 (01:17→09:44)
[2024-01-01] MEDS: carvediloL 12.5 MG TAB PO ONE (04:19)
[2024-01-01] MEDS: hydrALAZINE HCL 20 MG/ML VIAL IV STA (06:42)
[2024-01-01] MEDS: amLODIPine BESYLATE 5 MG TAB PO STA (07:34)
[2024-01-01] MEDS: carvediloL 6.25 MG TAB PO SCH (09:43)
--- NOTE | 2024-01-01 13:58 | Discharge Summary ---
Discharge Summary Date of Service January 01, 2024 Principal Dx & Hospital Course #1 = Principal Diagnosis (1) Recurrent syncope: (2) Nonsustained ventricular tachycardia: (3) Comminuted left humeral fracture: (4) Chronic systolic congestive heart failure: (5) COPD (chronic obstructive pulmonary disease): (6) Diabetes mellitus, type 2: (7) CKD (chronic kidney disease) stage 3, GFR 30-59 ml/min: (8) Pulmonary hypertension: (9) Sick sinus syndrome with tachycardia: (10) Stenosis of left subclavian artery: (11) Vascular dementia: Plan Patient was admitted to the hospital.His pacemaker was interrogated, no arrhythmias were detected. His diuretics and antihypertensive medications were initially held. The following day patient continued to have severe left shoulder pain. Initial x-ray was negative for fracture. Follow-up CT of the shoulder was positive for fracture. Orthopedic consultation was obtained. Recommended immobilization and follow-up in their office. Pain medications were ordered for control. Gradually his antihypertensive medications were restarted. He had no further lightheadedness, dizziness. No presyncopal or syncopal symptomatology here in the hospital. He did have some occasional mild hypoglycemic episodes. He was only receiving insulin scale to manage his diabetes. This may have been occurring at home. His glipizide dose was decreased at discharge. His weight remains stable. He was seen by therapies. He did have 1 brief short run of nonsustained V. tach. This was controlled with titrating his beta-victor hugo up to his home dose. On the day of discharge his pain was controlled. Blood pressure was improving. He could continue his care and rehabilitation at [facility]. He will follow-up with orthopedics outpatient. Family is at the bedside and agreeable to the plan of care. Notes For Next Care Provider All blood pressure should be taken in right upper extremity Medication Changes From Visit Oxycodone dose increase for pain control of fracture Lasix dose reduced Admission HPI Per Admitting Provider Mr. Boss is a 73 year old male that presents to the ED after experiencing a fall. He reports that he was walking to the bathroom to go to the bathroom and felt a little dizziy and fell. He did hit the back of his head, but does remember falling. He denies LOC. He does take Plavix. Patient had a recent admission from 12/17-12/19 for which he was admitted for SOB and left-sided chest pain that improved with taking Nitro. He was discharged home on the same medications without intervention. Since his return home, his caregiver indicated that he has had more cognitive decline. Previous admission Palliative medicine was consulted given complexity of numerous chronic medical conditions; given recurrent hospitalizations and HfrEF and advancing dementia, would consider re- involvement of Palliative Medicine. Leukocytosis 17.96, Procalcitonin negative, lactate normal, VBG: pH7.30, Co261, HCO3 30, creatinine 2.52 (baseline 1.86-2.2) no transaminitis, glucose 189, and otherwise electrolytes normal.Mg+ 1.9. BNP 160; most recent admit > 2000. ETOH level 11 but he does deny any ETOH use. Head CT with negative for ICH, SDH or midline shift. CXR negative and cervical spine CT revealed degenerative changes. Most recent ECHO 10/05/23: LVEF 38% with LV wall concentric. mild AR, moderate MR, mild TR and severe LVH. He has an extensive PMH that includes H/O AMI s/p stent placement, DM2, TBS s/p PM placement combined chronic CHF, HTN, HLD, MGUS, chronic pain syndrome, vascular dementia, CKD, NICM, chronic respiratory failure, Fe+ deficiency anemia, BPH and depression. Currently, Patient is AAOx4 and able to tell me where he is, he denies MAYO, dizziness, SOB, chest pain, abdominal pain or tenderness, dysuria, constipation/diarrhea. On examination, he is euvolemic, lungs are CTA without adventitious lung sounds, paced on monitor. He reports taking his medications this morning and he states that he eats and drinks adequately; however, I am not sure that this individual is a reliable historian given his vascular dementia. Despite him being able to have conversation in a meaningful manner, I am not certain he would be reliable for decision making. Patient will be admitted for further evaluation and management. Please see A/P for further details. Admission Exam Per Admitting Provider See H&P Discharge Exam Constitutional: Alert HEENT: Mucous membranes moist. Lungs: Clear to auscultation, decreased, no wheezes rales or rhonchi CV: S1-S2, regular Abdomen: Soft, nontender, nondistended Extremities: No significant edema Neuro: No focal deficits Musculoskeletal: Left upper extremity in sling immobilizer Psych: Cooperative, normal mood, short and long-term memory deficits Updated Medication List Medication Instructions Recorded Confirmed Type albuterol sulfate 90 mcg/actuation 2 puff inhalation Q4H PRN SOB or 09/06/18 12/29/23 History aerosol inhaler Wheezing clopidogrel 75 mg tablet 75 mg PO QAM 09/06/18 12/29/23 History ferrous sulfate 325 mg (65 mg 325 mg PO AMHS 09/06/18 12/29/23 History iron) tablet glipizide 10 mg tablet 10 mg PO QAM 09/06/18 12/29/23 History albuterol sulfate 2.5 mg/3 mL 2.5 mg inhalation Q4H PRN 02/01/20 12/29/23 History (0.083 %) solution for nebulization Shortness Of Breath Or Wheezing pantoprazole 40 mg tablet,delayed 40 mg PO QAM 02/01/20 12/29/23 History release (Protonix) carvedilol 25 mg tablet 25 mg PO BIDM #60 tabs 05/13/23 12/29/23 Rx ascorbic acid (vitamin C) 500 mg 500 mg PO DAILY 08/23/23 12/29/23 History chewable tablet (Vitamin C) cholecalciferol (vitamin D3) 125 125 mcg PO QAM 08/23/23 12/29/23 History mcg (5,000 unit) capsule docusate sodium 100 mg capsule 100 mg PO BID 08/23/23 12/29/23 History duloxetine 60 mg capsule,delayed 60 mg PO QAM 08/23/23 12/29/23 History release fluticasone furoate 200 1 inh inhalation QAM 08/23/23 12/29/23 History mcg-vilanterol 25 mcg/dose inhalation powder (Breo Ellipta) isosorbide mononitrate 30 mg 30 mg PO QAM 08/23/23 12/29/23 History tablet,extended release 24 hr memantine 5 mg tablet 5 mg PO BID 08/23/23 12/29/23 History naloxone 4 mg/actuation nasal spray 4 mg intranasal UD PRN Opioid 08/23/23 12/29/23 History Overdose nitroglycerin 0.4 mg sublingual 0.4 mg sublingual UD PRN Chest Pain 08/23/23 12/29/23 History tablet omega-3 fatty acids 1,000 mg 1,000 mg PO BID 08/23/23 12/29/23 History capsule sennosides 8.6 mg tablet (Senokot) 8.6 mg PO BID 08/23/23 12/29/23 History terazosin 5 mg capsule 5 mg PO HS 08/23/23 12/29/23 History furosemide 40 mg tablet 40 mg PO BID 12/18/23 12/29/23 History oxycodone 10 mg tablet 10 mg PO TID 12/18/23 12/29/23 History potassium chloride 10 mEq 10 meq PO DAILY 12/18/23 12/29/23 History tablet,extended release(part/cryst) atorvastatin 80 mg tablet (Lipitor) 40 mg PO DAILY 12/30/23 12/30/23 History acetaminophen 500 mg tablet 1,000 mg (2 x 500 mg) PO TID 30 01/01/24 Rx (Tylenol Extra Strength) days #180 tabs amlodipine 5 mg tablet (Norvasc) 5 mg PO QAM #30 tabs 01/01/24 Rx furosemide 40 mg tablet (Lasix) 40 mg PO DAILY #30 tabs 01/01/24 Rx glipizide 5 mg tablet 5 mg PO DAILY #30 tabs 01/01/24 Rx oxycodone 5 mg tablet 15 mg (3 x 5 mg) PO Q4H PRN pain 01/01/24 Rx #16 tabs polyethylene glycol 3350 17 gram 17 g PO DAILY #30 ea 01/01/24 Rx oral powder packet (Miralax) Hospital Stay Data Consultations 12/29/23 20:20 ED Decision to Admit Stat 12/30/23 15:36 Consult Orthopedic Surgery Routine Diagnostic Imagining Performed Reviewed imaging, laboratory and diagnostic studies. Pertinent findings as below. Pacer interrogation no arrhythmias CT of shoulder shows a closed humeral fracture Glucoses 163 CT cervical spine wo con Stat CT head/brain wo con Stat 12/30/23 06:00 CT head/brain wo con Urgent 12/30/23 13:01 CT shoulder LT wo con Routine Pending Results Patient Have Any Pending Studies at Discharge: No Discharge Instructions Given to Patient (Per Discharging Provider) Follow-up with orthopedics as coordinated through their office. May need additional monitoring/adjustments of diabetes care May need additional titration of blood pressure medications Total Time Total Time Spent Total Time Spent (In Minutes): 46
[2024-01-01 15:14] VITALS: BP 172/71; PULSE 80; RESP 20; TEMP 97.5; O2SAT 93
[2024-01-01] MEDS ORDERED: carvediloL 12.5 MG TAB PO SCH (17:00)
[2024-01-02] MEDS ORDERED: amLODIPine BESYLATE 5 MG TAB PO SCH (09:00)
--- NOTE | 2024-01-03 15:41 | Electrocardiogram Report ---
Test Reason : Blood Pressure : */* mmHG Vent. Rate : 80 BPM Atrial Rate : 80 BPM P-R Int : 370 ms QRS Dur : 136 ms QT Int : 430 ms P-R-T Axes : * -72 114 degrees QTcB Int : 495 ms Atrial-paced rhythm with prolonged AV conduction Left axis deviation Non-specific intra-ventricular conduction block Cannot rule out Septal infarct , age undetermined T wave abnormality, consider lateral ischemia Abnormal ECG When compared with ECG of 19-Dec-2023 08:48, QRS axis Shifted left T wave inversion no longer evident in Inferior leads T wave inversion less evident in Lateral leads Confirmed by Batsheva David ([id number]) on 12/30/2023 1:39:30 PM Referred By: REFERRED SELF Confirmed By: Batsheva David
== END 2024-01-01 17:28 ==
LOC: ED 17:22 → 2N 17:22